=== PATIENT | male | born 1950 | race Caucasian/White ===

== ENCOUNTER 2024-02-13 06:58 | Observation (INO) ==
[2024-02-13 07:25] LABS: Basophils # (auto) 0.05 K/uL (0.00-0.20); Basophils % (auto) 0.7 %; Eosinophils # (auto) 0.28 K/uL (0.00-0.50); Eosinophils % (auto) 3.7 %; Hematocrit (blood only) 41.3 % (42.0-52.0); Hemoglobin 14.5 g/dl (14.0-18.0); Immature Granulocytes # (auto) 0.01 K/uL (0.01-0.20); Immature Granulocytes % (auto) 0.1 %; Lymphocytes # (auto) 3.29 K/uL (1.20-3.40); Lymphocytes % (auto) 43.4 %; Mean Corpuscular Hemoglobin 33.5 pg (25.0-34.0); Mean Corpuscular Hgb Conc 35.1 g/dL (32.0-36.0); Mean Corpuscular Volume 95.4 fL (80.0-100.0); Mean Platelet Volume 11.3 fL (9.4-12.4); Monocytes # (auto) 0.78 K/uL (0.11-0.59); Monocytes % (auto) 10.3 %; Neutrophils # (auto) 3.17 K/uL (1.40-6.50); Neutrophils % (auto) 41.8 %; Platelet Count 217 K/uL (130-400); RDW Coefficient of Variation 12.1 % (11.5-14.5); RDW Standard Deviation 42.1 fL (36.4-46.3); Red Blood Count 4.33 M/uL (4.70-6.10); White Blood Count 7.58 K/ul (4.8-10.8)
[2024-02-13 07:27] LABS: iSTAT Creatinine 0.9 mg/dl (0.6-1.3); iSTAT Hemoglobin 13.3 g/dl (14.0-18.0); iSTAT Ionized Calcium 1.21 mmol/l (1.12-1.32); iSTAT Potassium 3.9 mmol/L (3.3-5.0)
--- NOTE | 2024-02-13 07:30 | Emergency Department Note ---
Impression & Plan Headache, Numbness and tingling of right side of face ED Provider Note Provider: Mukesh Og MD DATE OF SERVICE: 02/13/2024 CHIEF COMPLAINT: Headache, right tongue numbness HISTORY OF PRESENT ILLNESS: Patient is a 73-year-old gentleman history of hypertension, hyperlipidemia, prostate issues presenting here today stating he went to bed normal around 10 PM last night. Woke around 530 when his got out of bed complaining of significant severe headache. Does not normally get headaches. States that it often experience of numbness prickly to the right face and right tongue. Denies significant numbness in the extremities otherwise and seems to be speaking okay. [place] a little bit lightheaded. Given some Tylenol by and symptoms persisted and EMS was activated. Patient states that headache is 3 out of 10 now improving. Still with numbness however. Moving extremities okay and denies history of CVA. Denies significant dizziness currently or vision change. Denies neck pain. No syncope or trauma reported. He is on 81 mg aspirin PAST MEDICAL HISTORY: As noted above MEDICATIONS: Reviewed home medications includes aspirin SOCIAL HISTORY: PHYSICAL EXAM: GENERAL: alert and oriented in no acute distress on stretcher Head: normocephalic and atraumatic EYES: No injection, discharge or icterus. PERRL, EOMI. NECK: Trachea midline. Supple. ENT: Mucous membranes pink and moist. Pharynx without erythema or exudate. LUNGS: Airway patent. No retractions. Breath sounds clear with good air entry bilaterally. HEART: Regular bradycardic rate and rhythm. No chest wall tenderness ABDOMEN: Soft and non-tender, without guarding or rebound. SKIN: Acyanotic, warm, dry, without rashes EXTREMITIES: Without swelling, tenderness or deformity NEUROLOGICAL: No aphasia. No facial droop or slurred speech. Tongue midline. Does endorse some decrease sensation of the right yazidi cheek and jawline but has intact motor function there on exam. Also reports some decree sensation to right lateral tongue. Normal strength and tone in the extremities. Sensation to gross touch normal. Ambulatory. EK bpm sinus bradycardia. No acute ST segment elevation or depression with a QTc of 420. CONTINUOUS CARDIAC MONITORING: was ordered and showed a heart rate of 50s bpm in sinus bradycardia Patient's laboratory studies and imaging reviewed. Differential includes Infection, dehydration, metabolic abnormality, hypo/hyperglycemia, electrolyte disturbance, anemia, hypoxia, cardiac sources, intracerebral event, toxicologic, neurologic, as well as other pathologies. IMPRESSION/MEDICAL DECISION MAKING: Patient outside the window for thrombolytics given last known well was 10 PM last night. Onset of headache acutely this morning. Is improving with some Tylenol. Question occult CVA. Does report numbness of the right face and right tongue but does not have significant motor weakness on exam. Seems atypical for Banegas's palsy. Not having other however findings of numbness or weakness in the extremities. Sent for CT scans and CT angiograms. No other infectious symptoms reported or fever and the patient's without leukocytosis or anemia on blood work here. No significant electrolyte abnormality or signs of acute renal dysfunction. No findings of hepatitis or acute heart issue with normal troponin. Full dose aspirin ordered. CT of the head per radiology without evidence of acute intracranial hemorrhage mass effect noted. CT angiograms per radiology with some atherosclerosis of the carotids without high-grade stenosis or occlusion but a high-grade stenosis of the origin of vertebral arteries and age-indeterminate occlusion of the V4 right vertebral artery. Reassessment patient states his headache and numbness have resolved. Discussed with the patient finding given his headache and numbness to discussed with him staying in the hospital for further stroke evaluation and possible TIA. Again outside the time window for TNK/tPA and no LVO. Hospitalist team contacted. DIAGNOSIS: Facial numbness, headache DISPOSITION: Hospitalist will evaluate Patient was agreeable with this plan. Past Med/Surg History Problem List (Updated 02/13/24 @ 13:34 by Mukesh Og M.D.) Prediabetes BPH (benign prostatic hyperplasia) Hyperlipidemia Hypertension Headache (Acute) Numbness and tingling of right side of face (Acute) COVID-19 (Acute) Sensorineural hearing loss of both ears Encounter for pre-operative examination Medical History Sciatica Osteoarthritis DDD (degenerative disc disease) Surgical History S/P eye surgery right eye - muscle tightened S/P cataract extraction and insertion of intraocular lens bilateral History of tooth extraction S/P wrist surgery left History of herniorrhaphy Right inguinal hernia repair History of heart artery stent x1 LAD. placed 21 years ago History of cardiac cath 21 years ago - cp - x 1 stent LAD - follows w/ dr. thomas Family History Other Cancer Coronary heart disease Diabetes Hypertension Social History Smoking Status: Never smoker Second Hand Exposure: No; Do You Dip or Chew Tobacco: No; Tobacco Cessation Education Requested by Patient: No Hx Alcohol Use: No Hx Substance Use: No Preferred Language: Wolof Communication Ability: Effective Cellular Equipment Installer Required: No Beliefs That Will Affect Care: None Current Living Situation: Spouse Other Information That Helps Us Care for You: No Feels Safe at Home: Yes Safety Concerns: Feels Safe At This Time Assistive Devices: None Allergies Allergies Allergy/AdvReac Type Severity Reaction Status Date / Time No Known Allergies Allergy Verified 06/11/18 09:39 Home Meds Home Medications Medication Instructions Recorded Confirmed aspirin 81 mg tablet,delayed 81 mg PO QPM 05/27/18 02/13/24 release atorvastatin 80 mg tablet 80 mg PO QPM 05/27/18 02/13/24 dutasteride 0.5 mg capsule 0.5 mg PO QPM 05/27/18 02/13/24 (Avodart) metoprolol succinate 50 mg 50 mg PO QPM 05/27/18 02/13/24 tablet,extended release 24 hr losartan 100 mg tablet 100 mg PO QAM 02/13/24 02/13/24 sildenafil (pulm.hypertension) 20 See Rx Instructions .Route .COMPLEX 02/13/24 02/13/24 mg tablet Results & Data (ED) Vital Signs Vital Signs - 24 hr 02/13/24 07:05 02/13/24 07:13 02/13/24 07:42 Temperature 36.4 C L Temperature Source Oral Pulse Rate 52 L 55 L Pulse Rhythm Regular Pulse Strength Normal Respiratory Rate 18 Respiratory Effort / Characteristics Non-Labored Respiratory Depth Normal Respiratory Pattern Regular Blood Pressure 183/75 H Blood Pressure Mean 111 Blood Pressure Position Lying Pulse Oximetry 95 97 Oxygen Delivery Method Room Air Room Air Oxygen Flow Rate 0 Sepsis Recent Fever Within 48 Hours No Sepsis New/Unexplained Change in Mental Status N/A Sepsis Action Taken by Nursing No Action Required 02/13/24 08:30 Temperature Temperature Source Pulse Rate 58 L Pulse Rhythm Pulse Strength Respiratory Rate 15 Respiratory Effort / Characteristics Respiratory Depth Respiratory Pattern Blood Pressure 131/69 Blood Pressure Mean 89 Blood Pressure Position Pulse Oximetry 95 Oxygen Delivery Method Oxygen Flow Rate Sepsis Recent Fever Within 48 Hours Sepsis New/Unexplained Change in Mental Status Sepsis Action Taken by Nursing Laboratory Data 02/13/24 07:10 02/13/24 07:10 Lab Results 02/13/24 02/13/24 02/13/24 Range/Units 07:10 07:16 07:21 WBC 7.58 (4.8-10.8) K/ul RBC 4.33 L (4.70-6.10) M/uL Hgb 14.5 (14.0-18.0) g/dl POC Hgb 13.3 L (14.0-18.0) g/dl Hct 41.3 L (42.0-52.0) % POC Hct 39 L (42-52) % MCV 95.4 (80.0-100.0) fL MCH 33.5 (25.0-34.0) pg MCHC 35.1 (32.0-36.0) g/dL RDW Std Deviation 42.1 (36.4-46.3) fL RDW Coeff of Trevor 12.1 (11.5-14.5) % Plt Count 217 (130-400) K/uL MPV 11.3 (9.4-12.4) fL Immature Gran % (Auto) 0.1 % Neut % (Auto) 41.8 % Lymph % (Auto) 43.4 % [place] % (Auto) 10.3 % Eos % (Auto) 3.7 % Baso % (Auto) 0.7 % Neut # (Auto) 3.17 (1.40-6.50) K/uL Lymph # (Auto) 3.29 (1.20-3.40) K/uL [place] # (Auto) 0.78 H (0.11-0.59) K/uL Eos # (Auto) 0.28 (0.00-0.50) K/uL Baso # (Auto) 0.05 (0.00-0.20) K/uL Immature Gran # (Auto) 0.01 (0.01-0.20) K/uL PT 10.4 (9.0-12.0) Seconds INR 1.0 (0.9-1.1) APTT 23 (21-31) Seconds PTT Ratio 0.9 POC Sodium 142 (135-144) mmol/L Sodium 141 (136-145) mmol/L POC Potassium 3.9 (3.3-5.0) mmol/L Potassium 4.0 (3.5-5.1) mmol/L POC Chloride 108 (101-112) mmol/L Chloride 110 H (98-107) mmol/L Carbon Dioxide 25 (21-32) mmol/L POC Total CO2 23 L (24-31) mmol/L Anion Gap 6 (3-11) POC Anion Gap 15.0 L (16-25) mmol/L POC BUN 26 H (7-18) mg/dl BUN 29 H (6-23) mg/dl Creatinine 0.91 (0.6-1.4) mg/dl POC Creatinine 0.9 (0.6-1.3) mg/dl Est Cr Clr Drug Dosing 65.2 ml/min Est GFR ( Amer) 96.6 ml/min Est GFR (Non-Af Amer) 83.3 ml/min BUN/Creatinine Ratio 31.9 H (10-20) Glucose 123 H (70-99(Fasting)) mg/dl POC Glucose 130 H (70-99) mg/dl POC Glucose (other) 123 H (70-99) mg/dl Calcium 9.1 (8.6-10.3) mg/dl POC Ioniz Calcium [place] 1.21 (1.12-1.32) mmol/l Magnesium 2.3 (1.7-2.4) mg/dl Total Bilirubin 0.9 (0.2-1.0) mg/dl AST 18 (13-39) U/L ALT 16 (7-52) U/L Alkaline Phosphatase 71 (34-104) U/L Troponin I High Sens 3.6 (0-20) pg/ml Total Protein 6.8 (6.0-8.3) gm/dl Albumin 4.1 (3.4-5.0) gm/dl Globulin 2.7 (2.5-4.0) gm/dl Albumin/Globulin Ratio 1.5 (0.9-2) Administered Medications Enoxaparin Sodium (Enoxaparin Inj 40 Mg/0.4 Ml Syr) 40 mg SQ Q24H LALITO Stop: 03/14/24 10:59 Last Admin: 02/13/24 11:33 Dose: 40 mg Documented By: PRABHU Discontinued Medications Aspirin (Aspirin Chew 324 Mg) 324 mg PO NOW STA Stop: 02/13/24 08:03 Last Admin: 02/13/24 08:05 Dose: 324 mg Documented By: REZA Clopidogrel Bisulfate (Clopidogrel Bisulfate 75 Mg Tab) 75 mg PO NOW ONE Stop: 02/13/24 08:24 Last Admin: 02/13/24 09:17 Dose: 75 mg Documented By: REZA Gadobutrol (Gadobutrol 65ml Vial) 6.5 ml IV ONCE ONE Stop: 02/13/24 10:54 Last Admin: 02/13/24 10:54 Dose: 6.5 ml Documented By: JESSICA Ioversol (Optiray 320 125ml) 112 ml IV ONCE ONE Stop: 02/13/24 07:35 Last Admin: 02/13/24 07:35 Dose: 112 ml Documented By: KIAN Imaging Data Radiologist's Impression: Head CT 02/13/24 07:05 CT SCAN OF THE BRAIN WITHOUT IV CONTRAST CLINICAL HISTORY: Neurological deficit. Stroke like symptoms. COMPARISON STUDY: No priors. TECHNIQUE: Unenhanced axial CT scan of the brain is performed from the vertex to the skull base. A dose lowering technique was utilized adhering to the principles of ALARA. FINDINGS: Brain parenchyma: There is age-related involutional change noting mild subcortical and periventricular microangiopathic disease. There is no hemorrhage, mass effect, or evidence of acute territorial ischemia by CT criteria. Day-white matter differentiation is preserved. No extra-axial fluid collection is seen. Ventricles, sulci, cisterns: Prominent secondary to involutional change. Intracranial vasculature: There is atherosclerotic calcification of the cavernous carotid and vertebral arteries. Calvarium: Unremarkable. Sinuses and mastoids: There is mild mucosal thickening within the maxillary antra. The remaining paranasal sinuses are clear. The mastoid air cells are well pneumatized. Orbits: The bony orbits are grossly intact. IMPRESSION: There is no hemorrhage, mass effect, or evidence of acute territorial ischemia by CT criteria. ACT 112: Negative or not required by law. Electronically signed by: Leonardo Aguilera M.D. 02/13/2024 7:56 AM Head CTA 02/13/24 07:05 CT angio head w con, CT angio neck with con CLINICAL HISTORY: 73 years-old Male with neuro deficit, acute stroke suspected. Acute strokelike symptoms COMPARISON STUDY: Head CT of same day TECHNIQUE: Following the IV administration of 112 cc of Optiray, CT angiogram of the head and neck was performed from the aortic arch to the skull apex. Images are reviewed in the axial, sagittal, and coronal planes. 3-D MIPS images are created and assessed. IV contrast was administered without complication. All measurements were obtained according to NASCET criteria. A dose lowering technique was utilized adhering to the principles of ALARA. CT DOSE: 1158.96 mGy.cm FINDINGS: CT ANGIOGRAM OF THE HEAD AND NECK: Three-vessel morphology of the thoracic aortic arch. Patency of the innominate and image subclavian arteries. Patent common carotid arteries. There is a least moderate atherosclerosis of the carotid bulbs and proximal cervical segments of the internal carotid arteries, right greater than left. Moderate atherosclerotic plaque of the cavernous, clinoid and supraclinoid segments without high-grade stenosis. Developmentally diminutive left A1 segment. No high-grade stenosis. The bilateral anterior and middle cerebral arteries are also patent. High-grade stenosis is noted at the origin of the dominant left vertebral artery secondary to calcified plaque. High-grade stenosis versus near occlusion involves the proximal few centimeters at the origin of the right vertebral artery. There is additional high-grade stenosis within the proximal V2 segment with occlusion of the V4 segment. The basilar and posterior cerebral arteries are patent. Dural venous sinuses appear patent. Lung apices are clear without pneumothorax. No acute fracture. Unremarkable soft tissues. Volume loss with opacification of the right maxillary sinus compatible with chronic sinus disease. IMPRESSION: 1. High grade stenoses at the origins of the vertebral arteries with age- indeterminate occlusion of the V4 segment right vertebral artery. 2. Moderate atherosclerosis of the internal carotid arteries without high-grade stenosis or occlusion. 3. No aneurysm or dissection. ACT 112: Negative or not required by law. The above report was generated using voice recognition software. It may contain grammatical, syntax or spelling errors. Electronically signed by: Tylor Whipple M.D. 02/13/2024 8:24 AM Neck CTA 02/13/24 07:05 CT angio head w con, CT angio neck with con CLINICAL HISTORY: 73 years-old Male with neuro deficit, acute stroke suspected. Acute strokelike symptoms COMPARISON STUDY: Head CT of same day TECHNIQUE: Following the IV administration of 112 cc of Optiray, CT angiogram of the head and neck was performed from the aortic arch to the skull apex. Images are reviewed in the axial, sagittal, and coronal planes. 3-D MIPS images are created and assessed. IV contrast was administered without complication. All measurements were obtained according to NASCET criteria. A dose lowering technique was utilized adhering to the principles of ALARA. CT DOSE: 1158.96 mGy.cm FINDINGS: CT ANGIOGRAM OF THE HEAD AND NECK: Three-vessel morphology of the thoracic aortic arch. Patency of the innominate and image subclavian arteries. Patent common carotid arteries. There is a least moderate atherosclerosis of the carotid bulbs and proximal cervical segments of the internal carotid arteries, right greater than left. Moderate atherosclerotic plaque of the cavernous, clinoid and supraclinoid segments without high-grade stenosis. Developmentally diminutive left A1 segment. No high-grade stenosis. The bilateral anterior and middle cerebral arteries are also patent. High-grade stenosis is noted at the origin of the dominant left vertebral artery secondary to calcified plaque. High-grade stenosis versus near occlusion involves the proximal few centimeters at the origin of the right vertebral artery. There is additional high-grade stenosis within the proximal V2 segment with occlusion of the V4 segment. The basilar and posterior cerebral arteries are patent. Dural venous sinuses appear patent. Lung apices are clear without pneumothorax. No acute fracture. Unremarkable soft tissues. Volume loss with opacification of the right maxillary sinus compatible with chronic sinus disease. IMPRESSION: 1. High grade stenoses at the origins of the vertebral arteries with age- indeterminate occlusion of the V4 segment right vertebral artery. 2. Moderate atherosclerosis of the internal carotid arteries without high-grade stenosis or occlusion. 3. No aneurysm or dissection. ACT 112: Negative or not required by law. The above report was generated using voice recognition software. It may contain grammatical, syntax or spelling errors. Electronically signed by: Tylor Whipple M.D. 02/13/2024 8:24 AM Discharge Plan Visit Data Chief Complaint: Stroke/CVA Symptoms ED Provider: Mukesh Og Discharge Problem: Headache, Numbness and tingling of right side of face Patient Disposition: Admitted As Inpatient Discharge Instructions Interventions: ED Discharge Assessment Last Done: 02/13/24 11:39
[2024-02-13] MEDS: OPTIRAY 320 125ml IV ONE (07:35)
[2024-02-13 07:45] LABS: Albumin Globulin Ratio 1.5 (0.9-2); Albumin Level 4.1 gm/dl (3.4-5.0); BUN Creatinine Ratio 31.9 (10-20); Bilirubin,Total 0.9 mg/dl (0.2-1.0); Calcium 9.1 mg/dl (8.6-10.3); Creatinine Clr Calc Pharmacy 65.2 ml/min; Est GFR (African American) 96.6 ml/min; Est GFR (Non-African American) 83.3 ml/min; Globulin 2.7 gm/dl (2.5-4.0); Magnesium 2.3 mg/dl (1.7-2.4); Total Protein 6.8 gm/dl (6.0-8.3)
[2024-02-13 07:51] LABS: Troponin I High Sensitivity 3.6 pg/ml (0-20)
[2024-02-13 07:53] LABS: Partial Thromboplastin Ratio 0.9; Partial Thromboplastin Time 23 Seconds (21-31); Prothrombin Time 10.4 Seconds (9.0-12.0)
--- NOTE | 2024-02-13 07:58 | CT Scan Report ---
CT SCAN OF THE BRAIN WITHOUT IV CONTRAST CLINICAL HISTORY: Neurological deficit. Stroke like symptoms. COMPARISON STUDY: No priors. TECHNIQUE: Unenhanced axial CT scan of the brain is performed from the vertex to the skull base. A do se lowering technique was utilized adhering to the principles of ALARA. FINDINGS: Brain parenchyma: There is age-related involutional change noting mild subcortical and periventricula r microangiopathic disease. There is no hemorrhage, mass effect, or evidence of acute territorial isc hemia by CT criteria. Day-white matter differentiation is preserved. No extra-axial fluid collection is seen. Ventricles, sulci, cisterns: Prominent secondary to involutional change. Intracranial vasculature: There is atherosclerotic calcification of the cavernous carotid and vertebr al arteries. Calvarium: Unremarkable. Sinuses and mastoids: There is mild mucosal thickening within the maxillary antra. The remaining para nasal sinuses are clear. The mastoid air cells are well pneumatized. Orbits: The bony orbits are grossly intact. IMPRESSION: There is no hemorrhage, mass effect, or evidence of acute territorial ischemia by CT estefani payne. ACT 112: Negative or not required by law. Electronically signed by: Leonardo Aguilera M.D. 02/13/2024 7:56 AM
[2024-02-13] MEDS: ASPIRIN CHEW 324 MG PO STA (08:05)
--- NOTE | 2024-02-13 08:26 | CT Scan Report ---
CT angio head w con, CT angio neck with con CLINICAL HISTORY: 73 years-old Male with neuro deficit, acute stroke suspected. Acute strokelike s ymptoms COMPARISON STUDY: Head CT of same day TECHNIQUE: Following the IV administration of 112 cc of Optiray, CT angiogram of the head and neck wa s performed from the aortic arch to the skull apex. Images are reviewed in the axial, sagittal, and c oronal planes. 3-D MIPS images are created and assessed. IV contrast was administered without complic ation. All measurements were obtained according to NASCET criteria. A dose lowering technique was uti lized adhering to the principles of ALARA. CT DOSE: 1158.96 mGy.cm FINDINGS: CT ANGIOGRAM OF THE HEAD AND NECK: Three-vessel morphology of the thoracic aortic arch. Patency of the innominate and image subclavian a rteries. Patent common carotid arteries. There is a least moderate atherosclerosis of the carotid bul bs and proximal cervical segments of the internal carotid arteries, right greater than left. Moderate atherosclerotic plaque of the cavernous, clinoid and supraclinoid segments without high-grade stenos is. Developmentally diminutive left A1 segment. No high-grade stenosis. The bilateral anterior and mi ddle cerebral arteries are also patent. High-grade stenosis is noted at the origin of the dominant left vertebral artery secondary to calcifi ed plaque. High-grade stenosis versus near occlusion involves the proximal few centimeters at the júnior gin of the right vertebral artery. There is additional high-grade stenosis within the proximal V2 seg ment with occlusion of the V4 segment. The basilar and posterior cerebral arteries are patent. Dural venous sinuses appear patent. Lung apices are clear without pneumothorax. No acute fracture. Unremarkable soft tissues. Volume loss with opacification of the right maxillary sinus compatible with chronic sinus disease. IMPRESSION: 1. High grade stenoses at the origins of the vertebral arteries with age-indeterminate occlusion of t he V4 segment right vertebral artery. 2. Moderate atherosclerosis of the internal carotid arteries without high-grade stenosis or occlusion . 3. No aneurysm or dissection. ACT 112: Negative or not required by law. The above report was generated using voice recognition software. It may contain grammatical, syntax o r spelling errors. Electronically signed by: Tylor Whipple M.D. 02/13/2024 8:24 AM
--- NOTE | 2024-02-13 09:06 | History & Physical Report ---
Date of Service February 13, 2024 Assessment & Plan (1) Numbness and tingling of right side of face: (2) Headache: Plan: John Miles is a 73y/o M with PMHx of hyperlipidemia [on aspirin therapy], prediabetes, hypertension and other problems listed below who presented to the ED via EMS for evaluation of new-onset headache, right-sided facial numbness. Vitals on admission: BP 183/75 [most recent reading 139/68 ~9AM], RR 18, HR 55 and SpO2 97% on RA. CBC rather unremarkable, no acute electrolyte abnormalities. Glucose slightly elevated @ 130 on admission, but he is currently diet-c ontrolled. Negative troponin, liver enzymes w/in normal range. Creatinine 0.9, GFR 83.3 --> No signs of acute kidney impairment. Head CT negative for any hemorrhage, mass effect or evidence of acute territorial ischemia. 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 * Moderate atherosclerosis of the internal carotid arteries w/o high-grade stenosis or occlusion. STROKE WORK-UP --> Patient was loaded w/ aspirin and Plavix in the ED. -MRI brain, echo ordered --> Follow results. -HH/carb consistent diet in place, passed dysphagia screening. -Speech therapy, PT/OT ordered. Bowel regimen in place PRN. -Continue w/ daily aspirin, Plavix regimen. A1C, lipid panel, CBC and BMP in AM. -Neuro consult on place, frequent neuro checks. Continuous cardiac monitoring. (3) Hypertension: Plan: As per above, patient slightly hypertensive on admission w/ BP 183/75. Most recent BP 139/68. -Will continue [employer] metoprolol succinate and losartan, PRN IV 10mg labetalol ordered for SBP>180. (4) BPH (benign prostatic hyperplasia): Plan: -Continue [employer] dutasteride (5) Prediabetes: Plan: Glucose slightly elevated @ 130 on admission, but he is currently diet-contro lled. -Last Hgb A1C 5.8 on 11/11/23, repeat Hgb A1C in AM. -As per above, carb consistent/HH diet in place. (6) Hyperlipidemia: Plan: Does have hx of premature CAD according to chart review findings, he routinely sees [facility] on an outpatient basis. -Continue [employer] atorvastatin therapy while hospitalized. DVT Prophylaxis: Lovenox Code Status: Full Code PCP: PatyVT Prophylaxis: Lovenox Code Status: Full Code PCP: Triny Izquierdo MD Dispo: Admit to PCU/Telemetry Patient seen in collaboration with Dr. Guzman. Please see addendum. I spent a total of 75 minutes coordinating, documenting, and providing care for this patient excluding time spent in the performance of separately billed services. This included personally reviewing all current laboratories and imaging studies, medical reconciliation, outpatient chart review and discussion with specialists. jamal Izquierdo MD Dispo: Admit to PCU/Telemetry Patient seen in collaboration with Dr. Guzman. Please see addendum. I spent a total of 75 minutes coordinating, documenting, and providing care for this patient excluding time spent in the performance of separately billed services. This included personally reviewing all current laboratories and imaging studies, medical reconciliation, outpatient chart review and discussion with specialists. This chart was completed in part utilizing Speech Voice Recognition Software. Grammatical errors, random word insertions, pronoun errors, and incomplete sentences are an occasional consequence of this system due to software limitations, ambient noise, and hardware issues. Any formal questions or concerns about the content, text, or information contained within the body of this dictation should be directly addressed to the provider for clarification. History of Present Illness Chief Complaint: Headache, R-sided facial numbness Primary Care Provider: Triny Izquierdo MD John Miles is a 73y/o M with PMHx of hyperlipidemia [on aspirin therapy], prediabetes, hypertension and other problems listed below who presented to the ED via EMS for evaluation of new-onset headache, right-sided facial numbness. History obtained from patient, and associated ED/PCP/specialist records. Patient seen at bedside with Dr. Guzman. Patient is accompanied in the room by his , who provides additional history. Patient states he was awoken this morning by his ~5am and was complaining of a new-onset headache. He does NOT normally get headaches often at baseline. States he also had some numbness/tingling of the right side of his face, which prompted a call to EMS. Denies any extremity numbness/tingling at this time. He was dizzy upon standing out of bed this morning, but that has since resolved. No dysphagia concerns, moving extremities just fine. No history of CVA, no vision changes since the onset of this event. Denies any urinary/bowel habit changes, abdominal pain, SOB or chest pain. Patient states this episode felt "felt like a hangover." States his headache and R-sided facial numbness have mostly resolved following administration aspirin and clopidogrel in the ED. He had previously taken some Tylenol at home w/o much to any relief. No syncope or recent trauma, feels OK at this time. Last known well ~10pm last night according to ED documentation, outside of window for TNK/tPA administration. Vitals on admission: BP 183/75 [most recent reading 139/68 ~9AM], RR 18, HR 55 and SpO2 97% on RA. CBC rather unremarkable, no acute electrolyte abnormalities. Glucose slightly elevated @ 130 on admission, but he is currently diet- controlled [prediabetic, as per above]. Negative troponin, liver enzymes w/in normal range. Creatinine 0.9, GFR 83.3 --> No signs of acute kidney impairment. Head CT negative for any hemorrhage, mass effect or evidence of acute territorial ischemia. 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 * Moderate atherosclerosis of the internal carotid arteries w/o high-grade stenosis or occlusion. Allergies Allergy/AdvReac Type Severity Reaction Status Date / Time No Known Allergies Allergy Verified 06/11/18 09:39 Home Medications Medication Instructions Recorded Confirmed Type aspirin 81 mg tablet,delayed 81 mg PO QPM 05/27/18 02/13/24 History release atorvastatin 80 mg tablet 80 mg PO QPM 05/27/18 02/13/24 History dutasteride 0.5 mg capsule 0.5 mg PO QPM 05/27/18 02/13/24 History (Avodart) metoprolol succinate 50 mg 50 mg PO QPM 05/27/18 02/13/24 History tablet,extended release 24 hr losartan 100 mg tablet 100 mg PO QAM 02/13/24 02/13/24 History sildenafil (pulm.hypertension) 20 See Rx Instructions .Route .COMPLEX 02/13/24 02/13/24 History mg tablet Past Med/Surg History Problem List Prediabetes BPH (benign prostatic hyperplasia) Hyperlipidemia Hypertension Headache Numbness and tingling of right side of face COVID-19 (Acute) Sensorineural hearing loss of both ears Encounter for pre-operative examination Medical History Sciatica Osteoarthritis DDD (degenerative disc disease) Surgical History S/P eye surgery right eye - muscle tightened S/P cataract extraction and insertion of intraocular lens bilateral History of tooth extraction S/P wrist surgery left History of herniorrhaphy Right inguinal hernia repair History of heart artery stent x1 LAD. placed 21 years ago History of cardiac cath 21 years ago - cp - x 1 stent LAD - follows w/ dr. thomas Family History Other Cancer Coronary heart disease Diabetes Hypertension Social History Smoking Status: Never smoker Second Hand Exposure: No; Do You Dip or Chew Tobacco: No; Hx Alcohol Use: Yes Alcohol type: wine Hx Substance Use: No Preferred Language: Salvadorean Communication Ability: Effective Genetic Coordinator Required: No Beliefs That Will Affect Care: None Current Living Situation: Spouse Feels Safe at Home: Yes Assistive Devices: Walker Review of Systems Review of Systems: At least ten systems reviewed and negative, except as noted in the HPI. Physical Exam Physical Exam: Please see Dr. Guzman' addendum for physical examination findings, as we saw the patient together on admission. Results & Data Results & Data Vital Signs (Past 12 Hours) Vital Signs Temp Pulse Resp BP Pulse Ox O2 Del Method O2 Flow Rate 02/13/24 07:42 97 Room Air 0 02/13/24 07:13 55 L 02/13/24 07:05 36.4 C L 52 L 18 183/75 H 95 Room Air Laboratory Results Short CBC 02/13/24 Range/Units 07:10 WBC 7.58 (4.8-10.8) K/ul Hgb 14.5 (14.0-18.0) g/dl Hct 41.3 L (42.0-52.0) % Plt Count 217 (130-400) K/uL BMP 02/13/24 07:10 Sodium 141 Potassium 4.0 Chloride 110 H Carbon Dioxide 25 BUN 29 H Creatinine 0.91 Glucose 123 H Calcium 9.1 Liver Function 02/13/24 Range/Units 07:10 Total Bilirubin 0.9 (0.2-1.0) mg/dl AST 18 (13-39) U/L ALT 16 (7-52) U/L Alkaline Phosphatase 71 (34-104) U/L Albumin 4.1 (3.4-5.0) gm/dl Diagnostic Findings Head CT 02/13/24 07:05 CT SCAN OF THE BRAIN WITHOUT IV CONTRAST CLINICAL HISTORY: Neurological deficit. Stroke like symptoms. COMPARISON STUDY: No priors. TECHNIQUE: Unenhanced axial CT scan of the brain is performed from the vertex to the skull base. A dose lowering technique was utilized adhering to the [facility] of [facility]. FINDINGS: Brain parenchyma: There is age-related involutional change noting mild subcortical and periventricular microangiopathic disease. There is no hemorrhage, mass effect, or evidence of acute territorial ischemia by CT criteria. Day-white matter differentiation is preserved. No extra-axial fluid collection is seen. Ventricles, sulci, cisterns: Prominent secondary to involutional change. Intracranial vasculature: There is atherosclerotic calcification of the cavernous carotid and vertebral arteries. Calvarium: Unremarkable. Sinuses and mastoids: There is mild mucosal thickening within the maxillary antra. The remaining paranasal sinuses are clear. The mastoid air cells are well pneumatized. Orbits: The bony orbits are grossly intact. IMPRESSION: There is no hemorrhage, mass effect, or evidence of acute territorial ischemia by CT criteria. ACT 112: Negative or not required by law. Electronically signed by: Leonardo Aguilera M.D. 02/13/2024 7:56 AM Head CTA 02/13/24 07:05 CT angio head w con, CT angio neck with con CLINICAL HISTORY: 73 years-old Male with neuro deficit, acute stroke suspected. Acute strokelike symptoms COMPARISON STUDY: Head CT of same day TECHNIQUE: Following the IV administration of 112 cc of Optiray, CT angiogram of the head and neck was performed from the aortic arch to the skull apex. Images are reviewed in the axial, sagittal, and coronal planes. 3-D MIPS images are created and assessed. IV contrast was administered without complication. All measurements were obtained according to NASCET criteria. A dose lowering technique was utilized adhering to the principles of ALARA. CT DOSE: 1158.96 mGy.cm FINDINGS: CT ANGIOGRAM OF THE HEAD AND NECK: Three-vessel morphology of the thoracic aortic arch. Patency of the innominate and image subclavian arteries. Patent common carotid arteries. There is a least moderate atherosclerosis of the carotid bulbs and proximal cervical segments of the internal carotid arteries, right greater than left. Moderate atherosclerotic plaque of the cavernous, clinoid and supraclinoid segments without high-grade stenosis. Developmentally diminutive left A1 segment. No high-grade stenosis. The bilateral anterior and middle cerebral arteries are also patent. High-grade stenosis is noted at the origin of the dominant left vertebral artery secondary to calcified plaque. High-grade stenosis versus near occlusion involves the proximal few centimeters at the origin of the right vertebral artery. There is additional high-grade stenosis within the proximal V2 segment with occlusion of the V4 segment. The basilar and posterior cerebral arteries are patent. Dural venous sinuses appear patent. Lung apices are clear without pneumothorax. No acute fracture. Unremarkable soft tissues. Volume loss with opacification of the right maxillary sinus compatible with chronic sinus disease. IMPRESSION: 1. High grade stenoses at the origins of the vertebral arteries with age- indeterminate occlusion of the V4 segment right vertebral artery. 2. Moderate atherosclerosis of the internal carotid arteries without high-grade stenosis or occlusion. 3. No aneurysm or dissection. ACT 112: Negative or not required by law. The above report was generated using voice recognition software. It may contain grammatical, syntax or spelling errors. Electronically signed by: Tylor Whipple M.D. 02/13/2024 8:24 AM Neck CTA 02/13/24 07:05 CT angio head w con, CT angio neck with con CLINICAL HISTORY: 73 years-old Male with neuro deficit, acute stroke suspected. Acute strokelike symptoms COMPARISON STUDY: Head CT of same day TECHNIQUE: Following the IV administration of 112 cc of Optiray, CT angiogram of the head and neck was performed from the aortic arch to the skull apex. Images are reviewed in the axial, sagittal, and coronal planes. 3-D MIPS images are created and assessed. IV contrast was administered without complication. All measurements were obtained according to NASCET criteria. A dose lowering technique was utilized adhering to the principles of ALARA. CT DOSE: 1158.96 mGy.cm FINDINGS: CT ANGIOGRAM OF THE HEAD AND NECK: Three-vessel morphology of the thoracic aortic arch. Patency of the innominate and image subclavian arteries. Patent common carotid arteries. There is a least moderate atherosclerosis of the carotid bulbs and proximal cervical segments of the internal carotid arteries, right greater than left. Moderate atherosclerotic plaque of the cavernous, clinoid and supraclinoid segments without high-grade stenosis. Developmentally diminutive left A1 segment. No high-grade stenosis. The bilateral anterior and middle cerebral arteries are also patent. High-grade stenosis is noted at the origin of the dominant left vertebral artery secondary to calcified plaque. High-grade stenosis versus near occlusion involves the proximal few centimeters at the origin of the right vertebral artery. There is additional high-grade stenosis within the proximal V2 segment with occlusion of the V4 segment. The basilar and posterior cerebral arteries are patent. Dural venous sinuses appear patent. Lung apices are clear without pneumothorax. No acute fracture. Unremarkable soft tissues. Volume loss with opacification of the right maxillary sinus compatible with chronic sinus disease. IMPRESSION: 1. High grade stenoses at the origins of the vertebral arteries with age- indeterminate occlusion of the V4 segment right vertebral artery. 2. Moderate atherosclerosis of the internal carotid arteries without high-grade stenosis or occlusion. 3. No aneurysm or dissection. ACT 112: Negative or not required by law. The above report was generated using voice recognition software. It may contain grammatical, syntax or spelling errors. Electronically signed by: Tylor Whipple M.D. 02/13/2024 8:24 AM Medications Administered Discontinued Medications Aspirin (Aspirin Chew 324 Mg) 324 mg PO NOW STA Stop: 02/13/24 08:03 Last Admin: 02/13/24 08:05 Dose: 324 mg Documented By: REZA Clopidogrel Bisulfate (Clopidogrel Bisulfate 75 Mg Tab) 75 mg PO NOW ONE Stop: 02/13/24 08:24 Last Admin: 02/13/24 09:17 Dose: 75 mg Documented By: REZA Ioversol (Optiray 320 125ml) 112 ml IV ONCE ONE Stop: 02/13/24 07:35 Last Admin: 02/13/24 07:35 Dose: 112 ml Documented By: KIAN ECG Additional Comments: EKG performed in the ED interpreted by myself and revealed the following: sinus xochitl w/ HR 53bpm, P-R Int 202ms, QT/QTc 448/420ms and QRS Dur 88ms. When compared to EKG done 06/25/23, borderline criteria for inferior infarct are NO longer present and nonspecific T wave abnormality is NO longer evident in the anterolateral leads. Code Status & VTE Plan Code Status FULL CODE VTE Prophylaxis Plan VTE Prophylaxis will be ordered: Yes Supervising Physician Co-Signing Physician Notes I have seen and discussed the case with the collaborating advanced practitioner. I agree with the above H&P. I have reviewed and confirmed the patients medical history, the findings on physical examination, and the patients diagnosis and treatment plan with NALINI and agree with the information documented. In short, Mr. Miles is a 73 year old gentleman with history of CAD s/p stent 1996, HTN, HLD, prediabetes, prior laminectomy who is admitted for evaluation of stroke like symptoms concerning for TIA. Patient was awakened by his as she was moving from bed, and upon sitting upright noted headache and right facial numbness, accompanied by dizziness. Patient states he felt unsteady and that the right side of his face from latter day, cheek, and right side of tongue felt like he received "novocaine." No reported speech impairment, cognitive impairment, motor weakness, or other sensory concerns noted. Patient states that symptoms resolved shortly upon arriving to ED, noting their duration of 2-3 hours. Patient has no history of stroke/TIA, denies family history. No tobacco use. Social Etoh. Patient denies chest pain, palpitations, edema, SOB or other acute concerns. Labs with elevated glucose. CTA with multiple areas of stenosis noted in vertebral circulation GENERAL APPEARANCE: AxOx4, generally well-appearing male, no acute distress. HEENT: NC, AT. MMM. EOMI, clear conjunctiva, oropharynx clear. NECK: Supple without lymphadenopathy. No stiffness or restricted ROM. HEART: Normal rate and regular rhythm, normal S1/S1, no m/r/g LUNGS: CTAB, moving air well. No crackles or wheezes are heard. ABDOMEN: Soft, nontender, nondistended with good bowel sounds heard. BACK: No CVAT, no obvious deformity. EXTREMITIES: Without cyanosis, clubbing or edema. NEUROLOGICAL: Grossly nonfocal. Alert and oriented, moving all 4 extremities, strength 5/5 in BUE/BLE. CN II-XII intact, formally tested. Skin: Warm and dry without any rash. #TIA #High Grade bilateral vertebral stenoses #ASCVD CTA: dominant left vertebral artery secondary to calcified plaque, High-grade stenosis versus near occlusion involves the proximal few centimeters at the origin of the right vertebral artery right facial numbness, dizziness, headache *resolved--started upon awakening this morning, resolved 2-3 hours EKG reviewed, no atrial fibrillation noted ABCD2 4 points (age, BP >140, duration >60min) loaded with asa and plavix in ED -Continue ASA and plavix -DVT ppx with lovenox -BP control <180, IV labetolol for pressures >180 prn -A1C and Lipid panel in am -Continue home statin 80mg qpm -Neuro checks -Speech, PT, OT -Symptoms resolved, plan for bedside swallow -MRI ordered -ECHO -Monitor on Tele -Neuro consult -Vascular consult given noted stenoses on imaging #HTN #Coronary artery disease s/p bare metal stent 1996 Follows Cardiology Recently increased Losartan from 50mg daily to 100mg daily Hypertensive to 180s on arrival, self limited--improved to 130s without intervention Continue home losartan 100mg qam Continue home Metoprolol 50mg qpm Continue statin as above and asa #Prediabetes A1C 01/2024 5.4% A1C in am, HH/card consistent diet DVT ppx lovenox admit tele I spent a total of 35 minutes coordinating, documenting, and providing care for this patient excluding time spent in the performance of separately billed services. All of the aforementioned completed outside of collaborating with the assigned advanced practitioner for a full treatment plan. I have reviewed the advanced practitioner's documentation, and I agree with, and take responsibility for the plan of care (2) Headache Headache type: unspecified Headache chronicity pattern: acute headache Intractability: not intractable Qualified Code(s): R51.9 - Headache, unspecified (3) Hypertension Hypertension type: unspecified Qualified Code(s): I10 - Essential (primary) hypertension (4) BPH (benign prostatic hyperplasia) Lower urinary tract symptom presence: unspecified whether lower urinary tract symptoms present Qualified Code(s): N40.0 - Benign prostatic hyperplasia without lower urinary tract symptoms (6) Hyperlipidemia Hyperlipidemia type: unspecified Qualified Code(s): E78.5 - Hyperlipidemia, unspecified
[2024-02-13] MEDS: CLOPIDOGREL BISULFATE 75 MG TAB PO ONE (09:17)
[2024-02-13] MEDS ORDERED: ALUMINUM/MAGNESIUM SUSP 30 ML UDC PO PRN (10:28)
[2024-02-13] MEDS ORDERED: PHARMACIST DISCHARGE MED REC CONSULT PRN (10:28)
[2024-02-13] MEDS ORDERED: LABETALOL HCL IV 5 MG/ML 20ML IV PRN (10:28)
[2024-02-13] MEDS ORDERED: POLYETHYLENE (MIRALAX) 17 GM PACK PO PRN (10:28)
[2024-02-13] MEDS ORDERED: MAGNESIUM HYDROXIDE SUSP 30 ML UDC PO PRN (10:28)
[2024-02-13] MEDS ORDERED: ONDANSETRON INJ 2 MG/ML 2 ML VIAL IV PRN (10:28)
[2024-02-13] MEDS ORDERED: ACETAMINOPHEN 325 MG TAB PO PRN (10:28)
[2024-02-13] MEDS: GADOBUTROL 65ML VIAL IV ONE (10:54)
[2024-02-13] MEDS: ENOXAPARIN INJ 40 MG/0.4 ML SYR SQ SCH (11:33)
--- NOTE | 2024-02-13 11:33 | Magnetic Resonance Report ---
MR brain wo/w con HISTORY: 73 years-old Male Stroke work-up acute strokelike symptoms COMPARISON: CT head, CTA head and neck studies of same day TECHNIQUE: Multiple and multisequence MRI of the brain was obtained with and without IV contrast. FINDINGS: No restricted diffusion to suggest acute or subacute infarct. Midline structures appear unremarkable. Degenerative changes of the cervical spine. No acute intracranial hemorrhage, midline shift, abnorma l extra-axial collection, hydrocephalus or intra-axial mass. No pathologic blooming artifact. Mild in volutional changes with mild scattered T2/FLAIR hyperintense foci throughout the white matter. Age-indeterminate occlusion of the distal right vertebral artery demonstrated. The remaining major in tracranial flow voids appear patent. Prior bilateral antral repair. Chronic volume loss and opacifica tion of the right maxillary sinus. No abnormal enhancement. IMPRESSION: 1. No acute intracranial abnormality. No acute or subacute infarct. 2. Mild chronic microvascular ischemic disease. 3. No abnormal enhancement. 4. Age-indeterminate occlusion of the V4 segment right vertebral artery. ACT 112: Negative or not required by law. The above report was generated using voice recognition software. It may contain grammatical, syntax o r spelling errors. Electronically signed by: Tylor Whipple M.D. 02/13/2024 11:31 AM
--- NOTE | 2024-02-13 14:08 | Neurology Consultation ---
Date of Consultation February 13, 2024 Assessment & Plan (1) Numbness and tingling of right side of face: Symptoms resolved within hours, MRI negative for stroke Recommend treat as TIA Recommend continued work up to include the following: Echocardiogram as part of complete stroke workup Continue frequent neurological assessments Obtain stat CT brain without contrast for any acute neurological decline Continue to monitor/control blood pressure & blood glucose Continue to monitor telemetry closely Recommend ZioPatch at DC if no evidence of arrhythmia during inpatient monitoring Continue to monitor renal and hepatic function, keep euvolemic Metabolic workup should include hgbA1c, fasting lipids, homocysteine, TSH, D Dimer, RPR, urinalysis Recommend DAPT for at least 3 weeks Recommend high dose statin therapy indefinitely if tolerated Ok from neurology perspective for VTE prophylaxis PT/OT/SLT to eval and treat Recommend outpatient polysomnography Telehealth Consultation Telehealth Information Telehealth Information: I performed this visit using a real-time telehealth connection between my location and the patients location ([facility]). After connecting through interactive tele-video, patient was identified by name and date of and/or wristband check.Patient (or authorized healthcare pest control service representative) was informed that this was a telemedicine visit and it was being conducted confidentially over secure lines. My office door was closed and no one else was present in the room with me.Patient (or authorized healthcare pest control service representative) provided consent to proceed with the visit, expressed an understanding of privacy and security of the telemedicine visit, and gave permission to have a hospital pest control service representative in the room in order to assist with the visit and to conduct portions of the visit, as needed. I informed the patient (or authorized healthcare pest control service representative) that I reviewed their record and presented the opportunity for them to ask any questions regarding the visit today. The patient agreed to participate. History of Present Illness Reason for Consultation: 73yo male with hx HTN, hyperlipidemia, CAD with stenting and reported prediabetes presented after awakening with right facial paresthesia, feeling of dizziness. Reported symptoms lasted hours now completely resolved. States that he takes ASA and statin 80mg daily recently underwent increased dosing of losartan. Currently denies cephalgia or cervicalgia.Denies chest pain/palpitations or shortness of breath. No reported changes in vision hearing dizziness syncope seizure like activity or paresthesia. Denies recent fevers chills nausea vomiting changes in bowels or bladder. Denies recent illness or sick contacts, no reported recent travel. He has undergone emergent stroke imaging including CT brain without contrast, personally reviewed today, revealing no overt evidence of hemorrhage. CT angiographic studies of head and neck, also personally reviewed today, reveal no overt evidence of large vessel occlusion or significant/flow limiting stenosis in bilateral carotids and/or basilar artery. There is notable calcified atherosclerotic disease within bilateral vertebral arteries and possible V2, V4 occlusions on the right side. MRI brain fortunately reveals no evidence of acute ischemic stroke. I have perf ormed televideo consultation. He is alert & oriented; able to answer all questions appropriately, name objects on televideo monitor, repeat phrases and perform complex/embedded commands without deficit. Neurological exam is non lateralizing/nonfocal in terms of motor strength and coordination. NIHSS=0. at bedside reports he snores. He denies awakening from sleep short of breath or with chest pain or palpitations. He is agreeable to recommendation for DAPT and statin therapy in addition to outpatient sleep study and continued follow up with adult neurology. Attending Physician: Edie Guzman MD Allergies Allergy/AdvReac Type Severity Reaction Status Date / Time No Known Allergies Allergy Verified 06/11/18 09:39 Home Medications Medication Instructions Recorded Confirmed Type aspirin 81 mg tablet,delayed 81 mg PO QPM 05/27/18 02/13/24 History release atorvastatin 80 mg tablet 80 mg PO QPM 05/27/18 02/13/24 History dutasteride 0.5 mg capsule 0.5 mg PO QPM 05/27/18 02/13/24 History (Avodart) metoprolol succinate 50 mg 50 mg PO QPM 05/27/18 02/13/24 History tablet,extended release 24 hr losartan 100 mg tablet 100 mg PO QAM 02/13/24 02/13/24 History sildenafil (pulm.hypertension) 20 See Rx Instructions .Route .COMPLEX 02/13/24 02/13/24 History mg tablet Patient History Medical History Sciatica Osteoarthritis DDD (degenerative disc disease) Surgical History S/P eye surgery right eye - muscle tightened S/P cataract extraction and insertion of intraocular lens bilateral History of tooth extraction S/P wrist surgery left History of herniorrhaphy Right inguinal hernia repair History of heart artery stent x1 LAD. placed 21 years ago History of cardiac cath 21 years ago - cp - x 1 stent LAD - follows w/ dr. thomas Family History Other Cancer Coronary heart disease Diabetes Hypertension Social History Smoking Status: Never smoker Second Hand Exposure: No; Do You Dip or Chew Tobacco: No; Tobacco Cessation Education Requested by Patient: No Hx Alcohol Use: No Hx Substance Use: No Preferred Language: Tamazight Communication Ability: Effective Life Skills Trainer Required: No Beliefs That Will Affect Care: None Current Living Situation: Spouse Other Information That Helps Us Care for You: No Feels Safe at Home: Yes Safety Concerns: Feels Safe At This Time Assistive Devices: None Physical Exam Neurological Examination: Mental Status: Awake and alert. Oriented to person, place, and time. Fluency naming repetition and comprehension appear grossly intact. Affect remains appropriate. CN testing: I: Denies changes in ability to smell II:Reports no changes in visual acuity III/IV/: No evidence of gaze preference, hippus, nystagmus or roving eye movements V: Facial sensation reportedly grossly intact to light touch bilaterally VII: Facial movements appear without evidence of asymmetry VIII: Hearing appears grossly intact to loud voice bilaterally IX/X: Palate appears to elevate symmetrically XI: Shoulder shrug appears symmetric/ grossly intact bilaterally XII: Tongue protrudes midline without evidence of biting Motor exam: Strength appears grossly intact/symmetric in all extremities Sensory: Sensation is reportedly grossly intact throughout Coordination: Finger to nose and heel to morgan were intact. No apparent evidence of dysmetria or dysdiadochokinesia Reflexes: Deferred Gait: Deferred Results & Data Vital Signs (Past 12 Hours) Vital Signs Temp Pulse Pulse Resp BP BP Pulse Ox 02/13/24 11:56 36.9 C 50 L 14 177/83 H 98 02/13/24 10:43 37.0 C 72 12 146/70 H 97 02/13/24 09:00 53 L 15 139/68 97 02/13/24 08:30 58 L 15 131/69 95 02/13/24 07:42 97 02/13/24 07:13 55 L 02/13/24 07:05 36.4 C L 52 L 18 183/75 H 95 O2 Del Method O2 Flow Rate 02/13/24 11:56 Room Air 02/13/24 10:43 Room Air 02/13/24 09:00 02/13/24 08:30 02/13/24 07:42 Room Air 0 02/13/24 07:13 02/13/24 07:05 Room Air Laboratory Results Abnormal lab results 02/13/24 02/13/24 02/13/24 Range/Units 07:10 07:16 07:21 RBC 4.33 L (4.70-6.10) M/uL POC Hgb 13.3 L (14.0-18.0) g/dl Hct 41.3 L (42.0-52.0) % POC Hct 39 L (42-52) % [place]upe # (Auto) 0.78 H (0.11-0.59) K/uL Chloride 110 H (98-107) mmol/L POC Total CO2 23 L (24-31) mmol/L POC Anion Gap 15.0 L (16-25) mmol/L POC BUN 26 H (7-18) mg/dl BUN 29 H (6-23) mg/dl BUN/Creatinine Ratio 31.9 H (10-20) Glucose 123 H (70-99(Fasting)) mg/dl POC Glucose 130 H (70-99) mg/dl POC Glucose (other) 123 H (70-99) mg/dl Diagnostic Findings Head CT 02/13/24 07:05 CT SCAN OF THE BRAIN WITHOUT IV CONTRAST CLINICAL HISTORY: Neurological deficit. Stroke like symptoms. COMPARISON STUDY: No priors. TECHNIQUE: Unenhanced axial CT scan of the brain is performed from the vertex to the skull base. A dose lowering technique was utilized adhering to the principles of ALARA. FINDINGS: Brain parenchyma: There is age-related involutional change noting mild subcortical and periventricular microangiopathic disease. There is no hemorrhage, mass effect, or evidence of acute territorial ischemia by CT criteria. Day-white matter differentiation is preserved. No extra-axial fluid collection is seen. Ventricles, sulci, cisterns: Prominent secondary to involutional change. Intracranial vasculature: There is atherosclerotic calcification of the cavernous carotid and vertebral arteries. Calvarium: Unremarkable. Sinuses and mastoids: There is mild mucosal thickening within the maxillary antra. The remaining paranasal sinuses are clear. The mastoid air cells are well pneumatized. Orbits: The bony orbits are grossly intact. IMPRESSION: There is no hemorrhage, mass effect, or evidence of acute territorial ischemia by CT criteria. ACT 112: Negative or not required by law. Electronically signed by: Leonardo Aguilera M.D. 02/13/2024 7:56 AM Head CTA 02/13/24 07:05 CT angio head w con, CT angio neck with con CLINICAL HISTORY: 73 years-old Male with neuro deficit, acute stroke suspected. Acute strokelike symptoms COMPARISON STUDY: Head CT of same day TECHNIQUE: Following the IV administration of 112 cc of Optiray, CT angiogram of the head and neck was performed from the aortic arch to the skull apex. Images are reviewed in the axial, sagittal, and coronal planes. 3-D MIPS images are created and assessed. IV contrast was administered without complication. All measurements were obtained according to NASCET criteria. A dose lowering technique was utilized adhering to the principles of ALARA. CT DOSE: 1158.96 mGy.cm FINDINGS: CT ANGIOGRAM OF THE HEAD AND NECK: Three-vessel morphology of the thoracic aortic arch. Patency of the innominate and image subclavian arteries. Patent common carotid arteries. There is a least moderate atherosclerosis of the carotid bulbs and proximal cervical segments of the internal carotid arteries, right greater than left. Moderate atherosclerotic plaque of the cavernous, clinoid and supraclinoid segments without high-grade stenosis. Developmentally diminutive left A1 segment. No high-grade stenosis. The bilateral anterior and middle cerebral arteries are also patent. High-grade stenosis is noted at the origin of the dominant left vertebral artery secondary to calcified plaque. High-grade stenosis versus near occlusion involves the proximal few centimeters at the origin of the right vertebral artery. There is additional high-grade stenosis within the proximal V2 segment with occlusion of the V4 segment. The basilar and posterior cerebral arteries are patent. Dural venous sinuses appear patent. Lung apices are clear without pneumothorax. No acute fracture. Unremarkable soft tissues. Volume loss with opacification of the right maxillary sinus compatible with chronic sinus disease. IMPRESSION: 1. High grade stenoses at the origins of the vertebral arteries with age- indeterminate occlusion of the V4 segment right vertebral artery. 2. Moderate atherosclerosis of the internal carotid arteries without high-grade stenosis or occlusion. 3. No aneurysm or dissection. ACT 112: Negative or not required by law. The above report was generated using voice recognition software. It may contain grammatical, syntax or spelling errors. Electronically signed by: Tylor Whipple M.D. 02/13/2024 8:24 AM Neck CTA 02/13/24 07:05 CT angio head w con, CT angio neck with con CLINICAL HISTORY: 73 years-old Male with neuro deficit, acute stroke suspected. Acute strokelike symptoms COMPARISON STUDY: Head CT of same day TECHNIQUE: Following the IV administration of 112 cc of Optiray, CT angiogram of the head and neck was performed from the aortic arch to the skull apex. Images are reviewed in the axial, sagittal, and coronal planes. 3-D MIPS images are created and assessed. IV contrast was administered without complication. All measurements were obtained according to NASCET criteria. A dose lowering technique was utilized adhering to the principles of ALARA. CT DOSE: 1158.96 mGy.cm FINDINGS: CT ANGIOGRAM OF THE HEAD AND NECK: Three-vessel morphology of the thoracic aortic arch. Patency of the innominate and image subclavian arteries. Patent common carotid arteries. There is a least moderate atherosclerosis of the carotid bulbs and proximal cervical segments of the internal carotid arteries, right greater than left. Moderate atherosclerotic plaque of the cavernous, clinoid and supraclinoid segments without high-grade stenosis. Developmentally diminutive left A1 segment. No high-grade stenosis. The bilateral anterior and middle cerebral arteries are also patent. High-grade stenosis is noted at the origin of the dominant left vertebral artery secondary to calcified plaque. High-grade stenosis versus near occlusion involves the proximal few centimeters at the origin of the right vertebral artery. There is additional high-grade stenosis within the proximal V2 segment with occlusion of the V4 segment. The basilar and posterior cerebral arteries are patent. Dural venous sinuses appear patent. Lung apices are clear without pneumothorax. No acute fracture. Unremarkable soft tissues. Volume loss with opacification of the right maxillary sinus compatible with chronic sinus disease. IMPRESSION: 1. High grade stenoses at the origins of the vertebral arteries with age- indeterminate occlusion of the V4 segment right vertebral artery. 2. Moderate atherosclerosis of the internal carotid arteries without high-grade stenosis or occlusion. 3. No aneurysm or dissection. ACT 112: Negative or not required by law. The above report was generated using voice recognition software. It may contain grammatical, syntax or spelling errors. Electronically signed by: Tylor Whipple M.D. 02/13/2024 8:24 AM Brain MRI 02/13/24 09:06 MR brain wo/w con HISTORY: 73 years-old Male Stroke work-up acute strokelike symptoms COMPARISON: CT head, CTA head and neck studies of same day TECHNIQUE: Multiple and multisequence MRI of the brain was obtained with and without IV contrast. FINDINGS: No restricted diffusion to suggest acute or subacute infarct. Midline structures appear unremarkable. Degenerative changes of the cervical spine. No acute intracranial hemorrhage, midline shift, abnormal extra-axial collection, hydrocephalus or intra-axial mass. No pathologic blooming artifact. Mild involutional changes with mild scattered T2/FLAIR hyperintense foci throughout the white matter. Age-indeterminate occlusion of the distal right vertebral artery demonstrated. The remaining major intracranial flow voids appear patent. Prior bilateral antral repair. Chronic volume loss and opacification of the right maxillary sinus. No abnormal enhancement. IMPRESSION: 1. No acute intracranial abnormality. No acute or subacute infarct. 2. Mild chronic microvascular ischemic disease. 3. No abnormal enhancement. 4. Age-indeterminate occlusion of the V4 segment right vertebral artery. ACT 112: Negative or not required by law. The above report was generated using voice recognition software. It may contain grammatical, syntax or spelling errors. Electronically signed by: Tylor Whipple M.D. 02/13/2024 11:31 AM Medications Administered Home Medications Medication Instructions Recorded Confirmed Last Taken aspirin 81 mg tablet,delayed 81 mg PO QPM 05/27/18 02/13/24 02/12/24 release atorvastatin 80 mg tablet 80 mg PO QPM 05/27/18 02/13/24 02/12/24 dutasteride 0.5 mg capsule 0.5 mg PO QPM 05/27/18 02/13/24 02/12/24 (Avodart) metoprolol succinate 50 mg 50 mg PO QPM 05/27/18 02/13/24 02/12/24 tablet,extended release 24 hr losartan 100 mg tablet 100 mg PO QAM 02/13/24 02/13/24 02/12/24 sildenafil (pulm.hypertension) 20 See Rx Instructions .Route .COMPLEX 02/13/24 02/13/24 Unknown mg tablet Active Medications Generic Name Dose Route Start Last Admin Trade Name Freq PRN Reason Stop Dose Admin Enoxaparin Sodium 40 mg 02/13/24 11:00 02/13/24 11:33 Enoxaparin Inj 40 Mg/0.4 Ml Syr SQ 03/14/24 10:59 40 mg Q24H LALITO Administration
[2024-02-13] MEDS: ASPIRIN 81 MG ECTAB PO SCH (20:32)
[2024-02-13] MEDS: ATORVASTATIN 40 MG TAB PO SCH (20:32)
[2024-02-13] MEDS: METOPROLOL SUCC 50MG EXT REL TAB PO SCH (20:32)
[2024-02-13] MEDS: FINASTERIDE 5 MG TAB PO SCH (20:33)
--- OUTSIDE RECORDS SUMMARY | 2024-02-13 22:33 | External Medical Summary | Summary of Care ---
Author Name Unknown Organization [facility] Address [address] [place] [address] Phone [phone] Care Team Providers Care Medical Lab Technician Name Role Phone Triny Izquierdo MD Primary Care Provider + Reason for Visit * Reason Onset Date Comments Appointment 11/07/2023 Encounter Details Date Type Department Care Team ([facility] st Contact Info) Description 11/07/2023 Telephone Gastroenterology, [facility] [address] [place] [address] Services, Scheduling [address] [place] [address] Appointment Allergies Active Allergy Reactions Criticality Noted Date Comments Pollen 05/03/2021 Congestion, runny nose documented as of this encounter (statuses as of 11/11/2023) Medications Medication Sig Dispensed Refills Start Date End Date Status aspirin 81 MG chewable tablet Take 1 Tablet by mouth in the morning. with food.. 100 Tab 5 06/01/2016 Active Probiotic Product (PROBIOTIC & ACIDOPHILUS EX ST) Capsule Take 1 Tab by mouth. 0 Active multivitamin (MVI) Tablet Take 1 Tablet by mouth. 0 Active fexofenadine (KARAN) 180 MG Tablet Take 1 Tablet by mouth daily as needed for Allergies. 0 Active Ibuprofen 200 MG Oral TabletIndications: Pain of right lower leg Take 3 Tablets by mouth every 8 hours as needed for Pain. with food 100 Tab 5 05/06/2018 Active Acetaminophen ER 650 MG Oral Tablet Extended Release Take 1 Tablet by mouth every 8 hours as needed for Fever. 0 Active Nitroglycerin 0.4 MG Sublingual Tablet Sublingual (Nitrostat)Indicat ions:HTN, goal below 130/80 Place 1 Tablet under the tongue every 5 minutes as needed for Pain, Chest. up to 3 doses in 15 minutes 75 Tablet 3 02/25/2023 Active Sildenafil Citrate 20 MG Oral Tablet (Revatio)Indicatio ns:HTN, goal below 130/80 Take up to 4 tabs one hour prior to intercourse. No more than 4 daily. 25 Tablet 5 04/16/2023 Active Losartan Potassium 50 MG Oral Tablet (Cozaar)Indication s:HTN, goal below 130/80 TAKE 1 TABLET BY MOUTH EVERY DAY IN THE MORNING 90 Tablet 3 05/01/2023 Active Nirmatrelvir&Riton avir 300/100 20 x 150 MG & 10 x 100MG Oral Tablet Therapy Pack (Paxlovid) Take 2 pink tablets of Nirmatrelvir and 1 white tablet of Ritonavir two times a day by mouth. 30 Tablet 0 06/23/2023 Active Benzonatate 100 MG Oral Capsule (Tessalon Perles)Indications :Acute cough Take 1 Capsule by mouth 3 times a day as needed for Cough. Do not cut, crush, or chew. 50 Capsule 1 06/26/2023 Active Dutasteride 0.5 MG Oral Capsule (Avodart)Indicatio ns:HTN, goal below 130/80 TAKE 1 CAPSULE BY MOUTH EVERY DAY 90 Capsule 3 07/07/2023 Active Metoprolol Succinate ER 50 MG Oral Tablet Extended Release 24 Hour (toPROL XL)Indications:HTN , goal below 130/80 TAKE 1 TABLET BY MOUTH EVERY DAY 90 Tablet 3 08/05/2023 Active Atorvastatin Calcium 80 MG Oral Tablet (Lipitor)Indicatio ns:Hyperlipidemia LDL goal <100 TAKE 1 TABLET BY MOUTH EVERY DAY 90 Tablet 0 11/03/2023 Active documented as of this encounter (statuses as of 11/11/2023) Active Problems Problem Noted Date Diagnosed Date Rosacea 10/19/2020 S/P lumbar laminectomy 02/08/2019 HTN, goal below 130/80 Hyperlipidemia LDL goal <100 documented as of this encounter (statuses as of 11/11/2023) Resolved Problems Problem Noted Date Diagnosed Date Resolved Date Prediabetes 02/15/2019 05/24/2021 Overview: Per Prediabetes protocol Hypertension 06/13/2016 Hyperlipemia 06/13/2016 documented as of this encounter (statuses as of 11/11/2023) Immunizations Name Administration Dates Next Due COVID-19 mRNA, LNP-s, No Pre serve, 2-Dose Series (Pfizer) 06/06/2021,12/04/2020,11/06/2020 COVID-19, LNP-s, No Preserve , Markie-sucrose, Ages 12+ (Pfizer) 12/26/2021 Pneumococcal Conjugate Vacc, 13 Valent (Prevnar) 10/21/2016 Pneumococcal Polysaccharide PPV23 (Pneumovax) 01/27/2018 Season Influenza, Quad, PF, Adjuvanted, 65+ Yrs, IM (FLUAD) 05/10/2020 Seasonal Influenza, PF, 6 M & above, IM , (FluLaval or Fluzone) 06/30/2018 Seasonal Influenza, Quadriva lent Hd (Fluzone Hd) 05/26/2023,05/09/2022,05/28/2021 Seasonal Influenza, Quadriva lent, No Preserve, IM 05/23/2017,06/13/2016 Seasonal Influenza, Trivalen t, Adjuvanted, 65+ yrs 06/18/2019 TDAP (age 11 and older)(Adacel) 02/06/2014 Zoster Vaccine Recombinant (Shingrix) 11/03/2019 ,07/16/2019 documented as of this encounter Social History Tobacco Use Types Packs/Day Years Used Date Smoking Tobacco: Never Smokeless Tobacco: Never Alcohol Use Standard Drinks/Week Comments Yes 0 (1 standard drink = 0.6 oz pur e alcohol) wine with dinner PHQ-2 Answer Date Recorded PHQ Adult Total Score 0 08/30/2021 Hunger Vital Sign Answer Date Recorded Worried About Running Out of Food in the Last Ye ar Never true 02/15/2020 Ran Out of Food in the Last Year Never true 02/15/2020 Sex and Gender Information Value Date Recorded Sex Assigned at Male 02/08/2019 9:49 AM EDT Gender Identity Male 02/08/2019 9:49 AM EDT Sexual Orientation Straight 02/08/2019 9: 49 AM EDT Job Start Date Occupation Industry Not on file Not on file Not on file documented as of this encounter Miscellaneous Notes * Telephone Encounter - Lyubov Gimenez OSA - 11/11/2023 12:12 PM EST Pt is scheduled on 05/04/24 @ 6:[address] Russo. Instructions were sent to [facility]. * Telephone Encounter - Tara Leary OSA - 11/07/2023 1:51 PM EST Patient is calling to reschedule his colonoscopy procedure at the earliest time available. Please contact patient at [phone] to schedule. Thank you documented in this encounter Plan of Treatment Upcoming Encounters Date Type Department Care Team (Latest Contact Info) Description 12/03/2023 10:00 AM EDT Office Visit Cardiology, [facility] [address] [place] [address] Phillip Ramsey PA-C [address] [place] [address] 05/04/2024 7:30 AM EDT Hospital Encounter ENDO [facility], Endoscopy Room [facility] [address] [place] [address] Jaron Russo MD [address] [place] [address] 05/04/2024 7:30 AM EDT - 05/04/2024 8:00 AM EDT Surgery ENDO [facility], Endoscopy Room [facility] [address] [place] [phone] Jaron Russo MD [address] [place] [address] COLONOSCOPY FLEXIBLE PROXIMAL DIAGNOSTIC 05/18/2024 1:00 PM EDT Office Visit General Internal Medicine [facility] [place] [address] [place] [address] Triny Izquierdo MD [address] [place] [address] Scheduled Procedures Name Priority Associated Diagnoses Date/Ti me COLONOSCOPY FLEXIBLE PROXIMAL DIAGNOSTIC Recall History of colon polyps 05/04/2024 7:30 AM EDT Health Maintenance Due Date Last Done Comments Depression Screening 08/30/2022 08/30/2021 COLONOSCOPY-EVERY 5 YRS AGES 18-100 11/05/2022 11/05/2017, 11/05/2017 COVID-19 Vaccine ( season) 2023 05/22/2022, 12/26/2021, 06/06/2021, Additional history exists DTaP,Tdap,and Td Vaccines (2 - Td or Tdap) 02/07/2024 02/06/2014 GFR 11/10/2024 11/11/2023, 04/2023, 02/19/2022, Additional history exists Albumin/Creatinine Ratio 05/16/2026 023, 02/10/2020, 10/16/2016 Lipid Panel 02/19/2027 02/19/2022, 080 02/2021, 09/19/2020, Additional history exists Pneumococcal Vaccine: 65+ Years Completed 01/27/2018, 10/21/2016 Zoster Vaccines Completed 11/03/2019, 07/16/2019 Influenza Vaccine (FLU shot) Completed , 05/09/2022, 05/28/2021, Additional history exists GARDASIL-HPV IMMUNIZATION SERIES Aged Out No longer eligible based on patient's age to complete this topic Hepatitis B Aged Out No longer eligi ble based on patient's age to complete this topic MENINGOCOCCAL (MENACTRA/MENVEO) Aged Out No longer eligible based on patient's age to complete this topic documented as of this encounter Medical Devices Not on filedocumented as of this encounter Care Teams Medical Lab Technician Relationship Specialty Start Date End Date Triny Izquierdo MD [address] [place] [id number] PCP - General Internal Medicine 06/13/16 documented as of this encounter
--- OUTSIDE RECORDS SUMMARY | 2024-02-13 22:33 | External Medical Summary ---
Author Name Unknown Address Unknown Organization [id number]:LABORATORY [facility] - [address] [facility] [address] [facility] [address] Laboratory Report Ordering Provider Test Date Status IVETH RICHEY 11/11/2023 07:10:18 Final Observation Date Value Abnormality Reference (Units ) Status MYCODE SPECIMEN-SST 11/11/2023 07:10:18 Freezing of extracted DNA, whole blood and/or serum. Final Performing Location LABORATORY [facility] - [address] [facility] [address]
--- OUTSIDE RECORDS SUMMARY | 2024-02-13 22:33 | External Medical Summary | Summary of Care ---
Author Name Unknown Organization [facility] Address [address] [facility] [place] [address] Phone [phone] Care Team Providers Care Estimator Project Manager Name Role Phone Triny Izquierdo MD Primary Care Provider + Reason for Visit * Reason Comments Outpatient Testing Encounter Details Date Type Department Care Team (Late st Contact Info) Description 11/11/2023 7:10 AM EST Laboratory Laboratory [facility] [place] [address] [place] [phone] [facility] [address] [place] [address] [place] Other*[id number]; Encounter for long-term (current) use of medications; Hyperlipidemia LDL goal <100; HTN, goal below 130/80; Screening for deficiency anemia; Prediabetes Allergies Active Allergy Reactions Criticality Noted Date [...] on file documented as of this encounter Plan of Treatment Upcoming Encounters Date Type Department Care Team (Late st Contact Info) Description 12/03/2023 10:00 AM EDT Office Visit Cardiology, [facility] [address] [place] [address] Phillip Ramsey PA-C [address] [place] [address] 05/18/2024 1:00 PM EDT Office Visit General Internal Medicine [facility] [address] [facility] [place] [address] Triny Izquierdo MD [address] [facility] [place] [address] Pending Results Name Type Priority Associated Diagnoses Date /Time MYCODE SUBSEQUENT ADULT Lab Routine [employer] Other*[id number] 11/11/2023 7:10 AM EST LIPID PANEL WITH DIRECT LDL IF TG IS HIGH Lab Routine Encounter for long-term (current) use of medications 11/11/2023 7:10 AM EST HEMOGLOBIN A1C Lab Routine Encounter for long-term (current) use of medications 11/11/2023 7:10 AM EST COMPREHENSIVE METABOLIC PANEL Lab Routine HTN, goal below 130/80 11/11/2023 7:10 AM EST MYCODE SST1 Lab Routine [employer] Other*[id number] 11/11/2023 7:10 AM EST MYCODE SST2 Lab Routine [employer] Other*[id number] 11/11/2023 7:10 AM EST Scheduled Procedures Name Priority Associated Diagnoses Date/Ti me COLONOSCOPY FLEXIBLE PROXIMAL DIAGNOSTIC Recall History of colon polyps Health Maintenance Due Date Last Done Comments Depression Screening 08/30/2022 08/30/2021 COLONOSCOPY-EVERY 5 YRS AGES 18-100 11/05/2022 11/05/2017, 11/05/2017 COVID-19 Vaccine ( season) 2023 05/22/2022, 12/26/2021, 06/06/2021, Additional history exists DTaP,Tdap,and Td Vaccines (2 - Td or Tdap) 02/07/2024 02/06/2014 GFR 05/16/2024 05/16/2023, 02/06, 04/13/2021, Additional history exists Albumin/Creatinine Ratio 05/16/2026 023, 02/10/2020, 10/16/2016 Lipid Panel 02/19/2027 02/19/2022, 08/0 02/2021, 09/19/2020, Additional history exists Pneumococcal Vaccine: [...] Not on filedocumented as of this encounter Procedures Procedure Name Priority Date/Time Associated Diagnosis Comments DIFFERENTIAL, AUTOMATED Routine 11/11/2023 7:10 AM EST HTN, goal below 130/80 Screening for deficiency anemia CBC Routine 11/11/2023 7:10 AM EST HTN, goal below 130/80 Screening for deficiency anemia CBC Routine 11/11/2023 7:10 AM EST HTN, goal below 130/80 Screening for deficiency anemia documented in this encounter Results * (ABNORMAL) DIFFERENTIAL, AUTOMATED (11/11/2023 7:10 AM EST) WBC 7.10 4.00 - 10.80 K/uL 11/11/2023 7:24 AM EST [facility] 56-02 Neutrophils % 51.4 40.0 - 75.0 % 11/11/2023 7:24 AM EST [facility] 56-02 Lymphocytes % 30.4 18.0 - 42.0 % 11/11/2023 7:24 AM EST [facility] 56-02 Monocytes % 12.0(H) 1.0 - 11.0 % 11/11/2023 7:24 AM [facility] 56- Eosinophils % 5.9 0.0 - 6.0 % 11/11/2023 7:24 AM [facility] 56- Basophils % 0.3 0.0 - 2.0 % 11/11/2023 7:24 AM [facility] 56 Absolute Neutrophils 3.65 1.80 - 7.70 K/uL 11/11/2023 7:24 AM [facility] 56 Absolute Lymphocytes 2.16 1.00 - 4.80 K/ul 11/11/2023 7:24 AM [facility] 56- Absolute Monocytes 0.85 0.00 - 1.10 K/uL 11/11/2023 7:24 AM [facility] 56 Absolute Eosinophils 0.42 0.00 - 0.70 K/uL 11/11/2023 7:24 AM [facility] 56 Absolute Basophils 0.02 0.00 - 0.20 K/uL 11/11/2023 7:24 AM [facility] 56 Blood Venous blood specimen / Unknown Venipuncture / Unknown 11/11/2023 7:10 AM EST 11/11/2023 7:11 AM EST Triny Izquierdo MD LAB BLOOD [facility] [address] [place] [address] * CBC (11/11/2023 7:10 AM EST) Pathologist [facility] WBC 7.10 4.00 - 10.80 K/uL 11/11/2023 7:24 AM [facility] 56 RBC 4.54 4.50 - 5.25 M/uL 11/11/2023 7:24 AM [facility] 56 HGB 15.1 14.0 - 16.8 g/dL 11/11/2023 7:24 AM [facility] 56 HCT 45.3 40.0 - 48.4 % 11/11/2023 7:24 AM [facility] MCV 99.8 82.0 - 99.5 fL 11/11/2023 7:24 AM EST [facility] 56 MCH 33.3 27.0 - 34.0 pg 11/11/2023 7:24 AM [facility] 56 MCHC 33.3 32.0 - 36.0 g/dL 11/11/2023 7:24 AM EST [facility] 56 RDW 12.5 11.5 - 15.5 % 11/11/2023 7:24 AM [facility] 56 PLT 202 140 - 400 K/uL 11/11/2023 7:24 AM [facility] 56 MPV 11.3 6.6 - 11.1 fL 11/11/2023 7:24 AM [facility] Blood Venous blood specimen / Unknown Venipuncture / Unknown 11/11/2023 7:10 AM EST 11/11/2023 7:11 AM EST Triny Izquierdo MD LAB BLOOD [facility] [address] [place] [address] documented in this encounter Visit Diagnoses Diagnosis [facility] Other*[id number] Encounter for long-term (current) use of medications Encounter for long-term (current) use of other medications Hyperlipidemia LDL goal <100 Other and unspecified hyperlipidemia HTN, goal below 130/80 Unspecified essential hypertension Screening for deficiency anemia Screening for other and unspecified deficiency anemia Prediabetes Other abnormal glucose documented in this encounter Care Teams Estimator Project Manager Relationship Specialty Start Date End Date Triny Izquierdo MD [address] [facility], [place] [phone] PCP - General Internal Medicine 06/13/16 documented as of this encounter
--- OUTSIDE RECORDS SUMMARY | 2024-02-13 22:33 | External Medical Summary ---
Author Name Unknown Address Unknown Organization K01:LABORATORY [facility] - [address] [facility] [address] [facility] [address] Laboratory Report Ordering Provider Test Date Status IVETH RICHEY 11/11/2023 07:10:18 Final Observation Date Value Abnormality Reference (Units ) Status MYCODE SPECIMEN-SST 11/11/2023 07:10:18 Freezing of extracted DNA, whole blood and/or serum. Final Performing Location LABORATORY [facility] - [address] [facility] [address]
--- OUTSIDE RECORDS SUMMARY | 2024-02-13 22:33 | External Medical Summary | Summary of Care ---
Author Name Unknown Organization [facility] Address [address] [facility] [place] [address] Phone [phone] Care Team Providers Care Federal Agent Name Role Phone Triny Izquierdo MD Primary Care Provider + Encounter Details Date Type Department Care Team ([facility] st Contact Info) Description 12/25/2023 3:35 PM EDT Immunization Pharmacy, [facility] [address] [facility] [place] [address] [facility] [address] [place] [address] Arrived Allergies Active Allergy Reactions Criticality Noted Date Comments Pollen 05/03/2021 Congestion, runny nose documented as of this encounter (statuses as of 12/25/2023) Medications Medication Sig Dispensed Refills Start Date [...] Allergies. 0 Active Ibuprofen 200 MG Oral TabletIndications:P ain of right lower leg Take 3 Tablets by mouth every 8 hours as needed for Pain. with food 100 Tab 5 05/06/2018 Active Acetaminophen ER 650 MG Oral Tablet Extended Release Take 1 Tablet by mouth every 8 hours as needed for Fever. 0 Active Nitroglycerin 0.4 MG Sublingual Tablet Sublingual (Nitrostat)Indicati ons:HTN, goal below 130/[address] Place 1 Tablet under the tongue every 5 minutes as needed for Pain, Chest. up to 3 doses in 15 minutes 75 Tablet 3 02/25/2023 Active Sildenafil Citrate 20 MG Oral Tablet (Revatio)Indication s:HTN, goal below 130/80 Take up to 4 tabs one hour prior to intercourse. No more than 4 daily. 25 Tablet 5 04/16/2023 Active Dutasteride 0.5 MG Oral Capsule (Avodart)Indication s:HTN, goal below 130/80 TAKE 1 CAPSULE BY MOUTH EVERY DAY 90 Capsule 3 07/07/2023 Active Metoprolol Succinate ER 50 MG Oral Tablet Extended Release 24 Hour (toPROL XL)Indications:HTN, goal below 130/80 TAKE 1 TABLET BY MOUTH EVERY DAY 90 Tablet 3 08/05/2023 Active Additional Information Patient taking differently: 50 mg Oral QPM-1999, Reported on 12/03/2023 Atorvastatin Calcium 80 MG Oral Tablet (Lipitor)Indication s:Hyperlipidemia LDL goal <100 TAKE 1 TABLET BY MOUTH EVERY DAY 90 Tablet 0 11/03/2023 Active Losartan Potassium 100 MG Oral Tablet (Cozaar)Indications :HTN, goal below 130/80 Take 1 Tablet by mouth in the morning. 90 Tablet 3 12/03/2023 Active COVID-19 mRNA Vaccine 12 years and above [place] 30 MCG/0.3 ML IM SUSP Inject into a large muscle. 0.3 mL 0 12/25/2023 Active documented as of this encounter (statuses as of 12/25/2023) Active Problems Problem Noted Date Diagnosed Date Rosacea 10/19/2020 Prediabetes 02/15/2019 Overview: Per Prediabetes protocol S/P lumbar laminectomy 02/08/2019 HTN, goal below 130/80 Hyperlipidemia LDL goal <100 documented as of this encounter (statuses as of 12/25/2023) Resolved Problems Problem Noted Date Diagnosed Date Resolved Date Hypertension 06/13/2016 Hyperlipemia 06/13/2016 documented as of this encounter (statuses as of 12/25/2023) Immunizations Name Administration Dates Next Due COVID-19 mRNA, LNP-s, No Pre serve, 2-Dose Series ([place]) 06/06/2021,12/04/2020,11/06/2020 COVID-19, LNP-s, No Preserve , Markie-sucrose, Ages 12+ (Pfizer) 12/26/2021 COVID-19, MRNA-LNP, 23-24, P F, 30 MCG/0.3 mL, 12 YRS AND ABOVE, IM (PFIZER-Comirnaty) 12/25/2023 Pneumococcal Conjugate Vacc, 13 Valent (Prevnar) 10/21/2016 [...] Department Care Team (Latest Contact Info) Description 05/13/2024 7:30 AM EDT Hospital Encounter ENDO [facility], Endoscopy Room [facility] [address] [place] [phone] Yvette Poe, DO [address] [place] [address] 05/13/2024 7:30 AM EDT - 05/13/2024 8:00 AM EDT Surgery ENDO [facility], Endoscopy Room [facility] [address] [place] [phone] Yvette Poe, DO [address] [place] [address] COLONOSCOPY FLEXIBLE PROXIMAL DIAGNOSTIC 05/18/2024 1:00 PM EDT Office Visit General Internal Medicine [facility] [place] [address] [facility] [place] [address] Triny Izquierdo MD [address] [facility] [place] [address] Scheduled Procedures Name Priority Associated Diagnoses Date/Ti me COLONOSCOPY FLEXIBLE PROXIMAL DIAGNOSTIC Recall History of colon polyps 05/13/2024 7:30 AM EDT Health Maintenance Due Date Last Done Comments Depression Screening 08/30/2022 08/30/2021 COLONOSCOPY-EVERY 5 YRS AGES 18-100 11/05/2022 11/05/2017, 11/05/2017 COVID-19 Vaccine (2022- season) 2023 12/25/2023, 05/22/2022, 12/26/2021, Additional history exists DTaP,Tdap,and Td Vaccines (2 - Td or Tdap) 02/07/2024 02/06/2014 GFR 11/10/2024 11/11/2023, 04/2023, 02/19/2022, Additional history exists HbA1c 11/10/2024 11/11/2023, 02/2021, 09/19/2020, Additional history exists Albumin/Creatinine Ratio 05/16/2026 023, 02/10/2020, 10/16/2016 Lipid Panel 11/10/2028 11/11/2023, 02/06, 04/13/2021, Additional history exists Pneumococcal Vaccine: 65+ Years [...] filedocumented as of this encounter Care Teams Federal Agent Relationship Specialty Start Date End Date Triny Izquierdo MD [address] [place] [address] PCP - General Internal Medicine 06/13/16 documented as of this encounter
--- OUTSIDE RECORDS SUMMARY | 2024-02-13 22:33 | External Medical Summary | Summary of Care ---
Author Name Unknown Organization [facility] Address [address] [facility] [place] [address] Phone [phone] Care Team Providers Care Dump Motorman Name Role Phone Triny Izquierdo MD Primary Care Provider + Reason for Visit * Reason Comments eRx-Medication Refill Encounter Details Date Type Department Care Team ([facility] st Contact Info) Description 01/30/2024 Refill General Internal Medicine [facility] [place] [address] [facility] [place] [address] Tr[facility] [address] [facility] [address] Hyperlipidemia LDL goal <100 Allergies Active Allergy Reactions Criticality Noted Date Comments Pollen 05/03/2021 Congestion, runny nose documented as of this encounter (statuses as of 01/30/2024) Medications Medication Sig Dispensed Refills Start Date End Date Status aspirin 81 MG chewable tablet Take 1 Tablet by mouth in the morning. with food.. 100 Tab 5 06/01/2016 Active Probiotic Product (PROBIOTIC & ACIDOPHILUS EX ST) Capsule Take 1 Tab by mouth. Active multivitamin (MVI) Tablet Take 1 Tablet by mouth. Active fexofenadine (KARAN) 180 MG Tablet Take 1 Tablet by mouth daily as needed for Allergies. Active Ibuprofen 200 MG Oral TabletIndication s:Pain of right lower leg Take 3 Tablets by mouth every 8 hours as needed for Pain. with food 100 Tab 5 05/06/2018 Active Acetaminophen ER 650 MG Oral Tablet Extended Release Take 1 Tablet by mouth every 8 hours as needed for Fever. Active Nitroglycerin 0.4 MG Sublingual Tablet Sublingual (Nitrostat)Indic ations:HTN, goal below 130/[address] Place 1 Tablet under the tongue every 5 minutes as needed for Pain, Chest. up to 3 doses in 15 minutes 75 Tablet 3 02/25/2023 Active Sildenafil Citrate 20 MG Oral Tablet (Revatio)Indicat ions:HTN, goal below 130/80 Take up to 4 tabs one hour prior to intercourse. No more than 4 daily. 25 Tablet 5 04/16/2023 Active Dutasteride 0.5 MG Oral Capsule (Avodart)Indicat ions:HTN, goal below 130/80 TAKE 1 CAPSULE BY MOUTH EVERY DAY 90 Capsule 3 07/07/2023 Active Metoprolol Succinate ER 50 MG Oral Tablet Extended Release 24 Hour (toPROL XL)Indications:H TN, goal below 130/80 TAKE 1 TABLET BY MOUTH EVERY DAY 90 Tablet 3 08/05/2023 Active Additional Information Patient taking differently: 50 mg Oral QPM-1999, Reported on 12/03/2023 Losartan Potassium 100 MG Oral Tablet (Cozaar)Indicati ons:HTN, goal below 130/80 Take 1 Tablet by mouth in the morning. 90 Tablet 3 12/03/2023 Active COVID-19 mRNA Vaccine 12 years and above Pfizer 30 MCG/0.3 ML IM SUSP Inject into a large muscle. 0.3 mL 12/25/2023 Active Atorvastatin Calcium 80 MG Oral Tablet (Lipitor)Indicat ions:Hyperlipide buzz LDL goal <100 TAKE 1 TABLET BY MOUTH EVERY DAY 90 Tablet 3 01/30/2024 Active Atorvastatin Calcium 80 MG Oral Tablet (Lipitor)Indicat ions:Hyperlipide buzz LDL goal <100 TAKE 1 TABLET BY MOUTH EVERY DAY 90 Tablet 11/03/2023 4 Discontinued documented as of this encounter (statuses as of 01/30/2024) Active Problems Problem Noted Date Diagnosed Date Rosacea 10/19/2020 Prediabetes 02/15/2019 Overview: Per Prediabetes protocol S/P lumbar laminectomy 02/08/2019 HTN, goal below 130/80 Hyperlipidemia LDL goal <100 documented as of this encounter (statuses as of 01/30/2024) Resolved Problems Problem Noted Date Diagnosed Date Resolved Date Hypertension 06/13/2016 Hyperlipemia 06/13/2016 documented as of this encounter (statuses as of 01/30/2024) Immunizations Name Administration Dates Next Due COVID-19 mRNA, LNP-s, No Pre serve, 2-Dose Series ([employer]) 06/06/2021,12/04/2020,11/06/2020 COVID-19, LNP-s, No Preserve , Markie-sucrose, [...] encounter Miscellaneous Notes * Telephone Encounter - Minnie Tyler, [facility] - 01/30/2024 5:20 PM EDTSigned Prescriptions: Disp Refills Atorvastatin Calcium 80 MG Oral Tablet (Li*90 Tab*3 Sig: TAKE 1 TABLET BY MOUTH EVERY DAYAuthorizing Provider: TRINY IZQUIERDOOrderdaljit User: MINNIE TYLER documented in this encounter Plan of Treatment Upcoming Encounters Date Type Department Care Team (Latest Contact Info) Description 05/13/2024 7:30 AM EDT Hospital Encounter ENDO [facility], Endoscopy Room [facility] [address] [place] [phone] Yvette Poe, DO [address] [place] [address] 05/13/2024 7:30 AM EDT - 05/13/2024 8:00 AM EDT Surgery ENDO [facility], Endoscopy Room [facility] [address] [place] [phone] Yvette Poe DO [address] [place] [address] COLONOSCOPY FLEXIBLE PROXIMAL DIAGNOSTIC 05/18/2024 1:00 PM EDT Office Visit General Internal Medicine [facility] [address] [place] [address] [place] [address] Triny Izquierdo MD [address] [facility] [place], [place] [address] Scheduled Procedures Name Priority Associated Diagnoses Date/Ti me COLONOSCOPY FLEXIBLE PROXIMAL DIAGNOSTIC Recall History of colon polyps 05/13/2024 7:30 AM EDT Health Maintenance Due Date Last Done Comments Fecal Occult Blood Test 1995 Sigmoidoscopy 1995 Cologuard 06/04/2020 06/04/2017 Depression Screening 08/30/2022 08/30/2021 Colonoscopy 11/05/2022 11/05/2017, 11/05/2017 Colorectal Cancer Screening 11/05/2022 DTaP,Tdap,and Td Vaccines (2 - Td or Tdap) 02/07/2024 02/06/2014 COVID-19 Vaccine (7 - 2022- season) 2024 12/25/2023, 05/22/2022, 12/26/2021, Additional history exists GFR 11/10/2024 11/11/2023, 04/2023, 02/19/2022, Additional history exists HbA1c 11/10/2024 11/11/2023, 08/0 02/2021, 09/19/2020, Additional history exists Albumin/Creatinine Ratio 05/16/2026 023, 02/10/2020, 10/16/2016 Lipid Panel 11/10/2028 11/11/2023, 02/06, 04/13/2021, Additional history exists RETIRED - COLONOSCOPY-EVERY 5 YRS AGES 18-100 Discontinued 11/05/2017, 11/05/2017 Pneumococcal Vaccine: 65+ Years Completed 01/27/2018, 10/21/2016 Zoster Vaccines Completed 11/03/2019, 07/16/2019 Influenza Vaccine (FLU shot) Completed 05/26/2023, 05/09/2022, 05/28/2021, Additional history exists GARDASIL-HPV IMMUNIZATION [...] Not on filedocumented as of this encounter Visit Diagnoses Diagnosis Hyperlipidemia LDL goal <100 Other and unspecified hyperlipidemia History of colon polyps Personal history of colonic polyps documented in this encounter Care Teams Dump Motorman Relationship Specialty Start Date End Date Triny Izquierdo MD [address] [place] [address] PCP - General Internal Medicine 06/13/16 documented as of this encounter
--- OUTSIDE RECORDS SUMMARY | 2024-02-13 22:33 | External Medical Summary | Summary of Care ---
Author Name Unknown Organization [facility] Address [address] [facility] [address] Phone [phone] Care Team Providers Care Brown Stock Washer Name Role Phone Triny Izquierdo MD Primary Care Provider + Reason for Visit * Reason Comments eRx-Medication Refill Encounter Details Date Type Department Care Team ([facility] st Contact Info) Description 08/09/2023 Refill General Internal Medicine [facility] [place] [address] [facility] [place] [address] Triny Izquierdo MD [address] [facility] [address] Encounter for long-term (current) use of medications*; Hyperlipidemia LDL goal <100 Allergies Active Allergy Reactions Criticality Noted Date Comments Pollen 05/03/2021 Congestion, runny nose documented as of this encounter (statuses as of 09/18/2023) Medications Medication Sig Dispensed Refills Start Date [...] Allergies. 0 Active Ibuprofen 200 MG Oral TabletIndication s:Pain [...] Active Losartan Potassium 50 MG Oral Tablet (Cozaar)Indicati ons:HTN, goal below 130/80 TAKE 1 TABLET BY MOUTH EVERY DAY IN THE MORNING 90 Tablet 3 05/01/2023 Active Nirmatrelvir&Rit onavir 300/100 20 x 150 MG & 10 x 100MG Oral Tablet Therapy Pack (Paxlovid) Take 2 pink tablets of Nirmatrelvir and 1 white tablet of Ritonavir two times a day by mouth. 30 Tablet 0 06/23/2023 Active Benzonatate 100 MG Oral Capsule (Tessalmahesh Mata)Indicatio ns:Acute cough Take 1 Capsule by mouth 3 times a day as needed for Cough. Do not cut, crush, or chew. 50 Capsule 1 06/26/2023 Active Dutasteride 0.5 MG Oral Capsule (Avodart)Indicat [...] BY MOUTH EVERY DAY 90 Tablet 0 08/11/2023 Active Atorvastatin Calcium 80 MG Oral Tablet (Lipitor)Indicat ions:Hyperlipide buzz LDL goal <100 TAKE 1 TABLET BY MOUTH EVERY DAY 90 Tablet 3 07/18/2022 08/11/20 23 Discontinued documented as of this encounter (statuses as of 09/18/2023) Active Problems Problem Noted Date Diagnosed Date Rosacea 10/19/2020 S/P lumbar laminectomy 02/08/2019 HTN, goal below 130/80 Hyperlipidemia LDL goal <100 documented as of this encounter (statuses as of 09/18/2023) Resolved Problems Problem Noted Date Diagnosed Date Resolved Date Prediabetes 02/15/2019 05/24/2021 Overview: Per Prediabetes protocol Hypertension 06/13/2016 Hyperlipemia 06/13/2016 documented as of this encounter (statuses as of 09/18/2023) Immunizations Name Administration Dates Next Due COVID-19 [...] encounter Miscellaneous Notes * Telephone Encounter - Pam Parker - 09/18/2023 8:23 PM EST Received message from [facility] regarding patient needing labs. Patient was notified. Successfully contacted patient and provided [facility] message. * Telephone Encounter - Kati Ferrera RP - 08/11/2023 7:38 AM ESTSigned Prescriptions: Disp Refills Atorvastatin Calcium 80 MG Oral Tablet (Li*90 Tab*0 Sig: TAKE 1 TABLET BY MOUTH EVERY DAY Authorizing Provider: TRINY IZQUIERDO Ordering User: KATI FERRERA * Telephone Encounter - Kati Ferrera RP - 08/11/2023 7:37 AM EST Provided 90 days supply with 0 refill(s). Per refill protocol patient should have lipid panel and A1C on file within past year. Reviewed AMP report, Care Gaps/Health Maintenance, medications list, and for any routine labs typically ordered for this patient. Lab orders placed. Please contact patient to advise of labs ordered for blood draw. Recommend patient to fast if able for labs. Patient may still have water and regular medications. Advise to obtain labs before requesting the next refill. ThanksKati Clinical Pharmacist [facility] (Formerly [email or web address]) [phone] 08/11/2023, 7:38 AM documented in this encounter Plan of Treatment Upcoming Encounters Date Type Department Care Team (Latest Contact Info) Description 10/30/2023 9:00 AM EST Hospital Encounter [facility]O [facility], Endoscopy Room [facility] [address] [place] [phone] Tomasa Severino, DO [address] [place] [address] 10/30/2023 9:00 AM EST - 10/30/2023 9:30 AM EST Surgery ENDO [facility], Endoscopy Room [facility] [address] [place] [phone] Tomasa Severino, DO [address] [place] [address] COLONOSCOPY FLEXIBLE PROXIMAL DIAGNOSTIC 12/03/2023 10:00 AM EDT Office Visit Cardiology, [facility] [address] [place] [address] Phillip Ramsey PA-C [address] [place] [address] 12/08/2023 9:30 AM EDT Office Visit Dermatology [facility] [address] [facility] [place] [address] Jennifer Pérez MD 05/18/2024 1:00 PM EDT Office Visit General Internal Medicine [facility] 200 [facility] [place] [address] Triny Izquierdo MD 200 [facility] [place] [address] Scheduled Orders Name Type Priority Associated Diagnoses Orde r Schedule LIPID PANEL WITH DIRECT LDL IF TG IS HIGH Lab Routine Encounter for long-term (current) use of medications Expected: 08/18/2023 (Approximate), Expires: 08/11/2024 HEMOGLOBIN A1C Lab Routine Encounter for long-term (current) use of medications Expected: 08/18/2023 (Approximate), Expires: 08/11/2024 Scheduled Procedures Name Priority Associated Diagnoses Date/Ti me COLONOSCOPY FLEXIBLE PROXIMAL DIAGNOSTIC Recall History of colon polyps 10/30/2023 9:00 AM EST Health Maintenance Due Date Last Done Comments Depression Screening 08/30/2022 08/30/2021 COLONOSCOPY-EVERY 5 YRS AGES 18-100 11/05/2022 11/05/2017, 11/05/2017 COVID-19 Vaccine ( season) 2023 05/22/2022, 12/26/2021, 06/06/2021, Additional history exists DTaP,Tdap,and Td Vaccines (2 - Td or Tdap) 02/07/2024 02/06/2014 GFR 05/16/2024 05/16/2023, 02/06, 04/13/2021, Additional history exists Albumin/Creatinine Ratio 05/16/2026 023, 02/10/2020, 10/16/2016 Lipid Panel 02/19/2027 02/19/2022, 08/02/2021, 09/19/2020, Additional history exists Pneumococcal Vaccine: 65+ [...] as of this encounter Visit Diagnoses Diagnosis Encounter for long-term (current) use of medications- Primary Encounter for long-term (current) use of other medications Hyperlipidemia LDL goal <100 Other and unspecified hyperlipidemia History of colon polyps Personal history of colonic polyps documented in this encounter Care Teams Brown Stock Washer Relationship Specialty Start Date End Date Triny Izquierdo MD [address] [place] [address] PCP - General Internal Medicine 06/13/16 documented as of this encounter
--- OUTSIDE RECORDS SUMMARY | 2024-02-13 22:33 | External Medical Summary | Summary of Care ---
Author Name Unknown Organization [facility] Address [address] [facility] [place] [address] Phone [phone] Care Team Providers Care Merchant Patroller Name Role Phone Triny Izquierdo MD Primary Care Provider + Reason for Visit * Reason Comments Follow Up Encounter Details Date Type Department Care Team (Latest Contact Info) Description 12/03/2023 10:00 AM EDT Office Visit Cardiology, [facility] [address] [facility] [place] [address] Phillip Ramsey PA-C [address] [place] [address] HTN, goal below 130/80*; ASCVD (arteriosclerotic cardiovascular disease); Dyslipidemia, goal LDL below 70 Allergies Active Allergy Reactions Criticality Noted Date Comments Pollen 05/03/2021 Congestion, runny nose documented as of this encounter (statuses as of 12/05/2023) Medications Medication Sig Dispensed Refills Start Date End Date Status aspirin 81 MG chewable tablet Take 1 Tablet by mouth in the morning. with food.. 100 Tab 5 6 Active Probiotic Product (PROBIOTIC & ACIDOPHILUS EX ST) Capsule Take 1 Tab by mouth. 0 Active multivitamin (MVI) Tablet Take 1 Tablet by mouth. 0 Active fexofenadine (KARAN) 180 MG Tablet Take 1 Tablet by mouth daily as needed for Allergies. 0 Active Ibuprofen 200 MG Oral TabletIndicatio ns:Pain of right lower leg Take 3 Tablets by mouth every 8 hours as needed for Pain. with food 100 Tab 5 8 Active Acetaminophen ER 650 MG Oral Tablet Extended Release Take 1 Tablet by mouth every 8 hours as needed for Fever. 0 Active Nitroglycerin 0.4 MG Sublingual Tablet Sublingual (Nitrostat)Kamilah cations:HTN, goal below 130/[address] Place 1 Tablet under the tongue every 5 minutes as needed for Pain, Chest. up to 3 doses in 15 minutes 75 Tablet 3 3 Active Sildenafil Citrate 20 MG Oral Tablet (Revatio)Indica tions:HTN, goal below 130/80 Take up to 4 tabs one hour prior to intercourse. No more than 4 daily. 25 Tablet 5 3 Active Dutasteride 0.5 MG Oral Capsule (Avodart)Indica tions:HTN, goal below 130/80 TAKE 1 CAPSULE BY MOUTH EVERY DAY 90 Capsule 3 3 Active Metoprolol Succinate ER 50 MG Oral Tablet Extended Release 24 Hour (toPROL XL)Indications: HTN, goal below 130/80 TAKE 1 TABLET BY MOUTH EVERY DAY 90 Tablet 3 3 Active Additional Information Patient taking differently: 50 mg Oral Q-1999, Reported on 12/03/2023 Atorvastatin Calcium 80 MG Oral Tablet (Lipitor)Indica tions:Hyperlipi demia LDL goal <100 TAKE 1 TABLET BY MOUTH EVERY DAY 90 Tablet 0 4 Active Losartan Potassium 100 MG Oral Tablet (Cozaar)Indicat ions:HTN, goal below 130/80 Take 1 Tablet by mouth in the morning. 90 Tablet 3 4 Active Losartan Potassium 50 MG Oral Tablet (Cozaar)Indicat ions:HTN, goal below 130/80 TAKE 1 TABLET BY MOUTH EVERY DAY IN THE MORNING 90 Tablet 3 3 12/03/19 24 Discontinued Nirmatrelvir&Ri tonavir 300/100 20 x 150 MG & 10 x 100MG Oral Tablet Therapy Pack (Paxlovid) Take 2 pink tablets of Nirmatrelvir and 1 white tablet of Ritonavir two times a day by mouth. 30 Tablet 0 3 12/03/19 24 Discontinued(End of Procedure) Benzonatate 100 MG Oral Capsule (Tessalmahesh Mata)Indicati ons:Acute cough Take 1 Capsule by mouth 3 times a day as needed for Cough. Do not cut, crush, or chew. 50 Capsule 1 3 12/03/19 24 Discontinued(End of Procedure) documented as of this encounter (statuses as of 12/05/2023) Active Problems Problem Noted Date Diagnosed Date Rosacea 10/19/2020 Prediabetes 02/15/2019 Overview: Per Prediabetes protocol S/P lumbar laminectomy 02/08/2019 HTN, goal below 130/80 Hyperlipidemia LDL goal <100 documented as of this encounter (statuses as of 12/05/2023) Resolved Problems Problem Noted Date Diagnosed Date Resolved Date Hypertension 06/13/2016 Hyperlipemia 06/13/2016 documented as of this encounter (statuses as of 12/05/2023) Immunizations Name Administration Dates Next Due COVID-19 mRNA, LNP-s, No Pre serve, 2-Dose Series ([employer]) 06/06/2021,12/04/2020,11/06/2020 COVID-19, LNP-s, No Preserve , Markie-sucrose, [...] Date Smoking Tobacco: Never Smokeless Tobacco: Never Tobacco Cessation:Counseling Given: Not Answered Alcohol Use Standard Drinks/Week Comments Yes 0 [...] on file documented as of this encounter Last Filed Vital Signs Vital Sign Reading Time Taken Comments Blood Pressure 144/72 12/03/2023 9:52 AM EDT Pulse 52 12/03/2023 9:52 AM EDT Temperature - - Respiratory Rate 14 12/03/2023 9:52 AM EDT Oxygen Saturation - - Inhaled Oxygen Concentration - - Weight 74.3 kg (163 lb 12 oz) 12/03/2023 9:52 AM EDT Height - - Body Mass Index 26.43 05/13/2023 3:14 PM EDT documented in this encounter Progress Notes * Phillip Ramsey PA-C - 12/03/2023 10:00 AM EDT History of Present Illness: John Miles is a 73-year-old male here today for routine cardiology follow-up. Twister Frame Tender is Dr. Madrid. History includes premature coronary artery disease, presentation with crescendo angina status post PCI with 2 bare metal stents back in 1996. Cardiac catheterization last performed in 2005 showed minor nonobstructive coronary artery disease of the LAD and left circumflex arteries. Additional history includes family history of premature coronary artery disease in his father, hypertension, and dyslipidemia. Accompanied by who is a nurse. Blood pressure elevated on home monitoring, also elevated the time of stress testing in April 2023. Resting echocardiography at that time with grade 1 diastolic dysfunction, mild concentric LVH, mild aortic insufficiency. No reported chest pain, palpitations, shortness of breath, fluid retention, headaches, dizziness, near syncope, or nocturia. Limited water intake noted. Does yoga on , and to the gym on Tuesdays and . Review of patient's allergies indicates: Allergen Reactions Pollen Congestion, runny nose Current Outpatient Medications Medication Sig Dispense Refill aspirin 81 MG chewable tablet Take 1 Tablet by mouth in the morning. with food.. 100 Tab 5 Probiotic Product (PROBIOTIC & ACIDOPHILUS EX ST) Capsule Take 1 Tab by mouth. multivitamin (MVI) Tablet Take 1 Tablet by mouth. fexofenadine (KARAN) 180 MG Tablet Take 1 Tablet by mouth daily as needed for Allergies. Ibuprofen 200 MG Oral Tablet Take 3 Tablets by mouth every 8 hours as needed for Pain. with food 100 Tab 5 Acetaminophen ER 650 MG Oral Tablet Extended Release Take 1 Tablet by mouth every 8 hours as neededfor Fever. Nitroglycerin 0.4 MG Sublingual Tablet Sublingual (Nitrostat) Place 1 Tablet under the tongue every5 minutes as needed for Pain, Chest. up to 3 doses in 15 minutes 75 Tablet 3 Sildenafil Citrate 20 MG Oral Tablet (Revatio) Take up to 4 tabs one hour prior to intercourse. No more than 4 daily. 25 Tablet 5 Dutasteride 0.5 MG Oral Capsule (Avodart) TAKE 1 CAPSULE BY MOUTH EVERY DAY 90 Capsule 3 Metoprolol Succinate ER 50 MG Oral Tablet Extended Release 24 Hour (toPROL XL) TAKE 1 TABLET BY MOUTH EVERY DAY (Patient taking differently: Take 1 Tablet by mouth every evening.) 90 Tablet 3 Atorvastatin Calcium 80 MG Oral Tablet (Lipitor) TAKE 1 TABLET BY MOUTH EVERY DAY 90 Tablet 0 Losartan Potassium 100 MG Oral Tablet (Cozaar) Take 1 Tablet by mouth in the morning. 90 Tablet 3 No current facility-administered medications for this visit. PHYSICAL EXAMINATION BP 144/72 (BP Site: Left Arm, BP Position: Sitting, BP Cuff Size: Large) | Pulse 52 | Resp 14 | Wt 74.3 kg (163 lb 12 oz) | BMI 26.43 kg/m | BSA 1.86 m BP on my examination was 150/84 General: Alert and oriented x3. No acute distress. Pleasant. Comfortable. Cooperative. Skin: No rash Eyes: PER. Conjunctiva pink, sclera clear. HENT: Normocephalic. Atraumatic. Neck: No carotid bruits. No JVD. No HJR. Heart: RRR. No murmur. No rub. No gallop. PMI is nondisplaced. Lungs: Clear to auscultation. No wheeze. No rales. No rhonchi Abdomen: +BS. Soft. Nontender. No masses. No organomegaly. Extremities: + Varicosities. No clubbing, cyanosis, or edema. Pulses: radial=2/4, posterior tibial=2/4. Limited neurological examination: No focal deficit. Data: April 25, 2023 JOHN Interpretation Summary (as per Dr. Zuñiga): STRESS STUDY: The stress echo is negative for inducible ischemia. The stress portion the study was stopped due to fatigue. No chest discomfort or subjective palpitations were reported. An exaggerated blood pressure response to exercise was observed. A high workload was achieved, 9 minutes, 10 METs. RESTING STUDY: The LV wall thickness is mildly increased (concentric). The qualitative LV ejection fraction is 60-64% (normal). Mild aortic valve regurgitation is present. ASSESSMENT: Hypertension, not under optimal control. Stable coronary artery disease status post PCI with 2 bare metal stents back in 1996 Dyslipidemia. LDL 54 mg/dL on 11/11/2023. RECOMMENDATIONS/PLAN: Options of management discussed with patient and spouse. Non pharmacologic treatment of hypertension discussed. Recommend titration of losartan from 50 mg/day to 100 mg/day. Follow-up basic metabolic panel to be obtained in 3 to 4 weeks. If additional blood pressure control isneeded would consider low-dose amlodipine next. Routine cardiology follow-up, or as needed. ER withemergencies. Phillip Ramsey PA-C Department of Cardiology I spent a total of 30-39 minutes (exact time 30 mins) on the date of service in preparation, delivery, and documentation of the care provided to John Miles excluding any time spent in the performance of separately billed services. This visit involved medical care services related to at least oneserious condition or complex condition requiring ongoing care. This chart was completed in part util [employer] Speech Voice Recognition Software. Grammatical errors, random word insertions, prounoun errors, and incomplete sentences are an occasional consequence of this system due to software limitations, ambient noise, and hardware issues. Any formal questions or concerns about the content, text, or information contained within the body of this dictation should be directly addressed to the provider for clarification. documented in this encounter Nursing Notes * Niesha Suero CMA - 12/03/2023 9:53 AM EDT Examination Room: 3 Name: John Miles Date of : (1950). Reason for Visit: 6M f/u Interim Hospitalization(s): [facility] ED 06/25/23 COVID - took Paxlovid (also had second COVID infectionin Sep) Problems/Concerns: Elevated BP readings 140-150s/80-90s using home wrist cuff. Asymptomatic. Chest Pain/SOB: denies [facility] Discussed: Not applicable [facility] is a way you can talk to your provider online through e-mail. Would you like to sign up? I can activate it for you? ALREADY ACTIVE Patient was instructed to not get up on the exam table until directed and assisted by their provider; patient is to remain seated in the chair/ wheelchair/ exam table for fall prevention and safety reasons. Patient is aware to have assistance to step down off exam table with personnel. Patient voiced full comprehension of instructions. documented in this encounter Plan of Treatment Upcoming Encounters Date Type Department Care Team (Latest Contact Info) Description 05/04/2024 7:30 AM EDT Hospital Encounter ENDO OSSC, Endoscopy Room [facility] [address] [phone] Jaron Russo MD [address] [place] [address] 05/04/2024 7:30 AM EDT - 05/04/2024 8:00 AM EDT Surgery ENDO [facility], Endoscopy Room [facility] [address] [phone] Jaron Russo MD [address] [address] COLONOSCOPY FLEXIBLE PROXIMAL DIAGNOSTIC 05/18/2024 1:00 PM EDT Office Visit General Internal Medicine [facility] [address] [place] [id number] Triny Izquierdo MD [address] [facility] [place] [address] Scheduled Orders Name Type Priority Associated Diagnoses Orde r Schedule BASIC METABOLIC PANEL Lab Routine HTN, goal below 130/80 Expected: 01/03/2024, Expires: 12/02/2024 Scheduled Procedures Name Priority Associated Diagnoses Date/Ti [...] or Tdap) 02/07/2024 02/06/2014 GFR 11/10/2024 11/11/2023, 090 04/2023, 02/19/2022, Additional history exists HbA1c 11/10/2024 [...] as of this encounter Visit Diagnoses Diagnosis HTN, goal below 130/80- Primary Unspecified essential hypertension ASCVD (arteriosclerotic cardiovascular disease) Unspecified cardiovascular disease Dyslipidemia, goal LDL below 70 Other and unspecified hyperlipidemia History of colon polyps Personal history of colonic polyps documented in this encounter Care Teams Merchant Patroller Relationship Specialty Start Date End Date Triny Izquierdo MD [address] [facility] [place] [address] PCP - General Internal Medicine 06/13/16 documented as of this encounter"
--- OUTSIDE RECORDS SUMMARY | 2024-02-13 22:33 | External Medical Summary ---
Author Name Unknown Address Unknown Organization K01:[facility] [place] [address] [place] [address] Laboratory Report Ordering Provider Test Date Status KING PARIKH 11/11/2023 07:10:18 Final Observation Date Value Abnormality Reference (Units ) Status Triglyceride 11/11/2023 07:10:18 177 Above high normal <=174 (mg/dL) Final Triglyceride Reference Range s (mg/dL):
<150 Acceptable
150-174 Borderline high
175-499 High
>=500 Very high Cholesterol 11/11/2023 07:10:18 130 <200 (mg /dL) Final Total Cholesterol Reference Ranges (mg/dL):
<200 Desirable
200-239 Borderline high
>=240 High HDL 11/11/2023 07:10:18 40 >39 (mg/dL ) Final HDL Cholesterol Reference Ra nges (mg/dL):
>=60 High (Desirable)
<50 Low (Undesirable) For Females
<40 Low (Undesirable) For Males NON-HDL CHOLESTEROL 11/11/2023 07:10:18 90 <=159 (mg/dL) Final Non-HDL Cholesterol Referenc e Range (mg/dL):
<100 Target level for high risk ASCVD patient
<130 Optimal for general population
130-159 Near optimal for general population
160-189 Borderline High
190-219 High
>=220 Very High Performing Location [facility] [place] - [address] [place] [address]
--- OUTSIDE RECORDS SUMMARY | 2024-02-13 22:33 | External Medical Summary | Summary of Care ---
Author Name Unknown Organization [facility] Address [address] [facility] [place] [address] Phone [phone] Care Team Providers Care Pocket Machine Operator Name Role Phone Triny Izquierdo MD Primary Care Provider + Reason for Visit * Reason Comments eRx-Medication Refill Encounter Details Date Type Department Care Team ([facility] st Contact Info) Description 11/02/2023 Refill General Internal Medicine [facility] [place] [address] [facility] [place] [address] Tr[facility] [address] [facility] [address] Hyperlipidemia LDL goal <100 Allergies Active Allergy Reactions Criticality Noted Date Comments Pollen 05/03/2021 Congestion, runny nose documented as of this encounter (statuses as of 11/29/2023) Medications Medication Sig Dispensed Refills Start Date [...] 06/23/2023 Active Benzonatate 100 MG Oral Capsule (Tesyefri Mata)Indicatio ns:Acute cough Take 1 Capsule by [...] EVERY DAY 90 Tablet 0 11/03/2023 Active Atorvastatin Calcium 80 MG Oral Tablet (Lipitor)Indicat ions:Hyperlipide buzz LDL goal <100 TAKE 1 TABLET BY MOUTH EVERY DAY 90 Tablet 0 08/11/2023 11/03/19 24 Discontinued documented as of this encounter (statuses as of 11/29/2023) Active Problems Problem Noted Date Diagnosed Date Rosacea 10/19/2020 Prediabetes 02/15/2019 Overview: Per Prediabetes protocol S/P lumbar laminectomy 02/08/2019 HTN, goal below 130/80 Hyperlipidemia LDL goal <100 documented as of this encounter (statuses as of 11/29/2023) Resolved Problems Problem Noted Date Diagnosed Date Resolved Date Hypertension 06/13/2016 Hyperlipemia 06/13/2016 documented as of this encounter (statuses as of 11/29/2023) Immunizations Name Administration Dates Next Due COVID-19 [...] encounter Miscellaneous Notes * Telephone Encounter - Amanda Shaikh PHARM Tech - 11/29/2023 12:55 PM EDT Received message from [facility] regarding patient needing labs. Placed call to patient to advise. Pt had ordered labs completed on 11/11/2023; no follow-up is needed. Thank you for your assistance Amanda Shaikh Masonry Teacher II [facility] ([facility] ([facility] [employer]) 11/29/2023,12:55 PM * Telephone Encounter - Dima Espinosa [facility] - 11/03/2023 10:08 AM ESTSigned Prescriptions: Disp Refills Atorvastatin Calcium 80 MG Oral Tablet (Li*90 Tab*0 Sig: TAKE 1 TABLET BY MOUTH EVERY DAY Authorizing Provider: TRINY IZQUIERDO Ordering User: DIMA ESPINOSA * Telephone Encounter - Dima Espinosa [facility] - 11/03/2023 10:06 AM EST 2nd Attempt Provided 90 days supply with 0 refill(s). Per refill protocol patient should have lipid panel on file within past year. Reviewed AMP report, Care Gaps/Health Maintenance, medications list, and for any routine labs typically ordered for this patient. Lab orders placed. Please contact patient to advise of labs ordered for blood draw. Fasting is not required. Advise toobtain labs before requesting the next refill. Thanks, Dima Espinosa PharmD Clinical Pharmacist [facility] ([facility] - [facility] [email or web address]) [phone] 11/03/2023 10:07 AM documented in this encounter Plan of Treatment Upcoming Encounters Date Type Department Care Team (Latest Contact Info) Description 12/03/2023 10:00 AM EDT Office Visit Cardiology, [facility] [address] [place] [address] Phillip Ramsey PA-C [address] [place] [address] 05/04/2024 7:30 AM EDT Hospital Encounter ENDO OSSC, Endoscopy Room [facility] [address] [place] [phone] Jaron Russo MD [address] [place] [address] 05/04/2024 7:30 AM EDT - 05/04/2024 8:00 AM EDT Surgery ENDO [facility], Endoscopy Room [facility] [address] [place] [phone] Jaron Russo MD [address] [place] [address] COLONOSCOPY FLEXIBLE PROXIMAL DIAGNOSTIC 05/18/2024 1:00 PM EDT Office Visit General Internal Medicine [address] [place] [address] [place] [address] Triny Izquierdo MD [address] [place] [address] Scheduled Procedures Name Priority Associated Diagnoses Date/Ti [...] 02/19/2022, Additional history exists HbA1c 11/10/2024 11/11/2023, 0802/2021, 09/19/2020, Additional history exists Albumin/Creatinine Ratio 05/16/2026 [...] polyps documented in this encounter Care Teams Pocket Machine Operator Relationship Specialty Start Date End Date Triny Izquierdo MD [address] [place] [address] PCP - General Internal Medicine 06/13/16 documented as of this encounter
--- OUTSIDE RECORDS SUMMARY | 2024-02-13 22:33 | External Medical Summary ---
Author Name Unknown Address Unknown Organization K09:[facility] [place] [address] Laboratory Report Ordering Provider Test Date Status MASON POPE 11/11/2023 07:10:18 Final Observation Date Value Abnormality Reference (Units ) Status WBC, Total 11/11/2023 07:10:18 7.10 4.00-10.8 0 (K/uL) Final RBC 11/11/2023 07:10:18 4.54 4.50-5.25 (M/uL) Final Hemoglobin 11/11/2023 07:10:18 15.1 14.0-16.8 (g/dL) Final HCT 11/11/2023 07:10:18 45.3 40.0-48.4 (%) Final MCV 11/11/2023 07:10:18 99.8 82.0-99.5 (fL) Final MCH 11/11/2023 07:10:18 33.3 27.0-34.0 (pg) Final MCHC 11/11/2023 07:10:18 33.3 32.0-36.0 (g/dL) Final RDW 11/11/2023 07:10:18 12.5 11.5-15.5 (%) Final Platelets 11/11/2023 07:10:18 202 140-400 (K /uL) Final MPV 11/11/2023 07:10:18 11.3 6.6-11.1 ( fL) Final Performing Location [facility] [place] [address]
--- OUTSIDE RECORDS SUMMARY | 2024-02-13 22:33 | External Medical Summary | Summary of Care ---
Author Name Unknown Organization [facility] Address [address] [place] [address] Phone [phone] Care Team Providers Care Building Performance Consultant Name Role Phone Triny Izquierdo MD Primary Care Provider + Reason for Visit * Reason Onset Date Comments Advice 06/23/2023 +Covid Encounter Details Date Type Department Care Team ([facility] st Contact Info) Description 06/23/2023 Telephone General Internal Medicine [facility] [address] [facility] [place] [address] Triny Izquierdo MD [address] [place] [place] [address] Advice (+Covid ) Allergies Active Allergy Reactions Criticality Noted Date Comments Pollen 05/03/2021 Congestion, runny nose documented as of this encounter (statuses as of 09/22/2023) Medications Medication Sig Dispensed Refills Start Date [...] by mouth. 30 Tablet 0 06/23/2023 Active Atorvastatin Calcium 80 MG Oral Tablet (Lipitor)Indicat ions:Hyperlipide buzz LDL goal <100 TAKE 1 TABLET BY MOUTH EVERY DAY 90 Tablet 3 07/18/2022 08/11/20 23 Discontinued Dutasteride 0.5 MG Oral Capsule (Avodart)Indicat ions:HTN, goal below 130/80 TAKE 1 CAPSULE BY MOUTH EVERY DAY 90 Capsule 2 10/14/2022 07/07/20 23 Discontinued Metoprolol Succinate ER 50 MG Oral Tablet Extended Release 24 Hour (toPROL XL)Indications:H TN, goal below 130/80 TAKE 1 TABLET BY MOUTH EVERY DAY 90 Tablet 0 05/08/2023 08/05/20 23 Discontinued documented as of this encounter (statuses as of 09/22/2023) Active Problems Problem Noted Date Diagnosed Date Rosacea 10/19/2020 S/P lumbar laminectomy 02/08/2019 HTN, goal below 130/80 Hyperlipidemia LDL goal <100 documented as of this encounter (statuses as of 09/22/2023) Resolved Problems Problem Noted Date Diagnosed Date Resolved Date Prediabetes 02/15/2019 05/24/2021 Overview: Per Prediabetes protocol Hypertension 06/13/2016 Hyperlipemia 06/13/2016 documented as of this encounter (statuses as of 09/22/2023) Immunizations Name Administration Dates Next Due COVID-19 [...] encounter Miscellaneous Notes * Telephone Encounter - Saira Snider LPN - 06/23/2023 5:44 PM EDT Patient aware and verbalized understanding Saira Snider LPN * Telephone Encounter - Triny Izquierdo MD - 06/23/2023 2:04 PM EDT Noted. Script for Paxlovid sent to [facility] Need to hold atorvastatin. Check with pharmacy if any other medication he should hold. Follow CDC guidelines for quarantine. Can take Tylenol 325 mg 1 pill 3 times a day as needed for fever, body ache or headache, daily vitamin-C and vitamin-D. Go to ER if any significant chest pain, shortness of breath or any severe symptoms in the meantime. * Telephone Encounter - Jennifer Prado OSA - 06/23/2023 7:38 AM EDT Reason for patient call/what is patient requesting? Paxlovid Have you had symptoms of COVID-19 such as fever, sore throat, shortness of breath? COVID19 Symptoms:yes - Fever ; Cough ; Fatigue ; Body Aches Date of first symptoms: 06.22.23 Date of last fever: Had fever this morning Date of last symptoms: ongoing Have you had close exposure to someone who tested positive for COVID-19? COVID19 Exposure: no Date of first exposure: n/a Date of last exposure: n/a Testing location requested: Positive COVID 19 test in the past 90 days? Home test 06.22.23 Did you have 2 vaccines Yes Boosters yes Please advise if paxlovid can be prescribed. documented in this encounter Plan of Treatment Upcoming Encounters Date Type Department Care Team (Latest Contact Info) Description 10/30/2023 9:00 AM EST Hospital Encounter ENDO [facility], Endoscopy Room [facility] [address] [place] [phone] Tomasa Severino, [address] [place] [address] 10/30/2023 9:00 AM EST - 10/30/2023 9:30 AM EST Surgery ENDO [facility], Endoscopy Room [facility] [address] [place] [phone] Tomasa Severino DO [address] [place] [address] COLONOSCOPY FLEXIBLE PROXIMAL DIAGNOSTIC 12/03/2023 10:00 AM EDT Office Visit Cardiology, [facility] [address] [place] [address] Phillip Ramsey PA-C [address] [place] [address] 12/08/2023 9:30 AM EDT Office Visit Dermatology [facility] [address] [facility] [place] [address] Jennifer Pérez MD 05/18/2024 1:00 PM EDT Office Visit General Internal Medicine [facility] [address] [facility] [place] [address] Triny Izquierdo MD [address] [facility] [place] [address] Scheduled Procedures Name Priority Associated Diagnoses Date/Ti me COLONOSCOPY FLEXIBLE PROXIMAL DIAGNOSTIC Recall History of colon polyps 10/30/2023 9:00 AM EST Health Maintenance Due Date Last Done Comments Depression Screening 08/30/2022 08/30/2021 COLONOSCOPY-EVERY 5 YRS AGES 18-100 11/05/2022 11/05/2017, 11/05/2017 COVID-19 Vaccine (2022- season) 2023 05/22/2022, 12/26/2021, 06/06/2021, Additional history [...] filedocumented as of this encounter Care Teams Building Performance Consultant Relationship Specialty Start Date End Date Triny Izquierdo MD [address] [place] [address] PCP - General Internal Medicine 06/13/16 documented as of this encounter
--- OUTSIDE RECORDS SUMMARY | 2024-02-13 22:33 | External Medical Summary ---
Author Name Unknown Address Unknown Organization K09:[facility] [place] [address] Laboratory Report Ordering Provider Test Date Status [place]ON POPE 11/11/2023 07:10:18 Final Observation Date Value Abnormality Reference (Units ) Status SYNC LEUKOCYTES IN BLOOD BY AUTOMATED COUNT 11/11/2023 07:10:18 7.10 4.00-10.80 (K/uL) Final Segs 11/11/2023 07:10:18 51.4 40.0-75.0 (%) Final Lymphs % 11/11/2023 07:10:18 30.4 18.0-42.0 (%) Final Monos 11/11/2023 07:10:18 12.0 Above high normal 1.0-11.0 (%) Final Eosinophils 11/11/2023 07:10:18 5.9 0.0-6.0 (%) Final Basos 11/11/2023 07:10:18 0.3 0.0-2.0 (%) Final Absolute Segs 11/11/2023 07:10:18 3.65 1.80-7.70 (K/uL) Final Lymphs, absolute 11/11/2023 07:10:18 2.16 1.00-4.80 (K/ul) Final Monos, Abs 11/11/2023 07:10:18 0.85 0.00-1.10 (K/uL) Final Eos, Abs 11/11/2023 07:10:18 0.42 0.00-0.70 (K/uL) Final Basos, Abs 11/11/2023 07:10:18 0.02 0.00-0.20 (K/uL) Final Performing Location [facility] [place] [place] [address]
--- OUTSIDE RECORDS SUMMARY | 2024-02-13 22:33 | External Medical Summary | Summary of Care ---
Author Name Unknown Organization [facility] Address [address] [facility] [place] [address] Phone [phone] Care Team Providers Care Assembler Golf Wood Head Name Role Phone Triny Izquierdo MD Primary Care Provider + Reason for Visit * Reason Comments Outpatient Testing Encounter Details Date Type Department Care Team (Late st Contact Info) Description 11/11/2023 7:10 AM EST Laboratory Laboratory [facility] [place] [address] [place] [phone] [facility] [address] [place] [address] inSelly Other*[id number]; Encounter for long-term (current) use of medications; [...] as of this encounter Miscellaneous Notes * Result Encounter Note - Najma Ferrera RPh - 11/11/2023 3:25 PM EST Prediabetics not listed as DX in chart. Patient has had a few reading in prediabetic range. Lab forwarded to PCP. documented in this encounter Plan of Treatment Upcoming Encounters Date Type Department Care Team (Latest Contact Info) Description 12/03/2023 10:00 AM EDT Office Visit Cardiology, [facility] [address] [place] [address] Phillip Ramsey PA-C [address] [place] [address] 05/04/2024 7:30 AM EDT Hospital Encounter ENDO [facility], Endoscopy Room [facility] [address] [place] [phone] Jaron Russo MD [address] [place] [address] 05/04/2024 7:30 AM EDT - 05/04/2024 8:00 AM EDT Surgery ENDO [facility], Endoscopy Room [facility] [address] [place] [phone] Jaron Russo MD [address] [place] [address] COLONOSCOPY FLEXIBLE PROXIMAL DIAGNOSTIC 05/18/2024 1:00 PM EDT Office Visit General Internal Medicine [facility] [address] [place] [address] Triny Izquierdo MD [address] [facility] [place] [address] Pending Results Name Type Priority Associated Diagnoses Date /Time MYCODE SUBSEQUENT ADULT Lab Routine [employer] Other*[id number] 11/11/2023 7:10 AM EST MYCODE SST1 Lab Routine [employer] [employer] Other*[id number] 11/11/2023 7:10 AM EST MYCODE SST2 Lab Routine [employer] Other*[id number] 11/11/2023 7:10 AM EST Scheduled Procedures Name [...] goal below 130/80 Screening for deficiency anemia LIPID PANEL WITH DIRECT LDL IF TG IS HIGH Routine 11/11/2023 7:10 AM EST Encounter for long-term (current) use of medications HEMOGLOBIN A1C Routine 11/11/2023 7:10 AM EST Encounter for long-term (current) use of medications COMPREHENSIVE METABOLIC PANEL Routine 11/11/2023 7:10 AM EST HTN, goal below 130/80 CBC Routine 11/11/2023 7:10 AM EST HTN, goal below 130/80 Screening for deficiency anemia CBC Routine 11/11/2023 7:10 AM EST HTN, goal below 130/80 Screening for deficiency anemia LDL CHOLESTEROL (DIRECT MEASURE) Routine 11/11/2023 7:10 AM EST Encounter for long-term (current) use of medications documented in this encounter Results * LDL CHOLESTEROL (DIRECT MEASURE) (11/11/2023 7:10 AM EST) LDL Cholesterol (Direct Measure) 54 <=129 mg/dL 11/11/2023 3:18 PM EST [facility] Comment: LDL Cholesterol Reference Ranges (mg/dL): <70 Target level for high risk ASCVD patient <100 Optimal for general population 100-129 Near optimal for general population 130-159 Borderline high 160-189 High >=190 Very high Blood Venous blood specimen / Unknown Venipuncture / Unknown 11/11/2023 7:10 AM EST 11/11/2023 7:11 AM EST Najma Ferrera [facility] LAB BLOOD ORDERABLES [facility] [address] [place] [address] * (ABNORMAL) DIFFERENTIAL, AUTOMATED (11/11/2023 7:10 AM EST) WBC 7.10 4.00 - 10.80 K/uL 11/11/2023 7:24 AM [facility] 56-02 Neutrophils % 51.4 40.0 - 75.0 % 11/11/2023 7:24 AM [facility] 56-02 Lymphocytes % 30.4 18.0 - 42.0 % 11/11/2023 7:24 AM [facility] 56-02 Monocytes % 12.0(H) 1.0 - 11.0 % 11/11/2023 7:24 AM [facility] 56-02 Eosinophils % 5.9 0.0 - 6.0 % 11/11/2023 7:24 AM [facility] 56-02 Basophils % 0.3 0.0 - 2.0 % 11/11/2023 7:24 AM [facility] 56-02 Absolute Neutrophils 3.65 1.80 - 7.70 K/uL 11/11/2023 7:24 AM [facility] 56-02 Absolute Lymphocytes 2.16 1.00 - 4.80 K/ul 11/11/2023 7:24 AM [facility] 56-02 Absolute Monocytes 0.85 0.00 - 1.10 K/uL 11/11/2023 7:24 AM [facility] 56-02 Absolute Eosinophils 0.42 0.00 - 0.70 K/uL 11/11/2023 7:24 AM [facility] 56-02 Absolute Basophils 0.02 0.00 - 0.20 K/uL 11/11/2023 7:24 AM [facility] 56-02 Blood Venous blood specimen / Unknown Venipuncture / Unknown 11/11/2023 7:10 AM EST 11/11/2023 7:11 AM EST Triny Izquierdo MD LAB BLOOD ORDERA BLES [facility] [address] [place] [address] * CBC (11/11/2023 7:10 AM EST) WBC 7.10 4.00 - 10.80 K/uL 11/11/2023 7:24 AM [facility] 56-02 RBC 4.54 4.50 - 5.25 M/uL 11/11/2023 7:24 AM [facility] 56 HGB 15.1 14.0 - 16.8 g/dL 11/11/2023 7:24 AM [facility] 56 HCT 45.3 40.0 - 48.4 % 11/11/2023 7:24 AM [facility] 56 MCV 99.8 82.0 - 99.5 fL 11/11/2023 7:24 AM [facility] 56 MCH 33.3 27.0 - 34.0 pg 11/11/2023 7:24 AM [facility] 56 MCHC 33.3 32.0 - 36.0 g/dL 11/11/2023 7:24 AM [facility] 56 RDW 12.5 11.5 - 15.5 % 11/11/2023 7:24 AM [facility] 56 PLT 202 140 - 400 K/uL 11/11/2023 7:24 AM [facility] 56 MPV 11.3 6.6 - 11.1 fL 11/11/2023 7:24 AM [facility] 56 Blood Venous blood specimen / Unknown Venipuncture / Unknown 11/11/2023 7:10 AM EST 11/11/2023 7:11 AM EST Triny Izquierdo MD LAB BLOOD ORDERA BLES [facility] [address] [place] [address] * (ABNORMAL) COMPREHENSIVE METABOLIC PANEL (11/11/2023 7:10 AM EST) BUN 23(H) 6 - 20 mg/dL 11/11/2023 8:35 AM [facility] Creatinine 1.0 0.6 - 1.2 mg/dL 11/11/2023 8:35 AM [facility] 56 Estimated Glomerular Filtration Rate 80 >=60 mL/min 11/11/2023 8:35 AM [facility] 56 Comment:eGFR is calculated b ased on the CKD-EPI 2020 equation Sodium 141 135 - 146 mmol/L 11/11/2023 8:35 AM [facility] 56-02 Potassium 4.4 3.5 - 5.1 mmol/L 11/11/2023 8:35 AM [facility] 56-02 Chloride 105 98 - 107 mmol/L 11/11/2023 8:35 AM [facility] 56-02 CO2 25 22 - 32 mmol/L 11/11/2023 8:35 AM [facility] 56-02 Anion Gap 11 7 - 15 mmol/L 11/11/2023 8:35 AM [facility] 56-02 Glucose 102 70 - 120 mg/dL 11/11/2023 8:35 AM [facility] 56-02 Albumin 4.6 3.8 - 5.0 g/dL 11/11/2023 8:35 AM [facility] 56-02 AST 24 10 - 50 U/L 11/11/2023 8:35 AM [facility] 56-02 Alkaline Phosphatase 94 35 - 130 U/L 11/11/2023 8:35 AM [facility] 56-02 Bilirubin, Total 0.5 <=1.2 mg/dL 11/11/2023 8:35 AM [facility] 56-02 Calcium 9.6 8.4 - 10.2 mg/dL 11/11/2023 8:35 AM [facility] 56-02 Protein 6.8 6.0 - 8.3 g/dL 11/11/2023 8:35 AM [facility] 56-02 ALT 26 10 - 50 U/L 11/11/2023 8:35 AM [facility] 56-02 Blood Venous blood specimen / Unknown Venipuncture / Unknown 11/11/2023 7:10 AM EST 11/11/2023 7:11 AM EST Triny Izquierdo MD LAB BLOOD ORDERA BLES [facility] [address] [place], [place] [address] * (ABNORMAL) HEMOGLOBIN A1C (11/11/2023 7:10 AM EST) Hemoglobin A1C 5.8(H) 4.0 - 5.6 % 11/11/2023 2:40 PM EST [facility]ORY [facility] Comment:The use of HbA1c to monitor glycemic status is based on normal hemoglobin and HbA composition. This test should not be used in patients with abnormal hemoglobin that affects the half life of the red blood cell or the in vivo glycation rates. Estimated Average Glucose 120 <126 mg/dL 11/11/2023 2:40 PM EST [facility]ORY [facility] Blood Venous blood specimen / Unknown Venipuncture / Unknown 11/11/2023 7:10 AM EST 11/11/2023 7:11 AM EST Najma Ferrera [facility] LAB BLOOD ORDERABLES LAB[facility]ATORY [facility] [address] [place] [address] * (ABNORMAL) LIPID PANEL WITH DIRECT LDL IF TG IS HIGH (11/11/2023 7:10 AM EST) Triglycerides 177(H) <=174 mg/dL 11/11/2023 2:39 PM EST [facility] Comment: Triglyceride Reference Ranges (mg/dL): <150 Acceptable 150-174 Borderline high 175-499 High >=500 Very high Cholesterol 130 <200 mg/dL 11/11/2023 2:39 PM EST [facility] Comment: Total Cholesterol Reference Ranges (mg/dL): <200 Desirable 200-239 Borderline high >=240 High HDL Cholesterol 40 >39 mg/dL 2:39 PM EST [facility] Comment: HDL Cholesterol Reference Ranges (mg/dL): >=60 High (Desirable) <50 Low (Undesirable) For Females <40 Low (Undesirable) For Males Non-HDL Cholesterol 90 <=159 mg/dL 11/11/2023 2:39 PM EST [facility] Comment: Non-HDL Cholesterol Reference Range (mg/dL): <100 Target level for high risk ASCVD patient <130 Optimal for general population 130-159 Near optimal for general population 160-189 Borderline High 190-219 High >=220 Very High Blood Venous blood specimen / Unknown Venipuncture / Unknown 11/11/2023 7:10 AM EST 11/11/2023 7:11 AM EST Najma Ferrera [facility] LAB BLOOD ORDERABLES [facility] [address] [place] [address] documented in this encounter Visit Diagnoses Diagnosis MyCode [employer] Other*[id number] Encounter for long-term (current) use of medications Encounter for long-term (current) use of other medications Hyperlipidemia LDL goal <100 Other and unspecified hyperlipidemia HTN, goal below 130/80 Unspecified essential hypertension Screening for deficiency anemia Screening for other and unspecified deficiency anemia Prediabetes Other abnormal glucose History of colon polyps Personal history of colonic polyps documented in this encounter Care Teams Assembler Golf Wood Head Relationship Specialty Start Date End Date Triny Izquierdo MD [address] [place] [address] [place] [address] PCP - General Internal Medicine 06/13/16 documented as of this encounter
--- NOTE | 2024-02-13 23:01 | Electrocardiogram Report ---
Test Reason : Blood Pressure : / mmHG Vent. Rate : 053 BPM Atrial Rate : 053 BPM P-R Int : 202 ms QRS Dur : 088 ms QT Int : 448 ms P-R-T Axes : 031 006 023 degrees QTc Int : 420 ms Sinus bradycardia Cannot rule out Anterior infarct (cited on or before 25-JUN-2023) Abnormal ECG When compared with ECG of 25-JUN-2023 09:42, Borderline criteria for Inferior infarct are no longer Present Questionable change in initial forces of Anterior leads Nonspecific T wave abnormality no longer evident in Anterolateral leads Confirmed by Pawel Ovalles ([id number]) on 02/13/2024 11:00:46 PM Referred By: Triny Izquierdo Confirmed By:Pawel Ovalles
[2024-02-14 06:30] LABS: Basophils # (auto) 0.03 K/uL (0.00-0.20); Basophils % (auto) 0.5 %; Eosinophils # (auto) 0.22 K/uL (0.00-0.50); Hematocrit (blood only) 40.8 % (42.0-52.0); Hemoglobin 14.3 g/dl (14.0-18.0); Immature Granulocytes # (auto) 0.01 K/uL (0.01-0.20); Immature Granulocytes % (auto) 0.2 %; Lymphocytes % (auto) 36.4 %; Mean Corpuscular Hemoglobin 33.3 pg (25.0-34.0); Mean Corpuscular Volume 95.1 fL (80.0-100.0); Mean Platelet Volume 11.7 fL (9.4-12.4); Monocytes # (auto) 0.61 K/uL (0.11-0.59); Monocytes % (auto) 11.1 %; Neutrophils # (auto) 2.63 K/uL (1.40-6.50); Neutrophils % (auto) 47.8 %; Platelet Count 189 K/uL (130-400); RDW Coefficient of Variation 12.1 % (11.5-14.5); RDW Standard Deviation 42.5 fL (36.4-46.3); Red Blood Count 4.29 M/uL (4.70-6.10)
[2024-02-14 06:40] LABS: BUN Creatinine Ratio 25.6 (10-20); Calcium 8.9 mg/dl (8.6-10.3); Est GFR (African American) 97.9 ml/min; Est GFR (Non-African American) 84.4 ml/min
[2024-02-14 06:55] LABS: Thyroid Stimulating Hormone 2.237 uIu/ml (0.300-4.500)
[2024-02-14 07:00] LABS: Estimated Average Glucose 117 mg/dl; Hemoglobin A1C 5.7 % (4.5-5.6)
[2024-02-14 07:36] LABS: D Dimer 540 ug/L FEU (0-500)
[2024-02-14] MEDS: CLOPIDOGREL BISULFATE 75 MG TAB PO SCH (08:32)
[2024-02-14] MEDS: LOSARTAN POTASSIUM 50 MG TAB PO SCH (08:33)
--- NOTE | 2024-02-14 10:17 | Neurology Consultation ---
Date of Consultation February 14, 2024 Telehealth Consultation Telehealth Information Telehealth Information: I performed this visit using a real-time telehealth connection between my location and the patients location ([facility]). After connecting through interactive tele-video, patient was identified by name and date of and/or wristband check.Patient (or authorized healthcare off premise service representative) was informed that this was a telemedicine visit and it was being conducted confidentially over secure lines. My office door was closed and no one else was present in the room with me.Patient (or authorized healthcare off premise service representative) provided consent to proceed with the visit, expressed an understanding of privacy and security of the telemedicine visit, and gave permission to have a hospital off premise service representative in the room in order to assist with the visit and to conduct portions of the visit, as needed. I informed the patient (or authorized healthcare off premise service representative) that I reviewed their record and presented the opportunity for them to ask any questions regarding the visit today. The patient agreed to participate. History of Present Illness Reason for Consultation: She/He has undergone emergent stroke imaging including CT brain without contrast, personally reviewed at today, revealing no overt evidence of hemorrhage. CT angiographic studies of head and neck, also personally reviewed at today, reveal no overt evidence of large vessel occlusion or significant/flow limiting stenosis. I have performed televideo consultation. He/She is alert & oriented; able to answer all questions appropriately, name objects on televideo monitor, repeat phrases and perform complex/embedded commands without deficit. Neurological exam is non lateralizing/nonfocal in terms of motor strength and coordination. NIHSS Recommend admission for continued stroke work up to include the following: MRI brain withwithout contrast Echocardiogram as part of complete stroke workup Continue frequent neurological assessments Obtain stat CT brain without contrast for any acute neurological decline Continue to monitor/control blood pressure & blood glucose Recommend keep systolic blood pressure < Continue to monitor telemetry closely Recommend ZioPatch at DC if no evidence of arrhythmia during inpatient monitoring Continue to monitor renal and hepatic function, keep euvolemic Metabolic workup should include hgbA1c, fasting lipids, homocysteine, TSH, D Dimer, RPR, urinalysis Recommend DAPT for at least 3 weeks Recommend high dose statin therapy indefinitely if tolerated Ok from neurology perspective for VTE prophylaxis PT/OT/SLT to eval and treat Recommend outpatient polysomnography Recommend obtain EEG Provide seizure precautions Utilize benzodiazepines emergently for any breakthrough clinical seizure like activity No reported cephalgia or cervicalgia Denies chest pain/palpitations or shortness of breath No reported changes in vision hearing dizziness syncope seizure like activity or paresthesia Denies recent fevers chills nausea vomiting changes in bowels or bladder Denies recent medication changes, recent illness or sick contacts, no reported recent travel Attending Physician: Bang Bonner MD Allergies Allergy/AdvReac Type Severity Reaction Status Date / Time No Known Allergies Allergy Verified 06/11/18 09:39 Home Medications Medication Instructions Recorded Confirmed Type aspirin 81 mg tablet,delayed 81 mg PO QPM 05/27/18 02/13/24 History release atorvastatin 80 mg tablet 80 mg PO QPM 05/27/18 02/13/24 History dutasteride 0.5 mg capsule 0.5 mg PO QPM 05/27/18 02/13/24 History (Avodart) metoprolol succinate 50 mg 50 mg PO QPM 05/27/18 02/13/24 History tablet,extended release 24 hr losartan 100 mg tablet 100 mg PO QAM 02/13/24 02/13/24 History sildenafil (pulm.hypertension) 20 See Rx Instructions .Route .COMPLEX 02/13/24 02/13/24 History mg tablet Patient History Medical History Sciatica Osteoarthritis DDD (degenerative disc disease) Surgical History S/P eye surgery right eye - muscle tightened S/P cataract extraction and insertion of intraocular lens bilateral History of tooth extraction S/P wrist surgery left History of herniorrhaphy Right inguinal hernia repair History of heart artery stent x1 LAD. placed 21 years ago History of cardiac cath 21 years ago - cp - x 1 stent LAD - follows w/ dr. thomas Family History Other Cancer Coronary heart disease Diabetes Hypertension Social History Smoking Status: Never smoker Second Hand Exposure: No; Do You Dip or Chew Tobacco: No; Tobacco Cessation Education Requested by Patient: No Hx Alcohol Use: No Hx Substance Use: No Preferred Language: Turkmen Communication Ability: Effective Barrel Roller Required: No Beliefs That Will Affect Care: None Current Living Situation: Spouse Other Information That Helps Us Care for You: No Feels Safe at Home: Yes Safety Concerns: Feels Safe At This Time Assistive Devices: None Results & Data Vital Signs (Past 12 Hours) Vital Signs Temp Pulse Resp BP Pulse Ox O2 Del Method 02/14/24 07:55 36.8 C 54 L 18 146/68 H 98 Room Air 02/14/24 03:57 36.6 C 56 L 18 135/67 93 Room Air 02/13/24 22:30 36.6 C 55 L 18 121/71 96 Room Air
[2024-02-14] MEDS ORDERED: STROKE PATIENT DISCHARGE STA (14:43)
--- NOTE | 2024-02-14 15:01 | Discharge Summary ---
Date of Service February 14, 2024 Admission HPI Per Admitting Provider John Miles is a 73y/o M with PMHx of hyperlipidemia [on aspirin therapy], prediabetes, hypertension and other problems listed below who presented to the ED via EMS for evaluation of new-onset headache, right-sided facial numbness. History obtained from patient, and associated ED/PCP/specialist records. Patient seen at bedside with Dr. Guzman. Patient is accompanied in the room by his , who provides additional history. Patient states he was awoken this morning by his ~5am and was complaining of a new-onset headache. He does NOT normally get headaches often at baseline. States he also had some numbness/tingling of the right side of his face, which prompted a call to EMS. Denies any extremity numbness/tingling at this time. He was dizzy upon standing out of bed this morning, but that has since resolved. No dysphagia concerns, moving extremities just fine. No history of CVA, no vision changes since the onset of this event. Denies any urinary/bowel habit changes, abdominal pain, SOB or chest pain. Patient states this episode felt "felt like a hangover." States his headache and R-sided facial numbness have mostly resolved following administration aspirin and clopidogrel in the ED. He had previously taken some Tylenol at home w/o much to any relief. No syncope or recent trauma, feels OK at this time. Last known well ~10pm last night according to ED documentation, outside of window for TNK/tPA administration. Vitals on admission: BP 183/75 [most recent reading 139/68 ~9AM], RR 18, HR 55 and SpO2 97% on RA. CBC rather unremarkable, no acute electrolyte abnormalities. Glucose slightly elevated @ 130 on admission, but he is currently diet- controlled [prediabetic, as per above]. Negative troponin, liver enzymes w/in normal range. Creatinine 0.9, GFR 83.3 --> No signs of acute kidney impairment. Head CT negative for any hemorrhage, mass effect or evidence of acute territorial ischemia. 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 * Moderate atherosclerosis of the internal carotid arteries w/o high-grade stenosis or occlusion. Admission Exam Per Admitting Provider GENERAL APPEARANCE: AxOx4, generally well-appearing male, no acute distress. HEENT: NC, AT. MMM. EOMI, clear conjunctiva, oropharynx clear. NECK: Supple without lymphadenopathy. No stiffness or restricted ROM. HEART: Normal rate and regular rhythm, normal S1/S1, no m/r/g LUNGS: CTAB, moving air well. No crackles or wheezes are heard. ABDOMEN: Soft, nontender, nondistended with good bowel sounds heard. BACK: No CVAT, no obvious deformity. EXTREMITIES: Without cyanosis, clubbing or edema. NEUROLOGICAL: Grossly nonfocal. Alert and oriented, moving all 4 extremities, strength 5/5 in BUE/BLE. CN II-XII intact, formally tested. Skin: Warm and dry without any rash. Principal Diagnosis Transient ischemic attack Discharge Data Allergies Allergy/AdvReac Type Severity Reaction Status Date / Time No Known Allergies Allergy Verified 06/11/18 09:39 Consultations 02/13/24 08:52 ED Decision to Admit Stat 02/13/24 09:31 Consult Neurology Routine Consult Vascular Surgery Routine 02/13/24 10:28 Consult Neurology Routine Ordered Studies 02/13/24 07:05 CT angio head w con Stat CT angio neck with con Stat CT head/brain wo con Stat 02/13/24 09:06 MRI Brain [MR brain wo/w con] Stat Hospital Course (1) Numbness and tingling of right side of face: (2) Headache: (3) Hypertension: (4) BPH (benign prostatic hyperplasia): (5) Prediabetes: (6) Hyperlipidemia: Sherman Miles is a 73y/o M with PMHx of hyperlipidemia [on aspirin therapy], prediabetes, hypertension and other problems listed below who presented to the ED via EMS for evaluation of new-onset headache, right-sided facial numbness. On presentation to the ED; he was hypertensive with blood pressure of 183/75 CBC unremarkable; BUN/creatinine within normal limits. CT head without contrast did not show any acute findings CTA head and neck showed high-grade stenosis at the origin of the vertebral arteries with is in determinate occlusion of V4 segment of right vertebral artery. He also had moderate atherosclerosis of internal carotid arteries without high-grade stenosis or occlusion. MRI brain did not show any acute stroke Echocardiogram showed normal EF; no significant valvular abnormalities. Telemetry revealed sinus rhythm Patient was evaluated by neurology; he was recommended to be on dual antiplatelet therapy for 3 weeks. On the day of the discharge; patient did not have any weakness, numbness of any body part. He denied headache or visual changes. His blood pressure had improved overall. Discussion was done with patient and patient's family at bedside regarding the results of the CT head, CTA head and neck and MRI brain. We also discussed his lab findings. Patient was discharged on DAPT. Patient will follow-up with his primary care doctor. Recommended patient regarding home blood pressure monitoring. He will also need referral with vascular medicine as outpatient given his CTA head and neck finding. Patient will also need outpatient sleep study and Zio patch. Please note the above document was generated using voice recognition software. It may contain grammatical, syntax or spelling errors. Any formal questions or concerns about the content, text or information contained within the body of this dictation should be directly addressed to the provider for clarification Total Time Total Time Spent Total Time Spent (In Minutes): 45 Total Time Includes: Examination of the Patient, Discharge Planning, Medication Reconciliation, Communication With Other Providers and Other Discharge Plan Discharge Items Patient Disposition: Home - Self-Care Reason For Visit: STROKE WORK-UP Discharge Diagnosis: Transient ischemic attack Activity: Resume your previous activity Non-emergency contact: Primary Care Provider Call non-emergency contact if: you have any medication questions and your symptoms worsen Follow-up/Referrals: Triny Izquierdo MD [Primary Care Provider] - Diet: Regular Addtl Attending Provider Instructions: You were admitted to the hospital for strokelike symptoms. You underwent evaluation by CT head, CTA head and neck and MRI brain. MRI brain did not show any acute stroke. You were evaluated by neurology during the hospitalization; they recommend following medications: 1) Aspirin and Plavix for total of 21 days. You have been prescribed Plavix for 20 more days. Continue aspirin alone after that 2) continue Lipitor 80 mg once a day Your blood pressure was found to be on the higher side during the hospitalization. Please measure blood pressure at home twice a day. Please rest for 5 minutes prior to taking the blood pressure. Please have both of your feet on the ground and your arm rested. Please take the readings to your primary care doctor during the visit. The CT angio of the head and neck showed moderate atherosclerosis of internal carotid artery without high-grade stenosis or occlusion. It also showed high- grade stenosis of the vertebral arteries with age-indeterminant occlusion of the V4 segment of right vertebral artery. During your primary care visit; you will need a vascular surgery referral for further evaluation. This was the recommendation by the neurologist. During follow-up with your primary care doctor; you would need to have Zio patch to monitor for any irregular heart rhythms. You will also need sleep study as outpatient to rule out sleep apnea An appointment with your primary care doctor will be set up for you for sometime next week. Pending Studies at Discharge: Yes Studies:: RPR, homocysteine Stand-Alone Forms: My [facility] [employer], Smoking Cessation, Medications to Prevent Stroke Medications and DC Order Prescriptions: New clopidogrel 75 mg Tablet 75 mg PO QAM Qty: 20 0RF Continued atorvastatin 80 mg Tablet 80 mg PO QPM aspirin 81 mg Tablet,Delayed Release (Dr/Ec) 81 mg PO QPM dutasteride [Avodart] 0.5 mg Capsule 0.5 mg PO QPM metoprolol succinate 50 mg Tablet Extended Release 24 Hr 50 mg PO QPM losartan 100 mg tablet 100 mg PO QAM sildenafil (pulm.hypertension) 20 mg tablet See Rx Instructions .ROUTE .COMPLEX Rx Instructions: upto 4 tablets by mouth 1 hour prior to intercourse Discharge Orders: Discharge Order (Routine); Ordered 02/14/24 Ordered By: Bang Bonner Admission Data Admit Date/Time: 02/13/24 08:54 Attending Provider: Bang Bonner Admit Provider: Edie Guzman Primary Care Provider: Triny Izquierdo Other Providers: Abhishek Lovell; Edie Guzman; Eddie Patel Other Interventions: Discharge Summary Assessment (RN) Last Done: 02/14/24 14:56
--- NOTE | 2024-02-14 17:02 | Communication Note ---
Date of Service: February 14, 2024 Code 44 attestation: The chart reviewed, the patient was discharged appropriately by the attending after being evaluation by the neurologist. By CMS guidelines, a determination that the admission or continued stay is not medically necessary has been made by a member of the UR committee and a physician for this hospital stay, therefore a Code 44 will be completed and the Inpatient admission will be changed to outpatient. Dr. Socorro Banks Member UR committee
--- NOTE | 2024-02-16 09:59 | Pharmacy Report ---
Pharmacist Stroke Counseling - Date of Service February 16, 2024 - Scope: Pharmacy has been consulted to provide medication discharge counseling for this patient admitted with [ischemic stroke] [hemorrhagic stroke] [transient ischemic attack] as per the Pharmacist Discharge Counseling for Stroke Patients Anat green - Medications on Discharge: Home Medications Medication Instructions Recorded Confirmed aspirin 81 mg tablet,delayed 81 mg PO QPM 05/27/18 02/13/24 release atorvastatin 80 mg tablet 80 mg PO QPM 05/27/18 02/13/24 dutasteride 0.5 mg capsule 0.5 mg PO QPM 05/27/18 02/13/24 (Avodart) metoprolol succinate 50 mg 50 mg PO QPM 05/27/18 02/13/24 tablet,extended release 24 hr losartan 100 mg tablet 100 mg PO QAM 02/13/24 02/13/24 sildenafil (pulm.hypertension) 20 See Rx Instructions .Route .COMPLEX 02/13/24 02/13/24 mg tablet New Rx's Medication Instructions Recorded clopidogrel 75 mg tablet 75 mg PO QAM #20 tabs 02/14/24 - Action: The above medications, specifically ones for stroke treatment/prophylaxis, have been reviewed in detail with the patient and/or patient termite control service representative(s) prior to discharge. This includes indication, common adverse reactions, drug interactions, and medication administration. Medication counseling has been employed using the teach-back method to ensure understanding. - Outcome: The patient and/or patient termite control service representative(s) have demonstrated understanding of the medications. Additional comments: Spoke with John rodríguez AM regarding medication changes since his recent ad mission. New medication added Plavix, he has picked up from the pharmacy and begun taking. Reviewed that this medication works with aspirin, which he already takes, to prevent platelets from sticking together. Also reviewed side effects of increased bleeding. He has been taking a high intensity statin (atorvastatin 80mg) for awhile as well. He has no history of atrial fibrillation from chart review necessitating anticoagulation. Most recent A1c shows he does not have type 2 diabetes mellitus. Reviewed that these medications may not make him feel better, but they are working to help prevent strokes and heart attacks so they are important to continue taking. All medication questions answered. Thank you for allowing pharmacy to be involved in the care of this patient. Please call [phone] with any additional questions
== END 2024-02-14 15:32 | disposition home or self-care (01) | DRG 69 ==
LOC: ED 06:58 → EDINP 08:54 → SUATTDRO 08:54 → INTOOBSV 08:54 → 4W 11:39

== ENCOUNTER 2024-04-17 20:46 | Inpatient (IN) ==
--- NOTE | 2024-04-17 20:52 | Emergency Department Note ---
Impression & Plan Seizure-like activity ADMIT ED Provider Note HPI: History obtained from patient and EMS report. The patient is a 74-year-old gentleman who presents the emergency department after headache and witnessed seizure-like activity. Per EMS report the patient was at home earlier this evening watching TV when he had an acute onset headache. Patient tells me that he then went to lay down in his bedroom and his noticed him have seizure-like activity. Per EMS report this activity lasted only about 5 seconds. Patient then became more alert. Patient states he does not remember this event specifically. On arrival here to the ER the patient is hemodynamically stable, he does not have any focal deficits, patient is alert and oriented on arrival, he tells me at the moment he does have a mild headache but it is not as severe as it was prior to arrival. ROS: - Per HPI Differential Diagnosis: Subarachnoid hemorrhage, migraine complex, encephalitis, meningitis, new onset seizure disorder, brain mass/tumor, stroke, amongst other potential pathologies. *Outpatient medications and allergy history reviewed. 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 strength, symmetrical facial movements are appreciated, there is no drift of the upper extremities or lower extremities with testing against gravity Psychiatric: Cooperative INDEPENDENT INTERPRETATIONS: media monitor: (As interpreted by myself): - An order was placed for continuous cardiac monitoring - Patient was noted to be in sinus rhythm with a rate of 58 EKG: (As interpreted by myself): Rate: 53 Rhythm: Sinus bradycardia Intervals: Within normal limits ST changes: No ST elevation Time: 2050 Interventions provided in ED: -IV Tylenol, IV fluid bolus, IV Keppra, IV hydralazine Medical Decision Making: IV was established and lab work obtained, patient was placed on athletic monitor. Lab work shows no leukocytosis, hemoglobin is stable at 13.9, platelet count is normal, CMP does not show any evidence of any critical findings, lactic acid is within normal limits, troponin is negative, EKG per my interpretation shows sinus rhythm with a rate of 53 without acute ischemic changes. CT imaging of head without contrast does not show any evidence of any intracranial bleeding. CT angiography of the head and neck shows stable vertebral artery occlusion without any evidence of large vessel occlusion otherwise or evidence of acute stroke. Patient did have hypertension here in the ED up to 200 systolic and therefore was given a dose of IV hydralazine. Patient was given IV Keppra here in the ED, his later arrived at the bedside and stated the patient had an episode of altered mentation and rigidity when his eyes rolled into the back of his head and he had "tremors". Given this I am concerned he might of had a seizure. He did complain of headache as well, some type of migraine complex would also be on the differential. Low suspicion for acute ischemic stroke at this time and low suspicion for infection given lack of fever or leukocytosis. I discussed the patient's presentation with the on-call hospitalist for [facility] in [place], Dr. Johnson, and the patient was placed for admission in stable condition for further care. Patient's was in agreement to this plan as was the patient. Patient was placed for admission in stable condition. Consultants/Discussions held with other healthcare providers: -Hospitalist, Dr. Johnson Disposition discussion held by myself with: -Patient and patient's at the bedside Diagnosis: 1. Seizure-like episode, acute 2. Headache, acute, non-intractable 3. Hypertensive urgency Disposition: Admission Phillip Owusu DO Emergency Medicine Past Med/Surg History Problem List (Updated 04/17/24 @ 23:18 by Phillip Owusu DO) Seizure-like activity (Acute) BPH (benign prostatic hyperplasia) Hyperlipidemia Hypertension Headache (Acute) Numbness and tingling of right side of face (Acute) COVID-19 (Acute) Sensorineural hearing loss of both ears Encounter for pre-operative examination Medical History Sciatica Osteoarthritis DDD (degenerative disc disease) Surgical History S/P eye surgery right eye - muscle tightened S/P cataract extraction and insertion of intraocular lens bilateral History of tooth extraction S/P wrist surgery left History of herniorrhaphy Right inguinal hernia repair History of heart artery stent x1 LAD. placed 21 years ago History of cardiac cath 21 years ago - cp - x 1 stent LAD - follows w/ dr. thomas Family History Other Cancer Coronary heart disease Diabetes Hypertension Social History Smoking Status: Never smoker Second Hand Exposure: No; Do You Dip or Chew Tobacco: No; Hx Alcohol Use: No Hx Substance Use: No Preferred Language: Maltese Communication Ability: Effective Greenhouse Specialist Required: No Beliefs That Will Affect Care: None Current Living Situation: Spouse Feels Safe at Home: Yes Assistive Devices: None Allergies Allergies Allergy/AdvReac Type Severity Reaction Status Date / Time pollen extracts Allergy Intermediate RUNNY Verified 04/17/24 21:19 NOSE, CONGESTION Home Meds Home Medications Medication Instructions Recorded Confirmed aspirin 81 mg tablet,delayed 81 mg PO QPM 05/27/18 04/17/24 release atorvastatin 80 mg tablet 80 mg PO QPM 05/27/18 04/17/24 dutasteride 0.5 mg capsule 0.5 mg PO QPM 05/27/18 04/17/24 (Avodart) metoprolol succinate 50 mg 50 mg PO QPM 05/27/18 04/17/24 tablet,extended release 24 hr losartan 100 mg tablet 100 mg PO QAM 02/13/24 04/17/24 sildenafil (pulm.hypertension) 20 20 - 80 mg PO DIRECTED PRN 02/13/24 04/17/24 mg tablet Sexual Activity Lactobacillus acidophilus 250 10,000 mmu cells PO DAILY 04/17/24 04/17/24 million cell capsule (Probiotic Acidophilus) acetaminophen 650 mg 650 mg PO Q8H PRN Pain 04/17/24 04/17/24 tablet,extended release fexofenadine 180 mg tablet 180 mg PO DAILY PRN Congestion 04/17/24 04/17/24 ibuprofen 200 mg tablet 600 mg PO Q6H PRN Pain 04/17/24 04/17/24 multivitamin 1 tab PO DAILY 04/17/24 04/17/24 Previous Rx's Medication Instructions Recorded clopidogrel 75 mg tablet 75 mg PO QAM #20 tabs 02/14/24 Results & Data (ED) Vital Signs Vital Signs - 24 hr 04/17/24 20:43 04/17/24 20:49 Temperature 36.6 C Temperature Source Oral Pulse Rate 54 L 53 L Respiratory Rate 16 Blood Pressure 177/82 H Blood Pressure Mean 113 Pulse Oximetry 94 Sepsis Recent Fever Within 48 Hours No Sepsis New/Unexplained Change in Mental Status No Sepsis Action Taken by Nursing No Action Required Laboratory Data 04/17/24 20:52 04/17/24 20:52 Lab Results 04/17/24 04/17/24 04/17/24 Range/Units 20:52 21:02 21:19 WBC 8.82 (4.8-10.8) K/ul RBC 4.19 L (4.70-6.10) M/uL Hgb 13.9 L (14.0-18.0) g/dl POC Hgb 12.9 L (14.0-18.0) g/dl Hct 39.5 L (42.0-52.0) % POC Hct 38 L (42-52) % MCV 94.3 (80.0-100.0) fL MCH 33.2 (25.0-34.0) pg MCHC 35.2 (32.0-36.0) g/dL RDW Std Deviation 40.9 (36.4-46.3) fL RDW Coeff of Trevor 11.9 (11.5-14.5) % Plt Count 209 (130-400) K/uL MPV 11.5 (9.4-12.4) fL Immature Gran % (Auto) 0.3 % Neut % (Auto) 34.9 % Lymph % (Auto) 49.3 % Coffee % (Auto) 10.9 % Eos % (Auto) 4.0 % Baso % (Auto) 0.6 % Neut # (Auto) 3.08 (1.40-6.50) K/uL Lymph # (Auto) 4.35 H (1.20-3.40) K/uL Coffee # (Auto) 0.96 H (0.11-0.59) K/uL Eos # (Auto) 0.35 (0.00-0.50) K/uL Baso # (Auto) 0.05 (0.00-0.20) K/uL Immature Gran # (Auto) 0.03 (0.01-0.20) K/uL PT 10.4 (9.0-12.0) Seconds INR 1.0 (0.9-1.1) APTT 21 (21-31) Seconds PTT Ratio 0.8 POC Sodium 140 (135-144) mmol/L Sodium 138 (136-145) mmol/L POC Potassium 3.7 (3.3-5.0) mmol/L Potassium 3.8 (3.5-5.1) mmol/L POC Chloride 106 (101-112) mmol/L Chloride 105 (98-107) mmol/L Carbon Dioxide 25 (21-32) mmol/L POC Total CO2 23 L (24-31) mmol/L Anion Gap 8 (3-11) POC Anion Gap 16.0 (16-25) mmol/L POC BUN 21 H (7-18) mg/dl BUN 23 (6-23) mg/dl Creatinine 0.93 (0.6-1.4) mg/dl POC Creatinine 1.0 (0.6-1.3) mg/dl Est Cr Clr Drug Dosing 65.2 ml/min Est GFR ( Amer) 93.4 ml/min Est GFR (Non-Af Amer) 80.6 ml/min BUN/Creatinine Ratio 24.7 H (10-20) Glucose 113 H (70-99(Fasting)) mg/dl POC Glucose (other) 111 H (70-99) mg/dl Lactate 1.7 (0.4-2.0) mmol/L Calcium 9.4 (8.6-10.3) mg/dl POC Ioniz Calcium Lavonne 1.18 (1.12-1.32) mmol/l Magnesium 2.3 (1.7-2.4) mg/dl Total Bilirubin 0.6 (0.2-1.0) mg/dl AST 23 (13-39) U/L ALT 20 (7-52) U/L Alkaline Phosphatase 70 (34-104) U/L Troponin I High Sens 3.0 (0-20) pg/ml Total Protein 6.9 (6.0-8.3) gm/dl Albumin 4.4 (3.4-5.0) gm/dl Globulin 2.5 (2.5-4.0) gm/dl Albumin/Globulin Ratio 1.8 (0.9-2) Administered Medications Discontinued Medications Hydralazine HCl (Hydralazine Hcl 20 Mg/Ml Vial) 5 mg IV NOW ONE Stop: 04/17/24 22:37 Last Admin: 04/17/24 22:41 Dose: 5 mg Documented By: RAMON Sodium Chloride (Nss) 500 mls @ 999 mls/hr IV .Q31M ONE Stop: 04/17/24 21:21 Last Infusion: 04/17/24 21:36 Dose: Infused Documented By: Admin: 04/17/24 21:04 Dose: 999 mls/hr Documented By: VENUS Ioversol (Optiray 320 125ml) 119 ml IV ONCE ONE Stop: 04/17/24 21:07 Last Admin: 04/17/24 21:06 Dose: 119 ml Documented By: EVGENY Levetiracetam (Levetiracetam 500 Mg/5 Ml Vial) 1,000 mg IV NOW STA Stop: 04/17/24 22:25 Last Admin: 04/17/24 22:32 Dose: 1,000 mg Documented By: VENUS Imaging Data Radiologist's Impression: Head CT 04/17/24 20:50 Exam(s): CT HEAD Without Contrast EXAM: CT Head Without Intravenous Contrast CLINICAL HISTORY: Reason for exam: BARCENAS, seizure like event. TECHNIQUE: Axial computed tomography images of the head/brain without intravenous contrast. CTDI is 38.6 mGy and DLP is 702.46 mGy-cm. Automated exposure control was utilized for the study. A dose lowering technique was utilized adhering to the principles of ALARA. COMPARISON: No relevant prior studies available. FINDINGS: Brain: Age-related parenchymal volume loss. Suggestion of minimal chronic small vessel ischemic change. Day-white matter differentiation maintained. No hemorrhage, mass-effect, or parenchymal edema. Ventricles: Unremarkable. No hydrocephalus. Bones/joints: Unremarkable. No acute fracture. Soft tissues: Unremarkable. Vasculature: Intracranial atherosclerosis. Sinuses: Hypoplastic and opacified right maxillary sinus, stable from prior. Mastoid air cells: Unremarkable as visualized. No mastoid effusion. Orbits: Bilateral lens replacements. IMPRESSION: No acute intracranial process. Electronically signed by: Kami Davis M.D. 04/17/24 21:44 PM Head CTA 04/17/24 20:50 Exam(s): CTA HEAD With Contrast IV Amt: 119ml EXAM: CT Angiography Head With Intravenous Contrast CLINICAL HISTORY: Reason for exam: BARCENAS, seizure like event. TECHNIQUE: Axial computed tomographic angiography images of the head with intravenous contrast. CTDI is 13 mGy and DLP is 497.71 mGy-cm. Automated exposure control was utilized for the study. A dose lowering technique was utilized adhering to the principles of ALARA. MIP reconstructed images were created and reviewed. CONTRAST: Patient received 119ml of IV contrast COMPARISON: 02/13/24 FINDINGS: Right internal carotid artery: Calcification intracranial right ICA without significant stenosis. No aneurysm. Right anterior cerebral artery: Variant anterior cerebral artery anatomy bilaterally. Left A1 and A2 segments are hypoplastic. Right LACHO is well- developed, without stenosis or occlusion, giving rise to the left A3 segment. No aneurysm of either vessel. Right middle cerebral artery: Unremarkable. No occlusion or significant stenosis. No aneurysm. Right posterior cerebral artery: Unremarkable. No occlusion or significant stenosis. No aneurysm. Right vertebral artery: Proximal intradural segment of the right vertebral artery remains occluded, stable from prior. Left internal carotid artery: Calcification intracranial left ICA without significant stenosis. No aneurysm. Left anterior cerebral artery: Variant anterior cerebral artery anatomy bilaterally. Left A1 and A2 segments are hypoplastic. Right LACHO is well- developed, without stenosis or occlusion, giving rise to the left A3 segment. No aneurysm of either vessel. Left middle cerebral artery: Unremarkable. No occlusion or significant stenosis. No aneurysm. Left posterior cerebral artery: Unremarkable. No occlusion or significant stenosis. No aneurysm. Left vertebral artery: Unremarkable as visualized. Basilar artery: Unremarkable. No occlusion or significant stenosis. No aneurysm. IMPRESSION: 1. 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 Otherwise patent intracranial circulation. Electronically signed by: Kami Davis M.D. 04/17/24 22:20 PM Neck CTA 04/17/24 20:50 Exam(s): CTA NECK With Contrast IV Amt: 119ml EXAM: CT Angiography Neck With Intravenous Contrast CLINICAL HISTORY: Reason for exam: BARCENAS, seizure like event. TECHNIQUE: Routine carotid CT angiography protocol was performed with intravenous contrast. NASCET criteria using the distal ICAs for comparison were used for evaluation of stenoses. CTDI is 13 mGy and DLP is 497.71 mGy-cm. Automated exposure control was utilized for the study. A dose lowering technique was utilized adhering to the principles of ALARA. MIP reconstructed images were created and reviewed. CONTRAST: Patient received 119ml of IV contrast COMPARISON: 02/13/24 FINDINGS: VASCULATURE: Right common carotid artery: Unremarkable. No occlusion or significant stenosis. No dissection. Right internal carotid artery: Unremarkable. Extracranial segment is patent with no occlusion or significant stenosis. No dissection. Right external carotid artery: Unremarkable. No occlusion. Right vertebral artery: Severe stenosis in the proximal right vertebral artery, stable from prior. No dissection. Left common carotid artery: Unremarkable. No occlusion or significant stenosis. No dissection. Left internal carotid artery: Unremarkable. Extracranial segment is patent with no occlusion or significant stenosis. No dissection. Left external carotid artery: Unremarkable. No occlusion. Left vertebral artery: Moderate stenosis at the origin of the left vertebral artery, stable from prior. No dissection. Aorta: Conventional aortic arch branch anatomy. NECK: Bones/joints: Degenerative change. No acute fracture. Soft tissues: Unremarkable. Lung apices: Clear. CAROTID STENOSIS REFERENCE USING NASCET CRITERIA: % ICA stenosis = (1 - narrowest ICA diameter/diameter of distal cervical ICA) x 100. Mild - <50% stenosis. Moderate - 50-69% stenosis. Severe - 70-94% stenosis. Near occlusion - 95-99% stenosis. Occluded - 100% stenosis. IMPRESSION: 1. 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 2. Moderate stenosis at the origin of the left vertebral artery, stable from prior. 3. No hemodynamically significant ICA stenosis. Electronically signed by: Kami Davis M.D. 04/17/24 22:32 PM Discharge Plan Visit Data Chief Complaint: Seizure Stated Complaint: Headache, Possible Seizure ED Provider: Phillip Owusu Discharge Problem: Seizure-like activity Forms Stand Alone Forms: My [facility] [employer] Prescriptions Prescriptions: No Action atorvastatin 80 mg Tablet 80 mg PO QPM aspirin 81 mg Tablet,Delayed Release (Dr/Ec) 81 mg PO QPM dutasteride [Avodart] 0.5 mg Capsule 0.5 mg PO QPM metoprolol succinate 50 mg Tablet Extended Release 24 Hr 50 mg PO QPM losartan 100 mg tablet 100 mg PO QAM sildenafil (pulm.hypertension) 20 mg tablet 20 - 80 mg PO DIRECTED PRN (Reason: Sexual Activity) Rx Instructions: upto 4 tablets by mouth 1 hour prior to intercourse clopidogrel 75 mg Tablet 75 mg PO QAM Qty: 20 0RF multivitamin Tablet 1 tab PO DAILY fexofenadine [Loida] 180 mg Tablet 180 mg PO DAILY PRN (Reason: Congestion) acetaminophen [Tylenol Extended Release] 650 mg Tablet Extended Release 650 mg PO Q8H PRN (Reason: Pain) ibuprofen 200 mg Tablet 600 mg PO Q6H PRN (Reason: Pain) Probiotic Acidophilus 250 million cell Capsule 10,000 mmu cells PO DAILY Referrals Referrals: Triny Izquierdo MD [Primary Care Provider] -
--- OUTSIDE RECORDS SUMMARY | 2024-04-17 20:52 | External Medical Summary | Summary of Care ---
Author Name Unknown Organization [facility] Address [address] [facility] [place] [address] Phone [phone] Care Team Providers Care Licensed Retail Supervisor Name Role Phone Triny Izquierdo MD Primary Care Provider + Reason for Visit * Reason Comments Snoring * Precert (Within 10 days (routine)) - Authorized Specialty Diagnoses / Procedures Referred By Contac t Referred To Contact Sleep Disorders Diagnoses Snoring HTN, goal below 130/80 History of TIA (transient ischemic attack) ASCVD (arteriosclerotic cardiovascular disease) Sleep related bruxism Erectile dysfunction, unspecified erectile dysfunction type Procedures SLEEP STUDY, W/ CPAP (TREATMENT SETTINGS) Ericka Kothari CRNP [address] [place] [address] Referral ID Status Reason Start Date Expiration Date V isits Requested Visits Authorized [id number] Authorized 03/03/2024 [id number] Encounter Details Date Type Department Care Team ([facility] st Contact Info) Description 04/10/2024 7:30 PM EDT PulmDiagnostic Sleep Lab, [facility] [address] [place] [address] [facility], Sleep Med Night Sleep [address], [place] [id number] Hypersomnolence* Allergies Active Allergy Reactions Criticality Noted Date Comments Pollen 05/03/2021 Congestion, runny nose documented as of this encounter (statuses as of 04/13/2024) Medications Medication Sig Dispensed Refills Start Date [...] for Allergies. Active Ibuprofen 200 MG Oral TabletIndications:P ain [...] 15 minutes 75 Tablet 3 02/25/2023 Active Additional Information Patient not taking.Reported on 03/01/2024 Sildenafil Citrate 20 MG Oral Tablet (Revatio)Indication s:HTN, goal below 130/80 Take up to 4 tabs one hour prior to intercourse. No more than 4 daily. 25 Tablet 5 04/16/2023 Active Dutasteride 0.5 MG Oral Capsule (Avodart)Indication s:HTN, goal below 130/80 TAKE 1 CAPSULE BY MOUTH EVERY DAY 90 Capsule 3 07/07/2023 Active Losartan Potassium 100 MG Oral Tablet (Cozaar)Indications :HTN, goal below 130/80 Take 1 Tablet by mouth in the morning. 90 Tablet 3 12/03/2023 Active Atorvastatin Calcium 80 MG Oral Tablet (Lipitor)Indication s:Hyperlipidemia LDL goal <100 TAKE 1 TABLET BY MOUTH EVERY DAY 90 Tablet 3 01/30/2024 Active Clopidogrel Bisulfate 75 MG Oral Tablet (pLAVix) Take 1 Tablet by mouth in the morning. In the morning.. 90 Tablet 3 03/01/2024 Active documented as of this encounter (statuses as of 04/13/2024) Active Problems Problem Noted Date Diagnosed Date Rosacea 10/19/2020 Prediabetes 02/15/2019 Overview: Per Prediabetes protocol S/P lumbar laminectomy 02/08/2019 HTN, goal below 130/80 Hyperlipidemia LDL goal <100 documented as of this encounter (statuses as of 04/13/2024) Resolved Problems Problem Noted Date Diagnosed Date Resolved Date Hypertension 06/13/2016 Hyperlipemia 06/13/2016 documented as of this encounter (statuses as of 04/13/2024) Immunizations Name Administration Dates Next Due COVID-19 mRNA, LNP-s, No Pre serve, 2-Dose Series (Granify) 06/06/2021,12/04/2020,11/06/2020 COVID-19, LNP-s, No Preserve , Markie-sucrose, Ages 12+ (Pfizer) 12/26/2021 COVID-19, MRNA-LNP, 23-24, P F, 30 MCG/0.3 mL, 12 YRS AND ABOVE, IM ([facility]) 12/25/2023 Pneumococcal Conjugate Vacc, 13 Valent (Prevnar) 10/21/2016 Pneumococcal Polysaccharide PPV23 (Pneumovax) 01/27/2018 Season Influenza, Quad, PF, Adjuvanted, 65+ Yrs, IM (FLUAD) 05/10/2020 Seasonal Influenza, PF, 6 M & above, IM , (FluLaval or Fluzone) 06/30/2018 Seasonal Influenza, Quadriva lent Hd (Fluzone Hd) 05/26/2023,05/09/2022,05/28/2021 Seasonal Influenza, Quadriva lent, No Preserve, IM 05/23/2017,06/13/2016 Seasonal Influenza, Trivalen t, Adjuvanted, 65+ yrs 06/18/2019 TDAP, Age 7 and older, IM (Adacel) 02/06/2014 Zoster Vaccine Recombinant (Shingrix) 11/03/2019 ,07/16/2019 documented as of this encounter Social History Tobacco Use Types Packs/Day Years Used Date Smoking Tobacco: Never Smokeless Tobacco: Never Alcohol Use Standard Drinks/Week Comments Yes 0 (1 standard drink = 0.6 oz pur e alcohol) wine with dinner PHQ-2 Answer Date Recorded PHQ Adult Total Score 0 02/24/2024 Hunger Vital Sign Answer Date Recorded Worried About Running Out of Food in the Last Ye ar Never true 02/15/2020 Ran Out of Food in the Last Year Never true 02/15/2020 Utilities Answer Date Recorded Do you have trouble paying y our heating, water, or electric bill? (Adult - for ages 18 years and over) Not on file 02/24/2024 Is your family able to pay t he heat, water, or electric bill? (Household - for ages 0-17 years) Not on file 02/24/2024 Does your family have access to good internet? (Household - for ages 0-17 years) Not on file 02/24/2024 Social Connections Answer Date Recorded How often do you feel lonely or isolated from those around you? (Adult - for ages 18 years and over) Not on file 02/24/2024 Education Answer Date Recorded What is the highest level of school you have completed or the highest degree you have received? Master's degree (e.g., MA, MS, Virgilio, MEd, DIETARY SERVICES DIRECTOR, WEST) 02/17/2024 Sex and Gender Information Value Date Recorded Sex Assigned at Male 02/08/2019 9:49 AM EDT Gender Identity Male 02/08/2019 9:49 AM EDT Sexual Orientation Straight 02/08/2019 9: 49 AM EDT Job Start Date Occupation Industry Not on file Not on file Not on file documented as of this encounter Progress Notes * Michelle Alonzo MD - 04/13/2024 8:03 PM EDT Images from the original note were not included. [facility] Polysomnogram - Physician Report Name: John Miles MR#: [id number] Date of : 1950 Study date: 04/10/2024 Report date: 04/11/2024 Study name: Adult Acquisition ID: [id number] Referring Physician: Ericka Kothari Ordering Physician: Ericka Kothari Interpreting Sleep Physician: Michelle Alonzo Signature: Electronically Signed Testing Location: [facility] Sleep Disorders Center Impression: Primary snoring. If sleep apnea is strongly suspected, a repeat PSG may be indicated given night tonight variability in sleep apnea and the possibility of a false negative study. Abnormal sleep architecture likely due to first night effect. Recommendations: Extreme caution with driving or operating heavy machinery if feeling sleepy, drowsy or otherwise impaired is advised. Clinical Background: 74 year old Male with suspected sleep disordered breathing. Weight 165.0 lbs & BMI 26.6 lb/in [place] Sleepiness Scale 10/01 Neck Size 14.0 inches Comorbidities: Hyperlipidemia, HTN, Rosacea, Prediabetes Lights Off: 10:01:53 PM Lights On: 5:51:35 AM Sleep Architecture: Minutes TRT - Total recording time 469.7 Sleep latency 3.7 SPT - Sleep Period Time 464.5 WASO - Wake time after sleep onset 58.5 TST - Total Sleep Time 407.5 R Sleep latency minus wake 106.0 Sleep efficiency 86.8% TST Stage N1 46.0 11.3% Stage N2 278.5 68.3% Stage N3 5.5 1.3% Stage R 77.5 19.02% Respiratory Event Summary * TST NREM REM ~Supine Supine Prone Left Right Apneas Count 0 0 0 0.00 0 0 0 0 Index 0.0 0.0 0.0 0.00 0.0 0.0 0.0 0.0 Hypopneas (3%) Count 19 9 10 19.00 0 0 13 6 Index 2.8 1.6 7.7 2.80 0.0 0.0 5.4 1.4 Hypopneas (4%) Count 2 1 1 Index 0.3 0.2 0.8 AHI (3%) Count 19 9 10 19.00 0 0 13 6 Index 2.8 1.6 7.7 2.80 0.0 0.0 5.4 1.4 AHI (4%) Count 2 1 1 Index 0.3 0.2 0.8 RDI (3%) (Conference Interpreter+All Hyp+RERA) Count 19 9 10 19.00 0 0 13 6 Index 2.8 1.6 7.7 2.80 0.0 0.0 5.4 1.4 RDI (4%) (Conference Interpreter+All Hyp+RERA) Count 2 1 1 Index 0.3 0.2 0.8 Respiratory Related Arousal Count 0 0 0 0.00 0 0 0 0 Index 0.0 0.0 0.0 0.00 0.0 0.0 0.0 0.0 Oxygen Desaturation Count 18 7 8 Index 2.7 1.3 6.2 Arousals: Index Respiratory related 5 0.7/hr PLM related 14 2.1/hr Spontaneous 82 12.1/hr Total 101 14.9/hr Movement Events: Index Total PLMs 78 11.5/hr PLMs associated with arousals 14 2.1/hr Respiratory Events: Index Central 0 0.0/hr Obstructive 0 0.0/hr Mixed 0 0.0/hr Hypopneas 19 2.8/hr RERA's 0 0.0/hr AHI = Apneas + Hypopneas 19 2.8/hr RDI = Apneas + Hypopneas +RERA's 19 2.8/hr No episodes of periodic breathing were found. Snoring was recorded. Oxygenation: Min. Sat. Avg. Sat. Awake - 94% N sleep - 94% REM - 94% Overall 91% 94% Time spent ?88%: 0.00 minutes. Supplemental O2 was not utilized. Body Position Analysis Supine Right Left Side Prone Vertical Total Sleep Time (min.) 0.0 257.0 144.0 401.00 6.5 Total Sleep Time (%) 0.00 63.07 35.34 98.40 1.60 0.00 Total Sleep Time REM (min.) 0.0 44.0 30.0 74.00 3.5 Total Sleep Time NREM (min.) 0.0 213.0 114.0 327.00 3.0 Total Sleep Period (min.) 0.4 292.4 162.4 454.80 9.3 Oximetry Data Min SpO2 value TST: 91% Average SpO2 (TIB): 94% Min SpO2 w/ Respiratory Event: 91% Average SpO2 (TST): 94.00% Desaturations #: 18 Desaturation Index: 2.7 /hr Oximetry Distribution WK NREM REM TIB TST Min % Min % Min % Min % Min % >90% 60.70 97.59 330.00 100.00 77.50 100.00 468.20 99.68 407.50 100.00 80 - 89% 0.00 0.00 0.00 0.00 0.00 0.00 0.00 0.00 0.00 0.00 70 - 79% 0.00 0.00 0.00 0.00 0.00 0.00 0.00 0.00 0.00 0.00 60 - 69% 0.00 0.00 0.00 0.00 0.00 0.00 0.00 0.00 0.00 0.00 50 - 59% 0.00 0.00 0.00 0.00 0.00 0.00 0.00 0.00 0.00 0.00 ?88%* 0.0 0.0 0.0 0.0 0.0 0.0 0.0 0.0 0.00 0.00 Fail (min) 1.5 2.41 0.0 0.00 0.0 0.00 1.5 0.32 0.00 0.00 EtCO2 SUMMARY EtCO2 Trend EtCO2 distribution (all durations are in minutes) WAKE REM NREM Total >=75 0.0 0.0 0.0 0.0 >=65 0.0 0.0 0.0 0.0 >=55 0.0 0.0 0.0 0.0 >=50 0.0 0.0 0.0 0.0 >=47 0.0 0.0 0.0 0.0 >=40 0.0 0.0 0.0 0.0 >=30 0.0 0.0 0.0 0.0 >0 Rejected 62.2 77.5 330.0 469.7 Average Highest EtCO2 during TIB :0 Total number of Hypercapnia events during TIB :0 Cardiac Events: Min bpm Average Pulse Rate During Sleep (TST): 46.4 bpm Highest Pulse Rate During Sleep (TST): 65 bpm Highest Pulse Rate During Recording (TIB): 67 bpm Comments / Artifact / Quality of the Study The polysomnographic recording quality was satisfactory for interpretation. No significant artifacts were found. Technical & Digital Specifications for the Recording and Scoring of Sleep and Associated Events: A standard polysomnogram with and/or without positive airway pressure (PAP) was performed monitoring EEG, EOG, EMG (chin and leg derivations), oxygen saturation, body position, digital video, respiratory effort and airflow. The Sleep Stage and Event scoring was based on the AASM Manual for the Scoring of Sleep and Associated Events, Version 2.5. Apnea in adults is scored when there is a drop in the peak signal excursion by ? 90% of pre-event baseline using an oronasal thermal sensor (diagnosticstudy), PAP device flow (titration study), or an alternative apnea sensor, for ? 10 seconds. Hypopnea in an AHI-4% in adults is scored when the peak signal excursions drop by ? 30% of pre-event baseline using nasal pressure (diagnostic study), PAP device flow (titration study), or an alternative hypopnea sensor, for ? 10 seconds in association with a >4% arterial oxygen desaturation from pre-event baseline. Hypopnea in an AHI-3% in adults is scored when the peak signal excursions drop by ? 30% of pre-event baseline using nasal pressure (diagnostic study), PAP device flow (titration study),or an alternative hypopnea sensor, for ? 10 seconds in association with a >3% arterial oxygen desaturation from pre-event baseline or in association with an arousal. Respiratory effort-related arousals (RERA's) are defined as a sequence of breaths lasting at least 10 seconds characterized by increasing respiratory effort or flattening of the nasal pressure waveform leading to an arousal from sleep when the sequence of breaths which does not meet criteria for an apnea or hypopnea. Apnea Hypopnea Index (AHI) is defined as the number of apneas and hypopneas occurring in an hour of sleep. Respiratory Disturbance Index (RDI) is defined as the number of apneas, hypopneas, and RERA's occurring in an hour of sleep. MD SHAHID CollierA Board Certified Internal/Sleep Medicine [facility] (phone) (fax) documented in this encounter Nursing Notes * Syeda Bennett, RPSGT - 04/10/2024 7:48 PM EDT No new cough, SOB, flu like symptoms, loss of taste, or loss of smell. No exposure to COVID-19 or flu in the last 14 days. DME - Did not choose at this time. His uses CPAP so he would use her DME provider if needed. Sleep position - Sides No PSG in the past. No previous therapy. No sleep aides prior to PSG. Test: Completed Nocturnal Polysomnogram/NPSG without CPAP [place] total score: 10/01 Neck Circumference: 14 inches Patient received Drowsy Driving Information: yes The patient reported that he would be using his mouth guard for the study. He took Benadryl and Tylenol Arthritis prior to bedtime. Sleep onset was 4 minutes. All stages of sleep were noted. Sleep was observed in the right and left sleep postures. Respiratory events were noted which were primarily REM related. Mild to moderate snoring rated 2-3 was noted occasionally. Leg movement was noted. No unusual behaviors were noted. No bathroom breaks were taken during the study. documented in this encounter Plan of Treatment Upcoming Encounters Date Type Department Care Team (Latest Contact Info) Description 05/13/2024 8:00 AM EDT Hospital Encounter ENDO [facility], Endoscopy Room [facility] [address] [place] [phone] Yvette Poe, DO [address] [place] [address] 05/13/2024 8:00 AM EDT - 05/13/2024 8:30 AM EDT Surgery ENDO [facility], Endoscopy Room [facility] [address] [place] [address] Yvette Poe, DO [address] [place] [address] COLONOSCOPY FLEXIBLE PROXIMAL DIAGNOSTIC 05/18/2024 9:20 AM EDT Office Visit Neurology [facility] [address] [facility] [place] [address] Dione Laureano MD [address] [facility] [place] [address] 05/18/2024 1:00 PM EDT Office Visit General Internal Medicine [facility] [place] [address] [facility] [place] [address] Triny Izquierdo MD [address] [facility] [place] [address] 07/05/2024 11:00 AM EDT Office Visit Cardiology, [facility] [address] [place] [address] Molina Santiago, DO [address] [place] [address] 08/26/2024 3:30 PM EST Office Visit Sleep Disorders Ctr [facility] [address] [place] [phone] Ericka Kothari CRNP [address] [place] [address] Scheduled Orders Name Type Priority Associated Diagnoses Orde r Schedule SLEEP STUDY, W/ CPAP (TREATMENT SETTINGS) Procedures Routine Snoring HTN, goal below 130/80 History of TIA (transient ischemic attack) ASCVD (arteriosclerotic cardiovascular disease) Sleep related bruxism Erectile dysfunction, unspecified erectile dysfunction type Ordered: 03/03/2024 SLEEP STUDY, W/O CPAP Procedures Routine Snoring HTN, goal below 130/80 History of TIA (transient ischemic attack) ASCVD (arteriosclerotic cardiovascular disease) Sleep related bruxism Erectile dysfunction, unspecified erectile dysfunction type Ordered: 03/03/2024 Scheduled Procedures Name Priority Associated Diagnoses Date/Ti me COLONOSCOPY FLEXIBLE PROXIMAL DIAGNOSTIC Recall History of colon polyps 05/13/2024 8:00 AM EDT Health Maintenance Due Date Last Done Comments Fecal Occult Blood Test 1995 Sigmoidoscopy 1995 Cologuard 06/04/2020 06/04/2017 Colonoscopy 11/05/2022 11/05/2017, 11/05/2017 Colorectal Cancer Screening 11/05/2022 DTaP,Tdap,and Td Vaccines (2 - Td or Tdap) 02/07/2024 02/06/2014 COVID-19 Vaccine ( season) 2024 12/25/2023, 05/22/2022, 12/26/2021, Additional history exists Influenza Vaccine (FLU shot) (#1) 2024 05/26/2023, 05/09/2022, 05/28/2021, Additional history exists GFR 11/10/2024 11/11/2023, 04/2023, 02/19/2022, Additional history exists HbA1c 11/10/2024 11/11/2023, 02/2021, 09/19/2020, Additional history exists Depression Screening 02/23/2025 02/24/2024 Albumin/Creatinine Ratio 05/16/2026 023, 02/10/2020, 10/16/2016 Lipid Panel 11/10/2028 11/11/2023, 02/06, 04/13/2021, Additional history exists RETIRED - COLONOSCOPY-EVERY 5 YRS AGES 18-100 Discontinued 11/05/2017, 11/05/2017 Pneumococcal Vaccine: 65+ Years Completed 01/27/2018, 10/21/2016 Zoster Vaccines Completed 11/03/2019, 07/16/2019 HPV (Gardasil) Vaccine Aged Out No lo nger eligible based on patient's age to complete this topic Hepatitis B Vaccine Aged Out No longe r eligible based on patient's age to complete this topic MENINGOCOCCAL (MENACTRA/MENVEO) Aged Out No longer eligible based on patient's age to complete this topic documented as of this encounter Medical Devices Not on filedocumented as of this encounter Visit Diagnoses Diagnosis Hypersomnolence- Primary Hypersomnia, unspecified History of colon polyps Personal history of colonic polyps documented in this encounter Care Teams Licensed Retail Supervisor Relationship Specialty Start Date End Date Triny Izquierdo MD [address] [place] [address] PCP - General Internal Medicine 06/13/16 documented as of this encounter
--- OUTSIDE RECORDS SUMMARY | 2024-04-17 20:52 | External Medical Summary | Summary of Care ---
Author Name Unknown Organization [facility] Address [address] [facility] [address] Phone [phone] Care Team Providers Care Orthotic/Prosthetic Clinician Name Role Phone Triny Izquierdo MD Primary Care Provider + Reason for Visit * Reason Onset Date Comments Test Results 03/16/2024 Encounter Details Date Type Department Care Team ([facility] st Contact Info) Description 03/16/2024 Telephone Neurology [facility] [place] [address] [facility] [place] [address] Dione Laureano MD [address] [facility] [address] Test Results Allergies Active Allergy Reactions Criticality Noted Date Comments Pollen 05/03/2021 Congestion, runny nose documented as of this encounter (statuses as of 03/16/2024) Medications Medication Sig Dispensed Refills Start Date [...] as of this encounter (statuses as of 03/16/2024) Active Problems Problem Noted Date Diagnosed Date Rosacea 10/19/2020 Prediabetes 02/15/2019 Overview: Per Prediabetes protocol S/P lumbar laminectomy 02/08/2019 HTN, goal below 130/80 Hyperlipidemia LDL goal <100 documented as of this encounter (statuses as of 03/16/2024) Resolved Problems Problem Noted Date Diagnosed Date Resolved Date Hypertension 06/13/2016 Hyperlipemia 06/13/2016 documented as of this encounter (statuses as of 03/16/2024) Immunizations Name Administration Dates Next Due COVID-19 mRNA, LNP-s, No Pre serve, 2-Dose Series (SuperDerivatives) 06/06/2021,12/04/2020,11/06/2020 COVID-19, LNP-s, No Preserve , Markie-sucrose, Ages 12+ (SuperDerivatives) 12/26/2021 COVID-19, MRNA-LNP, 23-24, P F, 30 [...] Master's degree (e.g., MA, MS, Virgilio, MEd, SANITATION TRUCK CLEANER, WEST) 02/17/2024 Sex and Gender Information Value Date Recorded Sex Assigned at Male 02/08/2019 9:49 AM EDT Gender Identity Male 02/08/2019 9:49 AM EDT Sexual Orientation Straight 02/08/2019 9: 49 AM EDT Job Start Date Occupation Industry Not on file Not on file Not on file documented as of this encounter Miscellaneous Notes * Telephone Encounter - Nicci Kim LPN - 03/16/2024 2:45 PM EDT Pt made aware. * Telephone Encounter - Nicci Kim LPN - 03/16/2024 9:35 AM EDT Pt aware. He is asking for Zio results and for someone to call with those results. * Telephone Encounter - Dione Laureano MD - 03/16/2024 9:15 AM EDT Call carotid duplex show some plague, not a surprise, but no blockage-good news documented in this encounter Plan of Treatment Upcoming Encounters Date Type Department Care Team (Latest Contact Info) Description 04/10/2024 7:30 PM EDT PulmDiagnostic Sleep Lab, [facility] [address] [place] [address] [place], Sleep Med Night Sleep [address] [place] [phone] 05/13/2024 8:00 AM EDT Hospital Encounter ENDO [facility], Endoscopy Room [facility] [address] [place] [phone] Yvette Poe DO [address] [place] [address] 05/13/2024 8:00 AM EDT - 05/13/2024 8:30 AM EDT Surgery ENDO [facility], Endoscopy Room [facility] [address] [place] [phone] Yvette Poe, [address] [place] [address] COLONOSCOPY FLEXIBLE PROXIMAL DIAGNOSTIC 05/18/2024 9:20 AM EDT Office Visit Neurology [facility] [address] [place] [address] Dione Laureano MD [address] [place] [address] 05/18/2024 1:00 PM EDT Office Visit General Internal Medicine [facility] [address] [place] [address] Triny Izquierdo MD [address] [place] [address] 07/05/2024 11:00 AM EDT Office Visit Cardiology, [facility] [address] [place] [address] Molina Santiago, DO [address] [place] [address] 08/26/2024 3:30 PM EST Office Visit Sleep Disorders Ctr [facility] [address] [place] [phone] Ericka Kothari CRNP [address] [place] [address] Scheduled Procedures Name Priority Associated Diagnoses Date/Ti me COLONOSCOPY FLEXIBLE PROXIMAL DIAGNOSTIC Recall History of colon polyps 05/13/2024 8:00 AM EDT Health Maintenance Due Date Last Done Comments Fecal Occult Blood Test 1995 Sigmoidoscopy 1995 Cologuard 06/04/2020 06/04/2017 Colonoscopy 11/05/2022 11/05/2017, 11/05/2017 Colorectal Cancer Screening 11/05/2022 DTaP,Tdap,and Td Vaccines (2 - Td or Tdap) 02/07/2024 02/06/2014 COVID-19 Vaccine (2022-24 season) 2024 12/25/2023, 05/22/2022, 12/26/2021, Additional history exists Influenza Vaccine (FLU shot) (#1) 2024 05/26/2023, 05/09/2022, 05/28/2021, Additional history exists GFR 11/10/2024 11/11/2023, 090 04/2023, 02/19/2022, Additional history exists HbA1c 11/10/2024 11/11/2023, 08/0 02/2021, 09/19/2020, Additional history exists Depression Screening [...] filedocumented as of this encounter Care Teams Orthotic/Prosthetic Clinician Relationship Specialty Start Date End Date Triny Izquierdo MD [address] [place] [address] PCP - General Internal Medicine 06/13/16 documented as of this encounter
--- OUTSIDE RECORDS SUMMARY | 2024-04-17 20:52 | External Medical Summary | Summary of Care ---
Author Name Unknown Organization [facility] Address 100 [facility] [address] Phone [phone] Care Team Providers Care Tank Bottom Assembler Name Role Phone Triny Izquierdo MD Primary Care Provider + Reason for Visit * Reason Onset Date Comments Appointment 03/03/2024 Encounter Details Date Type Department Care Team ([facility] st Contact Info) Description 03/03/2024 Telephone General Internal Medicine [facility] [place] 200 [facility] [place] [address] Triny Izquierdo MD 200 [facility] [address] Appointment Allergies Active Allergy Reactions Criticality Noted Date Comments Pollen 05/03/2021 Congestion, runny nose documented as of this encounter (statuses as of 03/03/2024) Medications Medication Sig Dispensed Refills Start Date [...] as of this encounter (statuses as of 03/03/2024) Active Problems Problem Noted Date Diagnosed Date Rosacea 10/19/2020 Prediabetes 02/15/2019 Overview: Per Prediabetes protocol S/P lumbar laminectomy 02/08/2019 HTN, goal below 130/80 Hyperlipidemia LDL goal <100 documented as of this encounter (statuses as of 03/03/2024) Resolved Problems Problem Noted Date Diagnosed Date Resolved Date Hypertension 06/13/2016 Hyperlipemia 06/13/2016 documented as of this encounter (statuses as of 03/03/2024) Immunizations Name Administration Dates Next Due COVID-19 mRNA, LNP-s, No Pre serve, 2-Dose Series ([employer]) 06/06/2021,12/04/2020,11/06/2020 COVID-19, LNP-s, No Preserve , Markie-sucrose, Ages 12+ ([employer]) 12/26/2021 COVID-19, MRNA-LNP, 23-24, P F, 30 [...] Master's degree (e.g., MA, MS, Virgilio, MEd, FUSION JUNCTURE GRINDER, WEST) 02/17/2024 Sex and Gender Information Value Date Recorded Sex Assigned at Male 02/08/2019 9:49 AM EDT Gender Identity Male 02/08/2019 9:49 AM EDT Sexual Orientation Straight 02/08/2019 9: 49 AM EDT Job Start Date Occupation Industry Not on file Not on file Not on file documented as of this encounter Miscellaneous Notes * Telephone Encounter - Bria Fiore, ABRAM - 03/03/2024 4:29 PM EDT Spoke with pt, Sleep study is scheduled on 04/10/2024 at [facility]. Ericka, please sign your order so I can attach it to the visit. Thank you. * Telephone Encounter - Lesli Khanna, ABRAM - 03/03/2024 12:07 PM EDT Patient says that the dr told him that the sleep department would call him to set up his sleep testI didn't see any order to schedule through please call patient to set this up thank you documented in this encounter Plan of Treatment Upcoming Encounters Date Type Department Care Team (Latest Contact Info) Description 04/10/2024 7:30 PM EDT PulmDiagnostic Sleep Lab, [facility] 400 [facility] [place] [address] [facility], Sleep Med Night Sleep 400 [facility] [place] [address] 05/13/2024 8:00 AM EDT Hospital Encounter ENDO [facility], Endoscopy Room [facility] [address] [place] [phone] Yvette Poe DO [address] [place] [address] 05/13/2024 8:00 AM EDT - 05/13/2024 8:30 AM EDT Surgery ENDO [facility], Endoscopy Room [facility] [address] [place] [phone] Yvette Poe DO [address] [place] [address] COLONOSCOPY FLEXIBLE PROXIMAL DIAGNOSTIC 05/18/2024 9:20 AM EDT Office Visit Neurology [facility] [address] [place] [address] Dione Laureano MD [address] [place] [address] 05/18/2024 1:00 PM EDT Office Visit General Internal Medicine [facility] [address] [place] [address] Triny Izquierdo MD [address] [facility] [place] [address] 07/05/2024 11:00 AM EDT Office Visit Cardiology, [facility] [address] [place] [address] Molina Santiago DO [address] [place] [address] 08/26/2024 3:30 PM EST Office Visit Sleep Disorders Ctr [facility] [address] [place] [phone] Ericka Kothari CRNP [address] [place] [address] Scheduled Procedures Name Priority Associated Diagnoses Date/Ti [...] 12/26/2021, Additional history exists GFR 11/10/2024 11/11/2023, 090 [...] filedocumented as of this encounter Care Teams Tank Bottom Assembler Relationship Specialty Start Date End Date Triny Izquierdo MD 200 [facility] [place] [address] PCP - General Internal Medicine 06/13/16 documented as of this encounter
--- OUTSIDE RECORDS SUMMARY | 2024-04-17 20:52 | External Medical Summary | Summary of Care ---
Author Name Unknown Organization [facility] Address 100 [facility] [place] [address] Phone [phone] Care Team Providers Care Wedding Planning Internship Name Role Phone Triny Izquierdo MD Primary Care Provider + Reason for Visit * Reason Onset Date Comments Test Results 03/16/2024 Encounter Details Date Type Department Care Team ([facility] st Contact Info) Description 03/16/2024 Telephone Neurology [facility] [place] [address] Dione Laureano MD 200 [facility] [address] Test Results Allergies Active Allergy Reactions Criticality [...] mRNA, LNP-s, No Pre serve, 2-Dose Series ([employer]) 06/06/2021,12/04/2020,11/06/2020 COVID-19, LNP-s, No Preserve , Markie-sucrose, Ages 12+ ([employer]) 12/26/2021 COVID-19, MRNA-LNP, 23-24, P F, 30 [...] Master's degree (e.g., MA, MS, Virgilio, MEd, SUPERVISOR MAILS, WEST) 02/17/2024 Sex and Gender Information Value [...] 04/10/2024 7:30 PM EDT PulmDiagnostic Sleep Lab, [facility] 400 [facility] [place] [address] Gl, Sleep Med Night Sleep 400 [facility] [place] [address] 05/13/2024 8:00 AM EDT Hospital Encounter ENDO OSSC, Endoscopy Room [facility] [address] [place] [phone] Yvette Poe DO [address] [place] [address] 05/13/2024 8:00 AM EDT - 05/13/2024 8:30 AM EDT Surgery ENDO [facility], Endoscopy Room [facility] [address] [place] [phone] Yvette Poe, DO [address] [place] [address] COLONOSCOPY FLEXIBLE PROXIMAL DIAGNOSTIC 05/18/2024 9:20 AM EDT Office Visit Neurology [facility] [address] [place] [address] Dione Laureano MD [address] [place] [address] 05/18/2024 1:00 PM EDT Office Visit General Internal Medicine [facility] [address] [place] [address] Triny Izquierdo MD 200 [facility] [place] [address] 07/05/2024 11:00 AM EDT Office Visit Cardiology, [facility] [address] [place] [address] Molina Santiago, DO [address] [place] [address] 08/26/2024 3:30 PM EST Office Visit Sleep Disorders Ctr [facility] [address] [place] [phone] Ericka Kothari CRNP [address] [place] [address] Scheduled Procedures Name Priority Associated Diagnoses Date/Ti [...] 11/10/2024 11/11/2023, 0802/2021, 09/19/2020, Additional history exists Depression Screening 02/23/2025 [...] filedocumented as of this encounter Care Teams Wedding Planning Internship Relationship Specialty Start Date End Date Triny Izquierdo MD 200 [facility] [place] [address] PCP - General Internal Medicine 06/13/16 documented as of this encounter
--- OUTSIDE RECORDS SUMMARY | 2024-04-17 20:52 | External Medical Summary | Summary of Care ---
Author Name Unknown Organization [facility] Address [address] [place] [address] Phone [phone] Care Team Providers Care Small Engine Specialist Name Role Phone Triny Izquierdo MD Primary Care Provider + Reason for Visit * Reason Onset Date Comments Appointment 04/09/2024 Encounter Details Date Type Department Care Team ([facility] st Contact Info) Description 04/09/2024 Telephone Sleep Lab, [facility] [address] [place], [place] [phone] [facility], Sleep Med Night Sleep [address] [place], [place] [id number] Appointment Allergies Active Allergy Reactions Criticality Noted Date Comments Pollen 05/03/2021 Congestion, runny nose documented as of this encounter (statuses as of 04/10/2024) Medications Medication Sig Dispensed Refills Start Date [...] as of this encounter (statuses as of 04/10/2024) Active Problems Problem Noted Date Diagnosed Date Rosacea 10/19/2020 Prediabetes 02/15/2019 Overview: Per Prediabetes protocol S/P lumbar laminectomy 02/08/2019 HTN, goal below 130/80 Hyperlipidemia LDL goal <100 documented as of this encounter (statuses as of 04/10/2024) Resolved Problems Problem Noted Date Diagnosed Date Resolved Date Hypertension 06/13/2016 Hyperlipemia 06/13/2016 documented as of this encounter (statuses as of 04/10/2024) Immunizations Name Administration Dates Next Due COVID-19 mRNA, LNP-s, No Pre serve, 2-Dose Series ([employer]) 06/06/2021,12/04/2020,11/06/2020 COVID-19, LNP-s, No Preserve , Markie-sucrose, Ages 12+ ([employer]) 12/26/2021 COVID-19, MRNA-LNP, 23-24, P F, 30 [...] Master's degree (e.g., MA, MS, Virgilio, MEd, TRANSIT MECHANIC, WEST) 02/17/2024 Sex and Gender Information Value [...] 04/10/2024 7:30 PM EDT PulmDiagnostic Sleep Lab, [facility] [address] [place] [address] Gl, Sleep Med Night Sleep 400 [facility] [place] [address] 05/13/2024 8:00 AM EDT Hospital Encounter ENDO OSS, Endoscopy Room [facility] [address] [place] [phone] Yvette Poe, DO [address] [place] [address] 05/13/2024 8:00 AM EDT - 05/13/2024 8:30 AM EDT Surgery ENDO OSS, Endoscopy Room [facility] [address] [place] [phone] Yvette Poe, DO [address] [place] [address] COLONOSCOPY FLEXIBLE PROXIMAL DIAGNOSTIC 05/18/2024 9:20 AM EDT Office Visit Neurology [facility] [place] [address] [place] [address] Dione Laureano MD 200 [facility] [place] [address] 05/18/2024 1:00 PM EDT Office Visit General Internal Medicine [facility] [place] [facility] [place] [address] Triny Izquierdo MD [address] [place] [address] 07/05/2024 11:00 AM EDT Office Visit Cardiology, [facility] [address] [place] [address] Molina Santiago DO [address] [place] [address] 08/26/2024 3:30 PM EST Office Visit Sleep Disorders Ctr [facility] [address] [place] [phone] Ericka Kothari CRNP [address] [facility] [place] [address] Scheduled Procedures Name Priority Associated Diagnoses Date/Ti [...] filedocumented as of this encounter Care Teams Small Engine Specialist Relationship Specialty Start Date End Date Triny Izquierdo MD 200 [place] [address] PCP - General Internal Medicine 06/13/16 documented as of this encounter
--- OUTSIDE RECORDS SUMMARY | 2024-04-17 20:52 | External Medical Summary | Summary of Care ---
Author Name Unknown Organization [facility] Address 100 [facility] [place] [address] Phone [phone] Care Team Providers Care Tow Truck Dispatcher Name Role Phone Triny Izquierdo MD Primary Care Provider + Reason for Visit * Reason Onset Date Comments Appointment 03/03/2024 Encounter Details Date Type Department Care Team ([facility] st Contact Info) Description 03/03/2024 Telephone General Internal Medicine [facility] [place] 200 [facility] [place] [address] Triny Izquierdo MD 200 [facility] [address] Appointment Allergies Active Allergy Reactions Criticality Noted Date Comments Pollen 05/03/2021 Congestion, runny nose documented as of this encounter (statuses as of 03/04/2024) Medications Medication Sig Dispensed Refills Start Date [...] as of this encounter (statuses as of 03/04/2024) Active Problems Problem Noted Date Diagnosed Date Rosacea 10/19/2020 Prediabetes 02/15/2019 Overview: Per Prediabetes protocol S/P lumbar laminectomy 02/08/2019 HTN, goal below 130/80 Hyperlipidemia LDL goal <100 documented as of this encounter (statuses as of 03/04/2024) Resolved Problems Problem Noted Date Diagnosed Date Resolved Date Hypertension 06/13/2016 Hyperlipemia 06/13/2016 documented as of this encounter (statuses as of 03/04/2024) Immunizations Name Administration Dates Next Due COVID-19 mRNA, LNP-s, No Pre serve, 2-Dose Series ([employer]) 06/06/2021,12/04/2020,11/06/2020 COVID-19, LNP-s, No Preserve , Markie-sucrose, Ages 12+ ([employer]) 12/26/2021 COVID-19, MRNA-LNP, 23-24, P F, 30 [...] Master's degree (e.g., MA, MS, Virgilio, MEd, STUDIO COUCH FRAME BUILDER, WEST) 02/17/2024 Sex and Gender Information Value Date Recorded Sex Assigned at Male 02/08/2019 9:49 AM EDT Gender Identity Male 02/08/2019 9:49 AM EDT Sexual Orientation Straight 02/08/2019 9: 49 AM EDT Job Start Date Occupation Industry Not on file Not on file Not on file documented as of this encounter Miscellaneous Notes * Telephone Encounter - Bria Fiore, ABRAM - 03/04/2024 4:06 PM EDT Linked to apt. * Telephone Encounter - Bria Fiore, ABRAM - 03/03/2024 4:29 PM EDT Spoke with pt, Sleep study is scheduled on 04[facility]10/2024 at [facility]. Ericka, please sign your order so I [...] PulmDiagnostic Sleep Lab, [facility] 400 [place] [address] [facility], Sleep Med Night Sleep 400 [place] [address] 05/13/2024 8:00 AM EDT Hospital Encounter ENDO OSSC, Endoscopy Room [facility] 132 [facility] [place] [phone] Yvette Poe, DO [address] [place] [address] 05/13/2024 8:00 AM EDT - 05/13/2024 8:30 AM EDT Surgery ENDO [facility], Endoscopy Room [facility] [address] [place] [phone] Yvette Poe, DO [address] [place] [address] COLONOSCOPY FLEXIBLE PROXIMAL DIAGNOSTIC 05/18/2024 9:20 AM EDT Office Visit Neurology [facility] [address] [place] [address] Dione Laureano MD [address] [place] [address] 05/18/2024 1:00 PM EDT Office Visit General Internal Medicine [facility] [address] [place] [address] Triny Izquierdo MD [address] [place] [address] 07/05/2024 11:00 AM EDT Office Visit Cardiology, [facility] [address] [place] [address] Molina Santiago, DO [address] [place] [address] 08/26/2024 3:30 PM EST Office Visit Sleep Disorders Ctr [facility] [address] [place] [phone] Ericka Kothari CRNP [address] [place] [address] Scheduled Procedures Name Priority Associated Diagnoses Date/Ti [...] 02/19/2022, Additional history exists HbA1c 11/10/2024 11/11/2023, 080 02/2021, 09/19/2020, Additional history exists Depression Screening [...] filedocumented as of this encounter Care Teams Tow Truck Dispatcher Relationship Specialty Start Date End Date Triny Izquierdo MD [address] [place] [address] [place] [address] PCP - General Internal Medicine 06/13/16 documented as of this encounter
--- OUTSIDE RECORDS SUMMARY | 2024-04-17 20:52 | External Medical Summary | Summary of Care ---
Author Name Unknown Organization [facility] Address 100 [facility] [place] [address] Phone [phone] Care Team Providers Care Production Line Operator Name Role Phone Triny Izquierdo MD Primary Care Provider + Reason for Visit * Reason Onset Date Comments Test Results 03/16/2024 Encounter Details Date Type Department Care Team ([facility] st Contact Info) Description 03/16/2024 Telephone Neurology [facility] [place] 200 [facility] [place] [address] Dione Laureano MD 200 [facility] [address] Test Results Allergies Active Allergy Reactions Criticality [...] mRNA, LNP-s, No Pre serve, 2-Dose Series ([employer]) 06/06/2021,12/04/2020,11/06/2020 COVID-19, LNP-s, No Preserve , Markie-sucrose, Ages 12+ ([employer]) 12/26/2021 COVID-19, MRNA-LNP, 23-24, P F, 30 [...] Master's degree (e.g., MA, MS, Virgilio, MEd, [employer] HCM CONSULTANT, WEST) 02/17/2024 Sex and Gender Information Value Date Recorded Sex Assigned at Male 02/08/2019 9:49 AM EDT Gender Identity Male 02/08/2019 9:49 AM EDT Sexual Orientation Straight 02/08/2019 9: 49 AM EDT Job Start Date Occupation Industry Not on file Not on file Not on file documented as of this encounter Miscellaneous Notes * Telephone Encounter - Dione Laureano MD - 03/16/2024 9:15 AM EDT Call carotid duplex show some plague, not a surprise, but no blockage-good news documented in this encounter Plan of Treatment Upcoming Encounters Date Type Department Care Team (Latest Contact Info) Description 04/10/2024 7:30 PM EDT PulmDiagnostic Sleep Lab, [facility] 400 [facility] [place] [address] [facility], Sleep Med Night Sleep 400 [facility] [address] 05/13/2024 8:00 AM EDT Hospital Encounter ENDO OSSC, Endoscopy Room [facility] [address] [place] [phone] Yvette Poe, DO [address] [place] [address] 05/13/2024 8:00 AM EDT - 05/13/2024 8:30 AM EDT Surgery ENDO OSS[facility], Endoscopy Room [facility] [address] [place] [phone] Yvette Poe, [address] [place] [address] COLONOSCOPY FLEXIBLE PROXIMAL DIAGNOSTIC 05/18/2024 9:20 AM EDT Office Visit Neurology [facility] [place] [facility] [address] Dione Laureano MD 200 [facility] [place] [address] 05/18/2024 1:00 PM EDT Office Visit General Internal Medicine [facility] 200 [facility] [place] [address] Triny Izquierdo MD 200 [facility] [place] [address] 07/05/2024 11:00 AM EDT Office Visit Cardiology, [facility] [address] [place] [address] Molina Santiago DO [address] [place] [address] 08/26/2024 3:30 PM EST Office Visit Sleep Disorders Ctr [facility] [address] [place] [phone] Ericka Kothari CRNP [address] [place] [address] Scheduled Procedures Name Priority Associated Diagnoses Date/Ti [...] filedocumented as of this encounter Care Teams Production Line Operator Relationship Specialty Start Date End Date Triny Izquierdo MD [address] [place] [address] PCP - General Internal Medicine 06/13/16 documented as of this encounter
--- OUTSIDE RECORDS SUMMARY | 2024-04-17 20:52 | External Medical Summary | Summary of Care ---
Author Name Unknown Organization [facility] Address [address] [place] [address] Phone [phone] Care Team Providers Care Scaler Name Role Phone Triny Izquierdo MD Primary Care Provider + Reason for Referral * Precert (Within 10 days (routine)) - Authorized Specialty Diagnoses / Procedures Referred By Contac t Referred To Contact Sleep Disorders Diagnoses Snoring HTN, goal below 130/80 History of TIA (transient ischemic attack) ASCVD (arteriosclerotic cardiovascular disease) Sleep related bruxism Erectile dysfunction, unspecified erectile dysfunction type Procedures SLEEP STUDY, W/O CPAP Ericka Kothari CRNP [address] [place] [address] Referral ID Status Reason Start Date Expiration Date V isits Requested Visits Authorized [id number] Authorized 03/03/2024 999 999 * Precert (Within 10 days (routine)) - Authorized Specialty Diagnoses / Procedures Referred By Contac t Referred To Contact Sleep Disorders Diagnoses Snoring HTN, goal below 130/80 History of TIA (transient ischemic attack) ASCVD (arteriosclerotic cardiovascular disease) Sleep related bruxism Erectile dysfunction, unspecified erectile dysfunction type Procedures SLEEP STUDY, W/ CPAP (TREATMENT SETTINGS) Ericka Kothari CRNP [address] [place] [address] Referral ID Status Reason Start Date Expiration Date V isits Requested Visits Authorized [id number] Authorized 03/03/2024 999 999 Reason for Visit * Reason Comments NEW PATIENT Here new sleep. Refe rred by cardiology. Witnessed snoring. Has been using nightguard x 20 years for teeth grinding. * Evaluate & Treat - Unlimited Visits (Within 24 hrs (call dept; emergent)) - Authorized Specialty Diagnoses / Procedures Referred By Contcathy t Referred To Contact Sleep Medicine / Sleep Disorders Diagnoses Apnea Bryce Domínguez, DO [address] [place] [address] Referral ID Status Reason Start Date Expiration Date Visits Requested Visits Authorized [id number] Authorized Specialty Services Required 02/24/2024 2 2 Encounter Details Date Type Department Care Team (Latest Contact Info) Description 03/03/2024 11:00 AM EDT [facility] [address] [place] [phone] Ericka Kothari CRNP [address] [facility] [place] [address] Snoring*; HTN, goal below 130/80; History of TIA (transient ischemic attack); ASCVD (arteriosclerotic cardiovascular disease); Sleep related bruxism; Erectile dysfunction, unspecified erectile dysfunction type Allergies Active Allergy Reactions Criticality Noted Date [...] mRNA, LNP-s, No Pre serve, 2-Dose Series ([facility]) 06/06/2021,12/04/2020,11/06/2020 COVID-19, LNP-s, No Preserve , Markie-sucrose, Ages 12+ ([facility]) 12/26/2021 COVID-19, MRNA-LNP, 23-24, P F, 30 [...] Master's degree (e.g., MA, MS, Virgilio, MEd, 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, 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) 02/17/2024 Sex and Gender Information Value Date Recorded Sex Assigned at Male 02/08/2019 9:49 AM EDT Gender Identity Male 02/08/2019 9:49 AM EDT Sexual Orientation Straight 02/08/2019 9: 49 AM EDT Job Start Date Occupation Industry Not on file Not on file Not on file documented as of this encounter Last Filed Vital Signs Vital Sign Reading Time Taken Comments Blood Pressure 120/66 03/03/2024 10:51 AM EDT Pulse 65 03/03/2024 10:51 AM EDT Temperature 36.4 C (97.6 F) 03/03/2024 10:51 AM E DT Respiratory Rate 16 03/03/2024 10:51 AM EDT Oxygen Saturation 97% 03/03/2024 10:51 AM EDT Inhaled Oxygen Concentration - - Weight 74.8 kg (165 lb) 03/03/2024 10:51 AM EDT Height 167.6 cm (5' 6") 03/03/2024 10:51 AM EDT Body Mass Index 26.63 03/03/2024 10:51 AM EDT documented in this encounter Patient Instructions * Patient Instructions* Ericka Kothari CRNP - 03/03/2024 11:51 AM EDT OBSTRUCTIVE SLEEP APNEA You are being evaluated for obstructive sleep apnea. Obstructive sleep apnea is when someone has difficulties with breathing only during sleep. This typically happens without the individual being aware they are having breathing issues. Obstructive sleep apnea is very common. It can be seen in kids and adults. It can cause symptoms of excessive daytime sleepiness, fatigue, morning headaches, and poor memory and cognition. It can also lead to difficulties at work or school and motor vehicle accidents. If left untreated, it puts people at risk for heart attacks, strokes, and diabetes, among other things. Obstructive sleep apnea is diagnosed through either an in-lab sleep study or a home sleep test. If a home sleep test is done and shows inconclusive results, an in-lab study may be recommended. [facility], a trained therapeutic massage technician will be present to administer and monitor the test. They willbe putting sensors on you that monitor your brain waves, breathing, movements, and respiratory effort. None of the sensors should be painful, though they may be annoying or uncomfortable to some patients when they are trying to sleep. [facility] Sleep [facility] are accredited by the [place] [employer] (AASM), as they meet or exceed all standards for professional quality sleep medicine care. - Plan to get enough sleep at night. Most adults do best with 7-8 hours a night. - Exercise daily! Aim for 30 minutes per day of moderate-intensity exercise (enough to get your heart rate up and break out into a light sweat). - Losing even a little bit of weight can reduce the severity of sleep apnea and helps overall sleep. - Don't drive when you are sleepy/drowsy. If you become drowsy while driving, tack puller machine, take a quick nap, get some caffeine, or get someone else to drive. More information can be obtained at: SleepEducation.org It may take 2-4 weeks to get the results. Please arrange a follow-up appointment to discuss your test results. documented in this encounter Progress Notes * Ericka Kothari CRNP - 03/03/2024 11:17 AM EDT [facility] SLEEP MEDICINE CONSULTATION Mr. John Miles is a 74 year old male with history of HTN, hyperlipidemia, CAD, ED, allergic rhinitis and recent suspected TIA seen at the request of Bryce Domínguez DO for evaluation of possible sleep disordered breathing. He offers no concerns regarding his sleep. No prior sleep testing to date. Review of sleep symptoms ("+" indicates reports, "-" indicates denies): (+) Snoring- when supine (-) Witnessed apneas (-) Nocturnal choking or gasping (-) Nocturnal gastroesophageal reflux (-) Dry mouth on waking (+) Teeth clenching/grinding- wears mouth guard (-) Morning headaches (-) Non-restorative sleep (-) Daytime sleepiness or fatigue (-) Symptoms of restless legs syndrome (-) Abnormal sleep behaviors including dream enactment or sleep walking (-) Difficulty with memory or concentration Bedroom environment: Lives with . Sleeps in bed shared with who wears CPAP. Side sleeper since having back surgery 5 years ago. Routine prior to bed: may watch tv/news, prep for the next day Electronics: no screens once in bed Clock checking: yes Climate: cool Lighting: none Noise: sound machine, 's CPAP Pets: none Sleep Schedule: Work: retired Takes tylenol with or without diphenhydramine 25 mg (about twice a week) In bed 2100, reading for 30 minutes Time to fall asleep By 2200 Nighttime awakenings/ Reason 0-1x Wake after sleep onset brief Awake Time/Alarm Perceived total sleep time 0600 spontaneously 8 hours Naps 1-2x/month on rare occasion [place] Sleepiness Scale Question 03/03/2024 10:49 AM EDT - Filed by Janice Guallpa LPN What is the chance you will doze off in the following situation? Sitting and reading No chance of dozing Watching TV No chance of dozing Sitting inactive in a public place, such as a theater or meeting No chance of dozing As a passenger in a car for an hour without a break No chance of dozing Lying down to rest in the afternoon when circumstances permit Slight chance of dozing When sitting and talking to someone No chance of dozing When sitting quietly after lunch without alcohol No chance of dozing In a car, while stopped for a few minutes in traffic No chance of dozing Score (range: 0 - 24) 1 Functional Outcomes Of Sleep Question 03/03/2024 10:50 AM EDT - Filed by Janice Guallpa LPN Please complete the following questions. Do you have difficulty concentrating because you are sleepy or tired? No Do you have difficulty remembering things because you are sleepy or tired? No Do you have difficulty operating a motor vehicle for short distances (less than 100 miles) because you become sleepy? No Do you have difficulty operating a motor vehicle for long distances (more than 100 miles) because you become sleepy? No Do you have difficulty visiting family or friends in their home because you become sleepy or tired?No Has your relationship with family, friends, or work colleagues been affected because you are sleepyor tired? No Do you have difficulty watching a movie or video because you become sleepy or tired? No Do you have difficulty being as active as you want to be in the evening because you are tired or sleepy? No Do you have difficulty being as active as you want to be in the morning because you are tired or sleepy? No Has your mood been affected because you are sleepy or tired? No Score (range: 10 - 40) 40 Medical History: Patient Active Problem List Diagnosis HTN, goal below 130/80 Hyperlipidemia LDL goal <100 S/P lumbar laminectomy Prediabetes Rosacea Allergic rhinitis ED Surgical History: Past Surgical History: Procedure Laterality Date CARDIAC STENT PLACEMENT, ATHERECTOMY, 1 VESSEL 1995 CATARACT SURGERY,COMPLEX CERVICAL LAMINOPLASTY W/DECOMPRESS COLONOSCOPY, DIAGNOSTIC (RECTUM) 11/05/2017 adenomatous polyp, diverticulosis, repeat 5 yrs/COLONOSCOPY FLEXIBLE PROXIMAL DIAGNOSTIC performed by Jaron Russo MD at ENDOSCOPY [facility] LUMBAR / SACRAL EPIDURAL, SINGLE LEVEL 05/28/2018 INJECTION TRANSFORAMINAL EPIDURAL LUMBAR OR SACRAL performed by Clark Franklin, DO at OR [facility] REPAIR INITIAL INGUINAL HERNIA REDUCIBLE AGE 5 OR MORE 2003 SPINE SURGERY PROCEDURE NEC 07/09/2018 Dr. Malhotra Denies history of upper airway, palate or jaw surgery Current Medications: Current Outpatient Medications Medication Sig Dispense Refill Clopidogrel Bisulfate 75 MG Oral Tablet (pLAVix) Take 1 Tablet by mouth in the morning. In the morning.. 90 Tablet 3 Atorvastatin Calcium 80 MG Oral Tablet (Lipitor) TAKE 1 TABLET BY MOUTH EVERY DAY 90 Tablet 3 Losartan Potassium 100 MG Oral Tablet (Cozaar) Take 1 Tablet by mouth in the morning. 90 Tablet 3 Dutasteride 0.5 MG Oral Capsule (Avodart) TAKE 1 CAPSULE BY MOUTH EVERY DAY 90 Capsule 3 Sildenafil Citrate 20 MG Oral Tablet (Revatio) Take up to 4 tabs one hour prior to intercourse. No more than 4 daily. 25 Tablet 5 Acetaminophen ER 650 MG Oral Tablet Extended Release Take 1 Tablet by mouth every 8 hours as neededfor Fever. Ibuprofen 200 MG Oral Tablet Take 3 Tablets by mouth every 8 hours as needed for Pain. with food 100 Tab 5 fexofenadine (KARAN) 180 MG Tablet Take 1 Tablet by mouth daily as needed for Allergies. multivitamin (MVI) Tablet Take 1 Tablet by mouth. aspirin 81 MG chewable tablet Take 1 Tablet by mouth in the morning. with food.. 100 Tab 5 Nitroglycerin 0.4 MG Sublingual Tablet Sublingual (Nitrostat) Place 1 Tablet under the tongue every5 minutes as needed for Pain, Chest. up to 3 doses in 15 minutes (Patient not taking: Reported on 03/01/2024) 75 Tablet 3 Probiotic Product (PROBIOTIC & ACIDOPHILUS EX ST) Capsule Take 1 Tab by mouth. No current facility-administered medications for this visit. Social History: Caffeine: 2 cups coffee Alcohol use: wine or beer, 1-2 drinks 3-4x/week Nicotine use: denies Illicit drug use: denies Routine exercise: walking, stretching Family History: Denies family history of sleep related disorders. Review of Systems Constitutional: Negative for fatigue. Weight stable HENT: Positive for congestion. Respiratory: Negative for shortness of breath. Cardiovascular: Negative for chest pain, palpitations and leg swelling. Musculoskeletal: Occasional joint and back discomfort Allergic/Immunologic: Positive for environmental allergies. Physical Exam: BP 120/66 | Pulse 65 | Temp 36.4 C (97.6 F) (Tympanic) | Resp 16 | Ht 1.676 m (5' 6") | Wt 74.8kg (165 lb) | SpO2 97% | BMI 26.63 kg/m | BSA 1.87 m Constitutional: No acute distress, accompanied by self Eyes: No conjunctival icterus or pallor Nose: Normal external appearance. Oral: Tongue with scalloping, hard palate normal, low lying soft palate, uvula normal, Mallampati 4, tonsils not visualized Mandible: No retrognathia Neck: Circumference 14 inches Chest: Normal respiratory effort at rest Cardiac: Regular rate and rhythm Neuro: Alert, oriented, fluent/clear speech Psych: Appropriate mood and affect. Impression/Recommendations: 74 year old male with history of hypertension, hyperlipidemia, CAD, ED, allergic rhinitis and recent suspected TIA with snoring when supine and bruxism. At risk for ABRAM, STOP-Bang 4 (snoring, HTN, age > 50, and male) - Discussed the pathophysiology, implications on short- and long-term health, diagnostic evaluation, and likely treatment options of ABRAM - Schedule an overnight PSG - split night protocol if meets criteria. - Avoid driving or engaging in any activity that requires full alertness if feeling sleepy, drowsy or otherwise impaired. He is agreeable to receiving results through the patient portal but would like to have a follow-up visit in case it is necessary to discuss further in person. LORI [facility] I spent a total of 40-54 minutes (exact time 52 mins) on the date of service in preparation, delivery, and documentation of the care provided to John Miles excluding any time spent in the performance of separately billed services. documented in this encounter Nursing Notes * Janice Guallpa LPN - 03/03/2024 10:53 AM EDT Chief Complaint Patient presents with NEW PATIENT Here new sleep. Witnessed snoring. Neck: 14". Patient-Entered [facility] 2019 Msp: Part I And Employment Question 03/01/2024 8:56 AM EDT - Filed by Patient Are you currently employed? No, Retired Date of long term: 03/08/2016 Do you have a spouse who is currently employed? No, Retired Date of long term: 05/08/2015 Medicare requires that we periodically ask the following questions. Are you receiving benefits under the [place] Lung Benefits Act (BL)? No Was the illness/injury due to a work-related accident/condition? No Are you receiving treatment for an injury or illness covered under no-fault (and/or medical-paymentcoverage) including premises or automobile? No Are you receiving treatment for an injury, or illness, for which another alliance party may be liable? No Are you entitled to Medicare based on: Age? Yes End-stage renal disease (ESRD)? No Patient-Entered Msp: [facility] Primary [facility] Calculation (range: 0 - 5) 1 Do you have group health plan (GHP) coverage based on your own current employment or the employmentof your spouse? Yes Do you have group health plan (GHP) coverage based on your own CURRENT employment? No Do you have group health plan (GHP) coverage based on your spouse's CURRENT employment? No Travel Screening Question 03/03/2024 10:41 AM EDT - Filed by Patient Do you have any of the following new or worsening symptoms? None of these Have you recently been in contact with someone who was sick? No / Unsure [place] Sleepiness Scale Question 03/03/2024 10:49 AM EDT - Filed by Janice Guallpa LPN What is the chance you will doze off in the following situation? Sitting and reading No chance of dozing Watching TV No chance of dozing Sitting inactive in a public place, such as a theater or meeting No chance of dozing As a passenger in a car for an hour without a break No chance of dozing Lying down to rest in the afternoon when circumstances permit Slight chance of dozing When sitting and talking to someone No chance of dozing When sitting quietly after lunch without alcohol No chance of dozing In a car, while stopped for a few minutes in traffic No chance of dozing Score (range: 0 - 24) 1 Functional Outcomes Of Sleep Question 03/03/2024 10:50 AM EDT - Filed by Janice Guallpa LPN Please complete the following questions. Do you have difficulty concentrating because you are sleepy or tired? No Do you have difficulty remembering things because you are sleepy or tired? No Do you have difficulty operating a motor vehicle for short distances (less than 100 miles) because you become sleepy? No Do you have difficulty operating a motor vehicle for long distances (more than 100 miles) because you become sleepy? No Do you have difficulty visiting family or friends in their home because you become sleepy or tired?No Has your relationship with family, friends, or work colleagues been affected because you are sleepyor tired? No Do you have difficulty watching a movie or video because you become sleepy or tired? No Do you have difficulty being as active as you want to be in the evening because you are tired or sleepy? No Do you have difficulty being as active as you want to be in the morning because you are tired or sleepy? No Has your mood been affected because you are sleepy or tired? No Score (range: 10 - 40) 40 documented in this encounter Plan of Treatment Upcoming Encounters Date Type Department Care Team (Latest Contact Info) Description 04/10/2024 7:30 PM EDT PulmDiagnostic Sleep Lab, [facility] [address] [place] [address] [facility], Sleep Med Night Sleep [address] [place] [address] 05/13/2024 8:00 AM EDT Hospital Encounter ENDO [facility], Endoscopy Room [facility] [address] [place], [place] [phone] Yvette Poe, DO [address] [place] [address] 05/13/2024 8:00 AM EDT - 05/13/2024 8:30 AM EDT Surgery ENDO [facility], Endoscopy Room [facility] [address] [place] [phone] Yvette Poe, DO [address] [place] [address] COLONOSCOPY FLEXIBLE PROXIMAL DIAGNOSTIC 05/18/2024 9:20 AM EDT Office Visit Neurology [facility] [address] [place] [address] Dione Laureano MD [address] [place] [address] 05/18/2024 1:00 PM EDT Office Visit General Internal Medicine [facility] [address] [place] [address] Triny Izquierdo MD [address] [facility] [place] [address] 07/05/2024 11:00 AM EDT Office Visit Cardiology, [facility] [address] [place] [address] Molina Santiago, DO [address] [place] [address] 08/26/2024 3:30 PM EST Office Visit Sleep Disorders Ctr [facility] [address] [place] [phone] Ericka Kothari CRNP [address] [place] [address] Scheduled Orders Name Type Priority Associated Diagnoses [...] Td or Tdap) 02/07/2024 02/06/2014 COVID-19 Vaccine (2022- season) 2024 12/25/2023, 05/22/2022, 12/26/2021, Additional history exists GFR 11/10/2024 11/11/2023, 09/0 04/2023, 02/19/2022, Additional history exists HbA1c 11/10/2024 [...] as of this encounter Visit Diagnoses Diagnosis Snoring- Primary Other dyspnea and respiratory abnormality HTN, goal below 130/80 Unspecified essential hypertension History of TIA (transient ischemic attack) Transient ischemic attack (TIA), and cerebral infarction without residual deficits ASCVD (arteriosclerotic cardiovascular disease) Unspecified cardiovascular disease Sleep related bruxism Erectile dysfunction, unspecified erectile dysfunction type History of colon polyps Personal history of colonic polyps documented in this encounter Care Teams Scaler Relationship Specialty Start Date End Date Triny Izquierdo MD [address] [place] [address] PCP - General Internal Medicine 06/13/16 documented as of this encounter
--- OUTSIDE RECORDS SUMMARY | 2024-04-17 20:53 | External Medical Summary | Summary of Care ---
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 Name Role Phone Triny Izquierdo MD Primary Care Provider + Reason for Visit * Reason Comments Outpatient Testing Encounter Details Date Type Department Care Team (Late st Contact Info) Description 03/02/2024 10:30 AM EDT Laboratory Laboratory [facility] [place] [address] [place] [id number] [facility] [address] [place] [id number] Arrived Allergies Active Allergy Reactions Criticality Noted Date Comments Pollen 05/03/2021 Congestion, runny nose documented as of this encounter (statuses as of 03/02/2024) Medications Medication Sig Dispensed Refills Start Date [...] as of this encounter (statuses as of 03/02/2024) Active Problems Problem Noted Date Diagnosed Date Rosacea 10/19/2020 Prediabetes 02/15/2019 Overview: Per Prediabetes protocol S/P lumbar laminectomy 02/08/2019 HTN, goal below 130/80 Hyperlipidemia LDL goal <100 documented as of this encounter (statuses as of 03/02/2024) Resolved Problems Problem Noted Date Diagnosed Date Resolved Date Hypertension 06/13/2016 Hyperlipemia 06/13/2016 documented as of this encounter (statuses as of 03/02/2024) Immunizations Name Administration Dates Next Due COVID-19 mRNA, LNP-s, No Pre serve, 2-Dose Series (Muzy) 06/06/2021,12/04/2020,11/06/2020 COVID-19, LNP-s, No Preserve , Markie-sucrose, Ages 12+ (Muzy) 12/26/2021 COVID-19, MRNA-LNP, 23-24, P F, 30 MCG/0.3 mL, 12 YRS AND ABOVE, IM (Infusionsoft-Comirnaty) 12/25/2023 Pneumococcal Conjugate Vacc, 13 Valent (Prevnar) [...] Master's degree (e.g., MA, MS, Virgilio, MEd, [employer], WEST) 02/17/2024 Sex and Gender Information Value [...] AM EDT Office Visit [facility] [address] [place] [phone] Ericka Kothari CRNP [address] [place] [address] 05/13/2024 8:00 AM EDT Hospital Encounter ENDO [facility], Endoscopy Room [facility] [address] [place] [phone] Yvette Poe, DO [address] [place] [address] 05/13/2024 8:00 AM EDT - 05/13/2024 8:30 AM EDT Surgery ENDO [facility], Endoscopy Room [facility] [address] [place] [phone] Yvette Poe, DO [address] [place] [address] COLONOSCOPY FLEXIBLE PROXIMAL DIAGNOSTIC 05/18/2024 9:20 AM EDT Office Visit Neurology [facility] [address] [place] [id number] Dione Laureano MD [address] [place] [id number] 05/18/2024 1:00 PM EDT Office Visit General Internal Medicine [facility] [address] [place] [id number] Triny Izquierdo MD [address] [place], [place] [address] 07/05/2024 11:00 AM EDT Office Visit Cardiology, [facility] [address] [place] [address] Molina Santiago DO [address] [place] [address] Scheduled Procedures Name Priority Associated Diagnoses Date/Ti [...] filedocumented as of this encounter Care Teams Clay Processing Labourer Relationship Specialty Start Date End Date Triny Izquierdo MD [address] [place] [address] PCP - General Internal Medicine 06/13/16 documented as of this encounter
--- OUTSIDE RECORDS SUMMARY | 2024-04-17 20:53 | External Medical Summary | Summary of Care ---
Author Name Unknown Organization [facility] Address [address] [facility] [address] Phone [phone] Care Team Providers Care Multicultural Internship Name Role Phone Triny Izquierdo MD Primary Care Provider + Reason for Visit * Reason Comments NEW PATIENT Neuro Deficit/Stroke/TIA Encounter Details Date Type Department Care Team ([facility] st Contact Info) Description 02/17/2024 10:40 AM EDT Office Visit Neurology [facility] [address] [place] [address] Dione Laureano MD [address] [facility] [address] History of TIA (transient ischemic attack)*; Cerebral atherosclerosis Allergies Active Allergy Reactions Criticality Noted Date Comments Pollen 05/03/2021 Congestion, runny nose documented as of this encounter (statuses as of 02/17/2024) Medications Medication Sig Dispensed Refills Start Date [...] for Allergies. Active Ibuprofen 200 MG Oral TabletIndications :Pain of right lower leg Take 3 Tablets by mouth every 8 hours as needed for Pain. with food 100 Tab 5 05/06/2018 Active Acetaminophen ER 650 MG Oral Tablet Extended Release Take 1 Tablet by mouth every 8 hours as needed for Fever. Active Nitroglycerin 0.4 MG Sublingual Tablet Sublingual (Nitrostat)Indica tions:HTN, goal below 130/80 Place 1 Tablet under the tongue every 5 minutes as needed for Pain, Chest. up to 3 doses in 15 minutes 75 Tablet 3 02/25/2023 Active Sildenafil Citrate 20 MG Oral Tablet (Revatio)Indicati ons:HTN, goal below 130/80 Take up to 4 tabs one hour prior to intercourse. No more than 4 daily. 25 Tablet 5 04/16/2023 Active Dutasteride 0.5 MG Oral Capsule (Avodart)Indicati ons:HTN, goal below 130/80 TAKE 1 CAPSULE BY MOUTH EVERY DAY 90 Capsule 3 07/07/2023 Active Losartan Potassium 100 MG Oral Tablet (Cozaar)Indicatio ns:HTN, goal below 130/80 Take 1 Tablet by mouth in the morning. 90 Tablet 3 12/03/2023 Active COVID-19 mRNA Vaccine 12 years and above Pfizer 30 MCG/0.3 ML IM SUSP Inject into a large muscle. 0.3 mL 12/25/2023 Active Atorvastatin Calcium 80 MG Oral Tablet (Lipitor)Indicati ons:Hyperlipidemi a LDL goal <100 TAKE 1 TABLET BY MOUTH EVERY DAY 90 Tablet 3 01/30/2024 Active Clopidogrel Bisulfate 75 MG Oral Tablet (pLAVix) Take 1 Tablet by mouth in the morning. In the morning.. 02/14/2024 Active Metoprolol Succinate ER 50 MG Oral Tablet Extended Release 24 Hour (toPROL XL)Indications:HT N, goal below 130/80 TAKE 1 TABLET BY MOUTH EVERY DAY 90 Tablet 3 08/05/2023 02/17/2024 Discontinued documented as of this encounter (statuses as of 02/17/2024) Active Problems Problem Noted Date Diagnosed Date Rosacea 10/19/2020 Prediabetes 02/15/2019 Overview: Per Prediabetes protocol S/P lumbar laminectomy 02/08/2019 HTN, goal below 130/80 Hyperlipidemia LDL goal <100 documented as of this encounter (statuses as of 02/17/2024) Resolved Problems Problem Noted Date Diagnosed Date Resolved Date Hypertension 06/13/2016 Hyperlipemia 06/13/2016 documented as of this encounter (statuses as of 02/17/2024) Immunizations Name Administration Dates Next Due COVID-19 mRNA, LNP-s, No Pre serve, 2-Dose Series (beBetter Health) 06/06/2021,12/04/2020,11/06/2020 COVID-19, LNP-s, No Preserve , Markie-sucrose, Ages 12+ (Pfizer) 12/26/2021 COVID-19, MRNA-LNP, 23-24, P F, 30 MCG/0.3 mL, 12 YRS AND ABOVE, IM (PFIZER-Comirnat) 12/25/2023 Pneumococcal Conjugate Vacc, 13 Valent (Prevnar) [...] in the Last Year Never true 02/15/2020 Education Answer Date Recorded What is the highest level of school you have completed or the highest degree you have received? Master's degree (e.g., DONTE, MS, Virgilio, MEd, GOVERNMENT PROFESSOR, WEST) 02/17/2024 Sex and Gender Information Value Date Recorded Sex Assigned at Male 02/08/2019 9:49 AM EDT Gender Identity Male 02/08/2019 9:49 AM EDT Sexual Orientation Straight 02/08/2019 9: 49 AM EDT Job Start Date Occupation Industry Not on file Not on file Not on file documented as of this encounter Last Filed Vital Signs Vital Sign Reading Time Taken Comments Blood Pressure 132/80 02/17/2024 10:34 AM EDT Pulse 60 02/17/2024 10:34 AM EDT Temperature 36.6 C (97.9 F) 02/17/2024 10:34 AM E DT Respiratory Rate 16 02/17/2024 10:34 AM EDT Oxygen Saturation 96% 02/17/2024 10:34 AM EDT Inhaled Oxygen Concentration - - Weight 75.4 kg (166 lb 3.2 oz) 02/17/2024 10:34 AM EDT Height - - Body Mass Index 26.83 05/13/2023 3:14 PM EDT documented in this encounter Progress Notes * Dione Laureano MD - 02/17/2024 10:41 AM EDT HISTORY AND PHYSICAL EXAMINATION [place] [address] NAME: John Miles Date of : 1950 Date of Visit: 02/17/24 Chief Complaint: Chief Complaint Patient presents with NEW PATIENT Neuro Deficit/Stroke/TIA HPI: John Miles is a 73 year old male presenting with TIA. This occurred on 02/13 2024. The patient awoke with a significant headache and shortly after developed paresthesia of the right jaw line.There was no accompanying dysarthria or paresthesia elsewhere. His gait was impaired in his had to assist him to go to the bathroom. The ambulance was summoned. He was hospitalized overnight at [facility]. The paresthesia dissipated in several hours. He could not receive tPA. He was placed on clopidogrel. He would now has no neurologic symptoms. HOME MEDICATIONS : Current Outpatient Medications Medication Sig Dispense Refill [...] by mouth every evening.) 90 Tablet 3 Losartan Potassium 100 MG Oral Tablet (Cozaar) Take 1 Tablet by mouth in the morning. 90 Tablet 3 Atorvastatin Calcium 80 MG Oral Tablet (Lipitor) TAKE 1 TABLET BY MOUTH EVERY DAY 90 Tablet 3 Clopidogrel Bisulfate 75 MG Oral Tablet (pLAVix) Take 1 Tablet by mouth in the morning. In the morning.. COVID-19 mRNA Vaccine 12 years and above beBetter Health 30 MCG/0.3 ML IM SUSP Inject into a large muscle. 0.3 mL 0 No current facility-administered medications for this visit. Review of patient's allergies indicates: Allergen Reactions Pollen Congestion, runny nose Past Medical History: Diagnosis Date HTN, goal below 130/80 Hyperlipidemia LDL goal <100 Prediabetes TIA (transient ischemic attack) Past Surgical History: Procedure Laterality Date CARDIAC STENT PLACEMENT, ATHERECTOMY, 1 VESSEL 1995 CATARACT SURGERY,COMPLEX CERVICAL LAMINOPLASTY W/DECOMPRESS COLONOSCOPY, DIAGNOSTIC (RECTUM) 11/05/2017 adenomatous polyp, diverticulosis, repeat 5 yrs/COLONOSCOPY FLEXIBLE PROXIMAL DIAGNOSTIC performed by Jaron Russo MD at ENDOSCOPY [facility] LUMBAR / SACRAL EPIDURAL, SINGLE LEVEL 05/28/2018 INJECTION TRANSFORAMINAL EPIDURAL LUMBAR OR SACRAL performed by Clark Stubbssins, DO at OR [facility] REPAIR INITIAL INGUINAL HERNIA REDUCIBLE AGE 5 OR MORE 2003 SPINE SURGERY PROCEDURE NEC 07/09/2018 Dr. Malhotra Family History Problem Relation Name Age of Onset Arthritis Mother Iva Social History Socioeconomic History Marital status: Spouse name: Gayle Cordero Number of children: 2 Years of education: Not on file Highest education level: Master's degree (e.g., MA, MS, Virgilio, MEd, GOVERNMENT PROFESSOR, WEST) Occupational History Not on file Tobacco Use Smoking status: Never Smokeless tobacco: Never Vaping Use Vaping status: Never Used Substance and Sexual Activity Alcohol use: Yes Comment: wine with dinner Drug use: Never Sexual activity: Not on file Other Topics Concern Not on file Social History Narrative Not on file Social Determinants of Health Financial Resource Strain: Not on file Food Insecurity: No Food Insecurity (02/15/2020) Hunger Vital Sign Worried About Running Out of Food in the Last Year: Never true Ran Out of Food in the Last Year: Never true Transportation Needs: Not on file Physical Activity: Not on file Stress: Not on file Social Connections: Not on file Intimate Partner Violence: Not on file Housing Stability: Not on file ROS: Review of Systems Constitutional: Negative. HENT: Negative. Eyes: Negative. Respiratory: Negative. Cardiovascular: Negative. Gastrointestinal: Negative. Endocrine: Negative. Genitourinary: Negative. Musculoskeletal: Negative. Allergic/Immunologic: Negative. Neurological: Negative. Hematological: Negative. Psychiatric/Behavioral: Negative. All other systems reviewed and are negative. PHYSICAL EXAMINATION: Vital Signs: BP 132/80 | Pulse 60 | Temp 36.6 C (97.9 F) (Tympanic) | Resp 16 | Wt 75.4 kg (166 lb 3.2 oz) |SpO2 96% | BMI 26.83 kg/m | BSA 1.87 m EXAM: Constitutional: appearance normally developed, with no deformities Heart sounds are normal Examination of the peripheral vascular system by observation does not reveal varicosity or edema. Palpation reveals normal pulses and temperature Carotid arteries reveal no bruit. NEUROLOGIC EXAMINATION: Appearance: no acute distress Opthalmoscopic: disc flat, normal fundus The patient has obviously intact higher integrative functioning to orientation, language, fund of knowledge, attention to the examiner, and memory Speech: no dysarthria Cranial Nerves: CN 2 - no visual defect on confrontation. CN 3, 4, 6 - extra-ocular movements intact and no nystagmus; with round pupils appropriately reactive to light and accomodation CN 5 - facial sensation intact CN 7 - no facial asymmetry CN 8 - intact hearing CN 9, 10 - palate symmetric CN 11 - good shoulder shrug CN 12 - tongue midline Gait and station: normal Coordination: normal finger to nose testing and rapid alternating movements of the lower extremities. No tremor is seen. Sensory: intact to light touch and pain Muscle Tone: normal Muscle exam:Nl in all extremities without pronator drift. Reflexes: Hypoactive with downgoing toes IMPRESSION / PLAN: This patient has fully recovered from his TIA. Apparently the [facility] suggestion that he should be on dual platelet for 3 weeks. My suggestion is that he remain on dual therapy, i.e. aspirin 81 mg and clopidogrel 75 mg indefinitely. From neurologic point of view he has no restrictions. He does have mild atherosclerosis of the carotids (by CTA) and apparently has very tight vertebrals. I am going to order a baseline carotid noninvasive study recognize that he needs to have this doneto recognize development of carotid atherosclerosis. He is clearly dependent on some degree of collateral circulation. In my opinion there was nothing to be done specifically to open the vertebrals. I am going to order some blood studies looking for the auditory modalities. Management of the blood fats is outside the specialty of Neurology and I would think this would be on the part of Dr. Izquierdo or Dr. Madrid. Perhaps a lipoprotein (a) would be in order also if appropriate Dione Laureano MD documented in this encounter Nursing Notes * Kim Collins MED ASSIST - 02/17/2024 10:32 AM EDT Chief Complaint Patient presents with NEW PATIENT Neuro Deficit/Stroke/TIA documented in this encounter Plan of Treatment Upcoming Encounters Date Type Department Care Team (Latest Contact Info) Description 02/24/2024 2:00 PM EDT Office Visit General Internal Medicine [facility] [place] [address] [place] [address] Bryce Domínguez DO [address] [place], [place] [address] [address] 02/26/2024 11:30 AM EDT Imaging Vascular Lab, [facility] 2nd [facility], [place] [address] [facility] [place] [address] 05/13/2024 8:00 AM EDT Hospital Encounter ENDO [facility], Endoscopy Room [facility] [address] [place] [address] Yvette Poe, DO [address] [place] [address] 05/13/2024 8:00 AM EDT - 05/13/2024 8:30 AM EDT Surgery ENDO [facility], Endoscopy Room [facility] [address] [place] [phone] Yvette Poe, DO [address] [place] [address] COLONOSCOPY FLEXIBLE PROXIMAL DIAGNOSTIC 05/18/2024 9:20 AM EDT Office Visit Neurology [facility] [address] [place] [address] Dione Laureano MD [address] [place] [address] 05/18/2024 1:00 PM EDT Office Visit General Internal Medicine [facility] [address] [place] [address] Triny Izquierdo MD [address] [place] [address] 06/15/2024 1:30 PM EDT Office Visit Cardiology, [facility] [address] [place] [address] Molina Santiago, DO [address] [place] [address] Scheduled Orders Name Type Priority Associated Diagnoses Orde r Schedule VASC DUPLEX CAROTID BILAT Medical Imaging Routine History of TIA (transient ischemic attack) Cerebral atherosclerosis Expected: 03/18/2024, Expires: 03/18/2025 ERYTHROCYTE SEDIMENTATION RATE (ESR) Lab Routine Cerebral atherosclerosis Ordered: 02/17/2024 ANTINUCLEAR ANTIBODY (BASIL) EIA SCREEN WITH REFLEX AB QUANT Lab Routine Cerebral atherosclerosis Ordered: 02/17/2024 LYME DISEASE ANTIBODY SCREEN WITH REFLEX TO CONFIRMATION Lab Routine Cerebral atherosclerosis Ordered: 02/17/2024 Scheduled Procedures Name Priority Associated Diagnoses Date/Ti [...] as of this encounter Visit Diagnoses Diagnosis History of TIA (transient ischemic attack)- Primary Transient ischemic attack (TIA), and cerebral infarction without residual deficits Cerebral atherosclerosis History of colon polyps Personal history of colonic polyps documented in this encounter Care Teams Multicultural Internship Relationship Specialty Start Date End Date Triny Izquierdo MD [address] [place] [address] PCP - General Internal Medicine 06/13/16 documented as of this encounter"
--- OUTSIDE RECORDS SUMMARY | 2024-04-17 20:53 | External Medical Summary ---
Author Name Unknown Address Unknown Organization [id number]:[facility] [place] [address] [place] [address] Laboratory Report Ordering Provider Test Date Status [id number] 03/02/2024 10:36:17 Final Observation Date Value Abnormality Reference (Units ) Status Borrelia burgdorferi IgG and IgM [Interpretation] in Serum by Immunoassay 03/02/2024 10:36:17 Negative Negative Final Performing Location [facility] [place] [facility] [address] [facility] [address] [place] [address]
--- OUTSIDE RECORDS SUMMARY | 2024-04-17 20:53 | External Medical Summary ---
Author Name Unknown Address Unknown Organization K01:[facility] [place] [address] [place] [address] Laboratory Report Ordering Provider Test Date Status MARQUITA PENA 03/02/2024 10:36:17 Final Observation Date Value Abnormality Reference (Units ) Status Erythrocyte sedimentation rate by Photometric method 03/02/2024 10:36:17 6 <20 (mm/hour) Final Performing Location [facility] [place] [address] [facility] [address]
--- OUTSIDE RECORDS SUMMARY | 2024-04-17 20:53 | External Medical Summary | Summary of Care ---
Author Name Unknown Organization [facility] Address [address] [place] [address] Phone [phone] Care Team Providers Care Hydroelectric Plant Technician Name Role Phone Triny Izquierdo MD Primary Care Provider + Reason for Visit * Reason Onset Date Comments Outpatient Testing 02/17/2024 Encounter Details Date Type Department Care Team ([facility] st Contact Info) Description 02/17/2024 Telephone Neurology [facility] [place] [address] [facility] [place] [address] Dione [facility]ano MD [facility] [address] Outpatient Testing Allergies Active Allergy Reactions Criticality Noted Date [...] for Allergies. Active Ibuprofen 200 MG Oral TabletIndications:Dara n of right lower leg Take 3 Tablets by mouth every 8 hours as needed for Pain. with food 100 Tab 5 05/06/2018 Active Acetaminophen ER 650 MG Oral Tablet Extended Release Take 1 Tablet by mouth every 8 hours as needed for Fever. Active Nitroglycerin 0.4 MG Sublingual Tablet Sublingual (Nitrostat)Indication s:HTN, goal below 130/80 Place 1 Tablet under the tongue every 5 minutes as needed for Pain, Chest. up to 3 doses in 15 minutes 75 Tablet 3 02/25/2023 Active Sildenafil Citrate 20 MG Oral Tablet (Revatio)Indications: HTN, goal below 130/80 Take up to 4 tabs one hour prior to intercourse. No more than 4 daily. 25 Tablet 5 04/16/2023 Active Dutasteride 0.5 MG Oral Capsule (Avodart)Indications: HTN, goal below 130/80 TAKE 1 CAPSULE BY MOUTH EVERY DAY 90 Capsule 3 07/07/2023 Active Losartan Potassium 100 MG Oral Tablet (Cozaar)Indications:H TN, goal below 130/80 Take 1 Tablet by mouth in the morning. 90 Tablet 3 12/03/2023 Active COVID-19 mRNA Vaccine 12 years and above Pfizer 30 MCG/0.3 ML IM SUSP Inject into a large muscle. 0.3 mL 12/25/2023 Active Atorvastatin Calcium 80 MG Oral Tablet (Lipitor)Indications: Hyperlipidemia LDL goal <100 TAKE 1 TABLET BY MOUTH EVERY DAY 90 Tablet 3 01/30/2024 Active Clopidogrel Bisulfate 75 MG Oral Tablet (pLAVix) Take 1 Tablet by mouth in the morning. In the morning.. 02/14/2024 Active documented as of this encounter (statuses [...] mRNA, LNP-s, No Pre serve, 2-Dose Series (Im[employer]) 06/06/2021,12/04/2020,11/06/2020 COVID-19, LNP-s, No Preserve , Markie-sucrose, Ages 12+ (Imperative Health) 12/26/2021 COVID-19, MRNA-LNP, 23-24, P F, [...] Master's degree (e.g., MA, MS, Virgilio, MEd, INSTRUCTIONAL TECHNOLOGY COORDINATOR, WEST) 02/17/2024 Sex and Gender Information Value Date Recorded Sex Assigned at Male 02/08/2019 9:49 AM EDT Gender Identity Male 02/08/2019 9:49 AM EDT Sexual Orientation Straight 02/08/2019 9: 49 AM EDT Job Start Date Occupation Industry Not on file Not on file Not on file documented as of this encounter Miscellaneous Notes * Telephone Encounter - Dione Laureano MD - 02/17/2024 11:24 AM EDT Please call; pt; I ordered several blood tests after he left the office documented in this encounter Plan of Treatment Upcoming Encounters Date Type Department Care Team (Latest Contact Info) Description 02/24/2024 2:00 PM EDT Office Visit General Internal Medicine [facility] [place] [address] [place] [address] Bryce Domínguez, [address] [address] 02/26/2024 11:30 AM EDT Imaging Vascular Lab, [facility] 2nd [facility], [place] [address] [place] [address] 05/13/2024 8:00 AM EDT Hospital Encounter ENDO [facility], Endoscopy Room [facility] [address] [place] [phone] Yvette Poe, DO [address] [place] [address] 05/13/2024 8:00 AM EDT - 05/13/2024 8:30 AM EDT Surgery ENDO [facility], Endoscopy Room [facility] [address] [place] [phone] Yvette Poe, DO [address] [place] [address] COLONOSCOPY FLEXIBLE PROXIMAL DIAGNOSTIC 05/18/2024 9:20 AM EDT Office Visit Neurology [facility] [place] [address] [place] [address] Dione Laureano MD [address] [place] [address] 05/18/2024 1:00 PM EDT Office Visit General Internal Medicine [facility] [place] [address] [place] [address] Triny Izquierdo MD [address] [place] [address] 06/15/2024 1:30 PM EDT Office Visit Cardiology, [facility] [address] [place] [address] Molina Santiago DO [address] [place] [address] Scheduled Procedures Name Priority Associated Diagnoses Date/Ti [...] filedocumented as of this encounter Care Teams Hydroelectric Plant Technician Relationship Specialty Start Date End Date Triny Izquierdo MD [address] [place] [address] PCP - General Internal Medicine 06/13/16 documented as of this encounter
--- OUTSIDE RECORDS SUMMARY | 2024-04-17 20:53 | External Medical Summary | Summary of Care ---
Author Name Unknown Organization [facility] Address [address] [facility] [place] [address] Phone [phone] Care Team Providers Care Target Setter Name Role Phone Triny Izquierdo MD Primary Care Provider + Reason for Visit * Reason Onset Date Comments Appointment 03/03/2024 Encounter Details Date Type Department Care Team ([facility] st Contact Info) Description 03/03/2024 Telephone General Internal Medicine [facility] [place] [address] [facility] [place] [address] Triny [facility]do [facility] [address] Appointment Allergies Active Allergy Reactions Criticality Noted [...] mRNA, LNP-s, No Pre serve, 2-Dose Series ([employer]) 06/06/2021,12/04/2020,11/06/2020 COVID-19, LNP-s, No Preserve , Markie-sucrose, Ages 12+ ([employer]) 12/26/2021 COVID-19, MRNA-LNP, 23-24, P F, 30 [...] Master's degree (e.g., MA, MS, Virgilio, MEd, IT LEAD, WEST) 02/17/2024 Sex and Gender Information Value [...] Sleep study is scheduled on 04/10/2024 at [facility]. Ericka, please sign your order so I [...] Sleep Lab, [facility] [address] [facility] [place] [address] [facility], Sleep Med Night Sleep [address] [facility] [place] [address] 05/13/2024 8:00 AM EDT Hospital Encounter ENDO [facility], Endoscopy Room [facility] [address] [place] [phone] Yvette Poe DO [address] [place] [address] 05/13/2024 8:00 AM EDT - 05/13/2024 8:30 AM EDT Surgery ENDO [facility], Endoscopy Room [facility] [address] [place] [phone] Yvette Poe DO [address] [place] [address] COLONOSCOPY FLEXIBLE PROXIMAL DIAGNOSTIC 05/18/2024 9:20 AM EDT Office Visit Neurology [facility] [address] [place] [address] Dione Laureano MD [address] [place] [address] 05/18/2024 1:00 PM EDT Office Visit General Internal Medicine [facility] [address] [place] [address] Triny Izquierdo MD [address] COUNTS INCLUDE [facility] [place] [address] 07/05/2024 11:00 AM EDT Office Visit Cardiology, [facility] [address] [place] [address] Molina Santiago DO [address] [place] [address] 08/26/2024 3:30 PM EST Office Visit [facility] [address] [place] [phone] Ericka Kothari CRNP [address] [place] [address] Scheduled Procedures Name Priority Associated Diagnoses Date/Ti [...] filedocumented as of this encounter Care Teams Target Setter Relationship Specialty Start Date End Date Triny Izquierdo MD 200 [facility] [place] [address] PCP - General Internal Medicine 06/13/16 documented as of this encounter
--- OUTSIDE RECORDS SUMMARY | 2024-04-17 20:53 | External Medical Summary | Summary of Care ---
Author Name Unknown Organization [facility] Address [address] [place] [address] Phone [phone] Care Team Providers Care Cork Insulator Name Role Phone Triny Izquierdo MD Primary Care Provider + Reason for Visit * Reason Comments Follow Up Encounter Details Date Type Department Care Team (Latest Contact Info) Description 03/01/2024 11:30 AM EDT Office Visit Cardiology, [facility] [address] [facility] [place] [address] Molina Santiago, DO [address] [place] [address] Hospital discharge follow-up*; History of TIA (transient ischemic attack); ASCVD (arteriosclerotic cardiovascular disease); HTN, goal below 130/80; Dyslipidemia, goal LDL below 70 Allergies Active Allergy Reactions Criticality Noted Date Comments Pollen 05/03/2021 Congestion, runny nose documented as of this encounter (statuses as of 03/01/2024) Medications Medication Sig Dispensed Refills Start Date [...] 03/01/2024 Sildenafil Citrate 20 MG Oral Tablet (Revatio)Indicat ions:HTN, goal below 130/80 Take up to 4 tabs one hour prior to intercourse. No more than 4 daily. 25 Tablet 5 04/16/2023 Active Dutasteride 0.5 MG Oral Capsule (Avodart)Indicat ions:HTN, goal below 130/80 TAKE 1 CAPSULE BY MOUTH EVERY DAY 90 Capsule 3 07/07/2023 Active Losartan Potassium 100 MG Oral Tablet (Cozaar)Indicati [...] the morning. In the morning.. 02/14/2024 Active COVID-19 mRNA Vaccine 12 years and above Pfizer 30 MCG/0.3 ML IM SUSP Inject into a large muscle. 0.3 mL 12/25/2023 Discontinued documented as of this encounter (statuses as of 03/01/2024) Active Problems Problem Noted Date Diagnosed Date Rosacea 10/19/2020 Prediabetes 02/15/2019 Overview: Per Prediabetes protocol S/P lumbar laminectomy 02/08/2019 HTN, goal below 130/80 Hyperlipidemia LDL goal <100 documented as of this encounter (statuses as of 03/01/2024) Resolved Problems Problem Noted Date Diagnosed Date Resolved Date Hypertension 06/13/2016 Hyperlipemia 06/13/2016 documented as of this encounter (statuses as of 03/01/2024) Immunizations Name Administration Dates Next Due COVID-19 mRNA, LNP-s, No Pre serve, 2-Dose Series ([employer]) 06/06/2021,12/04/2020,11/06/2020 COVID-19, LNP-s, No Preserve , Markie-sucrose, [...] Master's degree (e.g., MA, MS, Virgilio, MEd, BOOM CAT OPERATOR, WEST) 02/17/2024 Sex and Gender Information [...] Sign Reading Time Taken Comments Blood Pressure 112/80 03/01/2024 11:20 AM EDT Pulse 56 03/01/2024 11:20 AM EDT Temperature - - Respiratory Rate - - Oxygen Saturation 98% 03/01/2024 11:20 AM EDT Inhaled Oxygen Concentration - - Weight 74.4 kg (164 lb) 03/01/2024 11:20 AM EDT Height - - Body Mass Index 26.47 05/13/2023 3:14 PM EDT documented in this encounter Progress Notes * Molina Santiago, - 03/01/2024 11:40 AM EDT SUBJECTIVE: Patient returns today for hospital follow-up. 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 Previously evaluated by Dr. Madrid and Phillip Ramsey PA-C. Evaluated by the undersigned for the 1st time today. Hospitalized February 13, 2024 - February 14, 2024 due to facial numbness and headache. Treated as TIA as perNeurology. MRI negative for CVA. Dual antiplatelet therapy recommended. Feeling well since hospital discharge. Denies recurrent headache or facial paresthesias. Has returned to normal activity, golfing regularly with his . Denies any functional limitations. Tolerating medications listed below. Blood pressure well controlled since hospital discharge. Offers no concer ns/complaints. 2D echo [facility] report February 13, 2024: LVEF 60-65% Mild concentric left ventricular hypertrophy. Grade 1 diastolic dysfunction. Mild aortic regurgitation. Mild tricuspid regurgitation. Doppler findings do not suggest pulmonary hypertension. No interatrial shunt with injection of agitated saline contrast. Exercise stress echo 04/25/2023: STRESS STUDY: The stress echo is negative [...] (normal). Mild aortic valve regurgitation is present. CTA of the head and neck report February 13, 2024 1. High grade stenoses at the origins of the vertebral arteries with age- indeterminate occlusion ofthe V4 segment right vertebral artery. 2. Moderate atherosclerosis of the internal carotid arteries without high-grade stenosis or occlusion. 3. No aneurysm or dissection. MRI of the brain report February 13, 2024 1. No acute intracranial abnormality. No acute or subacute infarct. 2. Mild chronic microvascular ischemic disease. 3. No abnormal enhancement. 4. Age-indeterminate occlusion of the V4 segment right vertebral artery. ROS: All others negative other than those noted in the HPI. Patient Active Problem List Diagnosis HTN, goal below 130/80 Hyperlipidemia LDL goal <100 S/P lumbar laminectomy Prediabetes Rosacea Social History Tobacco Use Smoking status: Never Smokeless tobacco: Never Vaping Use Vaping status: Never Used Substance Use Topics Alcohol use: Yes Comment: wine with dinner Drug use: Never Review of patient's allergies indicates: Allergen Reactions [...] mouth every 8 hours as neededfor Fever. Sildenafil Citrate 20 MG Oral Tablet (Revatio) Take up to 4 tabs one hour prior to intercourse. No more than 4 daily. 25 Tablet 5 Dutasteride 0.5 MG Oral Capsule (Avodart) TAKE 1 CAPSULE BY MOUTH EVERY DAY 90 Capsule 3 Losartan Potassium 100 MG Oral Tablet (Cozaar) Take 1 Tablet by mouth in the morning. 90 Tablet 3 Atorvastatin Calcium 80 MG Oral Tablet (Lipitor) TAKE 1 TABLET BY MOUTH EVERY DAY 90 Tablet 3 Clopidogrel Bisulfate 75 MG Oral Tablet (pLAVix) Take 1 Tablet by mouth in the morning. In the morning.. Nitroglycerin 0.4 MG Sublingual Tablet Sublingual (Nitrostat) Place 1 Tablet under the tongue every5 minutes as needed for Pain, Chest. up to 3 doses in 15 minutes (Patient not taking: Reported on 03/01/2024) 75 Tablet 3 No current facility-administered medications for this visit. Lipid Panel Results: Results for orders placed or performed in visit on 02/19/22 LIPID PANEL WITHOUT DIRECT LDL Result Value Ref Range Triglycerides 202 (H) <=174 mg/dL Cholesterol 147 <200 mg/dL HDL Cholesterol 42 >39 mg/dL Non-HDL Cholesterol 105 <=159 mg/dL LDL Cholesterol 65 <=129 mg/dL Results for orders placed or performed in visit on 11/11/23 LIPID PANEL WITH DIRECT LDL IF TG IS HIGH Result Value Ref Range Triglycerides 177 (H) <=174 mg/dL Cholesterol 130 <200 mg/dL HDL Cholesterol 40 >39 mg/dL Non-HDL Cholesterol 90 <=159 mg/dL Lab Results Component Value Date/Time [facility] 3.18 02/05/2019 09:14 AM CBC Results: Results for orders placed or performed in visit on 11/11/23 CBC Result Value Ref Range WBC 7.10 4.00 - 10.80 K/uL RBC 4.54 4.50 - 5.25 M/uL HGB 15.1 14.0 - 16.8 g/dL HCT 45.3 40.0 - 48.4 % MCV 99.8 82.0 - 99.5 fL MCH 33.3 27.0 - 34.0 pg MCHC 33.3 32.0 - 36.0 g/dL RDW 12.5 11.5 - 15.5 % PLT 202 140 - 400 K/uL MPV 11.3 6.6 - 11.1 fL OBJECTIVE/PHYSICAL EXAMINATION: BP 112/80 | Pulse 56 | Wt 74.4 kg (164 lb) | SpO2 98% | BMI 26.47 kg/m | BSA 1.86 m General: NAD, AAO x3, well nourished. HEENT: Normocephalic. Atraumatic. Conjunctiva pink, no scleral icterus. No carotid bruits, the carotid upstrokes are brisk. No JVD. No HJR Heart: Regular, bradycardic, normal S-1 and S-2 no S-3 or S-4 gallop. No murmurs or rubs appreciated. PMI is not displaced. No RV heave. Lungs: Clear bilateral without rales , rhonchi, or wheeze. Abdomen: Normal bowel sounds. Soft. Nontender. No masses or organomegaly. No abdominal bruits. Extremities: No clubbing, cyanosis, or edema. Pulses: radial=2/4, posterior tibial=2/4. Neuro: No focal deficits. ASSESSMENT: 1. 74-year-old male presents for follow-up of recent hospitalization due to TIA 2. Remote history of CAD/ BMS 1996 -clinically stable without anginal symptoms 3. HTN - controlled 4. Dyslipidemia goal LDL less than 70 mg/dL -controlled most recent LDL 54 mg/dL PLAN: Continue dual antiplatelet therapy as per direction of Neurology. Other cardiovascular medications including high-intensity statin therapy, and losartan will be continued as well. Currently wearing Zio monitor. Further recommendations pending review. Discussed potential need foranticoagulation with any evidence of atrial fibrillation or flutter. Natural history and pathophysiology of TIA discussed. All questions answered to satisfaction of both the patient and his . Follow-up as scheduled in June. I spent a total of 40-54 minutes (exact time 40 mins) on the date of service in preparation, delivery, and documentation of the care provided to John Miles excluding any time spent in the performance of separately billed services. Molina Santiago DO, [facility] Associate Cardiology - Amy Hurd documented in this encounter Nursing Notes * Pilar Mackey CMA - 03/01/2024 11:19 AM EDT Examination Room: 11 Name: John Miles Date of : (1950) Reason for Visit: H/D Interim Hospitalization(s): D/C 02/13 Problems/Concerns: denied Chest Pain/SOB: denied [facility] a way you can [...] AM EDT Office Visit Sleep Disorders [facility]tr [facility] [address] [place] [phone] Ericka Kothari CRNP [address] [place] [address] 05/13/2024 8:00 AM EDT Hospital Encounter ENDO OSSC, Endoscopy Room [facility] [address] [place] [phone] Yvette Poe, [address] [place] [address] 05/13/2024 8:00 AM EDT - 05/13/2024 8:30 AM EDT Surgery ENDO O[facility], Endoscopy Room [facility] [address] [place] [phone] Yvette Poe, [address] [place] [address] COLONOSCOPY FLEXIBLE PROXIMAL DIAGNOSTIC 05/18/2024 9:20 AM EDT Office Visit Neurology [facility] [address] [facility] [place] [address] Dione Laureano MD [address] [facility] [place] [address] 05/18/2024 1:00 PM EDT Office Visit General Internal Medicine [facility] [address] [facility] [place] [address] Triyn Izquierdo MD [address] [facility] [place] [address] 07/05/2024 11:00 AM EDT Office Visit Cardiology, [facility] [address] [place] [address] Molina Santiago DO [address] [place] [address] Scheduled Procedures Name Priority Associated Diagnoses Date/Ti [...] as of this encounter Visit Diagnoses Diagnosis Hospital discharge follow-up- Primary Other follow-up examination History of TIA (transient ischemic attack) Transient ischemic attack (TIA), and cerebral infarction without residual deficits ASCVD (arteriosclerotic cardiovascular disease) Unspecified cardiovascular disease HTN, goal below 130/80 Unspecified essential hypertension Dyslipidemia, goal LDL below 70 Other and unspecified hyperlipidemia History of colon polyps Personal history of colonic polyps documented in this encounter Care Teams Cork Insulator Relationship Specialty Start Date End Date Triny Izquierdo MD [address] [place] [address] PCP - General Internal Medicine 06/13/16 documented as of this encounter"
--- OUTSIDE RECORDS SUMMARY | 2024-04-17 20:53 | External Medical Summary | Summary of Care ---
Author Name Unknown Organization [facility] Address [address] [facility] [place] [address] Phone [phone] Care Team Providers Care Dye Jig Operator Name Role Phone Triny Izquierdo MD Primary Care Provider + Reason for Visit * Reason Onset Date Comments Outpatient Testing 02/17/2024 Encounter Details Date Type Department Care Team ([facility] st Contact Info) Description 02/17/2024 Telephone Neurology [facility] [place] [address] [facility] [place] [address] Dione [facility]ano MD [facility] [address] Outpatient Testing Allergies Active Allergy Reactions Criticality [...] mRNA, LNP-s, No Pre serve, 2-Dose Series ([employer]) 06/06/2021,12/04/2020,11/06/2020 COVID-19, LNP-s, No Preserve , Markie-sucrose, Ages 12+ ([employer]) 12/26/2021 COVID-19, MRNA-LNP, 23-24, P F, 30 [...] Master's degree (e.g., MA, MS, Virgilio, MEd, INSTRUMENT PROCESSING TECH, WEST) 02/17/2024 Sex and Gender Information Value Date Recorded Sex Assigned at Male 02/08/2019 9:49 AM EDT Gender Identity Male 02/08/2019 9:49 AM EDT Sexual Orientation Straight 02/08/2019 9: 49 AM EDT Job Start Date Occupation Industry Not on file Not on file Not on file documented as of this encounter Miscellaneous Notes * Telephone Encounter - Nicci Kim LPN - 02/17/2024 1:53 PM EDT MyChart message sent. * Telephone Encounter - Dione Laureano MD - 02/17/2024 11:24 AM EDT Please call; pt; I ordered several blood tests after he left the office documented in this encounter Plan of Treatment Upcoming Encounters Date Type Department Care Team (Latest Contact Info) Description 02/24/2024 2:00 PM EDT Office Visit General Internal Medicine [facility] [address] [facility] [place] [address] Bryce Domínguez [address] [address] 02/26/2024 11:30 AM EDT Imaging Vascular Lab, [facility] 2nd [facility] [address] [place] [address] 05/13/2024 8:00 AM EDT Hospital Encounter ENDO OSSC, Endoscopy Room [facility] [address] [place] [phone] Yvette Poe DO [address] [place] [address] 05/13/2024 8:00 AM EDT - 05/13/2024 8:30 AM EDT Surgery ENDO [facility], Endoscopy Room [facility] [address] [place] [phone] Yvette Poe, [address] [place] [address] COLONOSCOPY FLEXIBLE PROXIMAL DIAGNOSTIC 05/18/2024 9:20 AM EDT Office Visit Neurology [facility] [address] [place] [address] Dione Laureano MD [address] [facility] [place] [address] 05/18/2024 1:00 PM EDT Office Visit General Internal Medicine [facility] [place] [address] [facility] [place] [address] Triny Izquierdo MD [address] [place] [address] 06/15/2024 1:30 PM EDT Office Visit Cardiology, [facility] [address] [place] [address] Molina Santiago DO [address] [place] [address] Scheduled Procedures Name Priority Associated Diagnoses Date/Ti [...] filedocumented as of this encounter Care Teams Dye Jig Operator Relationship Specialty Start Date End Date Triny Izquierdo MD [address] [place] [address] PCP - General Internal Medicine 06/13/16 documented as of this encounter
--- OUTSIDE RECORDS SUMMARY | 2024-04-17 20:53 | External Medical Summary | Summary of Care ---
Author Name Unknown Organization [facility] Address [address] [facility] [place] [place] [address] Phone [phone] Care Team Providers Care Statistician Mathematical Name Role Phone Triny Izquierdo MD Primary Care Provider + Reason for Visit * Reason Onset Date Comments Appointment 03/03/2024 Encounter Details Date Type Department Care Team ([facility] st Contact Info) Description 03/03/2024 Telephone General Internal Medicine [facility] [place] [address] [facility] [place] [address] Triny [facility]quierdo MD [facility] [address] Appointment Allergies Active Allergy Reactions Criticality Noted [...] mRNA, LNP-s, No Pre serve, 2-Dose Series ([employer]) 06/06/2021,12/04/2020,11/06/2020 COVID-19, LNP-s, No Preserve , Markie-sucrose, Ages 12+ ([employer]) 12/26/2021 COVID-19, MRNA-LNP, 23-24, P F, 30 [...] Master's degree (e.g., MA, MS, Virgilio, MEd, SADDLE STITCHING MACHINE OPERATOR, WEST) 02/17/2024 Sex and Gender Information Value Date Recorded Sex Assigned at Male 02/08/2019 9:49 AM EDT Gender Identity Male 02/08/2019 9:49 AM EDT Sexual Orientation Straight 02/08/2019 9: 49 AM EDT Job Start Date Occupation Industry Not on file Not on file Not on file documented as of this encounter Miscellaneous Notes * Telephone Encounter - Lesli Khanna OSA - 03/03/2024 12:07 PM EDT Patient says [...] EDT Hospital Encounter ENDO [facility]SS[facility], Endoscopy Room [facility] [address] [place] [phone] Yvette Poe, DO [address] [place] [address] 05/13/2024 8:00 AM EDT - 05/13/2024 8:30 AM EDT Surgery ENDO [facility]SS, Endoscopy Room [facility] [address] [place] [phone] Yvette Poe, DO [address] [place] [address] COLONOSCOPY FLEXIBLE PROXIMAL DIAGNOSTIC 05/18/2024 9:20 AM EDT Office Visit [facility] [address] [place] [address] Dione Laureano MD [address] [place] [address] 05/18/2024 1:00 PM EDT Office Visit General Internal Medicine [facility] [address] [place] [address] Triny Izquierdo MD [address] [facility] [place] [address] 07/05/2024 11:00 AM EDT Office Visit Cardiology, [facility] [address] [place] [address] Molina Santiago DO [address] [place] [address] Scheduled Procedures Name Priority Associated Diagnoses Date/Ti [...] filedocumented as of this encounter Care Teams Statistician Mathematical Relationship Specialty Start Date End Date Triny Izquierdo MD [address] [place] [address] PCP - General Internal Medicine 06/13/16 documented as of this encounter
--- OUTSIDE RECORDS SUMMARY | 2024-04-17 20:53 | External Medical Summary | Summary of Care ---
Author Name Unknown Organization [facility] Address [address] [place] [address] Phone [phone] Care Team Providers Care Cloth Edge Singer Name Role Phone Triny Izquierdo MD Primary Care Provider + Encounter Details Date Type Department Care Team ([facility] st Contact Info) Description 02/13/2024 Result Scan Unspecified Department <No scans attached> Allergies Active Allergy Reactions Criticality Noted Date [...] 12/03/2023 Losartan Potassium 100 MG Oral Tablet (Cozaar)Indications [...] EVERY DAY 90 Tablet 3 01/30/2024 Active documented as of this encounter (statuses [...] mRNA, LNP-s, No Pre serve, 2-Dose Series ([employer]) 06/06/2021,12/04/2020,11/06/2020 COVID-19, LNP-s, No Preserve , Markie-sucrose, Ages 12+ (Pfizer) 12/26/2021 COVID-19, MRNA-LNP, 23-24, P F, 30 MCG/0.3 mL, 12 YRS AND ABOVE, IM ([employer]) 12/25/2023 Pneumococcal Conjugate Vacc, 13 Valent (Prevnar) [...] Department Care Team (Latest Contact Info) Description 02/17/2024 10:40 AM EDT Office Visit Neurology [facility] [address] [place] [address] Dione Laureano MD [address] [place] [address] 02/24/2024 2:00 PM EDT Office Visit General Internal Medicine [facility] [address] [place] [address] Bryce Domínguez Avery, DO [address] [place] [address] 05/13/2024 7:30 AM EDT Hospital Encounter ENDO OSS, Endoscopy Room [facility] [address] [place], [place] [phone] Yvette Poe, DO [address] [place] [address] 05/13/2024 7:30 AM EDT - 05/13/2024 8:00 AM EDT Surgery ENDO [facility], Endoscopy Room [facility] [address] [place] [phone] Yvette Poe, DO [address] [place] [address] COLONOSCOPY FLEXIBLE PROXIMAL DIAGNOSTIC 05/18/2024 1:00 PM EDT Office Visit General Internal Medicine [facility] [address] [place] [address] Triny Izquierdo MD [address] [place] [address] 06/15/2024 1:30 PM EDT Office Visit Cardiology, [facility] [address] [place] [address] Molina Santiago, DO [address] [place] [address] Scheduled Procedures Name Priority Associated Diagnoses Date/Ti [...] Procedure Name Priority Date/Time Associated Diagnosis Comments ECHOCARDIOLOGY SCANNED RESULT 02/13/2024 documented in this encounter Results * ECHOCARDIOLOGY SCANNED RESULT (02/13/2024) 02/13/2024 No Physician Data Unknown ECHOCARDIOLOGY documented in this encounter Care Teams Cloth Edge Singer Relationship Specialty Start Date End Date Triny Izquierdo MD [address] [place] [address] PCP - General Internal Medicine 06/13/16 documented as of this encounter
--- OUTSIDE RECORDS SUMMARY | 2024-04-17 20:53 | External Medical Summary | Summary of Care ---
Author Name Unknown Organization [facility] Address [address] [facility] [place] [address] Phone [phone] Care Team Providers Care Bankruptcy Attorney Name Role Phone Triny Izquierdo MD Primary Care Provider + Reason for Referral * Evaluate & Treat - Unlimited Visits (Within 24 hrs (call dept; emergent)) - Authorized Specialty Diagnoses / Procedures Referred By Rosa tucker Referred To Contact Sleep Medicine / Sleep Disorders Diagnoses Apnea Bryce Domínguez DO [address] [place] [address] Referral ID Status Reason Start Date Expiration Date Visits Requested Visits Authorized [id number] Authorized Specialty Services Required 02/24/2024 2 2 Question Answer Referral Priority Within 24 hrs (call dept; emergent) Where should this appointment be scheduled? [facility] SLEEP MED ADULT REFERRAL Sleep Apnea Testing and Management Does the patient snore and/or gasp at night or has been told they stop breathing at night? Yes, document patient's symptoms in progress note Reason for Visit * Reason Onset Date Comments Hospital Follow-Up [facility] 02/13 Hospital Follow-Up 02/24/2024 Encounter Details Date Type Department Care Team (Late st Contact Info) Description 02/24/2024 2:00 PM EDT Office Visit General Internal Medicine [facility] [place] [address] [facility] [address] Bryce Domínguez DO [address] [place] [address] Hospital discharge follow-up*; TIA (transient ischemic attack); Apnea; Prediabetes; Hyperlipidemia LDL goal <100; HTN, goal below 130/80 Allergies Active Allergy Reactions Criticality Noted Date Comments Pollen 05/03/2021 Congestion, runny nose documented as of this encounter (statuses as of 02/24/2024) Medications Medication Sig Dispensed Refills Start Date [...] as of this encounter (statuses as of 02/24/2024) Active Problems Problem Noted Date Diagnosed Date Rosacea 10/19/2020 Prediabetes 02/15/2019 Overview: Per Prediabetes protocol S/P lumbar laminectomy 02/08/2019 HTN, goal below 130/80 Hyperlipidemia LDL goal <100 documented as of this encounter (statuses as of 02/24/2024) Resolved Problems Problem Noted Date Diagnosed Date Resolved Date Hypertension 06/13/2016 Hyperlipemia 06/13/2016 documented as of this encounter (statuses as of 02/24/2024) Immunizations Name Administration Dates Next Due COVID-19 mRNA, LNP-s, No Pre serve, 2-Dose Series (BioIQ) 06/06/2021,12/04/2020,11/06/2020 COVID-19, LNP-s, No Preserve , Markie-sucrose, [...] Master's degree (e.g., MA, MS, Virgilio, MEd, HAND STRAIGHTENER, WEST) 02/17/2024 Sex and Gender Information Value Date Recorded Sex Assigned at Male 02/08/2019 9:49 AM EDT Gender Identity Male 02/08/2019 9:49 AM EDT Sexual Orientation Straight 02/08/2019 9: 49 AM EDT Job Start Date Occupation Industry Not on file Not on file Not on file documented as of this encounter Last Filed Vital Signs Vital Sign Reading Time Taken Comments Blood Pressure 132/68 02/24/2024 1:59 PM EDT Pulse 60 02/24/2024 1:59 PM EDT Temperature 36.2 C (97.1 F) 02/24/2024 1:59 PM ED T Respiratory Rate 16 02/24/2024 1:59 PM EDT Oxygen Saturation 94% 02/24/2024 1:59 PM EDT Inhaled Oxygen Concentration - - Weight 74.6 kg (164 lb 6.4 oz) 02/24/2024 1:59 P M EDT Height - - Body Mass Index 26.53 05/13/2023 3:14 PM EDT documented in this encounter Patient Instructions * Patient Instructions* Bryce Domínguez, DO - 02/24/2024 2:12 PM EDT Taking Medicine Safely Medicine is given to help treat or prevent illness. But if you don't take it correctly, it might not help. It might even harm you. Your doctor or pharmacist can help you learn the right way to take your medicine. Listed below are some tips to help you take medicine safely. Safety Tips Have a routine for taking each medicine. Make it part of something you do each day, such as brushing your teeth or eating a meal. When you go to the hospital or your doctor's office, bring all your current medicines in their original boxes or bottles. If you can't do that, bring an up-to-date list of your medicines. Do not stop taking a prescription medicine unless your doctor tells you to. Doing so could make your condition worse. Do not share medicines. Let your doctor and pharmacist know of any allergies you have. Taking prescription medicines with alcohol, street drugs, herbs, supplements, or even some qvzr-ghl-xxoyggb medicines can be harmful. Talk to your doctor or pharmacist before using any of these things while taking a prescription medicine. When filling your prescriptions, try using the same pharmacy for all your medicines. If not, let the pharmacist know what medicines you are already on. Keep medicines out of the reach of children and pets. Do not use medicine that has or that doesn't look or smell right. Get rid of it properly. To find out the right way to get rid of medicine: Call your [facility] or [facility] government's household trash and recycling service and ask if a drug take-back program is available in your community. Call your local pharmacy and ask the right way to get rid of the medicine. Go to http://www.fda.gov/ForConsumers/ConsumerUpdates/cvt363837 to learn how to get rid of medicines safely. Using Generic Medicines Medicines have brand names and generic (chemical) names. When a medicine is first made, it is sold only under its brand name. Later, it can be made and sold as a generic. Generic medicines cost less than brand-name medicines and most work just as well. Most people can use the generic medicine instead of the brand-name medicine, unless their doctor says otherwise. Cami Taylor, [address] [place] [address]. All rights reserved. This information is not intended as a substitute for professional medical care. Always follow your healthcare professional's instructions. Coping with Your Diagnosis of a Chronic Health Condition If you have a chronic health condition, you have a problem that may not go away over time. Heart disease, asthma, arthritis, and diabetes are just a few of the chronic conditions that exist. Right now, these conditions have no known cure. But you can take an active role in managing your health. Coping with Your Diagnosis If you've just learned about your health condition, you may be angry, depressed, or afraid. Or you might feel relieved just to know what's wrong. Even if you've known about your health problem for a while, adjusting to it can be hard. But learning about your condition can help you cope. Look for books at your local library. If you have access to a computer, check the Internet. Or contact a group that focuses on your specific problem. Accepting Change Change is hard for most people. Yet right now you may be facing many changes. What you eat or the way you work may change. Your moods, and even your symptoms, might vary from day to day. Although it isn't easy, learning to accept change can help you feel more in control. Taking Control Feeling you have control can make living with your condition easier. Discuss treatment options withyour health care provider. The more you know, the more active you can be in your care. Moving Forward You may wonder whether you will be able to do the things you've always done. That depends on your age, the condition you have, and your goals. To make the most of each day, try to build caring relationships, be active, and eat right. Also, do your best to keep a sense of humor. Cami Taylor, [address] [place] [address], [place] [address]. All rights reserved. This information is not intended as a substitute for professional medical care. Always follow your healthcare professional's instructions. Taking an Active Role in Your Medicines Take the time to learn about your medicine. For instance, why are you taking it? What does it do? Work with your doctor or other health care providers to get the answers you need. Talk to your pharmacist about how to take each medicine, and ask for a fact sheet on each one. Ask Questions About Your Medicine What is the name of the medicine? Why do I need to take it? When should I take it? How should I take it: with water? with food? on an empty stomach? How much do I take? What do I do if I miss a dose? What side effects could it cause and which ones should I call the doctor about? Are there any foods or medicines I should avoid while taking this medicine? Keeping track of your medications? Name of medicine: Taken for: Dose: Time(s) to take it: Take an Active Role Fill all your prescriptions at the same pharmacy. This keeps your medicine history in one place. Talk to the pharmacist. Make sure you understand how to take each medicine. Ask for a fact sheet about each one. Tell your doctor and pharmacist about all the prescription and kqcf-yxo-ubzmoyo medicines you take.This includes vitamins and herbal remedies. Tell your doctor and pharmacist if you have any medical conditions or allergies to any medicine or food, or if you are or . Keep a list of all your medicines. Use the sample to the right as a guide for the type of information needed. 2809-4817 [facility], [address] [place] [address]. All rights reserved. This information is not intended as a substitute for professional medical care. Always follow your healthcare professional's instructions. documented in this encounter Progress Notes * Bryce Domínguez DO - 02/24/2024 2:12 PM EDT SUBJECTIVE: John Miles is a 74 year old male. Chief Complaint Patient presents with Hospital Follow-Up [facility] 02/13 Hospital Follow-Up Recent Admission: Patient was recently admitted to [facility]. The date of discharge was 02/14/2024. Discharge report received and reviewed. HPI: Patient presents office for hospital follow-up. Was admitted to [facility] from 02/12 to 02/14/24 due tonew onset headache, right-sided facial numbness. Was admitted to rule out TIA vs CVA. Symptoms had mostly resolved by the time admitted to the hospital. Work looked unremarkable overall. Had CT head,MRI brain which were negative for any acute intracranial pathology. 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 Moderate atherosclerosis of the internal carotids. 2D echocardiogram showed intact cardiac function overall. No obvious tachyarrhythmias noted on telemetry. Neurology in the hospital recommended aspirin/Plavix for 3 weeks, aspirin alone after that. Patient was noted to have elevated blood pressure reading while in the hospital however this seem to improve on its own. Patient has not had any recurrence of his symptoms. Does scheduled follow-up with cardiology but not until the fall. It was recommended for him to have Zio patch at outpatient follow-up. It was also recommended to him to have sleep study. Apparently was having some apnea episodes in the. has noted these occasionally at home. Patient does not note any daytime somnolence. Patient Active Problem List Diagnosis HTN, goal below 130/80 Hyperlipidemia LDL goal <100 S/P lumbar laminectomy Prediabetes Rosacea Current Outpatient Medications Medication Sig Dispense Refill [...] mouth in the morning. 90 Tablet 3 COVID-19 mRNA Vaccine 12 years and above BioIQ 30 MCG/0.3 ML IM SUSP Inject into a large muscle. 0.3 mL 0 Atorvastatin Calcium 80 MG Oral Tablet (Lipitor) TAKE 1 TABLET BY MOUTH EVERY DAY 90 Tablet 3 Clopidogrel Bisulfate 75 MG Oral Tablet (pLAVix) Take 1 Tablet by mouth in the morning. In the morning.. No current facility-administered medications for this visit. Current and discharge medications have been reconciled. Review of patient's allergies indicates: Allergen Reactions Pollen Congestion, runny nose OBJECTIVE: BP 132/68 (BP Site: Left Arm, BP Position: Sitting, BP Cuff Size: Regular) | Pulse 60 | Temp 36.2 C (97.1 F) (Tympanic) | Resp 16 | Wt 74.6 kg (164 lb 6.4 oz) | SpO2 94% | BMI 26.53 kg/m | BSA 1.86 m REVIEW OF SYSTEMS: Review of Systems Constitutional: Negative for chills, fatigue and fever. HENT: Negative for congestion, sore throat and trouble swallowing. Eyes: Negative for photophobia and pain. Respiratory: Negative for cough and shortness of breath. Cardiovascular: Negative for chest pain and palpitations. Gastrointestinal: Negative for abdominal distention, abdominal pain, nausea and vomiting. Genitourinary: Negative for dysuria and frequency. Musculoskeletal: Negative for back pain and neck stiffness. Skin: Negative for pallor. Neurological: Negative for dizziness, light-headedness and headaches. Psychiatric/Behavioral: Negative for sleep disturbance. The patient is not nervous/anxious. PHYSICAL EXAM: BP 132/68 (BP Site: Left Arm, BP Position: Sitting, BP Cuff Size: Regular) | Pulse 60 | Temp 36.2 C (97.1 F) (Tympanic) | Resp 16 | Wt 74.6 kg (164 lb 6.4 oz) | SpO2 94% | BMI 26.53 kg/m | BSA 1.86 m Physical Exam Constitutional: General: He is not in acute distress. Appearance: He is not ill-appearing. HENT: Head: Normocephalic and atraumatic. Right Ear: Tympanic membrane, ear canal and external ear normal. Left Ear: Tympanic membrane, ear canal and external ear normal. Nose: Nose normal. No congestion or rhinorrhea. Mouth/Throat: Mouth: Mucous membranes are moist. Pharynx: Oropharynx is clear. Eyes: General: No scleral icterus. Extraocular Movements: Extraocular movements intact. Conjunctiva/sclera: Conjunctivae normal. Pupils: Pupils are equal, round, and reactive to light. Neck: Vascular: No carotid bruit. Cardiovascular: Rate and Rhythm: Normal rate and regular rhythm. Pulses: Normal pulses. Heart sounds: Normal heart sounds. No murmur heard. No friction rub. No gallop. Pulmonary: Effort: Pulmonary effort is normal. Breath sounds: Normal breath sounds. No wheezing, rhonchi or rales. Abdominal: General: Bowel sounds are normal. There is no distension. Palpations: Abdomen is soft. There is no mass. Tenderness: There is no abdominal tenderness. Musculoskeletal: General: No swelling or tenderness. Normal range of motion. Cervical back: Normal range of motion and neck supple. Right lower leg: No edema. Left lower leg: No edema. Skin: General: Skin is warm and dry. Coloration: Skin is not jaundiced. Findings: No rash. Neurological: General: No focal deficit present. Mental Status: He is oriented to person, place, and time. Cranial Nerves: No cranial nerve deficit. Sensory: No sensory deficit. Motor: No weakness. Coordination: Coordination normal. Gait: Gait normal. Deep Tendon Reflexes: Reflexes normal. Psychiatric: Mood and Affect: Mood normal. Behavior: Behavior normal. ASSESSMENT: Hospital discharge follow-up (Primary) - DISCH MED RECON CUR MED LIS TIA (transient ischemic attack) - EXTERNAL EKG 8 TO 15 DAYS; Future; Expected date: 02/25/2024 Apnea - SLEEP MEDICINE REFERRAL OP Prediabetes Hyperlipidemia LDL goal <100 HTN, goal below 130/80 Plan: Patient presents to office for hospital follow-up appointment. Recent admission with possibleTIA. Would recommend continuing aspirin 81 mg daily, Plavix 75 mg daily indefinitely for this time Continue atorvastatin 80 mg daily. Last lipid panel showed total and LDL cholesterol at goal Continue losartan 100 mg daily for blood pressure control. Vital stable today Has seen Neurology in follow-up. Carotid ultrasound ordered to evaluate carotid plaques suggested on CTA neck Will order 14 day Zio patch. Will be placed today. Will follow-up results Patient was noted to have some apnea episodes while in the hospital. has noted these as well. Sometimes will wake up multiple times at night. Does not note any obvious daytime somnolence. Would recommend Sleep Medicine referral to determine if polysomnogram indicated Follow Up: Return if symptoms worsen or fail to improve, for Follow up next routine with PCP as scheduled. | For: Follow up next routine with PCP as scheduled | Check-out note: Follow up as scheduledin May 22 Day ZIO patch placed today I spent a total of 40-54 minutes (exact time 45 mins) minutes on the date of service in preparation, delivery, and documentation of the care provided to John Miles excluding any time spent in performance of separately billed services. Bryce Domínguez DO documented in this encounter Nursing Notes * Michelle Daly MED ASSIST - 02/24/2024 2:58 PM EDT 02/24/24 2:59 PM Date to Remove: 03.10.24 Time to Remove: am Serial Number: [id number] Ordering Provider: Catrachita ESTEBAN Results: none GARRETT Spence Zio patch applied in clinic, as per provider orders. * Michelle Daly MED ASSIST - 02/24/2024 1:54 PM EDT John Miles presents for hospital follow up. [facility] 02/13 Headache and Right facial numbness Labs, CT, MRI Added ASA 81mg and Plavix for 20 days. Medications & HM reviewed. documented in this encounter Plan of Treatment Upcoming Encounters Date Type Department Care Team (Latest Contact Info) Description 02/26/2024 11:30 AM EDT Imaging Vascular Lab, [facility] 2nd Floor, [place] [address] [facility] [place] [address] 03/03/2024 11:00 AM EDT Office Visit [facility] [address] [place] [phone] Ericka Kothari CRNP [address] [facility] [place] [address] 05/13/2024 8:00 AM EDT Hospital Encounter [facility], Endoscopy Room [facility] [address] [place] [phone] Yvette Poe, DO [address] [place] [address] 05/13/2024 8:00 AM EDT - 05/13/2024 8:30 AM EDT Surgery ENDO [facility], Endoscopy Room [facility] [address] [place] [phone] Yvette Poe, DO [address] [place] [address] COLONOSCOPY FLEXIBLE PROXIMAL DIAGNOSTIC 05/18/2024 9:20 AM EDT Office Visit Neurology [facility] [address] [facility] [place] [address] Dione Laureano MD [address] [facility] [place] [address] 05/18/2024 1:00 PM EDT Office Visit General Internal Medicine [facility] [address] [facility] [place] [address] Triny Izquierdo MD [address] [facility] [place] [address] 06/15/2024 1:30 PM EDT Office Visit Cardiology, [facility] [address] [place] [address] Molina Santiago, DO [address] [place] [address] Scheduled Orders Name Type Priority Associated Diagnoses Orde r Schedule EXTERNAL EKG 8 TO 15 DAYS Holter Routine TIA (transient ischemic attack) Expected: 02/25/2024 (Approximate), Expires: 02/23/2025 Scheduled Procedures Name Priority Associated Diagnoses Date/Ti me COLONOSCOPY FLEXIBLE PROXIMAL DIAGNOSTIC Recall History of colon polyps 05/13/2024 8:00 AM EDT Scheduled Referrals Name Type Priority Associated Diagnoses Orde r Schedule SLEEP MEDICINE REFERRAL OP Referral Within 24 hrs (call dept; emergent) Apnea Ordered: 02/24/2024 Health Maintenance Due Date Last Done Comments Fecal Occult Blood Test 1995 Sigmoidoscopy 1995 Cologuard 06/04/2020 06/04/2017 Colonoscopy 11/05/2022 11/05/2017, 11/05/2017 Colorectal Cancer Screening 11/05/2022 DTaP,Tdap,and Td Vaccines (2 - Td or Tdap) 02/07/2024 02/06/2014 COVID-19 Vaccine (2022- season) 2024 12/25/2023, 05/22/2022, 12/26/2021, Additional history exists GFR 11/10/2024 11/11/2023, 0904/2023, 02/19/2022, Additional history exists HbA1c 11/10/2024 11/11/2023, [...] Hospital discharge follow-up- Primary Other follow-up examination TIA (transient ischemic attack) Unspecified transient cerebral ischemia Apnea Prediabetes Other abnormal glucose Hyperlipidemia LDL goal <100 Other and unspecified hyperlipidemia HTN, goal below 130/80 Unspecified essential hypertension History of colon polyps Personal history of colonic polyps documented in this encounter Care Teams Bankruptcy Attorney Relationship Specialty Start Date End Date Triny Izquierdo MD [address] [place] [address] PCP - General Internal Medicine 06/13/16 documented as of this encounter"
--- OUTSIDE RECORDS SUMMARY | 2024-04-17 20:53 | External Medical Summary | Summary of Care ---
Author Name Unknown Organization [facility] Address [address] [facility] [place] [address] Phone [phone] Care Team Providers Care Hoisting Pile Driving Engineer Name Role Phone Triny Izquierdo MD Primary Care Provider + Reason for Referral * Evaluate & Treat - Unlimited Visits (Within 24 hrs (call dept; emergent)) - Authorized Specialty Diagnoses / Procedures Referred By Rosa tucker Referred To Contact Sleep Medicine / Sleep Disorders Diagnoses Apnea Bryce Domínguez DO [address] [place] [address] Referral ID Status Reason Start Date Expiration Date Visits Requested Visits Authorized [id number] Authorized Specialty Services Required 02/24/2024 2 2 Question Answer Referral Priority Within 24 hrs (call dept; emergent) Where should this appointment be scheduled? [facility] SLEEP MED ADULT REFERRAL Sleep Apnea Testing and Management Does the patient snore and/or gasp at night or has been told they stop breathing at night? Yes, document patient's symptoms in progress note Reason for Visit * Reason Onset Date Comments Hospital Follow-Up [facility] 02/13 Hospital Follow-Up 02/24/2024 Encounter Details Date Type Department Care Team (Late st Contact Info) Description 02/24/2024 2:00 PM EDT Office Visit General Internal Medicine [facility] [place] [address] [facility] [address] Bryce Domínguez DO [address] [place] [address] Hospital discharge follow-up*; TIA (transient ischemic attack); [...] mRNA, LNP-s, No Pre serve, 2-Dose Series (Enertiv) 06/06/2021,12/04/2020,11/06/2020 COVID-19, LNP-s, No Preserve , Markie-sucrose, [...] Master's degree (e.g., MA, MS, Virgilio, MEd, TRACK VEHICLE REPAIRER, WEST) 02/17/2024 Sex and Gender Information Value [...] street drugs, herbs, supplements, or even some hsku-vgw-wjwqcsy medicines can be harmful. Talk to your [...] to get rid of medicine: Call your [facility] or [facility] government's household trash and recycling service and ask if a drug take-back program is available in your community. Call your local pharmacy and ask the right way to get rid of the medicine. Go to http://www.fda.gov/ForConsumers/ConsumerUpdates/yqz692218 to learn how to get rid of [...] unless their doctor says otherwise. Cami Taylor, [address] [place] [address]. All rights reserved. This information is not [...] keep a sense of humor. Cami Taylor, [address] [place] [address], [place] [address]. All rights reserved. This information is not [...] and pharmacist about all the prescription and oani-kua-utruogh medicines you take.This includes vitamins and herbal remedies. Tell your doctor and pharmacist if you have any medical conditions or allergies to any medicine or food, or if you are or . Keep a list of all your medicines. Use the sample to the right as a guide for the type of information needed. 3988-1486 [facility], [address] [place] [address]. All rights reserved. This information is not intended as a substitute for professional medical care. Always follow your healthcare professional's instructions. documented in this encounter Progress Notes * Bryce Domínguez DO - 02/24/2024 2:12 PM EDT SUBJECTIVE: John Miles is a 74 year old male. Chief Complaint Patient presents with Hospital Follow-Up [facility] 02/13 Hospital Follow-Up Recent Admission: Patient was recently admitted to [facility]. The date of discharge was 02/14/2024. Discharge report received and reviewed. HPI: Patient presents office for hospital follow-up. Was admitted to [facility] from 02/12 to 02/14/24 due tonew [...] COVID-19 mRNA Vaccine 12 years and above Enertiv 30 MCG/0.3 ML IM SUSP Inject into [...] 03.10.24 Time to Remove: am Serial Number: [id number] Ordering Provider: Catrachita ESTEBAN Results: none GARRETT Spence Zio patch applied in clinic, as per provider orders. * Michelle Daly MED ASSIST - 02/24/2024 1:54 PM EDT John Miles presents for hospital follow up. [facility] 02/13 Headache and Right facial numbness Labs, CT, MRI Added ASA 81mg and Plavix for 20 days. Medications & HM reviewed. documented in this encounter Plan of Treatment Upcoming Encounters Date Type Department Care Team (Latest Contact Info) Description 02/26/2024 11:30 AM EDT Imaging Vascular Lab, [facility] 2nd Floor, [place] [address] [facility] [place] [address] 03/03/2024 11:00 AM EDT Office Visit [facility] [address] [place] [phone] Ericka Kothari CRNP [address] [facility] [place] [address] 05/13/2024 8:00 AM EDT Hospital Encounter [facility]O [facility], Endoscopy Room [facility] [address] [place] [phone] Yvette Poe, DO [address] [place] [address] 05/13/2024 8:00 AM EDT - 05/13/2024 8:30 AM EDT Surgery ENDO [facility], Endoscopy Room [facility] [address] [place] [phone] Yvette Poe, DO [address] [place] [address] COLONOSCOPY FLEXIBLE PROXIMAL DIAGNOSTIC 05/18/2024 9:20 AM EDT Office Visit Neurology [facility] [address] [facility] [place] [address] Dione Laureano MD [address] [facility] [place] [address] 05/18/2024 1:00 PM EDT Office Visit General Internal Medicine [facility] [address] [facility] [place] [address] Triny Izquierdo MD [address] [facility] [place] [address] 06/15/2024 1:30 PM EDT Office Visit Cardiology, [facility] [address] [place] [address] Molina Santiago, DO [address] [place] [address] Scheduled Orders Name Type Priority Associated Diagnoses [...] polyps documented in this encounter Care Teams Hoisting Pile Driving Engineer Relationship Specialty Start Date End Date Triny Izquierdo MD [address] [place] [address] PCP - General Internal Medicine 06/13/16 documented as of this encounter"
--- OUTSIDE RECORDS SUMMARY | 2024-04-17 20:53 | External Medical Summary ---
Author Name Unknown Address Unknown Organization K[facility] [address] [address] Laboratory Report Ordering Provider Test Date Status MARQUITA PENA 03/02/2024 10:36:17 Final Observation Date Value Abnormality Reference (Units ) Status Nuclear IgG Ab [Ratio] in Serum by Immunoassay 03/02/2024 10:36:17 Negative Negative Final DNA double strand Ab [Presence] in Serum 03/02/2024 10:36:17 Negative Negative Final DOUBLE STRANDED DNA VALUE - [facility] 03/02/2024 10:36:17 0.8 <20 (IU/mL) Final Extractable nuclear Ab [Presence] in Serum 03/02/2024 10:36:17 Negative Negative Final Nuclear IgG Ab [Ratio] in Serum by Immunoassay 03/02/2024 10:36:17 0.2 <0.7 (Ratio) Final Screening is based on detect ion of the following antibodies: dsDNA, U1-PUG MILL OPERATOR HELPER (RNP70, A, C), SS-A/Ro, SS-B / La, Mckenzie-1, Scl-70, Centromere B proteins and Sm proteins. In conjunction with clinical findings, this can aid in the diagnosis of systemic lupus erythematosous (SLE), mixed connective tissue disease (MCTD), Sjogren's syndrome, scleroderma and polymyositis/dermatomyositis.
However, a negative result does not rule out systemic rheumatic or other autoimmune disease. If clinically suspected, further evaluation and testing may be necessary. Please consult with Rheumatology Department.
Methodology: Fluorescent Enzyme Immunoassay. Performing Location LAB[facility] [address] [facility] [address]
[2024-04-17] MEDS: SODIUM CHLORIDE 0.9% 500 ML IV ONE (21:04)
[2024-04-17] MEDS: OPTIRAY 320 125ml IV ONE (21:06)
[2024-04-17 21:14] LABS: iSTAT Hemoglobin 12.9 g/dl (14.0-18.0); iSTAT Ionized Calcium 1.18 mmol/l (1.12-1.32); iSTAT Potassium 3.7 mmol/L (3.3-5.0)
[2024-04-17 21:21] LABS: Albumin Globulin Ratio 1.8 (0.9-2); Albumin Level 4.4 gm/dl (3.4-5.0); BUN Creatinine Ratio 24.7 (10-20); Bilirubin,Total 0.6 mg/dl (0.2-1.0); Calcium 9.4 mg/dl (8.6-10.3); Creatinine Clr Calc Pharmacy 65.2 ml/min; Est GFR (African American) 93.4 ml/min; Est GFR (Non-African American) 80.6 ml/min; Globulin 2.5 gm/dl (2.5-4.0); Magnesium 2.3 mg/dl (1.7-2.4); Potassium 3.8 mmol/L (3.5-5.1); Total Protein 6.9 gm/dl (6.0-8.3)
[2024-04-17 21:23] LABS: Basophils # (auto) 0.05 K/uL (0.00-0.20); Basophils % (auto) 0.6 %; Eosinophils # (auto) 0.35 K/uL (0.00-0.50); Hematocrit (blood only) 39.5 % (42.0-52.0); Hemoglobin 13.9 g/dl (14.0-18.0); Immature Granulocytes # (auto) 0.03 K/uL (0.01-0.20); Immature Granulocytes % (auto) 0.3 %; Lymphocytes # (auto) 4.35 K/uL (1.20-3.40); Lymphocytes % (auto) 49.3 %; Mean Corpuscular Hemoglobin 33.2 pg (25.0-34.0); Mean Corpuscular Hgb Conc 35.2 g/dL (32.0-36.0); Mean Corpuscular Volume 94.3 fL (80.0-100.0); Mean Platelet Volume 11.5 fL (9.4-12.4); Monocytes # (auto) 0.96 K/uL (0.11-0.59); Monocytes % (auto) 10.9 %; Neutrophils # (auto) 3.08 K/uL (1.40-6.50); Neutrophils % (auto) 34.9 %; Platelet Count 209 K/uL (130-400); RDW Coefficient of Variation 11.9 % (11.5-14.5); RDW Standard Deviation 40.9 fL (36.4-46.3); Red Blood Count 4.19 M/uL (4.70-6.10); White Blood Count 8.82 K/ul (4.8-10.8)
[2024-04-17 21:33] LABS: Partial Thromboplastin Ratio 0.8; Partial Thromboplastin Time 21 Seconds (21-31); Prothrombin Time 10.4 Seconds (9.0-12.0)
--- NOTE | 2024-04-17 21:44 | CT Scan Report ---
Exam(s): CT HEAD Without Contrast EXAM: CT Head Without Intravenous Contrast CLINICAL HISTORY: Reason for exam: BARCENAS, seizure like event. TECHNIQUE: Axial computed tomography images of the head/brain without intravenous contrast. CTDI is 38.6 mGy and DLP is 702.46 mGy-cm. Automated exposure control was utilized for the study. A dose lowering technique was utilized adhering to the principles of ALARA. COMPARISON: No relevant prior studies available. FINDINGS: Brain: Age-related parenchymal volume loss. Suggestion of minimal chronic small vessel ischemic change. Day-white matter differentiation maintained. No hemorrhage, mass-effect, or parenchymal edema. Ventricles: Unremarkable. No hydrocephalus. Bones/joints: Unremarkable. No acute fracture. Soft tissues: Unremarkable. Vasculature: Intracranial atherosclerosis. Sinuses: Hypoplastic and opacified right maxillary sinus, stable from prior. Mastoid air cells: Unremarkable as visualized. No mastoid effusion. Orbits: Bilateral lens replacements. IMPRESSION: No acute intracranial process. Electronically signed by: Kami Davis M.D. 04/17/24 21:44 PM
--- NOTE | 2024-04-17 22:20 | CT Scan Report ---
Exam(s): CTA HEAD With Contrast IV Amt: 119ml EXAM: CT Angiography Head With Intravenous Contrast CLINICAL HISTORY: Reason for exam: BARCENAS, seizure like event. TECHNIQUE: Axial computed tomographic angiography images of the head with intravenous contrast. CTDI is 13 mGy and DLP is 497.71 mGy-cm. Automated exposure control was utilized for the study. A dose lowering technique was utilized adhering to the principles of ALARA. MIP reconstructed images were created and reviewed. CONTRAST: Patient received 119ml of IV contrast COMPARISON: 02/13/24 FINDINGS: Right internal carotid artery: Calcification intracranial right ICA without significant stenosis. No aneurysm. Right anterior cerebral artery: Variant anterior cerebral artery anatomy bilaterally. Left A1 and A2 segments are hypoplastic. Right LACHO is well- developed, without stenosis or occlusion, giving rise to the left A3 segment. No aneurysm of either vessel. Right middle cerebral artery: Unremarkable. No occlusion or significant stenosis. No aneurysm. Right posterior cerebral artery: Unremarkable. No occlusion or significant stenosis. No aneurysm. Right vertebral artery: Proximal intradural segment of the right vertebral artery remains occluded, stable from prior. Left internal carotid artery: Calcification intracranial left ICA without significant stenosis. No aneurysm. Left anterior cerebral artery: Variant anterior cerebral artery anatomy bilaterally. Left A1 and A2 segments are hypoplastic. Right LACHO is well- developed, without stenosis or occlusion, giving rise to the left A3 segment. No aneurysm of either vessel. Left middle cerebral artery: Unremarkable. No occlusion or significant stenosis. No aneurysm. Left posterior cerebral artery: Unremarkable. No occlusion or significant stenosis. No aneurysm. Left vertebral artery: Unremarkable as visualized. Basilar artery: Unremarkable. No occlusion or significant stenosis. No aneurysm. IMPRESSION: 1. 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 Otherwise patent intracranial circulation. Electronically signed by: Kami Davis M.D. 04/17/24 22:20 PM
[2024-04-17] MEDS: levETIRAcetam 500 MG/5 ML VIAL IV STA (22:32)
--- NOTE | 2024-04-17 22:32 | CT Scan Report ---
Exam(s): CTA NECK With Contrast IV Amt: 119ml EXAM: CT Angiography Neck With Intravenous Contrast CLINICAL HISTORY: Reason for exam: BARCENAS, seizure like event. TECHNIQUE: Routine carotid CT angiography protocol was performed with intravenous contrast. NASCET criteria using the distal ICAs for comparison were used for evaluation of stenoses. CTDI is 13 mGy and DLP is 497.71 mGy-cm. Automated exposure control was utilized for the study. A dose lowering technique was utilized adhering to the principles of ALARA. MIP reconstructed images were created and reviewed. CONTRAST: Patient received 119ml of IV contrast COMPARISON: 02/13/24 FINDINGS: VASCULATURE: Right common carotid artery: Unremarkable. No occlusion or significant stenosis. No dissection. Right internal carotid artery: Unremarkable. Extracranial segment is patent with no occlusion or significant stenosis. No dissection. Right external carotid artery: Unremarkable. No occlusion. Right vertebral artery: Severe stenosis in the proximal right vertebral artery, stable from prior. No dissection. Left common carotid artery: Unremarkable. No occlusion or significant stenosis. No dissection. Left internal carotid artery: Unremarkable. Extracranial segment is patent with no occlusion or significant stenosis. No dissection. Left external carotid artery: Unremarkable. No occlusion. Left vertebral artery: Moderate stenosis at the origin of the left vertebral artery, stable from prior. No dissection. Aorta: Conventional aortic arch branch anatomy. NECK: Bones/joints: Degenerative change. No acute fracture. Soft tissues: Unremarkable. Lung apices: Clear. CAROTID STENOSIS REFERENCE USING NASCET CRITERIA: % ICA stenosis = (1 - narrowest ICA diameter/diameter of distal cervical ICA) x 100. Mild - <50% stenosis. Moderate - 50-69% stenosis. Severe - 70-94% stenosis. Near occlusion - 95-99% stenosis. Occluded - 100% stenosis. IMPRESSION: 1. 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 2. Moderate stenosis at the origin of the left vertebral artery, stable from prior. 3. No hemodynamically significant ICA stenosis. Electronically signed by: Kami Davis M.D. 04/17/24 22:32 PM
[2024-04-17] MEDS: hydrALAZINE HCL 20 MG/ML VIAL IV ONE (22:41)
[2024-04-17] MEDS: ACETAMINOPHEN 1,000 MG/100 ML VIAL IV STA (23:14)
--- NOTE | 2024-04-18 00:14 | History & Physical Report ---
Date of Service April 18, 2024 Assessment & Plan (1) Seizure-like activity: Plan: 74-year-old male with past medical history significant for hyperlipidemia, prediabetes, hypertension, CAD status post stent, recent TIA in February presents with stroke/seizure-like symptoms. Just before 8 PM patient started developing headache at that time he was watching Olympics on the TV. He went to bed to lay down but within 5 minutes he called his again stating that he was not feeling well. checked his blood pressure it was 140/70 but his heart rates were in the 40s. Then patient became very rigid and passed out for 30 seconds and during the episode he had a stool incontinence. After the episode soon came back to usual self as per . She called EMS. Patient went to the bathroom to clean up and was somewhat wobbly while ambulating. Still has a h eadache and some tingliness in the right side of the face. Vision is okay. No runny nose. No sore throat. No cough. No difficulty swallowing. No fevers. No chest pains. No shortness of breath. No palpitations. No abdominal pain. Otherwise normal bowel and bladder movements. No rash. Patient was admitted in February 12/2024 with numbness and tingling right side of the face and headache. At that time CT head was okay. CTA head and neck showed high-grade stenosis of the origins of the vertebral arteries/age indeterminant occlusion of the V4 segment of right vertebral artery. MRI brain was okay. Neurology thought mostly TIA and recommended 3 weeks of aspirin and Plavix and recommended Zio patch. He followed up with neurology and was recommended to continue aspirin and Plavix indefinitely. Also followed up with cardiology and sleep study. Zio patch initial review showed some SVT. Some Mobitz type I. No obvious A- fib/flutter and awaiting cardiology to review. 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 Moderate stenosis of the origin of the left vertebral artery stable from prior. CT head no acute findings Will do full stroke workup with MRI brain, echo, PT OT, speech evaluation Telemetry Will also do EEG ER loaded with IV Keppra Will continue with IV Keppra 500 mL twice daily for now Seizure precautions Continue aspirin Plavix and high-dose statin Neurochecks Neurology consult in a.m. Bradycardia Possible syncope Will hold metoprolol Telemetry Follow labs Consult cardiology in a.m. for further recommendations History of CAD s/p stent 1996 On aspirin Plavix and statin Currently holding metoprolol for bradycardia Cardiac cath in 2005 showing only minor nonobstructive CAD involving the LAD and left circumflex arteries as per cardiology notes Hyperlipidemia On statin Prediabetes Follow HbA1c levels Hypertension Continue losartan Holding metoprolol for bradycardia Will monitor Possible sleep apnea Follow-up with sleep DVT prophylaxis SCDs for now Disposition Telemetry Full code. History of Present Illness Chief Complaint: Stroke/seizure like symptoms Primary Care Provider: Triny Izquierdo MD 74-year-old male with past medical history significant for hyperlipidemia, prediabetes, hypertension, CAD status post stent, recent TIA in February presents with stroke/seizure-like symptoms. Just before 8 PM patient started developing headache at that time he was watching Olympics on the TV. He went to bed to lay down but within 5 minutes he called his again stating that he was not feeling well. checked his blood pressure it was 140/70 but his heart rates were in the 40s. Then patient became very rigid and passed out for 30 seconds and during the episode he had a stool incontinence. After the episode soon came back to usual self as per . She called EMS. Patient went to the bathroom to clean up and was somewhat wobbly while ambulating. Still has a headache and some tingliness in the right side of the face. Vision is okay. No runny nose. No sore throat. No cough. No difficulty swallowing. No fevers. No chest pains. No shortness of breath. No palpitations. No abdominal pain. Otherwise normal bowel and bladder movements. No rash. Patient was admitted in February 12/2024 with numbness and tingling right side of the face and headache. At that time CT head was okay. CTA head and neck showed high-grade stenosis of the origins of the vertebral arteries/age indeterminant occlusion of the V4 segment of right vertebral artery. MRI brain was okay. Neurology thought mostly TIA and recommended 3 weeks of aspirin and Plavix and recommended Zio patch. He followed up with neurology and was recommended to continue aspirin and Plavix indefinitely. Also followed up with cardiology and sleep study. Zio patch initial review showed some SVT. Some Mobitz type I. No obvious A- fib/flutter and awaiting cardiology to review. Past medical history. As mentioned above Past surgical history. Cardiac stent placement. Cataract surgery. Cervical laminectomy. Colonoscopy. Lumbosacral epidural. Inguinal hernia repair. Spine surgery. Social history. . No smoking. Alcohol wine with dinner. No drug use. Family history. Mother had arthritis. Father had ID age of 40 Allergies Allergy/AdvReac Type Severity Reaction Status Date / Time pollen extracts Allergy Intermediate RUNNY Verified 04/17/24 21:19 NOSE, CONGESTION Home Medications Medication Instructions Recorded Confirmed Type aspirin 81 mg tablet,delayed 81 mg PO QPM 05/27/18 04/17/24 History release atorvastatin 80 mg tablet 80 mg PO QPM 05/27/18 04/17/24 History dutasteride 0.5 mg capsule 0.5 mg PO QPM 05/27/18 04/17/24 History (Avodart) metoprolol succinate 50 mg 50 mg PO QPM 05/27/18 04/17/24 History tablet,extended release 24 hr losartan 100 mg tablet 100 mg PO QAM 02/13/24 04/17/24 History sildenafil (pulm.hypertension) 20 20 - 80 mg PO DIRECTED PRN 02/13/24 04/17/24 History mg tablet Sexual Activity clopidogrel 75 mg tablet 75 mg PO QAM #20 tabs 02/14/24 04/17/24 Rx Lactobacillus acidophilus 250 10,000 mmu cells PO DAILY 04/17/24 04/17/24 History million cell capsule (Probiotic Acidophilus) acetaminophen 650 mg 650 mg PO Q8H PRN Pain 04/17/24 04/17/24 History tablet,extended release fexofenadine 180 mg tablet 180 mg PO DAILY PRN Congestion 04/17/24 04/17/24 History ibuprofen 200 mg tablet 600 mg PO Q6H PRN Pain 04/17/24 04/17/24 History multivitamin 1 tab PO DAILY 04/17/24 04/17/24 History Past Med/Surg History Problem List (Updated 04/17/24 @ 23:18 by Phillip Owusu DO) Seizure-like activity (Acute) BPH (benign prostatic hyperplasia) Hyperlipidemia Hypertension Headache (Acute) Numbness and tingling of right side of face (Acute) COVID-19 (Acute) Sensorineural hearing loss of both ears Encounter for pre-operative examination Medical History Sciatica Osteoarthritis DDD (degenerative disc disease) Surgical History S/P eye surgery right eye - muscle tightened S/P cataract extraction and insertion of intraocular lens bilateral History of tooth extraction S/P wrist surgery left History of herniorrhaphy Right inguinal hernia repair History of heart artery stent x1 LAD. placed 21 years ago History of cardiac cath 21 years ago - cp - x 1 stent LAD - follows w/ dr. thomas Family History Other Cancer Coronary heart disease Diabetes Hypertension Social History Smoking Status: Never smoker Second Hand Exposure: No; Do You Dip or Chew Tobacco: No; Hx Alcohol Use: Yes Alcohol type: wine Hx Substance Use: No Preferred Language: Polish Communication Ability: Effective I O Psychologist Required: No Beliefs That Will Affect Care: None Current Living Situation: Spouse Other Information That Helps Us Care for You: No Feels Safe at Home: Yes Safety Concerns: Feels Safe At This Time Assistive Devices: None Review of Systems Review of Systems: All systems reviewed & are unremarkable except as noted in HPI & below Physical Exam Physical Exam: General- Not in acute distress Head- atraumatic Eyes- PERRL, EOMI. ENT- oropharynx clear Neck- supple, no JVD Lungs- clear to auscultation no wheezing or crackles Heart- regular rate rhythm; no murmur, no gallop. Abdomen- normal bowel sounds, soft, nontender, no distension Extremities- trace pretibial edema present, no erythema seen Neuro- alert, oriented ; PERRL, EOMI; no facial palsy; no dysarthria; motor 5/5 bilaterally; no pronator drift, co ordination of movements normal, sensations and position sense intact. Skin- warm & dry Results & Data Results & Data Vital Signs (Past 12 Hours) Vital Signs Temp Pulse Pulse Resp BP BP Pulse Ox 04/17/24 23:00 51 L 16 167/83 H 98 04/17/24 20:49 53 L 04/17/24 20:43 36.6 C 54 L 16 177/82 H 94 O2 Del Method 04/17/24 23:00 Room Air 04/17/24 20:49 04/17/24 20:43 Laboratory Results Laboratory Results WBC 8.82 K/ul (4.8-10.8) 04/17/24 20:52 RBC 4.19 M/uL (4.70-6.10) L 04/17/24 20:52 Hgb 13.9 g/dl (14.0-18.0) L 04/17/24 20:52 POC Hgb 12.9 g/dl (14.0-18.0) L 04/17/24 21:02 Hct 39.5 % (42.0-52.0) L 04/17/24 20:52 POC Hct 38 % (42-52) L 04/17/24 21:02 MCV 94.3 fL (80.0-100.0) 04/17/24 20:52 MCH 33.2 pg (25.0-34.0) 04/17/24 20:52 MCHC 35.2 g/dL (32.0-36.0) 04/17/24 20:52 RDW Std Deviation 40.9 fL (36.4-46.3) 04/17/24 20:52 RDW Coeff of Trevor 11.9 % (11.5-14.5) 04/17/24 20:52 Plt Count 209 K/uL (130-400) 04/17/24 20:52 MPV 11.5 fL (9.4-12.4) 04/17/24 20:52 Immature Gran % (Auto) 0.3 % 04/17/24 20:52 Neut % (Auto) 34.9 % 04/17/24 20:52 Lymph % (Auto) 49.3 % 04/17/24 20:52 [place] % (Auto) 10.9 % 04/17/24 20:52 Eos % (Auto) 4.0 % 04/17/24 20:52 Baso % (Auto) 0.6 % 04/17/24 20:52 Neut # (Auto) 3.08 K/uL (1.40-6.50) 04/17/24 20:52 Lymph # (Auto) 4.35 K/uL (1.20-3.40) H 04/17/24 20:52 [place] # (Auto) 0.96 K/uL (0.11-0.59) H 04/17/24 20:52 Eos # (Auto) 0.35 K/uL (0.00-0.50) 04/17/24 20:52 Baso # (Auto) 0.05 K/uL (0.00-0.20) 04/17/24 20:52 Immature Gran # (Auto) 0.03 K/uL (0.01-0.20) 04/17/24 20:52 PT 10.4 Seconds (9.0-12.0) 04/17/24 20: INR 1.0 (0.9-1.1) 04/17/24 20:52 APTT 21 Seconds (21-31) 04/17/24 20: PTT Ratio 0.8 04/17/24 20:52 POC Sodium 140 mmol/L (135-144) 04/17/24 21:02 Sodium 138 mmol/L (136-145) 04/17/24 20:52 POC Potassium 3.7 mmol/L (3.3-5.0) 04/17/24 21:02 Potassium 3.8 mmol/L (3.5-5.1) 04/17/24 20:52 POC Chloride 106 mmol/L (101-112) 04/17/24 21:02 Chloride 105 mmol/L (98-107) 04/17/24 20:52 Carbon Dioxide 25 mmol/L (21-32) 04/17/24 20:52 POC Total CO2 23 mmol/L (24-31) L 04/17/24 21:02 Anion Gap 8 (3-11) 04/17/24 20:52 POC Anion Gap 16.0 mmol/L (16-25) 04/17/24 21:02 POC BUN 21 mg/dl (7-18) H 04/17/24 21:02 BUN 23 mg/dl (6-23) 04/17/24 20:52 Creatinine 0.93 mg/dl (0.6-1.4) 04/17/24 20:52 POC Creatinine 1.0 mg/dl (0.6-1.3) 04/17/24 21:02 Est Cr Clr Drug Dosing 65.2 ml/min 04/17/24 20:52 Est GFR ( Amer) 93.4 ml/min 04/17/24 20:52 Est GFR (Non-Af Amer) 80.6 ml/min 04/17/24 20:52 BUN/Creatinine Ratio 24.7 (10-20) H 04/17/24 20:52 Glucose 113 mg/dl (70-99(Fasting)) H 04/17/24 20:52 POC Glucose (other) 111 mg/dl (70-99) H 04/17/24 21:02 Lactate 1.7 mmol/L (0.4-2.0) 04/17/24 21:19 Calcium 9.4 mg/dl (8.6-10.3) 04/17/24 20:52 POC Ioniz Calcium [place] 1.18 mmol/l (1.12-1.32) 04/17/24 21:02 Magnesium 2.3 mg/dl (1.7-2.4) 04/17/24 20:52 Total Bilirubin 0.6 mg/dl (0.2-1.0) 04/17/24 20:52 AST 23 U/L (13-39) 04/17/24 20:52 ALT 20 U/L (7-52) 04/17/24 20:52 Alkaline Phosphatase 70 U/L (34-104) 04/17/24 20:52 Troponin I High Sens 3.0 pg/ml (0-20) 04/17/24 20:52 Total Protein 6.9 gm/dl (6.0-8.3) 04/17/24 20:52 Albumin 4.4 gm/dl (3.4-5.0) 04/17/24 20:52 Globulin 2.5 gm/dl (2.5-4.0) 04/17/24 20:52 Albumin/Globulin Ratio 1.8 (0.9-2) 04/17/24 20:[address] 04/17/24 20:50 Exam(s): CT HEAD Without Contrast EXAM: CT Head Without Intravenous Contrast CLINICAL HISTORY: Reason for exam: BARCENAS, seizure like event. TECHNIQUE: Axial computed tomography images of the head/brain without intravenous contrast. CTDI is 38.6 mGy and DLP is 702.46 mGy-cm. Automated exposure control was utilized for the study. A dose lowering technique was utilized adhering to the principles of ALARA. COMPARISON: No relevant prior studies available. FINDINGS: Brain: Age-related parenchymal volume loss. Suggestion of minimal chronic small vessel ischemic change. Day-white matter differentiation maintained. No hemorrhage, mass-effect, or parenchymal edema. Ventricles: Unremarkable. No hydrocephalus. Bones/joints: Unremarkable. No acute fracture. Soft tissues: Unremarkable. Vasculature: Intracranial atherosclerosis. Sinuses: Hypoplastic and opacified right maxillary sinus, stable from prior. Mastoid air cells: Unremarkable as visualized. No mastoid effusion. Orbits: Bilateral lens replacements. IMPRESSION: No acute intracranial process. Electronically signed by: Kami Davis M.D. 04/17/24 21:44 PM Head CTA 04/17/24 20:50 Exam(s): CTA HEAD With Contrast IV Amt: 119ml EXAM: CT Angiography Head With Intravenous Contrast CLINICAL HISTORY: Reason for exam: BARCENAS, seizure like event. TECHNIQUE: Axial computed tomographic angiography images of the head with intravenous contrast. CTDI is 13 mGy and DLP is 497.71 mGy-cm. Automated exposure control was utilized for the study. A dose lowering technique was utilized adhering to the principles of ALARA. MIP reconstructed images were created and reviewed. CONTRAST: Patient received 119ml of IV contrast COMPARISON: 02/13/24 FINDINGS: Right internal carotid artery: Calcification intracranial right ICA without significant stenosis. No aneurysm. Right anterior cerebral artery: Variant anterior cerebral artery anatomy bilaterally. Left A1 and A2 segments are hypoplastic. Right LACHO is well- developed, without stenosis or occlusion, giving rise to the left A3 segment. No aneurysm of either vessel. Right middle cerebral artery: Unremarkable. No occlusion or significant stenosis. No aneurysm. Right posterior cerebral artery: Unremarkable. No occlusion or significant stenosis. No aneurysm. Right vertebral artery: Proximal intradural segment of the right vertebral artery remains occluded, stable from prior. Left internal carotid artery: Calcification intracranial left ICA without significant stenosis. No aneurysm. Left anterior cerebral artery: Variant anterior cerebral artery anatomy bilaterally. Left A1 and A2 segments are hypoplastic. Right LACHO is well- developed, without stenosis or occlusion, giving rise to the left A3 segment. No aneurysm of either vessel. Left middle cerebral artery: Unremarkable. No occlusion or significant stenosis. No aneurysm. Left posterior cerebral artery: Unremarkable. No occlusion or significant stenosis. No aneurysm. Left vertebral artery: Unremarkable as visualized. Basilar artery: Unremarkable. No occlusion or significant stenosis. No aneurysm. IMPRESSION: 1. 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 Otherwise patent intracranial circulation. Electronically signed by: Kami Davis M.D. 04/17/24 22:20 PM Neck CTA 04/17/24 20:50 Exam(s): CTA NECK With Contrast IV Amt: 119ml EXAM: CT Angiography Neck With Intravenous Contrast CLINICAL HISTORY: Reason for exam: BARCENAS, seizure like event. TECHNIQUE: Routine carotid CT angiography protocol was performed with intravenous contrast. NASCET criteria using the distal ICAs for comparison were used for evaluation of stenoses. CTDI is 13 mGy and DLP is 497.71 mGy-cm. Automated exposure control was utilized for the study. A dose lowering technique was utilized adhering to the principles of ALARA. MIP reconstructed images were created and reviewed. CONTRAST: Patient received 119ml of IV contrast COMPARISON: 02/13/24 FINDINGS: VASCULATURE: Right common carotid artery: Unremarkable. No occlusion or significant stenosis. No dissection. Right internal carotid artery: Unremarkable. Extracranial segment is patent with no occlusion or significant stenosis. No dissection. Right external carotid artery: Unremarkable. No occlusion. Right vertebral artery: Severe stenosis in the proximal right vertebral artery, stable from prior. No dissection. Left common carotid artery: Unremarkable. No occlusion or significant stenosis. No dissection. Left internal carotid artery: Unremarkable. Extracranial segment is patent with no occlusion or significant stenosis. No dissection. Left external carotid artery: Unremarkable. No occlusion. Left vertebral artery: Moderate stenosis at the origin of the left vertebral artery, stable from prior. No dissection. Aorta: Conventional aortic arch branch anatomy. NECK: Bones/joints: Degenerative change. No acute fracture. Soft tissues: Unremarkable. Lung apices: Clear. CAROTID STENOSIS REFERENCE USING NASCET CRITERIA: % ICA stenosis = (1 - narrowest ICA diameter/diameter of distal cervical ICA) x 100. Mild - <50% stenosis. Moderate - 50-69% stenosis. Severe - 70-94% stenosis. Near occlusion - 95-99% stenosis. Occluded - 100% stenosis. IMPRESSION: 1. 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 2. Moderate stenosis at the origin of the left vertebral artery, stable from prior. 3. No hemodynamically significant ICA stenosis. Electronically signed by: Kami Davis M.D. 04/17/24 22:32 PM ECG Additional Comments: ECG. Sinus bradycardia at the rate of 53. No significant change was found. Code Status & VTE Plan VTE Prophylaxis Plan VTE Prophylaxis will be ordered: Yes
[2024-04-18] MEDS ORDERED: POLYETHYLENE (MIRALAX) 17 GM PACK PO PRN (00:53)
[2024-04-18] MEDS ORDERED: NITROGLYCERIN SL 0.4 MG/TAB TAB SL PRN (00:53)
[2024-04-18] MEDS ORDERED: LORazepam 1.5 MG in SYRINGE 0.75 ML IV PRN (00:53)
[2024-04-18] MEDS ORDERED: PHARMACIST DISCHARGE MED REC CONSULT PRN (00:53)
[2024-04-18] MEDS ORDERED: FEXOFENADINE HCL 180 MG TAB PO PRN (00:53)
[2024-04-18] MEDS: SODIUM CHLORIDE 0.9% 1,000 ML IV SCH (01:13)
[2024-04-18] MEDS: ACETAMINOPHEN 325 MG TAB PO PRN (01:14)
[2024-04-18] MEDS ORDERED: ONDANSETRON INJ 2 MG/ML 2 ML VIAL IV PRN (01:27)
[2024-04-18] MEDS: MECLIZINE HCL 25 MG TAB PO STA (01:58)
[2024-04-18] MEDS: oxyCODONE HCL IR 5 MG TAB (IMMEDIATE RELEASE) PO STA (01:58)
[2024-04-18 04:23] LABS: Appearance Urine Clear (Clear); Bacteria Urine Automated None Seen (None Seen); Bilirubin Urine Negative (Negative); Blood Urine 3+ (Negative); Cast Urine Automated 0-2 /lpf (0-2); Color Urine Orange; Epithelial Cell Urine Auto 0-2 /hpf (0-2); Glucose Urine UA Negative (Negative); Ketones Urine Trace (Negative); Leukocyte Esterase Urine Negative (Negative); Nitrite Urine Negative (Negative); Protein Urine Trace (Negative); RBC Urine Automated >20 /hpf (0-2); Specific Gravity Urine 1.033 (1.000-1.030); Urobilinogen Urine Negative (Negative); WBC Urine Automated 0-5 /hpf (0-5)
[2024-04-18 06:30] LABS: Basophils # (auto) 0.01 K/uL (0.00-0.20); Basophils % (auto) 0.1 %; Hematocrit (blood only) 39.3 % (42.0-52.0); Hemoglobin 14.2 g/dl (14.0-18.0); Immature Granulocytes # (auto) 0.04 K/uL (0.01-0.20); Immature Granulocytes % (auto) 0.4 %; Lymphocytes # (auto) 1.75 K/uL (1.20-3.40); Lymphocytes % (auto) 19.1 %; Mean Corpuscular Hemoglobin 33.5 pg (25.0-34.0); Mean Corpuscular Hgb Conc 36.1 g/dL (32.0-36.0); Mean Corpuscular Volume 92.7 fL (80.0-100.0); Mean Platelet Volume 11.7 fL (9.4-12.4); Monocytes # (auto) 0.45 K/uL (0.11-0.59); Monocytes % (auto) 4.9 %; Neutrophils # (auto) 6.93 K/uL (1.40-6.50); Neutrophils % (auto) 75.5 %; Platelet Count 201 K/uL (130-400); RDW Coefficient of Variation 11.8 % (11.5-14.5); RDW Standard Deviation 39.9 fL (36.4-46.3); Red Blood Count 4.24 M/uL (4.70-6.10); White Blood Count 9.18 K/ul (4.8-10.8)
[2024-04-18 06:39] LABS: BUN Creatinine Ratio 26.6 (10-20); Chol HDL Ratio 3.2 (0-5); Creatinine Clr Calc Pharmacy 94.7 ml/min; Est GFR (African American) 111.8 ml/min; Est GFR (Non-African American) 96.5 ml/min; Potassium 3.9 mmol/L (3.5-5.1)
[2024-04-18 07:23] LABS: Estimated Average Glucose 117 mg/dl; Hemoglobin A1C 5.7 % (4.5-5.6)
--- NOTE | 2024-04-18 08:17 | Electrocardiogram Report ---
Test Reason : Blood Pressure : */* mmHG Vent. Rate : 53 BPM Atrial Rate : 53 BPM P-R Int : 200 ms QRS Dur : 88 ms QT Int : 440 ms P-R-T Axes : 36 12 32 degrees QTcB Int : 412 ms Sinus bradycardia Otherwise normal ECG When compared with ECG of 13-Feb-2024 07:16, No significant change was found Confirmed by Abhishek Lobato ([id number]) on 04/18/2024 8:17:16 AM Referred By: REFERRED SELF Confirmed By: Abhishek Lobato
--- NOTE | 2024-04-18 08:29 | Electrocardiogram Report ---
Test Reason : Blood Pressure : */* mmHG Vent. Rate : 50 BPM Atrial Rate : 50 BPM P-R Int : 192 ms QRS Dur : 92 ms QT Int : 462 ms P-R-T Axes : 26 -1 13 degrees QTcB Int : 421 ms Sinus bradycardia Minimal voltage criteria for LVH, may be normal variant Borderline ECG When compared with ECG of 17-Apr-2024 20:51, No significant change was found Confirmed by Abhishek Lobato ([id number]) on 04/18/2024 8:29:24 AM Referred By: REFERRED SELF Confirmed By: Abhishek Lobato
[2024-04-18] MEDS: MULTIVITAMIN TAB PO SCH (09:01)
[2024-04-18] MEDS: ADVANCED PROBIOTIC 625 MG CAPSULE PO SCH (09:01)
[2024-04-18] MEDS: MECLIZINE 12.5 MG TAB PO PRN (09:01)
[2024-04-18] MEDS: LOSARTAN POTASSIUM 50 MG TAB PO SCH (09:02)
[2024-04-18] MEDS: CLOPIDOGREL BISULFATE 75 MG TAB PO SCH (09:02)
[2024-04-18] MEDS: levETIRAcetam IV 500 MG in SODIUM CHLOR 0.9% MINI-B 100 ML IV SCH (09:03)
--- NOTE | 2024-04-18 10:23 | Cardiology Consultation ---
<Statement entered by Emerita Whiteside, DO - 04/18/24 16:12> I have reviewed the advanced practitioner's documentation and agree with the plan of care. I accept the responsibility for the associated risk. Pt seen this morning with at the bedside pt was admitted after an episode of unresponsiveness and seizure like activity where he was rigid and had stool incontinence cardiology was consulted due to concerns of bradycardia as possible etiology or contributing to symptoms Pt was loaded with IV kepra in the ER out patient recent zio was SB/SR with Mobitz I; no high degree bradycardia echo today as per my interpretation was unchanged from prior back in february it is unclear if the bradycardia is the actually sole etiology for his unresponsive episode-i suspect there is more and possibly that his episdoe was more due to neurological and he just has sinus bradycardia i would complete the neuro work up first and neuro evaluation depending on neuro findings he might benefit from a pacemaker or even a loop recorder for better monitoring of his cardiac rhythms Date of Consultation April 18, 2024 Assessment & Plan (1) Hypertension: (2) Bradycardia: (3) Headache: (4) Vertebral artery occlusion: (5) Prediabetes: Plan -HR continues to trend on the low side -BP well controlled -unclear at this point if this is a neurological event or cardiac issue -no significant bradycardia on recent outpatient Zio monitor -would stop Toprol -EEG and Neurology consults pending -chronic vertebral occlusions noted on CT scan, MRI also completed today with report pending -continue to monitor on telemetry -hopefully HR will improve off BB Case discussed with Dr. Whiteside. Please see attestation for additional recommendations. I spent a total of 40 minutes on the date of service in preparation, delivery, and documentation of the care provided to the patient excluding any time spent in the performance of separately billed services. LORI Vargas Department of Cardiology, [facility] This chart was completed in part utilizing Speech Voice Recognition Software. Grammatical errors, random word insertions, pronoun errors, and incomplete sentences are an occasional consequence of this system due to software limit ations, ambient noise, and hardware issues. Any formal questions or concerns about the content, text, or information contained within the body of this dictation should be directly addressed to the provider for clarification. History of Present Illness Reason for Consultation: Bradycardia, Possible Syncope Requesting Physician: Hospitalist Attending Physician: Yash Laird DO History of Present Illness 74-year-old male seen in consultation today in regard to bradycardia with possible syncope. Presented to the emergency room yesterday after his witnessed 5 seconds of seizure-like activity that resolved prior to presentation to the emergency room. He did report sitting at home watching the [employer] last night when he developed headache prompting him to go lay down in bed. He subsequently reached out to his because he was feeling poorly. His checked his heart rates and blood pressures and got 140/70 with a heart rate in the 40s which is chronic for him. She witnessed that he was rigid and passed out for 30 seconds during the episode with stool incontinence. Known past medical history of CAD, hypertension, hyperlipidemia, prediabetes and TIA. Allergies Allergy/AdvReac Type Severity Reaction Status Date / Time pollen extracts Allergy Intermediate RUNNY Verified 04/17/24 21:19 NOSE, CONGESTION Home Medications Medication Instructions Recorded Confirmed Type aspirin 81 mg tablet,delayed 81 mg PO QPM 05/27/18 04/17/24 History release atorvastatin 80 mg tablet 80 mg PO QPM 05/27/18 04/17/24 History dutasteride 0.5 mg capsule 0.5 mg PO QPM 05/27/18 04/17/24 History (Avodart) metoprolol succinate 50 mg 50 mg PO QPM 05/27/18 04/17/24 History tablet,extended release 24 hr losartan 100 mg tablet 100 mg PO QAM 02/13/24 04/17/24 History sildenafil (pulm.hypertension) 20 20 - 80 mg PO DIRECTED PRN 02/13/24 04/17/24 History mg tablet Sexual Activity clopidogrel 75 mg tablet 75 mg PO QAM #20 tabs 02/14/24 04/17/24 Rx Lactobacillus acidophilus 250 10,000 mmu cells PO DAILY 04/17/24 04/17/24 History million cell capsule (Probiotic Acidophilus) acetaminophen 650 mg 650 mg PO Q8H PRN Pain 04/17/24 04/17/24 History tablet,extended release fexofenadine 180 mg tablet 180 mg PO DAILY PRN Congestion 04/17/24 04/17/24 History ibuprofen 200 mg tablet 600 mg PO Q6H PRN Pain 04/17/24 04/17/24 History multivitamin 1 tab PO DAILY 04/17/24 04/17/24 History Patient History Medical History Sciatica Osteoarthritis DDD (degenerative disc disease) Surgical History S/P eye surgery right eye - muscle tightened S/P cataract extraction and insertion of intraocular lens bilateral History of tooth extraction S/P wrist surgery left History of herniorrhaphy Right inguinal hernia repair History of heart artery stent x1 LAD. placed 21 years ago History of cardiac cath 21 years ago - cp - x 1 stent LAD - follows w/ dr. thomas Family History Other Cancer Coronary heart disease Diabetes Hypertension Social History Smoking Status: Never smoker Second Hand Exposure: No; Do You Dip or Chew Tobacco: No; Hx Alcohol Use: Yes Alcohol type: wine Hx Substance Use: No Preferred Language: Armenian Communication Ability: Effective Supervisor Grower Required: No Beliefs That Will Affect Care: None Current Living Situation: Spouse Other Information That Helps Us Care for You: No Feels Safe at Home: Yes Safety Concerns: Feels Safe At This Time Assistive Devices: None Review of Systems Constitutional: as per Subjective / HPI; no fever, no chills and no body aches Respiratory: no cough and no dyspnea Cardiovascular: + syncope; no chest pain and no palpitat ions Gastrointestinal: + fecal incontinence Neurologic: + headache(s) Physical Exam Constitutional: WD/WN, vitals as above well developed and well nourished; no acute distress and not ill appearing Eyes: PERRL, conjunctivae normal, anicteric sclerae ENMT: external ear and nose normal, oropharynx normal Neck: trachea midline, no thyromegaly Respiratory: normal respiratory effort, lungs clear to auscultation Cardiovascular: Rate/Rhythm: regular rhythm and + bradycardic Heart Sounds: normal S1 and normal S2 Vessels: no JVD and no carotid bruit Extremities: normal capillary refill Musculoskeletal: no cyanosis or clubbing, extremities motor strength 5/5 Skin: no rashes, warm and dry Psychiatric: A+Ox3, euthymic affect Results & Data Vital Signs (Past 12 Hours) Vital Signs Temp Pulse Pulse Resp BP Pulse Ox O2 Del Method 04/18/24 07:39 36.3 C L 51 L 16 167/77 H 95 Room Air 04/18/24 07:10 41 L 04/18/24 02:58 36.9 C 56 L 21 180/80 H 96 Room Air 04/18/24 00:47 54 L 04/18/24 00:45 Room Air 04/18/24 00:45 36.6 C 50 L 16 161/84 H 98 Room Air 04/18/24 00:13 51 L 18 140/99 96 Room Air 04/17/24 23:00 51 L 16 167/83 H 98 Room Air Diagnostic Findings Laboratory Results WBC 9.18 K/ul (4.8-10.8) 04/18/24 06:04 RBC 4.24 M/uL (4.70-6.10) L 04/18/24 06:04 Hgb 14.2 g/dl (14.0-18.0) 04/18/24 06:04 POC Hgb 12.9 g/dl (14.0-18.0) L 04/17/24 21:02 Hct 39.3 % (42.0-52.0) L 04/18/24 06:04 POC Hct 38 % (42-52) L 04/17/24 21:02 MCV 92.7 fL (80.0-100.0) 04/18/24 06:04 MCH 33.5 pg (25.0-34.0) 04/18/24 06:04 MCHC 36.1 g/dL (32.0-36.0) H 04/18/24 06:04 RDW Std Deviation 39.9 fL (36.4-46.3) 04/18/24 06:04 RDW Coeff of Trevor 11.8 % (11.5-14.5) 04/18/24 06:04 Plt Count 201 K/uL (130-400) 04/18/24 06:04 MPV 11.7 fL (9.4-12.4) 04/18/24 06:04 Immature Gran % (Auto) 0.4 % 04/18/24 06:04 Neut % (Auto) 75.5 % 04/18/24 06:04 Lymph % (Auto) 19.1 % 04/18/24 06:04 [place] % (Auto) 4.9 % 04/18/24 06:04 Eos % (Auto) 0.0 % 04/18/24 06:04 Baso % (Auto) 0.1 % 04/18/24 06:04 Neut # (Auto) 6.93 K/uL (1.40-6.50) H 04/18/24 06:04 Lymph # (Auto) 1.75 K/uL (1.20-3.40) 04/18/24 06:04 [place] # (Auto) 0.45 K/uL (0.11-0.59) 04/18/24 06:04 Eos # (Auto) 0.00 K/uL (0.00-0.50) 04/18/24 06:04 Baso # (Auto) 0.01 K/uL (0.00-0.20) 04/18/24 06:04 Immature Gran # (Auto) 0.04 K/uL (0.01-0.20) 04/18/24 06:04 ESR 9 mm/hr (0-20) 04/18/24 06:04 PT 10.4 Seconds (9.0-12.0) 04/17/24 20:52 INR 1.0 (0.9-1.1) 04/17/24 20:52 APTT 21 Seconds (21-31) 04/17/24 20:52 PTT Ratio 0.8 04/17/24 20:52 POC Sodium 140 mmol/L (135-144) 04/17/24 21:02 Sodium 138 mmol/L (136-145) 04/18/24 06:05 POC Potassium 3.7 mmol/L (3.3-5.0) 04/17/24 21:02 Potassium 3.9 mmol/L (3.5-5.1) 04/18/24 06:05 POC Chloride 106 mmol/L (101-112) 04/17/24 21:02 Chloride 106 mmol/L (98-107) 04/18/24 06:05 Carbon Dioxide 23 mmol/L (21-32) 04/18/24 06:05 POC Total CO2 23 mmol/L (24-31) L 04/17/24 21:02 Anion Gap 9 (3-11) 04/18/24 06:05 POC Anion Gap 16.0 mmol/L (16-25) 04/17/24 21:02 POC BUN 21 mg/dl (7-18) H 04/17/24 21:02 BUN 17 mg/dl (6-23) 04/18/24 06:05 Creatinine 0.64 mg/dl (0.6-1.4) 04/18/24 06:05 POC Creatinine 1.0 mg/dl (0.6-1.3) 04/17/24 21:02 Est Cr Clr Drug Dosing 94.7 ml/min 04/18/24 06:05 Est GFR ( Amer) 111.8 ml/min 04/18/24 06:05 Est GFR (Non-Af Amer) 96.5 ml/min 04/18/24 06:05 BUN/Creatinine Ratio 26.6 (10-20) H 04/18/24 06:05 Glucose 143 mg/dl (70-99(Fasting)) H 04/18/24 06:05 POC Glucose (other) 111 mg/dl (70-99) H 04/17/24 21:02 Estimat Average Glucose 117 mg/dl 04/18/24 06:05 Hemoglobin A1c 5.7 % (4.5-5.6) H 04/18/24 06:05 Lactate 1.7 mmol/L (0.4-2.0) 04/17/24 21:19 Calcium 9.0 mg/dl (8.6-10.3) 04/18/24 06:05 POC Ioniz Calcium [place] 1.18 mmol/l (1.12-1.32) 04/17/24 21:02 Magnesium 2.3 mg/dl (1.7-2.4) 04/17/24 20:52 Total Bilirubin 0.6 mg/dl (0.2-1.0) 04/17/24 20:52 AST 23 U/L (13-39) 04/17/24 20:52 ALT 20 U/L (7-52) 04/17/24 20:52 Alkaline Phosphatase 70 U/L (34-104) 04/17/24 20:52 Troponin I High Sens 3.4 pg/ml (0-20) 04/18/24 08:26 Total Protein 6.9 gm/dl (6.0-8.3) 04/17/24 20:52 Albumin 4.4 gm/dl (3.4-5.0) 04/17/24 20:52 Globulin 2.5 gm/dl (2.5-4.0) 04/17/24 20:52 Albumin/Globulin Ratio 1.8 (0.9-2) 04/17/24 20:52 Triglycerides 132 mg/dl (0-150) 04/18/24 06:05 Cholesterol 139 mg/dl (0-200) 04/18/24 06:05 LDL Cholesterol, Calc 70 mg/dl 04/18/24 06:05 VLDL Cholesterol, Calc 26 mg/dl (0-30) 04/18/24 06:05 HDL Cholesterol 43 mg/dl 04/18/24 06:05 Cholesterol/HDL Ratio 3.2 (0-5) 04/18/24 06:05 Urine Color [place] 04/18/24 04:00 Urine Appearance Clear (Clear) 04/18/24 04:00 Urine pH 8.0 (4.5-7.5) H 04/18/24 04:00 Ur Specific [place] 1.033 (1.000-1.030) H 04/18/24 04:00 Urine Protein Trace (Negative) H 04/18/24 04:00 Urine Glucose (UA) Negative (Negative) 04/18/24 04:00 Urine Ketones Trace (Negative) H 04/18/24 04:00 Urine Blood 3+ (Negative) H 04/18/24 04:00 Urine Nitrite Negative (Negative) 04/18/24 04:00 Urine Bilirubin Negative (Negative) 04/18/24 04:00 Urine Urobilinogen Negative (Negative) 04/18/24 04:00 Ur Leukocyte Esterase Negative (Negative) 04/18/24 04:00 Urine WBC (Auto) 0-5 /hpf (0-5) 04/18/24 04:00 Urine RBC (Auto) >20 /hpf (0-2) H 04/18/24 04:00 U Hyaline Cast (Auto) 0-2 /lpf (0-2) 04/18/24 04:00 U Epithel Cells (Auto) 0-2 /hpf (0-2) 04/18/24 04:00 Urine Bacteria (Auto) None Seen (None Seen) 04/18/24 04:00 Lyme Disease Screen Negative (Negative) 04/18/24 06:[address] 04/17/24 20:50 Exam(s): CT HEAD Without Contrast EXAM: CT Head Without Intravenous Contrast CLINICAL HISTORY: Reason for exam: BARCENAS, seizure like event. TECHNIQUE: Axial computed tomography images of the head/brain without intravenous contrast. CTDI is 38.6 mGy and DLP is 702.46 mGy-cm. Automated exposure control was utilized for the study. A dose lowering technique was utilized adhering to the principles of ALARA. COMPARISON: No relevant prior studies available. FINDINGS: Brain: Age-related parenchymal volume loss. Suggestion of minimal chronic small vessel ischemic change. Day-white matter differentiation maintained. No hemorrhage, mass-effect, or parenchymal edema. Ventricles: Unremarkable. No hydrocephalus. Bones/joints: Unremarkable. No acute fracture. Soft tissues: Unremarkable. Vasculature: Intracranial atherosclerosis. Sinuses: Hypoplastic and opacified right maxillary sinus, stable from prior. Mastoid air cells: Unremarkable as visualized. No mastoid effusion. Orbits: Bilateral lens replacements. IMPRESSION: No acute intracranial process. Electronically signed by: Kami Davis M.D. 04/17/24 21:44 PM Head CTA 04/17/24 20:50 Exam(s): CTA HEAD With Contrast IV Amt: 119ml EXAM: CT Angiography Head With Intravenous Contrast CLINICAL HISTORY: Reason for exam: BARCENAS, seizure like event. TECHNIQUE: Axial computed tomographic angiography images of the head with intravenous contrast. CTDI is 13 mGy and DLP is 497.71 mGy-cm. Automated exposure control was utilized for the study. A dose lowering technique was utilized adhering to the principles of ALARA. MIP reconstructed images were created and reviewed. CONTRAST: Patient received 119ml of IV contrast COMPARISON: 02/13/24 FINDINGS: Right internal carotid artery: Calcification intracranial right ICA without significant stenosis. No aneurysm. Right anterior cerebral artery: Variant anterior cerebral artery anatomy bilaterally. Left A1 and A2 segments are hypoplastic. Right LACHO is well- developed, without stenosis or occlusion, giving rise to the left A3 segment. No aneurysm of either vessel. Right middle cerebral artery: Unremarkable. No occlusion or significant stenosis. No aneurysm. Right posterior cerebral artery: Unremarkable. No occlusion or significant stenosis. No aneurysm. Right vertebral artery: Proximal intradural segment of the right vertebral artery remains occluded, stable from prior. Left internal carotid artery: Calcification intracranial left ICA without significant stenosis. No aneurysm. Left anterior cerebral artery: Variant anterior cerebral artery anatomy bilaterally. Left A1 and A2 segments are hypoplastic. Right LACHO is well- developed, without stenosis or occlusion, giving rise to the left A3 segment. No aneurysm of either vessel. Left middle cerebral artery: Unremarkable. No occlusion or significant stenosis. No aneurysm. Left posterior cerebral artery: Unremarkable. No occlusion or significant stenosis. No aneurysm. Left vertebral artery: Unremarkable as visualized. Basilar artery: Unremarkable. No occlusion or significant stenosis. No aneurysm. IMPRESSION: 1. 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 Otherwise patent intracranial circulation. Electronically signed by: Kami Davis M.D. 04/17/24 22:20 PM Neck CTA 04/17/24 20:50 Exam(s): CTA NECK With Contrast IV Amt: 119ml EXAM: CT Angiography Neck With Intravenous Contrast CLINICAL HISTORY: Reason for exam: BARCENAS, seizure like event. TECHNIQUE: Routine carotid CT angiography protocol was performed with intravenous contrast. NASCET criteria using the distal ICAs for comparison were used for evaluation of stenoses. CTDI is 13 mGy and DLP is 497.71 mGy-cm. Automated exposure control was utilized for the study. A dose lowering technique was utilized adhering to the principles of ALARA. MIP reconstructed images were created and reviewed. CONTRAST: Patient received 119ml of IV contrast COMPARISON: 02/13/24 FINDINGS: VASCULATURE: Right common carotid artery: Unremarkable. No occlusion or significant stenosis. No dissection. Right internal carotid artery: Unremarkable. Extracranial segment is patent with no occlusion or significant stenosis. No dissection. Right external carotid artery: Unremarkable. No occlusion. Right vertebral artery: Severe stenosis in the proximal right vertebral artery, stable from prior. No dissection. Left common carotid artery: Unremarkable. No occlusion or significant stenosis. No dissection. Left internal carotid artery: Unremarkable. Extracranial segment is patent with no occlusion or significant stenosis. No dissection. Left external carotid artery: Unremarkable. No occlusion. Left vertebral artery: Moderate stenosis at the origin of the left vertebral artery, stable from prior. No dissection. Aorta: Conventional aortic arch branch anatomy. NECK: Bones/joints: Degenerative change. No acute fracture. Soft tissues: Unremarkable. Lung apices: Clear. CAROTID STENOSIS REFERENCE USING NASCET CRITERIA: % ICA stenosis = (1 - narrowest ICA diameter/diameter of distal cervical ICA) x 100. Mild - <50% stenosis. Moderate - 50-69% stenosis. Severe - 70-94% stenosis. Near occlusion - 95-99% stenosis. Occluded - 100% stenosis. IMPRESSION: 1. 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 2. Moderate stenosis at the origin of the left vertebral artery, stable from prior. 3. No hemodynamically significant ICA stenosis. Electronically signed by: Kami Davis M.D. 04/17/24 22:32 PM Cardiac Enzymes 04/17/24 04/18/24 Range/Units 20:52 08:26 AST 23 (13-39) U/L Troponin I High Sens 3.0 3.4 (0-20) pg/ml Coagulation 04/17/24 Range/Units 20:52 PT 10.4 (9.0-12.0) Seconds APTT 21 (21-31) Seconds Lipids 04/18/24 Range/Units 06:05 Triglycerides 132 (0-150) mg/dl Cholesterol 139 (0-200) mg/dl HDL Cholesterol 43 mg/dl Cholesterol/HDL Ratio 3.2 (0-5) CBC 04/17/24 04/18/24 Range/Units 20:52 06:04 WBC 8.82 9.18 (4.8-10.8) K/ul RBC 4.19 L 4.24 L (4.70-6.10) M/uL Hgb 13.9 L 14.2 (14.0-18.0) g/dl Hct 39.5 L 39.3 L (42.0-52.0) % Plt Count 209 201 (130-400) K/uL Neut # (Auto) 3.08 6.93 H (1.40-6.50) K/uL Lymph # (Auto) 4.35 H 1.75 (1.20-3.40) K/uL [place] # (Auto) 0.96 H 0.45 (0.11-0.59) K/uL Eos # (Auto) 0.35 0.00 (0.00-0.50) K/uL Baso # (Auto) 0.05 0.01 (0.00-0.20) K/uL Comprehensive Metabolic Panel 04/17/24 04/18/24 Range/Units 20:52 06:05 Sodium 138 138 (136-145) mmol/L Potassium 3.8 3.9 (3.5-5.1) mmol/L Chloride 105 106 (98-107) mmol/L Carbon Dioxide 25 23 (21-32) mmol/L BUN 23 17 (6-23) mg/dl Creatinine 0.93 0.64 (0.6-1.4) mg/dl Glucose 113 H 143 H (70-99(Fasting)) mg/dl Calcium 9.4 9.0 (8.6-10.3) mg/dl AST 23 (13-39) U/L ALT 20 (7-52) U/L Alkaline Phosphatase 70 (34-104) U/L Total Protein 6.9 (6.0-8.3) gm/dl Albumin 4.4 (3.4-5.0) gm/dl Intake and Output 04/17/24 04/18/24 04/18/24 22:59 06:59 14:59 Intake Total 500 / 600 100 / 600 105 / 105 Output Total 150 / 150 Balance 500 / 450 -50 / 450 105 / 105 Intake: IV 500 / 600 100 / 600 105 / 105 Acetaminophen 1,000 mg In 100 100 / 100 ml @ 400 mls/hr IV NOW STA Rx#: [id number] Sodium Chloride 0.9% 500 ml @ 500 / 500 999 mls/hr IV .Q31M ONE Rx#: [id number] levETIRAcetam IV 500 mg In 105 / 105 Sodium Chlor 0.9% Mini-B 100 ml @ 420 mls/hr IV Q12H LALITO Rx#: [id number] Output: Urine 150 / 150 Other: Weight 77 kg 77.2 kg Weight Measurement Method Built in [facility] (1) Hypertension Hypertension type: unspecified Qualified Code(s): I10 - Essential (primary) hypertension
[2024-04-18] MEDS: GADOBUTROL 65ML VIAL IV ONE (10:50)
--- NOTE | 2024-04-18 11:44 | Magnetic Resonance Report ---
MRI OF THE BRAIN WITHOUT AND WITH IV CONTRAST CLINICAL HISTORY: Stroke like symptoms. COMPARISON STUDY: MRI of the brain February 13, [address] and CTA of the head April 17, 2024. TECHNIQUE: Utilizing a 1.5 Cristela magnet and dedicated coil, multiplanar, multiecho imaging of the br ain was performed pre and postcontrast administration. IV administration of 7.7 mL of Gadavist contr ast was uneventful. FINDINGS: There is a small focus of restricted diffusion measuring 4 mm within the right lateral aspe ct of the medulla on diffusion-weighted sequence images 4 and 5 of . This is hypointense on the ADC map and there is mild corresponding T2 hyperintensity. No acute intracranial hemorrhage, midline nestor ft or mass effect is present. No additional foci of restricted diffusion are present. Ventricular sys tem is unremarkable. Basal cisterns are patent. There are no extra-axial collections. No intracranial mass or pathologic enhancement. Chronic opacification the right maxillary sinus which is diminutive is unchanged in appearance since previous MRI. IMPRESSION: 1. Small acute infarct, measuring 4 mm, within the right lateral aspect of the medulla. No additional acute infarcts. No hemorrhage or mass effect. 2. No intracranial mass or pathologic enhancement. ACT 112: Negative or not required by law. Electronically signed by: Cl Armas M.D. 04/18/2024 11:41 AM
[2024-04-18] MEDS ORDERED: LORazepam 2 MG in SYRINGE 0.5 ML IV PRN (12:46)
--- NOTE | 2024-04-18 13:05 | Hospitalist Progress Note ---
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 Patient with significant symptoms of strabismus, vertigo and cephalgia related to this. He remains critically ill requires hospital level care including testing, specialty consultation, frequent monitoring of labs and vital signs. High risk for further events and d ecompensation. Patient was not a candidate initially for thrombolytics. Continue dual antiplatelet therapy Continue to allow permissive hypertension for the next 24 to 48 hours then will need to address blood pressure management Metoprolol held for presumed drug-induced bradycardia, continue telemetry monitoring Reviewed cardiology consultation Communication with neurology, updated to patient's condition and MRI report Continue therapies Suspect patient cephalgia is induced due to from his vertigo and strabismus and double vision. Will schedule meclizine and Valium anticipate this will give him some symptomatically relief, continue Tylenol as needed Transition to oral Keppra, high suspicion based on the history obtained from the that he did have a seizure most likely induced due to ischemic cerebrovascular event. Ativan IV as needed for breakthrough seizures EEG ordered and pending Adjust diet to diabetic diet at bedside contribute extensively to history, updated plan of care Admission and Anticipated Discharge Date Admission Date: April 17, 2024 Subjective Patient is extreme vertigo, continued posterior headache, generalized ill feeling. Continues with some tingling in his right hand as well Physical Exam Physical Exam: Constitutional: Alert, ill in appearance HEENT: Mucous membranes moist. Pupils equal round and reactive., Keeps eyes c losed to minimize vertiginous symptoms Lungs: Clear to auscultation, decreased, no wheezes rales or rhonchi CV: S1-S2, regular, no murmurs Abdomen: Soft, nontender, nondistended Extremities: No significant edema Neuro: Strabismus, nystagmus, slight decrease sensation right hand, moves all 4 extremities, speech is clear, severe vertigo when he opens his eyes Psych: Cooperative, normal mood Results & Data Results & Data Vital Signs (Past 12 Hours) Vital Signs Temp Pulse Pulse Resp BP Pulse Ox O2 Del Method 04/18/24 11:16 36.3 C L 50 L 16 150/72 H 97 Room Air 04/18/24 07:39 36.3 C L 51 L 16 167/77 H 95 Room Air 04/18/24 07:10 41 L 04/18/24 02:58 36.9 C 56 L 21 180/80 H 96 Room Air Diagnostic Findings Reviewed imaging, laboratory and diagnostic studies. Pertinent findings as terrance syed Personally reviewed MRI images. Noted right medulla infarct., Reviewed MRI report from radiologist Reviewed echocardiogram report, normal ejection fraction, negative for PFO or shunt, no significant valvular abnormalities Reviewed CTA of the head and neck. Chronic severe stenosis right vertebral artery and moderate stenosis of left vertebral artery, no significant change from prior Personally reviewed EKG tracings, bradycardia, no significant ST-T wave changes Hemoglobin A1c 5.7% (8) Hypertension Hypertension type: unspecified Qualified Code(s): I10 - Essential (primary) hypertension
[2024-04-18] MEDS ORDERED: LORazepam 2 MG/1 ML VIAL IV PRN (13:09)
[2024-04-18] MEDS: diazePAM 2 MG TABLET PO SCH (13:36)
[2024-04-18] MEDS: MECLIZINE HCL 25 MG TAB PO SCH (13:36)
--- NOTE | 2024-04-18 16:26 | Neurology Consultation ---
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 Okay with dual antiplatelets for 21 days, can de-escalate to a single antiplatelet afterwards. Continue statins. Zio patch needs to be reviewed for possible bradycardia. The patient had decreased heart rate to the 30s. Consult with cardiology for the need of a pacemaker (2) Convulsive syncope: Less likely this was a true seizure, the events of rigidity and incontinence can be explained by convulsive syncope that is related to hypoperfusion. Plan No need to continue Kera Follow-up EEG Telehealth Consultation Telehealth Information Telehealth Information: I performed this visit using a real-time telehealth connection between my location and the patients location ([facility]). After connecting through interactive tele-video, patient was identified by name and date of and/or wristband check.Patient (or authorized healthcare inside outside sales representative) was informed that this was a telemedicine visit and it was being conducted confidentially over secure lines. My office door was closed and no one else was present in the room with me.Patient (or authorized healthcare inside outside sales representative) provided consent to proceed with the visit, expressed an understanding of privacy and security of the telemedicine visit, and gave permission to have a hospital inside outside sales representative in the room in order to assist with the visit and to conduct portions of the visit, as needed. I informed the patient (or authorized healthcare inside outside sales representative) that I reviewed their record and presented the opportunity for them to ask any questions regarding the visit today. The patient agreed to participate. 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 The patient presented with acute onset of headaches at around 8 PM on 04/17/2024, his checked his blood pressure which was 140/70 but his heart rate was about 40, he had severe double vision, was dizzy, then the patient became very rigid and passed out for 30 seconds and during this episode he had stool incontinence. Without confusion after the event, he got up to clean himself while the ambulance was called and he was wobbly he had tingling is on the right side of his face. Today he tells me that he feels awful his eyes are very bothersome, he feels dizzy, he reports no difficulty with his upper extremity, his right leg is wobbly, lightheaded but it has been like that since a prior back surgery. Allergies Allergy/AdvReac Type Severity Reaction Status Date / Time pollen extracts Allergy Intermediate RUNNY Verified 04/17/24 21:19 NOSE, CONGESTION Home Medications Medication Instructions Recorded Confirmed Type aspirin 81 mg tablet,delayed 81 mg PO QPM 05/27/18 04/17/24 History release atorvastatin 80 mg tablet 80 mg PO QPM 05/27/18 04/17/24 History dutasteride 0.5 mg capsule 0.5 mg PO QPM 05/27/18 04/17/24 History (Avodart) metoprolol succinate 50 mg 50 mg PO QPM 05/27/18 04/17/24 History tablet,extended release 24 hr losartan 100 mg tablet 100 mg PO QAM 02/13/24 04/17/24 History sildenafil (pulm.hypertension) 20 20 - 80 mg PO DIRECTED PRN 02/13/24 04/17/24 History mg tablet Sexual Activity clopidogrel 75 mg tablet 75 mg PO QAM #20 tabs 02/14/24 04/17/24 Rx Lactobacillus acidophilus 250 10,000 mmu cells PO DAILY 04/17/24 04/17/24 History million cell capsule (Probiotic Acidophilus) acetaminophen 650 mg 650 mg PO Q8H PRN Pain 04/17/24 04/17/24 History tablet,extended release fexofenadine 180 mg tablet 180 mg PO DAILY PRN Congestion 04/17/24 04/17/24 History ibuprofen 200 mg tablet 600 mg PO Q6H PRN Pain 04/17/24 04/17/24 History multivitamin 1 tab PO DAILY 04/17/24 04/17/24 History Patient History Medical History Sciatica Osteoarthritis DDD (degenerative disc disease) Surgical History S/P eye surgery right eye - muscle tightened S/P cataract extraction and insertion of intraocular lens bilateral History of tooth extraction S/P wrist surgery left History of herniorrhaphy Right inguinal hernia repair History of heart artery stent x1 LAD. placed 21 years ago History of cardiac cath 21 years ago - cp - x 1 stent LAD - follows w/ dr. thomas Family History Other Cancer Coronary heart disease Diabetes Hypertension Social History Smoking Status: Never smoker Second Hand Exposure: No; Do You Dip or Chew Tobacco: No; Hx Alcohol Use: Yes Alcohol type: wine Hx Substance Use: No Preferred Language: Bruneian Communication Ability: Effective Manager Of Allied Health Services Required: No Beliefs That Will Affect Care: None Current Living Situation: Spouse Other Information That Helps Us Care for You: No Feels Safe at Home: Yes Safety Concerns: Feels Safe At This Time Assistive Devices: None Review of Systems Negative except for the points mentioned in the HPI Physical Exam General Constitutional: Appearance normally developed Head and face: normocephalic and atraumatic Eyes: no ptosis, no anisocoria, and no dysconjugate gaze Respiratory: normal effort Cardiovascular: regular rhythm and regular rate Abdomen: non distended Skin: no rashes, lesions, or ulcers noted Psychiatric: normal judgement and insight, normal mood, and normal affect NEUROLOGIC EXAMINATION: Mental Status:alert, oriented to time, place, person, normal recent memory, normal remote memory, normal attention span, normal concentration, normal language and normal fund of knowledge Cranial Nerves: CN 2 - no visual defect on confrontation and pupils round, equal, reactive to light CN 3, 4, 6 -significant bilateral nystagmus, with eye bobbing, decreased adduction of the left eye CN 5 - facial sensation intact CN 7 - no facial asymmetry CN 8 - intact hearing CN 9, 10 - palate symmetric, normal gag CN 11 - good shoulder shrug CN 12 - tongue midline MOTOR: Strength was at least antigravity throughout, Pronator drift was absent and There were no abnormal movements SENSATION: intact and symmetric to pinprick, light touch, vibration and joint position GAIT: stable, no ataxia and can perform tandem walking COORDINATION: no ataxia with finger to nose testing and heel to morgan testing REFLEXES: cannot assess over telemedicine NIH Stroke Scale: 1a. Level of Consciousness: alert = 0 1b. LOC Questions: (month, age): both correct = 0 1c. LOC Commands (open and close eyes, make fist and let go using non-paretic hand): obeys both correctly = 0 2. Best Gaze (eyes open and patient follows examiner's finger or face): normal = 1 3. Visual (visual threat or finger counting in each quadrant): no loss = 0 4. Facial Palsy (show teeth, raise eye brows and squeeze eyes shut, or grimace symmetry in a comatose patient): normal = 0 5a. Motor Arm (extend arm (palms down) to 90 degrees and score drift/movement (10 seconds) - Left: no drift = 0 5b. Motor Arm: (extend arm (palms down) to 90 degrees and score drift/movement (10 seconds) - Right: no drift = 0 6a. Motor Leg (elevate leg 30 degrees and score drift/ movement (5 seconds) - Left: no drift = 0 6b. Motor Leg (elevate leg 30 degrees and score drift/ movement (5 seconds) - Right: no drift = 0 7. Limb Ataxia (finger to nose, heel down morgan): absent = 0 8. Sensory (pin prick to face, arm, trunk and leg, compare side to side): normal = 0 9. Best Language: no aphasia = 0 10. Dysarthria (evaluate speech clarity by patient repeating listed words): normal articulation = 0 11. Extinction and Inattention: no neglect = 0 Total: 1 Results & Data Vital Signs (Past 12 Hours) Vital Signs Temp Pulse Pulse Resp BP Pulse Ox O2 Del Method 04/18/24 14:38 36.3 C L 57 L 16 155/73 H 97 Room Air 04/18/24 14:26 45 L 04/18/24 11:16 36.3 C L 50 L 16 150/72 H 97 Room Air 04/18/24 07:39 36.3 C L 51 L 16 167/77 H 95 Room Air 04/18/24 07:10 41 L Laboratory Results Abnormal lab results 04/17/24 04/17/24 04/18/24 Range/Units 20:52 21:02 04:00 RBC 4.19 L (4.70-6.10) M/uL Hgb 13.9 L (14.0-18.0) g/dl POC Hgb 12.9 L (14.0-18.0) g/dl Hct 39.5 L (42.0-52.0) % POC Hct 38 L (42-52) % MCHC (32.0-36.0) g/dL Neut # (Auto) (1.40-6.50) K/uL Lymph # (Auto) 4.35 H (1.20-3.40) K/uL [place] # (Auto) 0.96 H (0.11-0.59) K/uL POC Total CO2 23 L (24-31) mmol/L POC BUN 21 H (7-18) mg/dl BUN/Creatinine Ratio 24.7 H (10-20) Glucose 113 H (70-99(Fasting)) mg/dl POC Glucose (other) 111 H (70-99) mg/dl Hemoglobin A1c (4.5-5.6) % Urine pH 8.0 H (4.5-7.5) Ur Specific [place] 1.033 H (1.000-1.030) Urine Protein Trace H (Negative) Urine Ketones Trace H (Negative) Urine Blood 3+ H (Negative) Urine RBC (Auto) >20 H (0-2) /hpf 04/18/24 04/18/24 Range/Units 06:04 06:05 RBC 4.24 L (4.70-6.10) M/uL Hgb (14.0-18.0) g/dl POC Hgb (14.0-18.0) g/dl Hct 39.3 L (42.0-52.0) % POC Hct (42-52) % MCHC 36.1 H (32.0-36.0) g/dL Neut # (Auto) 6.93 H (1.40-6.50) K/uL Lymph # (Auto) (1.20-3.40) K/uL [place] # (Auto) (0.11-0.59) K/uL POC Total CO2 (24-31) mmol/L POC BUN (7-18) mg/dl BUN/Creatinine Ratio 26.6 H (10-20) Glucose 143 H (70-99(Fasting)) mg/dl POC Glucose (other) (70-99) mg/dl Hemoglobin A1c 5.7 H (4.5-5.6) % Urine pH (4.5-7.5) Ur Specific [place] (1.000-1.030) Urine Protein (Negative) Urine Ketones (Negative) Urine Blood (Negative) Urine RBC (Auto) (0-2) /hpf Diagnostic Findings Head CT 04/17/24 20:50 Exam(s): CT HEAD Without Contrast EXAM: CT Head Without Intravenous Contrast CLINICAL HISTORY: Reason for exam: BARCENAS, seizure like event. TECHNIQUE: Axial computed tomography images of the head/brain without intravenous contrast. CTDI is 38.6 mGy and DLP is 702.46 mGy-cm. Automated exposure control was utilized for the study. A dose lowering technique was utilized adhering to the principles of ALARA. COMPARISON: No relevant prior studies available. FINDINGS: Brain: Age-related parenchymal volume loss. Suggestion of minimal chronic small vessel ischemic change. Day-white matter differentiation maintained. No hemorrhage, mass-effect, or parenchymal edema. Ventricles: Unremarkable. No hydrocephalus. Bones/joints: Unremarkable. No acute fracture. Soft tissues: Unremarkable. Vasculature: Intracranial atherosclerosis. Sinuses: Hypoplastic and opacified right maxillary sinus, stable from prior. Mastoid air cells: Unremarkable as visualized. No mastoid effusion. Orbits: Bilateral lens replacements. IMPRESSION: No acute intracranial process. Electronically signed by: Kami Davis M.D. 04/17/24 21:44 PM Head CTA 04/17/24 20:50 Exam(s): CTA HEAD With Contrast IV Amt: 119ml EXAM: CT Angiography Head With Intravenous Contrast CLINICAL HISTORY: Reason for exam: BARCENAS, seizure like event. TECHNIQUE: Axial computed tomographic angiography images of the head with intravenous contrast. CTDI is 13 mGy and DLP is 497.71 mGy-cm. Automated exposure control was utilized for the study. A dose lowering technique was utilized adhering to the principles of ALARA. MIP reconstructed images were created and reviewed. CONTRAST: Patient received 119ml of IV contrast COMPARISON: 02/13/24 FINDINGS: Right internal carotid artery: Calcification intracranial right ICA without significant stenosis. No aneurysm. Right anterior cerebral artery: Variant anterior cerebral artery anatomy bilaterally. Left A1 and A2 segments are hypoplastic. Right LACHO is well- developed, without stenosis or occlusion, giving rise to the left A3 segment. No aneurysm of either vessel. Right middle cerebral artery: Unremarkable. No occlusion or significant stenosis. No aneurysm. Right posterior cerebral artery: Unremarkable. No occlusion or significant stenosis. No aneurysm. Right vertebral artery: Proximal intradural segment of the right vertebral artery remains occluded, stable from prior. Left internal carotid artery: Calcification intracranial left ICA without significant stenosis. No aneurysm. Left anterior cerebral artery: Variant anterior cerebral artery anatomy bilaterally. Left A1 and A2 segments are hypoplastic. Right LACHO is well- developed, without stenosis or occlusion, giving rise to the left A3 segment. No aneurysm of either vessel. Left middle cerebral artery: Unremarkable. No occlusion or significant stenosis. No aneurysm. Left posterior cerebral artery: Unremarkable. No occlusion or significant stenosis. No aneurysm. Left vertebral artery: Unremarkable as visualized. Basilar artery: Unremarkable. No occlusion or significant stenosis. No aneurysm. IMPRESSION: 1. 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 Otherwise patent intracranial circulation. Electronically signed by: Kami Davis M.D. 04/17/24 22:20 PM Neck CTA 04/17/24 20:50 Exam(s): CTA NECK With Contrast IV Amt: 119ml EXAM: CT Angiography Neck With Intravenous Contrast CLINICAL HISTORY: Reason for exam: BARCENAS, seizure like event. TECHNIQUE: Routine carotid CT angiography protocol was performed with intravenous contrast. NASCET criteria using the distal ICAs for comparison were used for evaluation of stenoses. CTDI is 13 mGy and DLP is 497.71 mGy-cm. Automated exposure control was utilized for the study. A dose lowering technique was utilized adhering to the principles of ALARA. MIP reconstructed images were created and reviewed. CONTRAST: Patient received 119ml of IV contrast COMPARISON: 02/13/24 FINDINGS: VASCULATURE: Right common carotid artery: Unremarkable. No occlusion or significant stenosis. No dissection. Right internal carotid artery: Unremarkable. Extracranial segment is patent with no occlusion or significant stenosis. No dissection. Right external carotid artery: Unremarkable. No occlusion. Right vertebral artery: Severe stenosis in the proximal right vertebral artery, stable from prior. No dissection. Left common carotid artery: Unremarkable. No occlusion or significant stenosis. No dissection. Left internal carotid artery: Unremarkable. Extracranial segment is patent with no occlusion or significant stenosis. No dissection. Left external carotid artery: Unremarkable. No occlusion. Left vertebral artery: Moderate stenosis at the origin of the left vertebral artery, stable from prior. No dissection. Aorta: Conventional aortic arch branch anatomy. NECK: Bones/joints: Degenerative change. No acute fracture. Soft tissues: Unremarkable. Lung apices: Clear. CAROTID STENOSIS REFERENCE USING NASCET CRITERIA: % ICA stenosis = (1 - narrowest ICA diameter/diameter of distal cervical ICA) x 100. Mild - <50% stenosis. Moderate - 50-69% stenosis. Severe - 70-94% stenosis. Near occlusion - 95-99% stenosis. Occluded - 100% stenosis. IMPRESSION: 1. 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 2. Moderate stenosis at the origin of the left vertebral artery, stable from prior. 3. No hemodynamically significant ICA stenosis. Electronically signed by: Kami Davis M.D. 04/17/24 22:32 PM Brain MRI 04/18/24 00:53 MRI OF THE BRAIN WITHOUT AND WITH IV CONTRAST CLINICAL HISTORY: Stroke like symptoms. COMPARISON STUDY: MRI of the brain February 13, [address] and CTA of the head April 17, 2024. TECHNIQUE: Utilizing a 1.5 Cristela magnet and dedicated coil, multiplanar, multiecho imaging of the brain was performed pre and postcontrast administration. IV administration of 7.7 mL of Gadavist contrast was uneventful. FINDINGS: There is a small focus of restricted diffusion measuring 4 mm within the right lateral aspect of the medulla on diffusion-weighted sequence images and . This is hypointense on the ADC map and there is mild corresponding T2 hyperintensity. No acute intracranial hemorrhage, midline shift or mass effect is present. No additional foci of restricted diffusion are present. Ventricular system is unremarkable. Basal cisterns are patent. There are no extra-axial collections. No intracranial mass or pathologic enhancement. Chronic opacification the right maxillary sinus which is diminutive is unchanged in appearance since previous MRI. IMPRESSION: 1. Small acute infarct, measuring 4 mm, within the right lateral aspect of the medulla. No additional acute infarcts. No hemorrhage or mass effect. 2. No intracranial mass or pathologic enhancement. ACT 112: Negative or not required by law. Electronically signed by: Cl Armas M.D. 04/18/2024 11:41 AM Medications Administered Home Medications Medication Instructions Recorded Confirmed Last Taken aspirin 81 mg tablet,delayed 81 mg PO QPM 05/27/18 04/17/24 04/17/24 release atorvastatin 80 mg tablet 80 mg PO QPM 05/27/18 04/17/24 04/17/24 dutasteride 0.5 mg capsule 0.5 mg PO QPM 05/27/18 04/17/24 04/17/24 (Avodart) metoprolol succinate 50 mg 50 mg PO QPM 05/27/18 04/17/24 04/17/24 tablet,extended release 24 hr losartan 100 mg tablet 100 mg PO QAM 02/13/24 04/17/24 04/17/24 sildenafil (pulm.hypertension) 20 20 - 80 mg PO DIRECTED PRN 02/13/24 04/17/24 Unknown mg tablet Sexual Activity clopidogrel 75 mg tablet 75 mg PO QAM #20 tabs 02/14/24 04/17/24 04/17/24 Lactobacillus acidophilus 250 10,000 mmu cells PO DAILY 04/17/24 04/17/24 04/17/24 million cell capsule (Probiotic Acidophilus) acetaminophen 650 mg 650 mg PO Q8H PRN Pain 04/17/24 04/17/24 Unknown tablet,extended release fexofenadine 180 mg tablet 180 mg PO DAILY PRN Congestion 04/17/24 04/17/24 Unknown ibuprofen 200 mg tablet 600 mg PO Q6H PRN Pain 04/17/24 04/17/24 Unknown multivitamin 1 tab PO DAILY 04/17/24 04/17/24 04/17/24 Active Medications Generic Name Dose Route Start Last Admin Trade Name Freq PRN Reason Stop Dose Admin Acetaminophen 650 mg 04/18/24 00:53 04/18/24 09:07 Acetaminophen 325 Mg Tab PO 05/18/24 00:52 650 mg Q4H PRN Administration Pain or Fever Clopidogrel Bisulfate 75 mg 04/18/24 09:00 04/18/24 09:02 Clopidogrel Bisulfate 75 Mg Tab PO 05/18/24 08:59 75 mg QAM LALITO Administration Diazepam 2 mg 04/18/24 14:00 04/18/24 13:36 Diazepam 2 Mg Tablet PO 05/18/24 13:59 2 mg TID LALITO Administration Lactobacillus Acidophilus 1,250 mg 04/18/24 09:00 04/18/24 09:01 Advanced Probiotic 625 Mg Capsule PO 05/18/24 08:59 1,250 mg DAILY LALITO Administration Losartan Potassium 100 mg 04/18/24 09:00 04/18/24 09:02 Losartan Potassium 50 Mg Tab PO 05/18/24 08:59 100 mg QAM LALITO Administration Meclizine HCl 25 mg 04/18/24 14:00 04/18/24 13:36 Meclizine Hcl 25 Mg Tab PO 05/18/24 13:59 25 mg TID LALITO Administration Multivitamins 1 tab 04/18/24 09:00 04/18/24 09:01 Multivitamin Tab PO 05/18/24 08:59 1 tab DAILY LALITO Administration
[2024-04-18] MEDS: FINASTERIDE 5 MG TAB PO SCH (20:12)
[2024-04-18] MEDS: ASPIRIN 81 MG ECTAB PO SCH (20:12)
[2024-04-18] MEDS: ATORVASTATIN 40 MG TAB PO SCH (20:12)
[2024-04-18] MEDS ORDERED: levETIRAcetam 500 MG TAB PO SCH (21:00)
[2024-04-19 04:59] LABS: Basophils # (auto) 0.03 K/uL (0.00-0.20); Basophils % (auto) 0.2 %; Eosinophils # (auto) 0.08 K/uL (0.00-0.50); Eosinophils % (auto) 0.6 %; Hematocrit (blood only) 38.5 % (42.0-52.0); Hemoglobin 13.6 g/dl (14.0-18.0); Immature Granulocytes # (auto) 0.09 K/uL (0.01-0.20); Immature Granulocytes % (auto) 0.7 %; Lymphocytes # (auto) 2.04 K/uL (1.20-3.40); Lymphocytes % (auto) 15.7 %; Mean Corpuscular Hemoglobin 33.1 pg (25.0-34.0); Mean Corpuscular Hgb Conc 35.3 g/dL (32.0-36.0); Mean Corpuscular Volume 93.7 fL (80.0-100.0); Mean Platelet Volume 11.8 fL (9.4-12.4); Monocytes # (auto) 1.29 K/uL (0.11-0.59); Monocytes % (auto) 9.9 %; Neutrophils # (auto) 9.46 K/uL (1.40-6.50); Neutrophils % (auto) 72.9 %; Platelet Count 164 K/uL (130-400); RDW Coefficient of Variation 12.2 % (11.5-14.5); Red Blood Count 4.11 M/uL (4.70-6.10); White Blood Count 12.99 K/ul (4.8-10.8)
[2024-04-19 06:56] LABS: BUN Creatinine Ratio 21.6 (10-20); Calcium 8.8 mg/dl (8.6-10.3); Creatinine Clr Calc Pharmacy 68.9 ml/min; Est GFR (African American) 98.1 ml/min; Est GFR (Non-African American) 84.6 ml/min; Potassium 3.7 mmol/L (3.5-5.1)
--- NOTE | 2024-04-19 08:30 | Pharmacy Report ---
- Date of Service April 19, 2024 - Pharmacy CVA/TIA Medication Review Medications to Prevent Stroke handout has been added to the patients discharge packet. Antiplatelet(s) * aspirin 81mg and clopidogrel 75mg x21 days, then monotherapy TBD Cholesterol * High intensity statin: atorvastatin 80 mg daily DVT Prophylaxis * SCD thigh Therapeutic Anticoagulation * No history of Afib/Aflutter noted Type 2 Diabetes * Patient does not have T2DM
--- NOTE | 2024-04-19 09:02 | Cardiology Progress Note ---
Date of Service April 19, 2024 Assessment & Plan (1) Hypertension: (2) Bradycardia: (3) Headache: (4) Vertebral artery occlusion: (5) Prediabetes: Plan Plan: -HR continues to trend on the low side -BP well controlled -unclear at this point if this is a neurological event or cardiac issue -no significant bradycardia on recent outpatient Zio monitor -would stop Toprol -EEG and Neurology consults pending -chronic vertebral occlusions noted on CT scan, MRI also completed today with report pending -continue to monitor on telemetry -hopefully HR will improve off BB 04/19/2024: -Review of telemetry demonstrates ongoing bradycardia lowest rate 51bpm. No evidence of sinus pause, no high grade heart block. -Toprol xl remains on hold -EEG today. -Brain MRI suggest 1. Small acute infarct, measuring 4 mm, within the right lateral aspect of the medulla. No additional acute infarcts. No hemorrhage or mass effect. -Will continue to monitor telemetry for any signs of profound bradycardia or high grade heart block. -At this time, no plans to pursue PPM at this time. Case has been discussed with Dr. Cobb. Further recommendations regarding plan of care as per his assessment. I spent a total of 30 minutes on the date of service in preparation, delivery, documentation of the care provided to the patient excluding any time spent in the performance of separately billed services. LORI Ricks [facility] Admission and Anticipated Discharge Date Admission Date: April 17, 2024 Supervising Physician Co-Signing Physician Notes Patient was seen and personally examined. Assessment and plan as per advanced provider above. Care and management discussed and personally endorsed 74-year-old male with noted small right lateral medulla stroke. Past history of bradyarrhythmias but no profound bradycardia arrhythmias observed. Patient's blood pressure normotensive throughout and just prior to admission event per family Bradycardia does not appear to be primary cause. Metoprolol discontinued and heart rate improving. Cardiology will continue to follow Patient may ultimately require pacemaker due to tachybradycardia concerns. Prior atrial tachycardia on event monitor, now off beta-hanh. No acute indication Subjective 04/19/2024: Patient seen and examined in follow up today. Feeling ok. Offers no significant complaint, but is someone obtunded in nature. Denies any chest pain, pressure or palpitations, no changes in breathing and no swelling. Patient's and daughter are at bedside Labs, vitals, diagnostics, telemetry and documentation reviewed. Telemetry reviewed showing SB rate 59bpm. No acute events overnight EKG obtained today, personally reviewed demonstrates SB rate 51bpm. Review of Systems Review of Systems: All systems reviewed & are unremarkable except as noted in HPI & below Physical Exam Constitutional: well developed, well nourished and + ill appearing; no acute distress ENMT: Ears: + hearing impairment Neck: normal visual inspection and trachea midline Respiratory: normal respiratory effort, lungs clear to auscultation no cough Auscultation: no crackles, no rales, no rhonchi and no wheezes Cardiovascular: Rate/Rhythm: + bradycardic Heart Sounds: normal S1 and normal S2; no murmur Vessels: no JVD Extremities: no edema Skin: no rashes, warm and dry Psychiatric: Orientation: cooperative Results & Data Vital Signs (Past 12 Hours) Vital Signs Temp Pulse Pulse Resp BP Pulse Ox O2 Del Method 04/19/24 07:27 36.5 C 50 L 19 138/66 97 Room Air 04/19/24 03:18 36.7 C 47 L 18 124/74 95 Room Air 04/18/24 22:45 36.8 C 53 L 18 114/69 97 Room Air 04/18/24 21:52 48 L Laboratory Results CBC 04/19/24 Range/Units 04:45 WBC 12.99 H (4.8-10.8) K/ul RBC 4.11 L (4.70-6.10) M/uL Hgb 13.6 L (14.0-18.0) g/dl Hct 38.5 L (42.0-52.0) % Plt Count 164 (130-400) K/uL Neut # (Auto) 9.46 H (1.40-6.50) K/uL Lymph # (Auto) 2.04 (1.20-3.40) K/uL [place] # (Auto) 1.29 H (0.11-0.59) K/uL Eos # (Auto) 0.08 (0.00-0.50) K/uL Baso # (Auto) 0.03 (0.00-0.20) K/uL Comprehensive Metabolic Panel 04/19/24 04/19/24 Range/Units 04:45 05:53 Sodium Cancelled 139 Potassium Cancelled 3.7 Chloride Cancelled 107 Carbon Dioxide Cancelled 24 BUN Cancelled 19 Creatinine Cancelled 0.88 Glucose Cancelled 98 Calcium Cancelled 8.8 Intake and Output 04/18/24 04/19/24 04/19/24 22:59 06:59 14:59 Intake Total 150 / 1552.333 100 / 1552.333 Output Total 150 / 400 100 / 400 Balance 0 / 1152.333 0 / 1152.333 Intake: Oral 150 / 450 100 / 450 Output: Urine 150 / 400 100 / 400 Other: # Unmeasured Voids 50 Weight 78.8 kg Weight Measurement Method Built in [facility] Diagnostic Findings Echocardiogram 04/18/2024: LVEF 60-65% Mild concentric LVH Non-dilated cardiac chambers Mild MR There was a agitated saline bubble study noted on prior echo which was negative for any interatrial shunt. (February 2024) (1) Hypertension Hypertension type: unspecified Qualified Code(s): I10 - Essential (primary) hypertension
--- NOTE | 2024-04-19 11:29 | Hospitalist Progress Note ---
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 Bradycardia seems to be slightly improving, continue to monitor off beta- blockers, cardiology following and determining if pacemaker placement required/appropriate Continue with eye patching to assist with double vision Continue therapies Case management for possible rehab placement Bladder scan revealed significant urinary retention, straight cath as needed, add Flomax Continue scheduled meclizine and Valium for symptom management of vertigo Continue dual antiplatelet therapy at bedside updated the plan of care Admission and Anticipated Discharge Date Admission Date: April 17, 2024 Subjective Patient feels as though his blurred vision double vision slightly improved. Did patch his right eye. Complains of some hiccups. Also complains of symptoms consistent with overflow urinary frequency due to retention Physical Exam Physical Exam: Constitutional: Alert, drowsy HEENT: Mucous membranes moist. Lungs: Clear to auscultation, decreased, no wheezes rales or rhonchi CV: S1-S2, regular Abdomen: Soft, nontender, nondistended Extremities: No significant edema Neuro: Strabismus, ataxia Psych: Cooperative, normal mood Results & Data Results & Data Vital Signs (Past 12 Hours) Vital Signs Temp Pulse Pulse Resp BP Pulse Ox O2 Del Method 04/19/24 07:27 36.5 C 50 L 19 138/66 97 Room Air 04/19/24 07:00 49 L 04/19/24 03:18 36.7 C 47 L 18 124/74 95 Room Air Diagnostic Findings Reviewed imaging, laboratory and diagnostic studies. Pertinent findings as below. WBCs 12.9, hemoglobin 13.6 BMP stable Personally reviewed EKG sinus bradycardia (9) Hypertension Hypertension type: unspecified Qualified Code(s): I10 - Essential (primary) hypertension
--- NOTE | 2024-04-19 13:17 | Electrocardiogram Report ---
Test Reason : Blood Pressure : */* mmHG Vent. Rate : 51 BPM Atrial Rate : 51 BPM P-R Int : 174 ms QRS Dur : 86 ms QT Int : 422 ms P-R-T Axes : 33 -3 22 degrees QTcB Int : 388 ms Sinus bradycardia Otherwise normal ECG When compared with ECG of 18-Apr-2024 05:24, No significant change was found Confirmed by Sandro Leo ([id number]) on 04/19/2024 1:16:44 PM Referred By: REFERRED SELF Confirmed By: Sandro Leo
--- NOTE | 2024-04-19 16:23 | Electroencephalogram ---
EEG Procedure Note Date of Service April 19, 2024 Start / End Times Start Time: 1103 End Time: 1123 Referring Physician Prabhakar Johnson History A 74 year old male with syncope. EEG performed for evaluation of epileptiform activity. Home Medication List Medication Instructions Recorded Confirmed Type aspirin 81 mg tablet,delayed 81 mg PO QPM 05/27/18 04/17/24 History release atorvastatin 80 mg tablet 80 mg PO QPM 05/27/18 04/17/24 History dutasteride 0.5 mg capsule 0.5 mg PO QPM 05/27/18 04/17/24 History (Avodart) metoprolol succinate 50 mg 50 mg PO QPM 05/27/18 04/17/24 History tablet,extended release 24 hr losartan 100 mg tablet 100 mg PO QAM 02/13/24 04/17/24 History sildenafil (pulm.hypertension) 20 20 - 80 mg PO DIRECTED PRN 02/13/24 04/17/24 History mg tablet Sexual Activity clopidogrel 75 mg tablet 75 mg PO QAM #20 tabs 02/14/24 04/17/24 Rx Lactobacillus acidophilus 250 10,000 mmu cells PO DAILY 04/17/24 04/17/24 History million cell capsule (Probiotic Acidophilus) acetaminophen 650 mg 650 mg PO Q8H PRN Pain 04/17/24 04/17/24 History tablet,extended release fexofenadine 180 mg tablet 180 mg PO DAILY PRN Congestion 04/17/24 04/17/24 History ibuprofen 200 mg tablet 600 mg PO Q6H PRN Pain 04/17/24 04/17/24 History multivitamin 1 tab PO DAILY 04/17/24 04/17/24 History Inpatient Medication List Acetaminophen (Acetaminophen 325 Mg Tab) 650 mg PO Q4H PRN PRN Reason: Pain or Fever Stop: 05/18/24 00:52 Last Admin: 04/18/24 09:07 Dose: 650 mg Documented By: Admin: 04/18/24 01:14 Dose: 650 mg Documented By: KAISER Aspirin (Aspirin 81 Mg Ectab) 81 mg PO QPM [facility] Stop: 05/18/24 20:59 Last Admin: 04/18/24 20:12 Dose: 81 mg Documented By: KDL Atorvastatin Calcium (Atorvastatin 40 Mg Tab) 80 mg PO QPM [facility] Stop: 05/18/24 20:59 Last Admin: 04/18/24 20:12 Dose: 80 mg Documented By: MACKENZIE Clopidogrel Bisulfate (Clopidogrel Bisulfate 75 Mg Tab) 75 mg PO QAM [facility] Stop: 05/18/24 08:59 Last Admin: 04/19/24 08:06 Dose: 75 mg Documented By: Admin: 04/18/24 09:02 Dose: 75 mg Documented By: MARLON Diazepam (Diazepam 2 Mg Tablet) 2 mg PO TID [facility] Stop: 05/18/24 13:59 Last Admin: 04/19/24 13:54 Dose: 2 mg Documented By: Admin: 04/19/24 08:05 Dose: 2 mg Documented By: Admin: 04/18/24 20:11 Dose: 2 mg Documented By: Admin: 04/18/24 13:36 Dose: 2 mg Documented By: MARLON Finasteride (Finasteride 5 Mg Tab) 5 mg PO QPM [facility] Stop: 05/18/24 20:59 Last Admin: 04/18/24 20:12 Dose: 5 mg Documented By: MACKENZIE Lactobacillus Acidophilus (Advanced Probiotic 625 Mg Capsule) 1,250 mg PO DAILY [facility] Stop: 05/18/24 08:59 Last Admin: 04/19/24 08:05 Dose: 1,250 mg Documented By: Admin: 04/18/24 09:01 Dose: 1,250 mg Documented By: MARLON Losartan Potassium (Losartan Potassium 50 Mg Tab) 100 mg PO QAM [facility] Stop: 05/18/24 08:59 Last Admin: 04/19/24 08:06 Dose: 100 mg Documented By: Admin: 04/18/24 09:02 Dose: 100 mg Documented By: MARLON Meclizine HCl (Meclizine Hcl 25 Mg Tab) 25 mg PO TID [facility] Stop: 05/18/24 13:59 Last Admin: 04/19/24 13:54 Dose: 25 mg Documented By: Admin: 04/19/24 08:06 Dose: 25 mg Documented By: Admin: 04/18/24 20:12 Dose: 25 mg Documented By: Admin: 04/18/24 13:36 Dose: 25 mg Documented By: MARLON Multivitamins (Multivitamin Tab) 1 tab PO DAILY [facility] Stop: 05/18/24 08:59 Last Admin: 04/19/24 08:06 Dose: 1 tab Documented By: Admin: 04/18/24 09:01 Dose: 1 tab Documented By: MARLON Discontinued Medications Gadobutrol (Gadobutrol 65ml Vial) 7.7 ml IV ONCE ONE Stop: 04/18/24 10:51 Last Admin: 04/18/24 10:50 Dose: 7.7 ml Documented By: REGGIE Hydralazine HCl (Hydralazine Hcl 20 Mg/Ml Vial) 5 mg IV NOW ONE Stop: 04/17/24 22:37 Last Admin: 04/17/24 22:41 Dose: 5 mg Documented By: RAMON Sodium Chloride (Nss) 500 mls @ 999 mls/hr IV .Q31M ONE Stop: 04/17/24 21:21 Last Infusion: 04/17/24 21:36 Dose: Infused Documented By: Admin: 04/17/24 21:04 Dose: 999 mls/hr Documented By: VENUS Acetaminophen (Ofirmev) 1,000 mg in 100 mls @ 400 mls/hr IV NOW STA Stop: 04/17/24 23:25 Last Infusion: 04/18/24 00:12 Dose: Infused Documented By: Admin: 04/17/24 23:14 Dose: 400 mls/hr Documented By: RAMON Sodium Chloride (Nss) 1,000 mls @ 80 mls/hr IV .[id number] LALITO Stop: 04/18/24 13:22 Last Infusion: 04/18/24 13:41 Dose: Infused Documented By: Admin: 04/18/24 01:13 Dose: 80 mls/hr Documented By: KAISER Levetiracetam 500 mg/ Sodium (Chloride) 105 mls @ 420 mls/hr IV Q12H LALITO Stop: 05/18/24 08:59 Last Infusion: 04/18/24 09:30 Dose: Infused Documented By: Admin: 04/18/24 09:03 Dose: 420 mls/hr Documented By: MARLON Ioversol (Optiray 320 125ml) 119 ml IV ONCE ONE Stop: 04/17/24 21:07 Last Admin: 04/17/24 21:06 Dose: 119 ml Documented By: EVGENY Levetiracetam (Levetiracetam 500 Mg/5 Ml Vial) 1,000 mg IV NOW STA Stop: 08/10/24 22:25 Last Admin: 04/17/24 22:32 Dose: 1,000 mg Documented By: VENUS Meclizine HCl (Meclizine Hcl 25 Mg Tab) 25 mg PO NOW STA Stop: 04/18/24 01:30 Last Admin: 04/18/24 01:58 Dose: 25 mg Documented By: KAISER Meclizine HCl (Meclizine 12.5 Mg Tab) 12.5 mg PO TID PRN PRN Reason: Dizziness or Vertigo Stop: 05/18/24 04:13 Last Admin: 04/18/24 09:01 Dose: 12.5 mg Documented By: MARLON Oxycodone HCl (Oxycodone Hcl Ir 5 Mg Tab (Immediate Release)) 5 mg PO NOW STA Stop: 04/18/24 01:28 Last Admin: 04/18/24 01:58 Dose: 5 mg Documented By: KAISER Description This is a 21 electrode EEG with a single channel dedicated to limited EKG. The electrodes were placed in accordance with the International 10-20 system. REPORT: At the onset of the EEG, the patient is awake. The background activity consists of 10-11 Hz, persistent, posteriorly dominant. Anteriorly, it consists of a mixture of low voltage indeterminate activity and 15-25Hz, persistent, low amplitude, symmetric and rhythmic activity. Stepwise intermittent photic stimulation (1-23 Hz) does not induce any abnormalities. Drowsiness is characterized by low amplitude mixed frequency activity, roving eye movements, and decreased eye blinking and muscle artifact. Interpretation IMPRESSION: This is a normal awake and drowsy routine EEG. There is no evidence of focal slowing or epileptiform activity.
[2024-04-19] MEDS: GABAPENTIN 100 MG CAP PO SCH (17:00)
[2024-04-19] MEDS: METOCLOPRAMIDE HCL 5 MG TABLET PO SCH (17:00)
[2024-04-19] MEDS: PANTOprazole 40 MG TAB PO SCH (19:52)
[2024-04-19] MEDS: TAMSULOSIN HCL 0.4 MG CAP PO SCH (19:53)
--- NOTE | 2024-04-20 09:21 | Cardiology Progress Note ---
Date of Service April 20, 2024 Assessment & Plan (1) Hypertension: (2) Bradycardia: (3) Headache: (4) Vertebral artery occlusion: (5) Prediabetes: Plan Plan: -HR continues to trend on the low side -BP well controlled -unclear at this point if this is a neurological event or cardiac issue -no significant bradycardia on recent outpatient Zio monitor -would stop Toprol -EEG and Neurology consults pending -chronic vertebral occlusions noted on CT scan, MRI also completed today with report pending -continue to monitor on telemetry -hopefully HR will improve off BB 04/19/2024: -Review of telemetry demonstrates ongoing bradycardia lowest rate 51bpm. No evidence of sinus pause, no high grade heart block. -Toprol xl remains on hold -EEG today. -Brain MRI suggest 1. Small acute infarct, measuring 4 mm, within the right lateral aspect of the medulla. No additional acute infarcts. No hemorrhage or mass effect. -Will continue to monitor telemetry for any signs of profound bradycardia or high grade heart block. -At this time, no plans to pursue PPM at this time. 04/20/2024: -Patient continues to improve from a cardiac perspective. No events on telemetry and heart rates are mid 50's to 60's at rest. No evidence of tachy arrhythmias; however, did discuss importance of monitoring for this given his prior history and concerns for the potential for a tachy-xochitl syndrome at some point. -Will continue to hold Toprol xl at this time. If elevated heart rates would become an issue, discussed with spouse we may consider restarting a very low dose of Beta hanh at that time. -BP elevated this morning. currently on Losartan 100mg Daily. Primary team has added Amlodipine 5mg Daily which patient has shown a positive response to. Current BP 147/64. -Patient is ok for discharge from a cardiac perspective to [facility] for rehabilitation. -Recommend cardiology follow up within 4-6 weeks. (Typically sees Dr. Santiago) Case has been discussed with Dr. Cobb. Further recommendations regarding plan of care as per his assessment. I spent a total of 30 minutes on the date of service in preparation, delivery, documentation of the care provided to the patient excluding any time spent in the performance of separately billed services. LORI Ricks [facility] Admission and Anticipated Discharge Date Admission Date: April 17, 2024 Supervising Physician Co-Signing Physician Notes Patient was seen and personally examined. Assessment and plan as per advanced provider above. Care and management discussed and personally endorsed Heart rates continue to prove off of beta-hanh therapy Will not restart at this time blood pressures proving with adjustment in medical therapy No acute change in neurologic concern No current indications for pacemaker though may ultimately arise in the future if tachyarrhythmias occur Subjective 04/20/2024: Patient seen and examined in follow up today. Feeling well, offers no complaints. is currently at bedside as well as case management. Plan is for patient to be discharged to [facility] this afternoon for rehabilitation Labs, vitals, diagnostics, telemetry and documentation reviewed. Telemetry reviewed showing SB/SR 50's and 60's. No events overnight. No evidence of profound bradycardia and no tachy arrhythmias. Denies any chest pain, pressure, palpitations, no shortness of breath or PND, no pre-syncope, syncope or edema. Review of Systems Review of Systems: All systems reviewed & are unremarkable except as noted in HPI & below Physical Exam Constitutional: well developed, well nourished and + ill appearing; no acute distress ENMT: Ears: + hearing impairment Neck: normal visual inspection and trachea midline Respiratory: normal respiratory effort, lungs clear to auscultation no cough Auscultation: no crackles, no rales, no rhonchi and no wheezes Cardiovascular: Rate/Rhythm: + bradycardic Heart Sounds: normal S1 and normal S2; no murmur Vessels: no JVD Extremities: no edema Skin: no rashes, warm and dry Psychiatric: Orientation: cooperative Results & Data Vital Signs (Past 12 Hours) Vital Signs Temp Pulse Resp BP Pulse Ox O2 Del Method 04/20/24 07:50 36.5 C 65 17 179/87 H 96 Room Air 04/20/24 05:17 36.7 C 67 16 164/75 H 94 Room Air 04/19/24 22:07 37.0 C 57 L 18 178/76 H 96 Room Air Laboratory Results Intake and Output 04/19/24 04/20/24 04/20/24 22:59 06:59 14:59 Intake Total 1140 / 1140 Output Total 700 / 1650 Balance 440 / -510 Intake: Oral 1140 / 1140 Output: Urine Amount (Catheter) 700 / 1300 Straight 700 / 1300 Other: # Unmeasured Voids 1 Weight 74.888 kg (1) Hypertension Hypertension type: unspecified Qualified Code(s): I10 - Essential (primary) hypertension
[2024-04-20] MEDS ORDERED: MECLIZINE HCL 25 MG TAB PO PRN (09:51)
[2024-04-20] MEDS ORDERED: diazePAM 2 MG TABLET PO PRN (09:51)
--- NOTE | 2024-04-20 09:54 | Discharge Summary ---
Discharge Summary Date of Service April 20, 2024 Principal Dx & Hospital Course #1 = Principal Diagnosis (1) Ischemic stroke: (2) Convulsive syncope: (3) Bradycardia, drug induced: (4) BPH with obstruction/lower urinary tract symptoms: (5) Vertebral artery occlusion: (6) Prediabetes: (7) Peripheral arterial disease: (8) Strabismus: (9) Hypertension: Plan Patient was admitted to the hospital after presented with acute onset of headache and a convulsion episode witnessed by his at home. He is placed on telemetry monitoring for bradycardia and underwent stroke evaluation. He was empirically loaded with Keppra for possible seizure. Cardiology and neurology consultations were requested. Patient's metoprolol was held due to the bradycardia. Patient was evaluated by cardiology. They reviewed an outpatient ZIO monitor that he had performed prior to admission. There is no indication for immediate pacemaker insertion. Recommend to continue to hold metoprolol. Echocardiogram was performed showed normal ejection fraction, no evidence of PFO. Patient was seen by neurology. Based on history and findings on MRI felt that the patient's convulsive episode most likely was not a seizure but more likely convulsive syncope. The medulla ischemic stroke most likely due to the fact that patient had poor cardiac output from his bradycardia and adequate to maintain patency of his collaterals for his vertebral artery occlusions. This is a source of the patient's ischemic stroke. Patient was continue to be monitored. As the metoprolol cleared his system his heart rate improved. Was reevaluated by cardiology. Was determined there was no indication for pacemaker insertion. Patient did wear an eye patch to help with his double vision associated with strabismus for is a effect of his stroke. He was seen by therapies. Did have some right-sided weakness that did improve through his hospitalization. Patient strabismus and double vision improved throughout his hospitalization as well. Norvasc was added to replace the metoprolol for better blood pressure control. His vertiginous symptoms were managed with meclizine and Valium. Patient also had significant hiccups as a result of his stroke. He had significant improvement with just a spoonful of peanut butter and trial of PPI, Reglan and gabapentin. Continue the gabapentin and the PPI which I think will continue to help control his hiccups. He was evaluated by therapies. They recommended rehabilitation. Case management was involved in the patient's care coordinated applications to [facility]. Patient was evaluated by [facility] and deemed appropriate. On the day of discharge his vital signs are stable. His neurological deficits were starting to improve. He deemed to be a good candidate for rehabilitation. His heart rate was significantly improved and continue to hold the metoprolol and hold all other chronotropic medications. To be discharged to [facility] for ongoing care. is at patient's bedside throughout his hospitalization and understands the plan for discharge and ongoing rehabilitation at [facility] Notes For Next Care Provider Continue rehabilitation, may need additional titration of medications for blood pressure control Avoid medications that affect heart rate Medication Changes From Visit Metoprolol discontinued Amlodipine added for blood pressure control Neurontin and PPI added for management of hiccups Valium and meclizine as needed for vertigo Admission HPI Per Admitting Provider 74-year-old male with past medical history significant for hyperlipidemia, prediabetes, hypertension, CAD status post stent, recent TIA in February presents with stroke/seizure-like symptoms. Just before 8 PM patient started developing headache at that time he was watching Olympics on the TV. He went to bed to lay down but within 5 minutes he called his again stating that he was not feeling well. checked his blood pressure it was 140/70 but his heart rates were in the 40s. Then patient became very rigid and passed out for 30 seconds and during the episode he had a stool incontinence. After the episode soon came back to usual self as per . She called EMS. Patient went to the bathroom to clean up and was somewhat wobbly while ambulating. Still has a headache and some tingliness in the right side of the face. Vision is okay. No runny nose. No sore throat. No cough. No difficulty swallowing. No fevers. No chest pains. No shortness of breath. No palpitations. No abdominal pain. Otherwise normal bowel and bladder movements. No rash. Patient was admitted in February 12/2024 with numbness and tingling right side of the face and headache. At that time CT head was okay. CTA head and neck showed high-grade stenosis of the origins of the vertebral arteries/age indeterminant occlusion of the V4 segment of right vertebral artery. MRI brain was okay. Neurology thought mostly TIA and recommended 3 weeks of aspirin and Plavix and recommended Zio patch. He followed up with neurology and was recommended to continue aspirin and Plavix indefinitely. Also followed up with cardiology and sleep study. Zio patch initial review showed some SVT. Some Mobitz type I. No obvious A- fib/flutter and awaiting cardiology to review. Past medical history. As mentioned above Past surgical history. Cardiac stent placement. Cataract surgery. Cervical laminectomy. Colonoscopy. Lumbosacral epidural. Inguinal hernia repair. Spine surgery. Social history. . No smoking. Alcohol wine with dinner. No drug use. Family history. Mother had arthritis. Father had MT age of 40 Admission Exam Per Admitting Provider See H&P Discharge Exam Constitutional: Alert, nontoxic HEENT: Mucous membranes moist., Strabismus some very mild nystagmus, improved Lungs: Clear to auscultation, decreased, no wheezes rales or rhonchi CV: S1-S2, regular Abdomen: Soft, nontender, nondistended Extremities: No significant edema Neuro: Mild right sided weakness, poor coordination extraocular motion. NIH stroke scale= 2 Psych: Cooperative, normal mood Updated Medication List Medication Instructions Recorded Confirmed Type aspirin 81 mg tablet,delayed 81 mg PO QPM 05/27/18 04/17/24 History release atorvastatin 80 mg tablet 80 mg PO QPM 05/27/18 04/17/24 History dutasteride 0.5 mg capsule 0.5 mg PO QPM 05/27/18 04/17/24 History (Avodart) metoprolol succinate 50 mg 50 mg PO QPM 05/27/18 04/17/24 History tablet,extended release 24 hr losartan 100 mg tablet 100 mg PO QAM 02/13/24 04/17/24 History sildenafil (pulm.hypertension) 20 20 - 80 mg PO DIRECTED PRN 02/13/24 04/17/24 History mg tablet Sexual Activity clopidogrel 75 mg tablet 75 mg PO QAM #20 tabs 02/14/24 04/17/24 Rx Lactobacillus acidophilus 250 10,000 mmu cells PO DAILY 04/17/24 04/17/24 History million cell capsule (Probiotic Acidophilus) acetaminophen 650 mg 650 mg PO Q8H PRN Pain 04/17/24 04/17/24 History tablet,extended release fexofenadine 180 mg tablet 180 mg PO DAILY PRN Congestion 04/17/24 04/17/24 History ibuprofen 200 mg tablet 600 mg PO Q6H PRN Pain 04/17/24 04/17/24 History multivitamin 1 tab PO DAILY 04/17/24 04/17/24 History amlodipine 5 mg tablet (Norvasc) 5 mg PO QAM 30 days #30 tabs 04/20/24 Rx diazepam 2 mg tablet 2 mg PO TID PRN Dizziness Or 04/20/24 Rx Vertigo #12 tabs gabapentin 100 mg capsule 200 mg (2 x 100 mg) PO TID 30 days 04/20/24 Rx #180 caps meclizine 25 mg tablet 25 mg PO TID PRN Dizziness Or 04/20/24 Rx Vertigo #12 tabs pantoprazole 40 mg tablet,delayed 40 mg PO DAILY 30 days #30 tabs 04/20/24 Rx release tamsulosin 0.4 mg capsule 0.4 mg PO HS 30 days #30 caps 04/20/24 Rx Hospital Stay Data Consultations 04/17/24 22:37 ED Decision to Admit Stat 04/18/24 08:00 Consult Cardiology Routine Consult Neurology Routine Diagnostic Imagining Performed Reviewed imaging, laboratory and diagnostic studies. Pertinent findings as below. MRI brain showed small acute infarct within the right lateral aspect of the medulla CTA of the head and neck showed chronically occluded vertebral arteries Echocardiogram showed normal ejection fraction 60 to 65%, No evidence of intra or atrial shunt BMP CBC stable Lyme screen negative 04/17/24 20:50 CT angio head w con Stat CT angio neck with con Stat CT head/brain wo con Stat 04/18/24 00:53 MR brain wo/w con Urgent Pending Results Patient Have Any Pending Studies at Discharge: No Discharge Instructions Given to Patient (Per Discharging Provider) Continue [facility] Total Time Total Time Spent Total Time Spent (In Minutes): 40
[2024-04-20] MEDS: amLODIPine BESYLATE 5 MG TAB PO SCH (10:26)
[2024-04-20 10:50] VITALS: BP 147/64; RESP 18; TEMP 97.9; O2SAT 97
[2024-04-20 14:00] VITALS: PULSE 84
== END 2024-04-20 15:15 | DRG 66 ==
LOC: ED 20:46 → 4W 23:59